=== PATIENT | female | born 1955 | race Caucasian/White ===

== ENCOUNTER 2016-12-02 08:49 | Outpatient (CLI) | payer MEDICARE, OTHER ==
[~2016-12-02] VITALS: Ht 152.4 cm; Wt 120.2 kg
[~2016-12-02 08:49] MED LIST: ALPR1T GT; AMIT25TA9 PO; AMLO10TA PO; ASP81TEC PO; BACL10TA PO; CEPH500C PO; CYAN10007 PO; DULO60CA6 PO; ERGO2000 PO; FOLI1TAB24 PO; GLIP10TA13 PO; LEVO75TA6 PO; METO100T5 PO; NYSTOP; PNT40TEC PO; TRAM50TA2 PO
--- OUTSIDE RECORDS SUMMARY | 2016-12-02 08:52 | XMS REPORT | Continuity of Care Document ---
Author Author [facility] Organization [facility] Address Unknown Phone Unavailable Care Team Providers Care Shell Shop Supervisor Name Role Phone Gala Bourgeois PCP [phone] Source Comments Some departments are not documenting in the electronic medical record. If you do not see the information that you expected, contact Release of Information in the Health Information Management department at [phone] for further assistance in locating additional records.[facility] Active Allergies and Adverse Reactions Allergen Noted Date Severity Reactions Comments Bactrim 07/03/2014 HIVES Morphine 07/03/2014 HIVES Percocet 07/03/2014 HIVES Sulfa (Sulfonamide 07/03/2014 HIVES Antibiotics) Current Medications Prescription Sig. Disp. Refills Start End Date Status Date pioglitazone (ACTOS) 15 Take 15 mg by mouth Active mg tablet daily. amLODIPine (NORVASC) 10 Take 10 mg by mouth Active mg tablet daily. levothyroxine (SYNTHROID) Take 75 mcg by mouth Active 75 mcg tablet daily. ALPRAZolam (XANAX) 1 mg Take 1 mg by mouth twice Active tablet daily. omeprazole DR(+) Take 20 mg by mouth Active (PRILOSEC) 20 mg capsule daily. amitriptyline (ELAVIL) 25 Take 25 mg by mouth at Active mg tablet bedtime daily. cephalexin (KEFLEX) 500 Take 500 mg by mouth Active mg capsule daily. traMADol (ULTRAM) 50 mg Take 100 mg by mouth Active tablet daily. baclofen (LIORESAL) 10 mg Take 10 mg by mouth three Active tablet times daily. metoprolol XL (TOPROL XL) Take 100 mg by mouth Active 100 mg tablet daily. Cholecalciferol (Vitamin Take 1 Cap by mouth twice Active D3) (VITAMIN D-3) 2,[address] cap D[address] (CYMBALTA) Take 60 mg by mouth Active 60 mg capsule daily. folic acid (FOLVITE) 1 mg Take 1 mg by mouth daily. Active tablet aspirin EC 81 mg tablet Take 81 mg by mouth Active daily. Cyanocobalamin (VITAMIN Take 1 Tab by mouth Active B-12) 1,000 mcg TbER daily. glipiZIDE (GLUCOTROL) 10 Take 10 mg by mouth twice Active mg tablet daily. nystatin (NYSTOP) 100,000 Apply to affected area Active unit/g topical powder four times daily. CALCITRIOL PO Take 0.25 mcg by mouth Active daily. Active Problems Problem Noted Date Morbid obesity (HCC) 07/15/2014 Social History Tobacco Use Types Packs/Day Years Used Date Never Smoker Last Filed Vital Signs Vital Sign Reading Time Taken Blood Pressure 145/62 07/03/2014 1:13 PM CDT Pulse 65 07/03/2014 1:13 PM CDT Temperature 36.2 C (97.2 F) 07/03/2014 1:13 PM CDT Respiratory Rate 14 07/03/2014 1:13 PM CDT Height 1.575 m (5' 2") 07/03/2014 1:13 PM CDT Weight 128.096 kg (282 lb 6.4 07/03/2014 1:13 PM CDT oz) Body Mass Index 51.64 07/03/2014 1:13 PM CDT Oxygen Saturation - - Plan of Care Health Maintenance Due Date Last Done Comments Physical (Comprehensive) 1960 Exam Pertussis Vaccine 1964 Tetanus Vaccine 1970 Cervical Cancer Screening 1974 Breast Cancer Screening 1993 Colorectal Cancer 2003 Screening Shingles Vaccine 2013 Influenza Vaccine 06/30/2016 Results from Last 3 Months Not on file
[2016-12-02] MEDS ORDERED: LIDOCAINE 1% INJ 20 ML (XYLOCAINE) VIAL ONE (09:05)
[2016-12-02] MEDS ORDERED: BUPIVACAINE 0.5% 30 ML (SENSORCAINE) VIAL ONE (09:05)
[2016-12-02] MEDS ORDERED: TRIAMCINOLONE ACET (KENALOG-40) 40 MG/ML 1 ML VIAL ONE (09:05)
[2016-12-02 09:17] VITALS: BP 150/76
[2016-12-02 10:00] VITALS: BP 165/71
--- NOTE | 2016-12-02 12:08 | Pain Medicine-Procedure ---
Procedure Pre-Op/Post-Op Diagnosis Diagnosis: spondylosis without myelopathy, lumbar Indications for Operation Low back pain Attending Surgeon Rich Procedure Date of Service: Dec 02, 2016 PROCEDURE: Bilateral lumbar medial branch block at L3,L4, L5 and sacral ala under fluoroscopic guidance. PROCEDURE DETAILS: After obtaining an informed consent from the patient, the patient's chart was reviewed. The patient was brought to the procedure room and placed in a prone position. The back was prepped with antiseptic solution, and under fluoroscopic guidance the sacral ala was identified bilaterally. 0.5 cc of 1% Lidocaine to anesthetize the skin. Two 22 gauge 3.5 inch spinal needles were inserted under fluoroscopic guidance until it got in touch with the bone at the sacral ala bilaterally. Then under right oblique fluoroscopy, the junction of the superior articular process and transverse process on the right at L3, L4, and L5 was identified. 0.5 cc of 1% Lidocaine was used to anesthetize the skin. A 22 gauge 3.5 inch spinal needle was inserted through the skin under fluoroscopic guidance until it came in touch with the bone at the junction between the superior articular process and transverse process at each level. The exact steps were repeated for the left side. After needle aspiration,80 mg of kenalog total was injected in equal alliquots followed by 0.5 cc of 0.5% bupivacaine at each. The patient tolerated the procedure well. The needles were flushed and removed, and a Band-Aide was applied. Complications None KEYANA MULLER MD Dec 02, 2016 12:08 pm
== END 2016-12-02 10:05 | disposition home or self-care (01) ==
LOC: CARD 08:49
PROVIDERS: ATTEND Pain Medicine Pain Medicine
DX: M47.816 Spondylosis without myelopathy or radiculopathy, lumbar region (principal); M53.3 Sacrococcygeal disorders, not elsewhere classified; Z79.899 Other long term (current) drug therapy
CPT/HCPCS: 64493; 64494; 64495; 82962

== ENCOUNTER 2016-12-30 12:56 | Outpatient (CLI) | payer MEDICARE, OTHER ==
[~2016-12-30] VITALS: Ht 157.5 cm; Wt 117.9 kg
--- OUTSIDE RECORDS SUMMARY | 2016-12-30 12:59 | XMS REPORT | Continuity of Care Document ---
Author Author [facility] Organization [facility] Address Unknown Phone Unavailable Care Team Providers Care Supervisory Training Specialist Name Role Phone Gala Bourgeois PCP [phone] Source Comments Some departments are not documenting in the electronic medical record. If you do not see the information that you expected, contact Release of Information in the Health Information Management department at [phone] for further assistance in locating additional records.[facility] Active Allergies and Adverse Reactions Allergen Noted [...]
[2016-12-30] MEDS ORDERED: LIDOCAINE 1% INJ 20 ML (XYLOCAINE) VIAL ONE (13:05)
[2016-12-30] MEDS ORDERED: BUPIVACAINE 0.25% 30 ML (SENSORCAINE) VIAL ONE (13:05)
[2016-12-30] MEDS ORDERED: TRIAMCINOLONE ACET (KENALOG-40) 40 MG/ML 1 ML VIAL ONE (13:05)
[2016-12-30 13:15] VITALS: BP 204/86
[2016-12-30 13:55] VITALS: BP 214/83
--- NOTE | 2016-12-30 15:00 | Pain Medicine-Procedure ---
Procedure Pre-Op/Post-Op Diagnosis Diagnosis: sacrococcygeal disorder Indications for Operation hip pain Attending Surgeon Rich Procedure Date of Service: Dec 30, 2016 Procedure: Flouroscopic guided left sacroiliac joint injection PROCEDURE IN DETAIL: After obtaining informed consent from the patient, the patient's chart was reviewed. The patient was then brought to the procedure room and placed in the prone position. A time out was performed. The back was prepped with antiseptic solution and under fluoroscopic guidance the patient's sacroiliac joint on the left side was identified. Left sacroiliac joint was identified with fluoroscopic guidance and 2 mL's of 1% lidocaine was used to anesthestize the skin and then one 22-gauge 3.5 inch spinal needle was inserted and advance under flouroscopic guidance until it was in the posterior inferior 1 /3 of the SI joint on the left side. After negative aspiration, needle was injected with 80 mg of Kenalog along with 2 mL's of 0.25% marcaine. Needle was then flushed with 1% lidocaine and then removed. Band-Aids were applied to all the sites and the patient tolerated the procedure well and was taken to the recovery area in stable condition. Complications none KEYANA MULLER MD Dec 30, 2016 3:00 pm
== END 2016-12-30 13:57 | disposition home or self-care (01) ==
LOC: CARD 12:56
PROVIDERS: ATTEND Pain Medicine Pain Medicine
DX: M53.3 Sacrococcygeal disorders, not elsewhere classified (principal); M47.816 Spondylosis without myelopathy or radiculopathy, lumbar region; Z79.899 Other long term (current) drug therapy
CPT/HCPCS: 27096; 82962

== ENCOUNTER 2017-01-13 08:11 | Outpatient (CLI) | payer MEDICARE, OTHER ==
[~2017-01-13] VITALS: Ht 157.5 cm; Wt 117.9 kg
--- OUTSIDE RECORDS SUMMARY | 2017-01-13 08:14 | XMS REPORT | Continuity of Care Document ---
Author Author [facility] Organization [facility] Address Unknown Phone Unavailable Care Team Providers Care Staff Midwife/Apprenticeship Director Name Role Phone Gala Bourgeois PCP [phone] Source Comments Some departments are not documenting in the electronic medical record. If you do not see the information that you expected, contact Release of Information in the Health Information Management department at [phone] for further assistance in locating additional records.[facility] Active Allergies and Adverse Reactions Allergen [...]
[2017-01-13] MEDS ORDERED: BUPIVACAINE 0.5% 30 ML (SENSORCAINE) VIAL ONE (08:15)
[2017-01-13] MEDS ORDERED: TRIAMCINOLONE ACET (KENALOG-40) 40 MG/ML 1 ML VIAL ONE (08:15)
[2017-01-13] MEDS ORDERED: LIDOCAINE 1% INJ 20 ML (XYLOCAINE) VIAL ONE (08:16)
[2017-01-13 08:28] VITALS: BP 120/57
[2017-01-13 09:13] VITALS: BP 135/63
--- NOTE | 2017-01-13 11:56 | Pain Medicine-Procedure ---
Procedure Pre-Op/Post-Op Diagnosis Diagnosis: spondylosis without myelopathy, lumbar Indications for Operation Low back pain Attending Surgeon Rich Procedure Date of Service: Jan 13, 2017 PROCEDURE: Bilateral lumbar medial branch block at L3,L4, L5 and sacral ala under fluoroscopic guidance. PROCEDURE DETAILS: After obtaining an informed consent from the patient, the patient's chart was reviewed. The patient was brought to the procedure room and placed in a prone position. The back was prepped with antiseptic solution, and under fluoroscopic guidance the sacral ala was identified bilaterally. 0.5 cc of 1% Lidocaine to anesthetize the skin. Two 22 gauge 3.5 inch spinal needles were inserted under fluoroscopic guidance until it got in touch with the bone at the sacral ala bilaterally. Then under right oblique fluoroscopy, the junction of the superior articular process and transverse process on the right at L3, L4, and L5 was identified. 0.5 cc of 1% Lidocaine was used to anesthetize the skin. A 22 gauge 3.5 inch spinal needle was inserted through the skin under fluoroscopic guidance until it came in touch with the bone at the junction between the superior articular process and transverse process at each level. The exact steps were repeated for the left side. After needle aspiration,80 mg of kenalog total was injected in equal alliquots followed by 0.5 cc of 0.5% bupivacaine at each. The patient tolerated the procedure well. The needles were flushed and removed, and a Band-Aide was applied. Complications None KEYANA MULLER MD Jan 13, 2017 11:56 am
== END 2017-01-13 09:14 | disposition home or self-care (01) ==
LOC: CARD 08:11
PROVIDERS: ATTEND Pain Medicine Pain Medicine
DX: M47.816 Spondylosis without myelopathy or radiculopathy, lumbar region (principal); M53.3 Sacrococcygeal disorders, not elsewhere classified; Z79.899 Other long term (current) drug therapy
CPT/HCPCS: 64493; 64494; 64495; 82962

== ENCOUNTER 2017-06-09 14:33 | Emergency (ER) | payer MEDICARE, OTHER ==
[~2017-06-09] VITALS: Ht 157.5 cm; Wt 104.3 kg
--- OUTSIDE RECORDS SUMMARY | 2017-06-09 14:41 | XMS REPORT | Clinical Summary ---
Author Author [facility] Organization [facility] Address Unknown Phone Unavailable Care Team Providers Care Gas Engine Repairer Name Role Phone PCP Unavailable Source Comments Some departments are not documenting in the electronic medical record. If you do not see the information that you expected, contact Release of Information in the Health Information Management department at [phone] for further assistance in locating additional records.[facility] Allergies Active Allergy Reactions Severity Noted Date Comments Sulfamethoxazole-Trimetho HIVES 07/03/2014 prim Morphine HIVES 07/03/2014 Oxycodone-Acetaminophen HIVES 07/03/2014 Sulfa (Sulfonamide HIVES 07/03/2014 Antibiotics) Current Medications Prescription Sig. Disp. Refills [...] Types Packs/Day Years Used Date Never Smoker Sex Assigned at Date Recorded Not on file Last Filed Vital Signs Vital Sign Reading Time Taken Blood Pressure 145/62 07/03/2014 1:13 PM CDT Pulse 65 07/03/2014 1:13 PM CDT Temperature 36.2 C (97.2 F) 07/03/2014 1:13 PM CDT Respiratory Rate 14 07/03/2014 1:13 PM CDT Oxygen Saturation - - Inhaled Oxygen - - Concentration Weight 128.1 kg (282 lb 6.4 oz) 07/03/2014 1:13 PM CDT Height 157.5 cm (5' 2") 07/03/2014 1:13 PM CDT Body Mass Index 51.65 07/03/2014 1:13 PM CDT Plan of Treatment Health Maintenance Due Date Last Done Comments HEPATITIS C SCREENING 1955 PHYSICAL (COMPREHENSIVE) 1960 EXAM PERTUSSIS VACCINE 1964 TETANUS VACCINE 1970 CERVICAL CANCER SCREENING 1983 BREAST CANCER SCREENING 1993 COLORECTAL CANCER 2003 SCREENING SHINGLES VACCINE 2013 INFLUENZA VACCINE 06/30/2017 Results Not on filefrom Last 3 Months
[2017-06-09] MEDS ORDERED: D5 NS 1000 ML IV SOLUTION 1,000 ML IV ONE (15:04)
[2017-06-09 15:12] LABS: BASOPHILS % (AUTO) 0 % (0-10); EOSINOPHILS # (AUTO) 0.2 10^3/uL (0.0-0.3); EOSINOPHILS % (AUTO) 2 % (0-10); LYMPHOCYTES # (AUTO) 1.4 X 10^3 (1.0-4.0); LYMPHOCYTES % (AUTO) 17 % (12-44); MEAN CORPUSCULAR HEMOGLOBIN 26 PG (25-34); MEAN CORPUSCULAR HGB CONC 30 G/DL (32-36); MEAN CORPUSCULAR VOLUME 86 FL (80-99); MEAN PLATELET VOLUME 11.6 FL (7.4-10.4); MONOCYTES # (AUTO) 0.4 X 10^3 (0.0-1.0); MONOCYTES % (AUTO) 6 % (0-12); NEUTROPHILS # (AUTO) 5.9 X 10^3 (1.8-7.8); NEUTROPHILS % (AUTO) 75 % (42-75); PLATELET COUNT 217 10^3/uL (130-400); RED BLOOD COUNT 4.08 10^6/uL (4.35-5.85); RED CELL DISTRIBUTION WIDTH 13.8 % (10.0-14.5); WHITE BLOOD COUNT 7.9 10^3/uL (4.3-11.0)
[2017-06-09 15:13] LABS: BILIRUBIN,URINE NEGATIVE (NEGATIVE); KETONES,URINE NEGATIVE (NEGATIVE); LEUKOCYTE ESTERASE ,URINE NEGATIVE (NEGATIVE); NITRITE,URINE NEGATIVE (NEGATIVE); PH,URINE 6 (5-9); PROTEIN,URINE NEGATIVE (NEGATIVE); UROBILINOGEN,URINE NORMAL (NORMAL)
[2017-06-09 15:25] LABS: ALBUMIN 2.2 GM/DL (3.2-4.5); BILIRUBIN,TOTAL 0.6 MG/DL (0.1-1.0); CALCIUM 8.2 MG/DL (8.5-10.1); CREATININE SERUM 1.38 MG/DL (0.60-1.30); MAGNESIUM 1.3 MG/DL (1.8-2.4); POTASSIUM 3.1 MMOL/L (3.6-5.0); TOTAL PROTEIN 5.4 GM/DL (6.4-8.2)
--- NOTE | 2017-06-09 15:35 | ED General ---
General Chief Complaint: Glucose Problems Stated Complaint: WEAKNESS/SHAKEY Nursing Triage Note: PT REPORTS SHE HAS BEEN HAVING "EPISODES" WHERE SHE FEELS WEAK AND SHAKY. TODAY SHE STATES SHE FELT THIS WAY, SO SHE DRANK A DR PEPPER AND THEN CHECKED HER BLOOD SUGAR, WHICH WAS 44. Nursing Sepsis Screen: No Definite Risk History of Present Illness Time Seen by Provider: 15:00 Initial Comments Patient presents for feeling weak and shaky, she states her Accu-Chek was 44 home. She reports since August 2016 she has lost 50 pounds, she has not doing anything to change her weight. She reports having these "spells" where she becomes dizzy and shaky, it is usually related to a low blood sugar. She has seen her geothermal plant manager and geographic analyst to have not changed her medications related to the weight loss based on her labs. She reports no appetite and night sweats. She does have previous history of open cholecystectomy and laparotomy with stapling of her stomach, and reversal the stapling. Timing/Duration: Intermittent Modifying Factors: improves with Rest, improves with Other (eating) Associated Systoms: No Chest Pain, No Cough, No Diaphoresis, No Fever/Chills, Loss of Appetite (reports food smells good that she has to make herself eat 2-3 by), Malaise, No Nausea/Vomiting, No Seizure, No Syncope, Weakness Allergies and Home Medications Allergies Coded Allergies: Oxycodone (Unverified Allergy, Unknown, 04/30/14) Sulfa (Sulfonamide Antibiotics) (Unverified Allergy, Unknown, 04/30/14) acetaminophen (Unverified Allergy, Unknown, 04/30/14) codeine (Unverified Allergy, Unknown, 04/30/14) sulfamethoxazole (Unverified Allergy, Unknown, 04/30/14) trimethoprim (Unverified Allergy, Unknown, 04/30/14) Home Medications Alprazolam 1 Mg Tab, 1 MG GT BID, (Reported) Amitriptyline Hcl 25 Mg Tab, 25 MG PO HS, (Reported) Amlodipine Besylate 10 Mg Tablet, 10 MG PO HS, (Reported) Aspirin 81 Mg Tabec, 81 MG PO DAILY, (Reported) Baclofen 10 Mg Tablet, 1 EACH PO TID, (Reported) Cephalexin Monohydrate 500 Mg Capsule, 1 EACH PO DAILY, (Reported) Cyanocobalamin 1,000 Mcg Tablet.sa, 1,000 MCG PO DAILY, (Reported) Duloxetine Hcl 60 Mg Capsule.dr, 1 CAP PO DAILY, (Reported) Ergocalciferol (Vitamin D2) 2,000 Unit Tablet, 2,000 UNIT PO BID, (Reported) Folic Acid 1 Mg Tablet, 1 MG PO DAILY, (Reported) Glipizide 10 Mg Tablet, 1 EACH PO BID, (Reported) Levothyroxine Sodium 75 Mcg Tablet, 75 MCG PO DAILY, (Reported) Metoprolol Succinate 100 Mg Tab.sr.24h, 1 EACH PO DAILY, (Reported) Pantoprazole Sodium 40 Mg Tablet.dr, 1 TAB PO DAILY for 90 Days Prescribed by: KIMBER FELIPE on 05/07/14 1011 Tramadol Hcl 50 Mg Tablet, 50 MG PO DAILY, (Reported) [Nystop Topical ] , 100 UNITS TID PRN for YEAST, (Reported) Constitutional: no symptoms reported, see HPI Gastrointestinal: see HPI, loss of appetite All Other Systems Reviewed Negative Unless Noted: Yes Past Wfzaezi-Joxezc-Bgtffi Hx Patient Social History Alcohol Use: Denies Use Recreational Drug Use: No Smoking Status: Never a Smoker 2nd Hand Smoke Exposure: No Recent Foreign Travel: No Contact w/Someone Who Travel: No Recent Infectious Disease Expo: No Immunizations Up To Date Date of Pneumonia Vaccine: Oct 12, 2010 Date of Influenza Vaccine: Aug 07, 2013 Surgeries HX Surgeries: Yes Surgeries: Abdominal, Appendectomy, Gallbladder Respiratory Hx Respiratory Disorders: No Cardiovascular Hx Cardiac Disorders: No Cardiac Disorders: Hypertension Neurological Hx Neurological Disorders: No Gastrointestinal Hx Gastrointestinal Disorders: No Musculoskeletal Hx Musculoskeletal Disorders: Yes (ARTHRITIS; IN BONES; KNEES; JOINTS) Endocrine Hx Endocrine Disorders: No Endocrine Disorders: Diabetes, Non-Insulin dep Reviewed Nursing Assessment Reviewed/Agree w Nursing PMH: Yes Physical Exam Vital Signs Vital Sign - Last 12Hours 06/09/17 15:08 Temp 98.1 Pulse 60 Resp 20 B/P (MAP) 185/79 Pulse Ox 97 O2 Delivery Room Air Capillary Refill : Less Than 3 Seconds General Appearance: No Apparent Distress, WD/WN HEENT: TMs Normal, Normal ENT Inspection, Pharynx Normal Neck: Full Range of Motion, Normal Inspection, Non Tender, Supple Respiratory: Chest Non Tender, Lungs Clear, Normal Breath Sounds Cardiovascular: Regular Rate, Rhythm, No Edema, No Murmur Gastrointestinal: Normal Bowel Sounds, Non Tender, Distended, Mass (epigastric) , Other (well-healed midline and upper right quadrant incisions, with chronic fibrosis and thickening of the skin) Neurologic/Psychiatric: Oriented x3, No Motor/Sensory Deficits, Normal Mood/ Affect Lymphatic: No Adenopathy Progress/Results/Core Measures Results/Orders Lab Results Laboratory Tests Test 06/09/17 14:54 06/09/17 15:00 06/09/17 15:54 Range/Units Glucometer 44 *L 82 70-110 MG/DL White Blood Count 7.9 4.3-11.0 10^3/uL Red Blood Count 4.08 L 4.35-5.85 10^6/uL Hemoglobin 10.6 L 11.5-16.0 G/DL Hematocrit 35 35-52 % Mean Corpuscular Volume 86 80-99 FL Mean Corpuscular Hemoglobin 26 25-34 PG Mean Corpuscular Hemoglobin Concent 30 L 32-36 G/DL Red Cell Distribution Width 13.8 10.0-14.5 % Platelet Count 217 130-400 10^3/uL Mean Platelet Volume 11.6 H 7.4-10.4 FL Neutrophils (%) (Auto) 75 42-75 % Lymphocytes (%) (Auto) 17 12-44 % Monocytes (%) (Auto) 6 0-12 % Eosinophils (%) (Auto) 2 0-10 % Basophils (%) (Auto) 0 0-10 % Neutrophils # (Auto) 5.9 1.8-7.8 X 10^3 Lymphocytes # (Auto) 1.4 1.0-4.0 X 10^3 Monocytes # (Auto) 0.4 0.0-1.0 X 10^3 Eosinophils # (Auto) 0.2 0.0-0.3 10^3/uL Basophils # (Auto) 0.0 0.0-0.1 10^3/uL Urine Color YELLOW Urine Clarity CLEAR Urine pH 6 5-9 Urine Specific [place] 1.010 L 1.016-1.022 Urine Protein NEGATIVE NEGATIVE Urine Glucose (UA) NEGATIVE NEGATIVE Urine Ketones NEGATIVE NEGATIVE Urine Nitrite NEGATIVE NEGATIVE Urine Bilirubin NEGATIVE NEGATIVE Urine Urobilinogen NORMAL NORMAL MG/DL Urine Leukocyte Esterase NEGATIVE NEGATIVE Urine RBC (Auto) NEGATIVE NEGATIVE Urine RBC NONE /HPF Urine WBC 0-2 /HPF Urine Squamous Epithelial Cells 0-2 /HPF Urine Crystals NONE /LPF Urine Bacteria TRACE /HPF Urine Casts NONE /LPF Urine Mucus NEGATIVE /LPF Urine Culture Indicated NO Sodium Level 142 135-145 MMOL/L Potassium Level 3.1 L 3.6-5.0 MMOL/L Chloride Level 105 98-107 MMOL/L Carbon Dioxide Level 28 21-32 MMOL/L Anion Gap 9 5-14 MMOL/L Blood Urea Nitrogen 23 H 7-18 MG/DL Creatinine 1.38 H 0.60-1.30 MG/DL Estimat Glomerular Filtration Rate 39 BUN/Creatinine Ratio 17 Glucose Level 37 *L 70-105 MG/DL Calcium Level 8.2 L 8.5-10.1 MG/DL Magnesium Level 1.3 L 1.8-2.4 MG/DL Total Bilirubin 0.6 0.1-1.0 MG/DL Aspartate Amino Transf (AST/SGOT) 178 H 5-34 U/L Alanine Aminotransferase (ALT/SGPT) 123 H 0-55 U/L Alkaline Phosphatase 1084 H 40-136 U/L Total Protein 5.4 L 6.4-8.2 GM/DL Albumin 2.2 L 3.2-4.5 GM/DL Amylase Level 19 L 25-125 U/L Lipase 23 8-78 U/L TSH [place] Testing 1.04 0.35-4.94 UIU/ML My Orders Orders - FAISAL GALLO General/Regular (06/09/17 Lunch) Saline Lock/Iv-Start (06/09/17 15:04) D5 Ns 1000 Ml Iv Solution (Dextrose 5%/0 (06/09/17 15:04) Amylase (06/09/17 15:04) Cbc With Automated Diff (06/09/17 15:04) Comprehensive Metabolic Panel (06/09/17 15:04) Lipase (06/09/17 15:04) Magnesium (06/09/17 15:04) Thyroid Analyzer (06/09/17 15:04) Ua Culture If Indicated (06/09/17 15:04) Accucheck Stat ONCE (06/09/17 15:06) Accucheck Stat ONCE (06/09/17 15:36) Ct Abdomen/Pelvis W (06/09/17 15:38) Iohexol Injection (Omnipaque 350 Mg/Ml 1 (06/09/17 15:45) Saline Lock/Iv-Start (06/09/17 16:13) Ns Iv 500 Ml (Sodium Chloride 0.9%) (06/09/17 16:13) Potassium Chloride (Tablet) (K Dur Table (06/09/17 18:00) Medications Given in ED Current Medications Medications Dose Ordered Sig/Salty Route Start Time Stop Time Status Last Admin Dose Admin Dextrose/Sodium Chloride 1,000 ml @ 0 mls/hr Q0M ONCE IV 06/09/17 15:04 06/09/17 15:06 DC 06/09/17 15:19 0 MLS/HR Iohexol 100 ml ONCE ONCE IV 06/09/17 15:45 06/09/17 15:46 DC 06/09/17 16:26 70 ML Potassium Chloride 40 meq ONCE ONCE PO 06/09/17 18:00 06/09/17 18:01 DC 06/09/17 18:12 40 MEQ Sodium Chloride 500 ml @ 0 mls/hr Q0M ONCE IV 06/09/17 16:13 06/09/17 16:17 DC 06/09/17 17:15 0 MLS/HR Vital Signs/I&O Vital Sign - Last 12Hours 06/09/17 06/09/17 15:08 18:15 Temp 98.1 98.1 Pulse 60 62 Resp 20 16 B/P (MAP) 185/79 Pulse Ox 97 97 O2 Delivery Room Air Room Air Blood Pressure Mean: 114 Point of Care Testing Finger Stick Blood Glucose: 44 Blood Glucose Action Taken: NOTIFIED Progress Note : Time: 14:50 Progress Note Initial evaluation completed, Accu-Chek 44, the patient given gregory crackers and peanut butter. IV established and D5 normal saline 1 L to infuse. Will obtain CBC, UA, CMP, amylase lipase and TSH. Initial assessment completed with Dr. Briceno, reviewed plan of care and he concurred. 1515 UA and CBC essentially normal, glucose 37, potassium 3.1, BUNs 23, creatinine 1.38, calcium 8.2, magnesium 1.3, AST 178, a LT 123, alkaline phosphatase 1084, total protein 5.4, albumin 2.2, amylase 19. Based on these labs will do a CT abdomen and pelvis with contrast. Potassium 40 mEq by mouth. [address] normal saline 500 ML's IV. 1630 IV fluids continuing to infuse, discussed results of CT and labs with patient. Patient education regarding proper foods to eat when having an hypoglycemic event. She will follow up with Dr. Bourgeois, Diagnostic Imaging Diagonstic Imaging: CT Plain Films/CT/US/NM/MRI: abdomen, pelvis Comments NAME: JOCELINE MCKEON [facility] REC#: [id number] PT STATUS: REG ER : 1955 PHYSICIAN: FAISAL GALLO FIELD PROFESSIONAL ADMIT DATE: 06/09/17/ER Draft Date of Exam:06/09/17 CT ABDOMEN/PELVIS W PROCEDURE: CT abdomen and pelvis with contrast. TECHNIQUE: Multiple contiguous axial images were obtained through the abdomen and pelvis after administration of intravenous contrast. INDICATION: Unexplained 50-pound weight loss with firm palpable fullness to the midline abdomen on physical exam. FINDINGS: There are apparent vertical postsurgical changes and incision to the anterior abdominal wall. At its superior margin periumbilical is thickening and hyperdensity of the superficial margin of the rectus sheath bilaterally and soft tissue nodularity and thickening along the umbilicus stalk. This is presumed to reflect the palpable abnormality. This could reflect a keloid and scar formation on a postoperative basis however this would be a chronic finding. If this reflects a change in physical exam or if its chronic stability cannot be confirmed, I would recommend tissue sampling. If image guidance is desired, this could be performed with CT. Process measures an AP thickness of maximal 2.7 cm with transverse dimension of about 6.6 cm. Remaining anterior abdominal wall is unremarkable aside from some chronic muscle atrophy and fatty replacement. The lung bases were clear. The liver suggests mild hepatic steatosis. The gallbladder is surgically absent. There is mild post cholecystectomy ectasia of the biliary ducts. No pathological ductal distention. Spleen is negative. There is no adrenal mass. Extensive postsurgical changes to the upper abdomen. Pancreas appeared unremarkable. There is ingested material within the residual gastric lumen. No findings of small or large bowel obstruction, however. The unprepped colon did not contain an abnormal fecal load and showed no acute or focal abnormality at this exam. There is no abdominopelvic mesenteric or retroperitoneal adenopathy. The uterus is absent. There is no adnexal lesion. The urinary bladder is unremarkable. Kidneys are unremarkable. There is no urinary tract obstruction. There is no adrenal mass. The osseous structures of the abdomen and pelvis are unremarkable with degenerative changes and postoperative spinal fusion and decompression noted. IMPRESSION: 1. Abdominal wall and cutaneous thickening, predominantly periumbilical, may reflect scarring and keloid formation. Neoplastic infiltration cannot be excluded. If this cannot be confirmed as a chronic finding, tissue sampling recommended and if image guidance is desired, this could be performed with CT localization. 2. No intraperitoneal or retroperitoneal mass. No bowel, biliary, or urinary tract obstruction. Extensive postoperative changes noted. No fluid collection, ascites, or inflammatory process. No adenopathy. Dictated on workstation # [id number] Dict: 06/09/17 1638 Trans: 06/09/17 1651 [id number] Interpreted by: NAHUN BRUNNER Electronically signed by Reviewed: Reviewed by Me Departure Impression Impression: Primary Impression: Hypoglycemia associated with diabetes Disposition: 01 HOME, SELF-CARE Condition: Improved Departure-Patient Inst. Decision time for Depature: 16:45 Referrals: SANTINO BOURGEOIS MD (PCP/Family) Primary Care Physician Patient Instructions: Low Blood Sugar, Adult (DC) Add. Discharge Instructions: Continue to increase daily water intake. Follow-up with Dr. Watson if continued below glucose levels. Return to emergency department for weakness, hypoglycemia, or new problems. Avoid using soda pop for low blood sugar, small glass of orange juice and peanut butter/crackers would be more appropriate. All discharge instructions reviewed with patient and/or family. Voiced understanding. Copy Copies To 1: SANTINO BOURGEOIS MD, AMY ARNP Jun 09, 2017 15:35
[2017-06-09 15:40] LABS: SQUAMOUS EPITHELIAL CELL,UR 0-2 /HPF; WBC,URINE 0-2 /HPF
[2017-06-09] MEDS ORDERED: IOHEXOL 350 MG/ML 100 ML (OMNIPAQUE 350) VIAL IV ONE (15:45)
[2017-06-09] MEDS ORDERED: NS IV 500 ML 500 ML IV ONE (16:13)
--- NOTE | 2017-06-09 16:52 | Diagnostic Imaging Report ---
PROCEDURE: CT abdomen and pelvis with contrast. TECHNIQUE: Multiple contiguous axial images were obtained through the abdomen and pelvis after administration of intravenous contrast. INDICATION: Unexplained 50-pound weight loss with firm palpable fullness to the midline abdomen on physical exam. FINDINGS: There are apparent vertical postsurgical changes and incision to the anterior abdominal wall. At its superior margin periumbilical is thickening and hyperdensity of the superficial margin of the rectus sheath bilaterally and soft tissue nodularity and thickening along the umbilicus stalk. This is presumed to reflect the palpable abnormality. This could reflect a keloid and scar formation on a postoperative basis however this would be a chronic finding. If this reflects a change in physical exam or if its chronic stability cannot be confirmed, I would recommend tissue sampling. If image guidance is desired, this could be performed with CT. Process measures an AP thickness of maximal 2.7 cm with transverse dimension of about 6.6 cm. Remaining anterior abdominal wall is unremarkable aside from some chronic muscle atrophy and fatty replacement. The lung bases were clear. The liver suggests mild hepatic steatosis. The gallbladder is surgically absent. There is mild post cholecystectomy ectasia of the biliary ducts. No pathological ductal distention. Spleen is negative. There is no adrenal mass. Extensive postsurgical changes to the upper abdomen. Pancreas appeared unremarkable. There is ingested material within the residual gastric lumen. No findings of small or large bowel obstruction, however. The unprepped colon did not contain an abnormal fecal load and showed no acute or focal abnormality at this exam. There is no abdominopelvic mesenteric or retroperitoneal adenopathy. The uterus is absent. There is no adnexal lesion. The urinary bladder is unremarkable. Kidneys are unremarkable. There is no urinary tract obstruction. There is no adrenal mass. The osseous structures of the abdomen and pelvis are unremarkable with degenerative changes and postoperative spinal fusion and decompression noted. IMPRESSION: 1. Abdominal wall and cutaneous thickening, predominantly periumbilical, may reflect scarring and keloid formation. Neoplastic infiltration cannot be excluded. If this cannot be confirmed as a chronic finding, tissue sampling recommended and if image guidance is desired, this could be performed with CT localization. 2. No intraperitoneal or retroperitoneal mass. No bowel, biliary, or urinary tract obstruction. Extensive postoperative changes noted. No fluid collection, ascites, or inflammatory process. No adenopathy. Dictated by: Dictated on workstation # [id number]
[2017-06-09] MEDS ORDERED: KCL 20 MEQ TAB (K-DUR) PO ONE (18:00)
[2017-06-09 18:15] VITALS: BP 168/74
== END 2017-06-09 18:15 | disposition home or self-care (01) ==
LOC: EDUNIT# 14:33 → ER 14:36
DX: E11.649 Type 2 diabetes mellitus with hypoglycemia without coma (principal); I10 Essential (primary) hypertension; M17.0 Bilateral primary osteoarthritis of knee; Z79.82 Long term (current) use of aspirin; Z79.84 Long term (current) use of oral hypoglycemic drugs; Z90.49 Acquired absence of other specified parts of digestive tract
CPT/HCPCS: 36415; 74177; 80053; 81000; 82150; 82962; 83690; 83735; 84443; 85025

== ENCOUNTER → 2017-06-12 | Outpatient (CLI) | payer MEDICARE, OTHER ==
[~2017-06-12] MED LIST changes: +ALPR1TAB7 PO; +CEPH500T PO; +CYAN100088 PO; +DOXY100T19 PO; +DULO60CA58 PO; +ERGO50006 PO; +LOVA10TA PO; +METO-395 PO; +PANT40TA2 PO; +TRAM300T17 PO; +TRAZ100T92 PO
== END ==
LOC: LABNPT 11:31
PROVIDERS: ATTEND Family Medicine
DX: R74.8 Abnormal levels of other serum enzymes (principal)
CPT/HCPCS: 82977

== ENCOUNTER → 2017-07-06 | Outpatient (CLI) | payer MEDICARE, OTHER ==
[~2017-07-06] MED LIST changes: -ALPR1TAB7 PO; -CEPH500T PO; -CYAN100088 PO; -DOXY100T19 PO; -DULO60CA58 PO; -ERGO50006 PO; -LOVA10TA PO; -METO-395 PO; -PANT40TA2 PO; -TRAM300T17 PO; -TRAZ100T92 PO
== END ==
LOC: CARD 11:50
PROVIDERS: ATTEND Internal Medicine Cardiovascular Disease
DX: J44.9 Chronic obstructive pulmonary disease, unspecified (principal); E13.9 Other specified diabetes mellitus without complications; I10 Essential (primary) hypertension; R06.02 Shortness of breath; R07.89 Other chest pain
CPT/HCPCS: 93306

== ENCOUNTER 2017-07-18 10:45 | Outpatient (CLI) | payer MEDICARE, OTHER ==
[~2017-07-18] VITALS: Ht 157.5 cm; Wt 104.3 kg
[2017-07-18] MEDS ORDERED: TRAZ100T92 PO (11:15)
[2017-07-18] MEDS ORDERED: ALPR1TAB7 PO (11:15)
[2017-07-18] MEDS ORDERED: LEVO75TA6 PO (11:15)
[2017-07-18] MEDS ORDERED: DULO60CA58 PO (11:15)
[2017-07-18] MEDS ORDERED: METO-274 PO (11:15)
[2017-07-18] MEDS ORDERED: CEPH500T PO (11:15)
[2017-07-18] MEDS ORDERED: LOVA10TA PO (11:15)
[2017-07-18] MEDS ORDERED: FOLI1TAB24 PO (11:15)
[2017-07-18] MEDS ORDERED: DOXY100T19 PO (11:15)
[2017-07-18] MEDS ORDERED: ERGO50006 PO (11:15)
[2017-07-18] MEDS ORDERED: CYAN100088 PO (11:15)
[2017-07-18] MEDS ORDERED: TRAM300T17 PO (11:15)
[2017-07-20] MEDS ORDERED: PANT40TA2 PO (10:17)
== END 2017-07-18 11:23 ==
LOC: PREOP 10:45
PROVIDERS: ATTEND Surgery
DX: Z01.818 Encounter for other preprocedural examination (principal); K21.9 Gastro-esophageal reflux disease without esophagitis; R10.84 Generalized abdominal pain; R63.4 Abnormal weight loss; Z86.010 Personal history of colon polyps

== ENCOUNTER 2017-07-20 06:47 | Day surgery (SDC) | payer MEDICARE, OTHER ==
[~2017-07-20] VITALS: Ht 157.5 cm; Wt 104.3 kg
[~2017-07-20 06:47] MED LIST changes: +ALPR1TAB7 PO; +CEPH500T PO; +CYAN100088 PO; +DOXY100T19 PO; +DULO60CA58 PO; +ERGO50006 PO; +LOVA10TA PO; +METO-395 PO; +TRAM300T17 PO; +TRAZ100T92 PO
--- OUTSIDE RECORDS SUMMARY | 2017-07-20 06:51 | XMS REPORT | Clinical Summary ---
Author Author [facility] Organization [facility] Address Unknown Phone Unavailable Care Team Providers Care Clinical Data Analyst Name Role Phone PCP Unavailable Source Comments Some departments are not documenting in the electronic medical record. If you do not see the information that you expected, contact Release of Information in the Health Information Management department at [phone] for further assistance in locating additional records.[facility] Allergies Active Allergy Reactions Severity Noted [...] 2003 SCREENING SHINGLES VACCINE 2013 INFLUENZA VACCINE 07/30/2017 Results Not on filefrom Last 3 Months
[2017-07-20] MEDS ORDERED: LACTATED RINGERS 1,000 ML IV PRN (07:13)
[2017-07-20] MEDS ORDERED: FAMOTIDINE 20MG/2ML IV (PEPCID) IV ONE (07:15)
[2017-07-20 07:30] VITALS: BP 191/61
[2017-07-20] MEDS ORDERED: ceFAZolin 1 GM/NS 50 ML IVPB IV ONE ×2 (07:45)
[2017-07-20] MEDS ORDERED: LIDOCAINE PF 2% 5 ML (XYLOCAINE) VIAL ONE (07:47)
[2017-07-20] MEDS ORDERED: SEVOFLURANE (ULTANE) 15 ML INHAL SOLN ONE ×6 (07:47→09:46)
[2017-07-20] MEDS ORDERED: ONDANSETRON 4 MG/2 ML (SDV) Z0FRAN ONE (07:47)
[2017-07-20] MEDS ORDERED: MIDAZOLAM 2 MG/2 ML (VERSED) VIAL ONE (07:47)
[2017-07-20] MEDS ORDERED: LACTATED RINGERS 1,000 ML IV ONE (07:47)
[2017-07-20] MEDS ORDERED: SUCCINYLCHOLINE INJ 100 MG/5 ML SYR ONE (07:47)
[2017-07-20] MEDS ORDERED: proPOfol 200 MG/20 ML (DIPRIVAN) VIAL IV ONE ×2 (07:47→09:46)
[2017-07-20] MEDS ORDERED: ROCURONIUM 50 MG/5 ML (ZEMURON) VIAL IV ONE (07:47)
[2017-07-20] MEDS ORDERED: fentaNYL INJECTION 100 MCG/2 ML AMP ONE ×2 (07:48→10:41)
--- NOTE | 2017-07-20 08:07 | Progress Note-Pre Operative ---
Pre-Operative Progress Note H&P Reviewed The H&P was reviewed, patient examined and no changes noted. Date Seen by Provider: Jul 20, 2017 Time Seen by Provider: 07:50 Date H&P Reviewed: Jul 20, 2017 Time H&P Reviewed: 07:55 Pre-Operative Diagnosis: Hx of polyps, reflux, wt. loss, abdominal wall mass WILLOW AMBRIZ APRN Jul 20, 2017 8:07 am
[2017-07-20] MEDS ORDERED: BUP/EPI 0.5% 1:200,000 (MARCAINE) 10ML VIAL IJ ONE (08:13)
--- NOTE | 2017-07-20 10:10 | Progress Note-Post Operative ---
Post-Operative Progess Note Surgeon (s)/Band Attacher (s) Surgeon KIMBER FELIPE MD Band Attacher: vernon toledo QUARTZ ORIENTATOR Pre-Operative Diagnosis Hx of polyps, reflux, wt. loss, abdominal wall mass Post-Operative Diagnosis abdominal wall mesh with hypertrophic scar. reflux esophagitis(class B-C), small HH(1cm), normal gastrojejunostomy. small HP polyp rectum, hepatic flexure, cecum x2, mild colitis cecum. Procedure & Operative Findings Date of Procedure 07/20/17 Procedure Performed/Findings biopsy abdominal wall mass and excision incisional scar with intermediate repair (6cm total). EGD with bx. Colonoscopy with bx/ Anesthesia Type GET Estimated Blood Loss Estimated blood loss (mL): minimal Specimens/Packing Specimens Removed abdominal fascia, abdominal skin, gastric pouch, GE jxn, colon polyp x4 KIMBER FELIPE MD Jul 20, 2017 10:09 am
[2017-07-20] MEDS ORDERED: MEPERIDINE (DEMEROL) INJ 50 MG/ML IVP PRN (10:15)
[2017-07-20] MEDS ORDERED: morphine INJ 10 MG/ML 1ML (SYR OR VIAL) IVP PRN (10:15)
[2017-07-20] MEDS ORDERED: fentaNYL INJECTION 100 MCG/2 ML AMP IVP PRN (10:15)
[2017-07-20] MEDS ORDERED: ONDANSETRON 4 MG/2 ML (SDV) Z0FRAN IVP PRN ×2 (10:15)
[2017-07-20] MEDS ORDERED: PANT40TA2 PO (10:17)
--- NOTE | 2017-07-20 10:18 | Discharge Inst-Surgical ---
D/C Lap Instructions-MATTEO New, Converted, or Re-Newed RX: RX on Chart Follow Up Appt in 2 weeks Activity as tolerated Regular Diet Symptoms to Report: Fever over 101 degree F, Nausea/Vomiting Infection Signs and Symptoms to report: Increased redness, Foul odor of wound, Increased drainage Bathing instructions: May shower Operative Area Clean/Dry; Keep incision clean/dry If any problems/questions: Contact your physician or go to Emergency Room KIMBER FELIPE MD Jul 20, 2017 10:18 am
[2017-07-20 11:20] VITALS: BP 151/77
[2017-07-20 11:50] VITALS: BP 158/79
[2017-07-20 12:20] VITALS: BP 147/69
--- NOTE | 2017-07-20 20:59 | OPERATIVE REPORT ---
DATE OF SERVICE: 07/20/2017 ATTENDING PRIMARY CARE PHYSICIAN: Dr. Gala Bourgeois. PREOPERATIVE DIAGNOSIS: Abdominal wall mass with overlying skin scar, weight loss, reflux, history of colon polyp. POSTOPERATIVE DIAGNOSIS: Abdominal wall mass appears to be a hypertrophic scar as well as an old previous hernia mesh. No neoplastic process was identified. The skin lesion with the overlying skin scar was benign hypertrophic scar, which was excised. A reflux esophagitis between class B and C, small hiatal hernia approximately 1 cm in size, mild gastritis of the gastric pouch, gastrojejunal anastomosis normal. The jejunostomy limb was patent. A small hyperplastic polyp of the rectum, hepatic flexure, and 2 of the cecum, mild cecal colitis. PROCEDURE: Incisional biopsy abdominal wall subfascial mass, excision of hypertrophic scar of the skin with intermediate repair with the total length approximating 6 cm. EGD with biopsy, colonoscopy with biopsy. SURGEON: Kimber Felipe M.D. [employer]OU[employer] CAMP ATTENDANT: Kwesi Dejesus APRN. ANESTHESIA: General endotracheal. ESTIMATED BLOOD LOSS: Minimal. FINDINGS: As above. DISPOSITION: The patient tolerated the procedure well. INDICATIONS: The patient is a 61-year-old female who we have seen before in the past. She has multiple medical comorbidities including a history of diabetes, hypertension as well as morbid obesity and severe degenerative joint disease. 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 She states that she has had decreased appetite as well as hypoglycemia and has lost approximately 30 pounds inadvertently in the past six [address] scan of the abdomen was performed, which did show a mass along the abdominal wall, a neoplastic process could not be ruled out. She also had a large hypertrophic scar of the skin of the abdominal wall from all of her previous surgeries. DESCRIPTION OF PROCEDURE: The patient was brought to the operating room, laid supine on the table. After adequate IV pain and sedative medications and general endotracheal intubation, the abdomen was prepped and draped in standard surgical fashion. 0.5% Marcaine with epinephrine was used to anesthetize the midline portion including the previous scar vertically just above the umbilicus. The hypertrophic scar right lateral to the umbilicus was also anesthetized. We first proceeded with vertical skin incision above the umbilicus using a 15 blade. The subcutaneous tissue was then dissected using electrocautery. The fascia was explored and the mass identified on CT scan was dissected using Metzenbaum scissors and appeared to be a hypertrophic scar tissue formation as well as incorporated mesh with no neoplastic process identified. This was sent to pathology. The hypertrophic skin scar was then excised right lateral to the umbilicus using a 15-blade. Both of these wounds were closed in an intermediate flap fashion encompassing a total of 6 cm using 3-0 Vicryl interrupted sutures followed by 4-0 Monocryl running subcuticular sutures. Wounds were then cleaned and covered with Dermabond. The patient tolerated this portion of the procedure well. We will await the biopsy results. We then proceeded with the EGD portion of the procedure. The endoscope was placed in the mouth, visualizing the pharynx and hypopharyngeal region. Vocal cords, epiglottis and vallecula identified and appeared to be normal. The endoscope was then intubated at the esophageal opening and esophagus insufflated. The endoscope was then advanced through the first, second and third portions of the esophagus at the level of the GE junction, a reflux esophagitis between class B and identified. There were no ulcers or strictures or any neoplasms identified. A biopsy was taken with forceps with visualization of good hemostasis. The endoscope was then easily advanced into the gastric pouch and then endoscope retroflexed, visualizing a small hiatal hernia approximately 1 to 2 cm in size. There was a mild gastritis of the gastric pouch. The gastrojejunal anastomosis was patent with no marginal ulcerations. The endoscope was placed into the jejunal limb with a patent jejunum and no ulcerations. A biopsy was taken of the gastric pouch using forceps with visualization of good hemostasis. The endoscope was then slowly withdrawn, taking a second look and suctioning of residual air with no additional findings. The patient tolerated this portion of the procedure well. We will start her on Protonix 40 mg daily as well as the necessary lifestyle and diet accommodation including small and more frequent meals as well as avoidance of eating at night and avoidance of caffeinated beverages, spicy, greasy and acidic foods. Under the same anesthesia, we then proceeded with the colonoscopy portion of the procedure. The legs were frog legged and a digital rectal examination was performed. Normal sphincter tone was felt and there were no palpable masses. The endoscope was then intubated into the anus and rectum gently insufflated. The endoscope was then advanced to the [facility] in the rectum where small hyperplastic polyp approximately 2 mm in size was identified. This was biopsied and destroyed using forceps and cautery with visualization of good hemostasis. We then proceeded through the sigmoid colon as well as the descending and transverse colon to the distal hepatic flexure where another small hyperplastic polyp approximately 2 mm in size was identified, biopsied and destroyed. The endoscope was then advanced into the cecum where mild inflammation was identified. A biopsy was taken in the cecum with forceps with visualization of good hemostasis. Two small hyperplastic polyp 1 proximal and 1 distal in the cecum were identified and biopsied and destroyed using forceps and electrocautery with visualization of good hemostasis. The endoscope was then slowly withdrawn taking a second look and suctioning residual air with no additional findings. The patient tolerated the procedure well. We will await the biopsy results; however, have her proceed with a high-fiber diet with at least 25 to 30 grams of fiber per day to promote soft stools on a daily basis. Job ID: [id number] DocumentID: [id number] Dictated Date: 07/20/2017 10:28:01 Personal Lines Account Manager Date: 07/20/2017 20:59:19 Dictated By: KIMBER FELIPE MD MTDD
== END 2017-07-20 13:30 | disposition home or self-care (01) ==
LOC: SDC 06:47 → EDSTATUS 08:00 → SDC 13:30
PROVIDERS: ATTEND Surgery
DX: L91.0 Hypertrophic scar (principal); D12.8 Benign neoplasm of rectum; D12.3 Benign neoplasm of transverse colon; D12.0 Benign neoplasm of cecum; K21.0 Gastro-esophageal reflux disease with esophagitis; K44.9 Diaphragmatic hernia without obstruction or gangrene; K29.70 Gastritis, unspecified, without bleeding; K52.9 Noninfective gastroenteritis and colitis, unspecified; Z98.0 Intestinal bypass and anastomosis status; E11.22 Type 2 diabetes mellitus with diabetic chronic kidney disease; I12.9 Hypertensive chronic kidney disease with stage 1 through stage 4 chronic kidney disease, or unspecified chronic kidney disease; N18.4 Chronic kidney disease, stage 4 (severe); E11.43 Type 2 diabetes mellitus with diabetic autonomic (poly)neuropathy; J44.9 Chronic obstructive pulmonary disease, unspecified; E66.01 Morbid (severe) obesity due to excess calories; Z68.41 Body mass index [BMI] 40.0-44.9, adult; F41.9 Anxiety disorder, unspecified; F32.9 Major depressive disorder, single episode, unspecified; M47.896 Other spondylosis, lumbar region; Z79.899 Other long term (current) drug therapy
CPT/HCPCS: 82962; 87081; 88305

== ENCOUNTER → 2017-07-26 | Outpatient (CLI) | payer MEDICARE, OTHER ==
[~2017-07-26] MED LIST changes: +CATHETER FLUSH 10 ML SYR IV PRN; +PANT40TA2 PO; +REGADENOSON 0.4 MG/5 ML SYR (LEXISCAN) IV ONE
[2017-07-26 13:17] VITALS: BP 118/65
--- NOTE | 2017-07-27 14:25 | STRESS TEST ---
DATE OF SERVICE: 07/26/2017 LEXISCAN MYOVIEW STRESS TEST REFERRING PHYSICIAN: Dr. Gala Bourgeois. Baseline heart rate is 58. Baseline blood pressure 152/74. Baseline EKG is sinus rhythm with no ischemic changes. In summary, the patient was injected with 10.22 mCi of technetium-99 Myoview and the resting images were obtained. Then, the patient received 0.4 mg of Lexiscan followed by 28 mCi of technetium-99 Myoview. Throughout the test, there were no EKG changes. The resting and stress images were reviewed and compared in the short axis, horizontal long axis, and vertical long axis views. Review of the images showed good radiotracer uptake with no significant ischemia or infarction, there is mild decreased uptake at the mid to apical inferior wall with subtle reversibility. SSS is 3, SDS 3, TID value 1.03. On the gated images, the left ventricle appeared to be normal size with normal contractility. Calculated ejection fraction 71%. CONCLUSION: 1. The patient tolerated Lexiscan well. 2. No significant ischemia or infarction on SPECT images. There is subtle abnormality at the mid to apical inferior wall with subtle reversibility. 3. Normal left ventricular size with normal contractility. Calculated ejection fraction 71%. Job ID: [id number] DocumentID: [id number] Dictated Date: 07/27/2017 08:06:35 Manager Document Date: 07/27/2017 10:44:06 Dictated By: ALAN ROMERO MD
== END ==
LOC: CARD 11:04
PROVIDERS: ATTEND Internal Medicine Cardiovascular Disease
DX: R07.89 Other chest pain (principal); I10 Essential (primary) hypertension; R06.02 Shortness of breath; E11.9 Type 2 diabetes mellitus without complications; J44.9 Chronic obstructive pulmonary disease, unspecified
CPT/HCPCS: 78452; 93017

== ENCOUNTER 2018-03-19 12:26 | Emergency (ER) | payer MEDICARE, OTHER ==
[~2018-03-19] VITALS: Ht 157.5 cm; Wt 99.8 kg
[~2018-03-19 12:26] MED LIST changes: -CATHETER FLUSH 10 ML SYR IV PRN; -REGADENOSON 0.4 MG/5 ML SYR (LEXISCAN) IV ONE; -TRAM300T17 PO; +[UNRECOGNIZED DRUG - CODE] PO
--- NOTE | 2018-03-19 14:03 | ED Cardiac General ---
History of Present Illness General Chief Complaint: Cardiac/General Problems Stated Complaint: HIGH BP Nursing Triage Note: c/o high blood pressure. [place] dizzy and soa. Anxiety reported. SA02 room air in ER. Source: patient Exam Limitations: no limitations History of Present Illness Date Seen by Provider: March 19, 2018 Time Seen by Provider: 13:59 Initial Comments Patient has not felt well for the past week but today has been the worst. She checked her blood pressure has been consistently 200-205 systolic over 80s. She' s not having any chest pain or pain anywhere other than her chronic back pain. Last week she did have a fall on her motorized wheelchair and it landed on top of her and she laid there for a while with on top of her for about 2 hours she says. She was seen and For observation overnight. She has a history of CK before for which she is followed by a shoe dyer at [place]. She was recently taken off a lot of her medicines because of elevated transaminases and her kidney failure. She does not have anything for pain. She does have a headache. She takes Maxalt sometimes for her headaches and they're migraine-like but she says that the Maxalt does not help and she has not had any today. Her presents and says that when she started feeling low this morning he checked her blood sugar after he did eventually find a battery for the glucometer was 54. He gave her an apple and then brought her into the ER because she was not feeling well still. Allergies and Home Medications Allergies Coded Allergies: Sulfa (Sulfonamide Antibiotics) (Unverified Allergy, Unknown, 04/30/14) acetaminophen (Unverified Allergy, Unknown, 04/30/14) codeine (Unverified Allergy, Unknown, 04/30/14) oxycodone (Unverified Allergy, Unknown, 04/30/14) pregabalin (Verified Allergy, Unknown, "made me crazy, disoriented", ) sulfamethoxazole (Unverified Allergy, Unknown, 04/30/14) trimethoprim (Unverified Allergy, Unknown, 04/30/14) Home Medications Alprazolam 1 Mg Tablet, 1 MG PO HS, (Reported) Cephalexin 500 Mg Tablet, 500 MG PO HS, (Reported) Cyanocobalamin (Vitamin B-12) 1,000 Mcg Tablet, 1,000 MCG PO HS, (Reported) Doxycycline Monohydrate 100 Mg Tablet, 100 MG PO DAILY, (Reported) Duloxetine HCl 60 Mg Capsule.dr, 60 MG PO DAILY, (Reported) Ergocalciferol (Vitamin D2) 50,000 Unit Capsule, 50,000 UNIT PO WEEK, (Reported) Folic Acid 1 Mg Tablet, 1 MG PO DAILY, (Reported) Levothyroxine Sodium 75 Mcg Tablet, 75 MCG PO DAILY, (Reported) Lovastatin 10 Mg Tablet, 10 MG PO HS, (Reported) Metoprolol Succinate 100 Mg Tab.er.24h, 100 MG PO DAILY, (Reported) Pantoprazole Sodium 40 Mg Tablet.dr, 40 MG PO DAILY Prescribed by: KIMBER FELIPE on 07/20/17 1017 Tramadol HCl 300 Mg Tab.er.24h, 300 MG PO DAILY, (Reported) Trazodone HCl 100 Mg Tablet, 100 MG PO HS, (Reported) Patient Home Medication List Home Medication List Reviewed: Yes Review of Systems Constitutional: No chills, No diaphoresis EENTM: No Blurred Vision, No Double Vision Respiratory: Denies Cough, Denies Shortness of Air Cardiovascular: Denies Chest Pain, Denies Irregular Heart Rate, Denies Palpitations, Denies Syncope Gastrointestinal: Denies Abdomen Distended, Denies Abdominal Pain, Denies Constipated, Denies Diarrhea, Denies Nausea Genitourinary: Denies Burning, Denies Discharge Musculoskeletal: No back pain, No joint pain Skin: No pruritus, No rash Psychiatric/Neurological: Headache; Denies Numbness, Denies Paresthesia Past Ephodif-Aqzfwr-Lcsakq Hx Patient Social History Alcohol Use: Denies Use Recreational Drug Use: No Smoking Status: Never a Smoker 2nd Hand Smoke Exposure: No Recent Foreign Travel: No Contact w/Someone Who Travel: No Recent Infectious Disease Expo: No Recent Hopitalizations: No Immunizations Up To Date Tetanus Booster (TDap): Unknown Date of Pneumonia Vaccine: Oct 12, 2010 Date of Influenza Vaccine: Aug 07, 2013 Seasonal Allergies Seasonal Allergies: Yes Past Medical History Surgeries: Yes ([place] Shunt with Revision x3 then Reversal, Lumbar ORIF x3 Sx' s ) Abdominal, Appendectomy, Section, Gallbladder, Hysterectomy Respiratory: Yes COPD Cardiac: Yes Hypertension Neurological: No 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 Renal Failure Gastrointestinal: Yes (ABDOMINAL WALL MASS) Gastroesophageal Reflux Musculoskeletal: Yes (ARTHRITIS IN BONES - KNEES, JOINTS) Degenerate Disk Disease, Arthritis Endocrine: Yes Diabetes, Non-Insulin dep Loss of Vision: Bilateral Hearing Impairment: Denies Cancer: No Psychosocial: Yes Anxiety, Depression Integumentary: No Blood Disorders: No Physical Exam Vital Signs Vital Signs - First Documented 03/19/18 13:10 Temp 98.1 Pulse 50 Resp 18 B/P (MAP) 209/84 (125) O2 Delivery Room Air Capillary Refill : Less Than 3 Seconds General Appearance: No Apparent Distress, Obese HEENT: PERRL/EOMI, TMs Normal, Normal ENT Inspection, Pharynx Normal Neck: Full Range of Motion, Normal Inspection, Non Tender, Supple Respiratory: Chest Non Tender, Lungs Clear, Normal Breath Sounds, No Accessory Muscle Use, No Respiratory Distress Cardiovascular: Regular Rate, Rhythm, No JVD, No Murmur, Normal Peripheral Pulses Gastrointestinal: Normal Bowel Sounds, Non Tender, Soft Extremity: Normal Capillary Refill, Non Tender, No Calf Tenderness Neurologic/Psychiatric: Alert, Oriented x3, No Motor/Sensory Deficits, Normal Mood/Affect, 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 Norm as Tested Skin: Normal Color, Warm/Dry Progress/Results/Core Measures Results/Orders Lab Results Laboratory Tests Test 03/19/18 14:45 03/19/18 16:00 Range/Units White Blood Count 5.8 4.3-11.0 10^3/uL Red Blood Count 4.30 L 4.35-5.85 10^6/uL Hemoglobin 11.8 11.5-16.0 G/DL Hematocrit 38 35-52 % Mean Corpuscular Volume 89 80-99 FL Mean Corpuscular Hemoglobin 27 25-34 PG Mean Corpuscular Hemoglobin Concent 31 L 32-36 G/DL Red Cell Distribution Width 13.9 10.0-14.5 % Platelet Count 214 130-400 10^3/uL Mean Platelet Volume 10.3 7.4-10.4 FL Neutrophils (%) (Auto) 65 42-75 % Lymphocytes (%) (Auto) 22 12-44 % Monocytes (%) (Auto) 8 0-12 % Eosinophils (%) (Auto) 5 0-10 % Basophils (%) (Auto) 1 0-10 % Neutrophils # (Auto) 3.7 1.8-7.8 X 10^3 Lymphocytes # (Auto) 1.2 1.0-4.0 X 10^3 Monocytes # (Auto) 0.5 0.0-1.0 X 10^3 Eosinophils # (Auto) 0.3 0.0-0.3 10^3/uL Basophils # (Auto) 0.0 0.0-0.1 10^3/uL Prothrombin Time 13.1 12.2-14.7 SEC INR Comment 1.0 0.8-1.4 Activated Partial Thromboplast Time 31 24-35 SEC Sodium Level 139 135-145 MMOL/L Potassium Level 5.3 H 3.6-5.0 MMOL/L Chloride Level 103 98-107 MMOL/L Carbon Dioxide Level 28 21-32 MMOL/L Anion Gap 8 5-14 MMOL/L Blood Urea Nitrogen 20 H 7-18 MG/DL Creatinine 1.54 H 0.60-1.30 MG/DL Estimat Glomerular Filtration Rate 34 BUN/Creatinine Ratio 13 Glucose Level 146 H 70-105 MG/DL Calcium Level 9.5 8.5-10.1 MG/DL Total Bilirubin 0.7 0.1-1.0 MG/DL Aspartate Amino Transf (AST/SGOT) 27 5-34 U/L Alanine Aminotransferase (ALT/SGPT) 78 H 0-55 U/L Alkaline Phosphatase 298 H 40-136 U/L Total Creatine Kinase 36 29-168 U/L Troponin I < 0.30 <0.30 NG/ML Total Protein 6.9 6.4-8.2 GM/DL Albumin 3.7 3.2-4.5 GM/DL Lipase 49 8-78 U/L Urine Color YELLOW Urine Clarity CLEAR Urine pH 8 5-9 Urine Specific Apex 1.010 L 1.016-1.022 Urine Protein 1+ H NEGATIVE Urine Glucose (UA) NEGATIVE NEGATIVE Urine Ketones NEGATIVE NEGATIVE Urine Nitrite NEGATIVE NEGATIVE Urine Bilirubin NEGATIVE NEGATIVE Urine Urobilinogen NORMAL NORMAL MG/DL Urine Leukocyte Esterase NEGATIVE NEGATIVE Urine RBC (Auto) NEGATIVE NEGATIVE Urine RBC NONE /HPF Urine WBC NONE /HPF Urine Squamous Epithelial Cells 5-10 /HPF Urine Crystals NONE /LPF Urine Bacteria NEGATIVE /HPF Urine Casts NONE /LPF Urine Mucus NEGATIVE /LPF Urine Culture Indicated NO My Orders Orders - JESSICA MANUEL Cbc With Automated Diff (03/19/18 13:55) Comprehensive Metabolic Panel (03/19/18 13:55) Troponin I (03/19/18 13:55) Ua Culture If Indicated (03/19/18 13:55) Chest Pa/Lat (2 View) (03/19/18 13:55) Saline Lock/Iv-Start (03/19/18 13:55) Ekg Tracing (03/19/18 13:55) Continuous Ekg Monitoring (03/19/18 13:55) Protime With Inr (03/19/18 13:55) Partial Thromboplastin Time (03/19/18 13:55) Labetalol Injection (Normodyne Injection (03/19/18 14:15) Creatine Kinase (03/19/18 14:03) Lipase (03/19/18 16:04) Medications Given in ED Current Medications Medications Dose Ordered Sig/Salty Route Start Time Stop Time Status Last Admin Dose Admin Labetalol HCl 20 mg ONCE ONCE IV 03/19/18 14:15 03/19/18 14:16 DC 03/19/18 14:35 20 MG Vital Signs/I&O 03/19/18 13:10 Temp 98.1 Pulse 50 Resp 18 B/P (MAP) 209/84 (125) O2 Delivery Room Air Blood Pressure Mean: 125 Progress Progress Note : Time: 14:02 Progress Note And no focal neuro deficits. She has hypertension that has on 2 occasions since she got here over 15 minutes been above 200 systolic. Her going to give her 20 mg IV labetalol. She takes metoprolol at home as well as Terazosin which she says she has not been missing any doses of lately. We'll also check a CPK given her history of having a fall being left down for up to 2 hours per history. We' ll check an EKG since she's got a relatively slow heart rate but she says this is a chronic issue for her usually runs around 40-45. She is known to Dr. Ibrahim , cardiology. Initial ECG Impression Date: March 19, 2018 Initial ECG Impression Time: 14:26 Initial ECG Rate: 46 Initial ECG Rhythm: S.Delgado Initial ECG Intervals: Normal Initial ECG Impression: Sinus Bradycardia Comment PACs. Sinus bradycardia. No ST wave elevation or depression. Diagnostic Imaging Diagonstic Imaging: Xray Plain Films/CT/US/NM/MRI: chest (2v) Comments VIA [facility], [facility]. [place], [place] NAME: JOCELINE MCKEON [facility] REC#: [id number] PT STATUS: REG ER : 1955 PHYSICIAN: JESSICA MANUEL MD ADMIT DATE: 03/19/18/ER Draft Date of Exam:03/19/18 CHEST PA/LAT (2 VIEW) INDICATION: Hypertension, dizziness and shortness of breath. PA and lateral chest obtained at 4:31 p.m. FINDINGS: Heart is borderline enlarged. The mediastinal silhouette is unremarkable. The lungs are clear. There is no pneumothorax or pleural fluid. IMPRESSION: Borderline heart size with no acute process in the chest. Dictated on workstation # [id number] Dict: 03/19/18 1648 Trans: 03/19/18 1651 MACIEJ [id number] Interpreted by: SARITHA MCCRACKEN MD Electronically signed by: Reviewed: Reviewed by Me Departure Impression Primary Impression: Hypoglycemia Disposition: 01 HOME, SELF-CARE Condition: Improved Departure-Patient Inst. Decision time for Depature: 17:15 Referrals: SANTINO CASTILLO MD (PCP/Family) Primary Care Physician Patient Instructions: Low Blood Sugar, Adult (DC) Add. Discharge Instructions: If this becomes a pattern please follow-up with your primary care doctor. All discharge instructions reviewed with patient and/or family. Voiced understanding. Copy Copies To 1: SANTINO CASTILLO MD, TITUS J March 19, 2018 14:03
[2018-03-19] MEDS ORDERED: LABETALOL HCL 20 MG/4 ML VIAL IV ONE (14:15)
[2018-03-19 14:53] LABS: BASOPHILS % (AUTO) 1 % (0-10); EOSINOPHILS # (AUTO) 0.3 10^3/uL (0.0-0.3); EOSINOPHILS % (AUTO) 5 % (0-10); HEMATOCRIT 38 % (35-52); HEMOGLOBIN 11.8 G/DL (11.5-16.0); LYMPHOCYTES # (AUTO) 1.2 X 10^3 (1.0-4.0); LYMPHOCYTES % (AUTO) 22 % (12-44); MEAN CORPUSCULAR HEMOGLOBIN 27 PG (25-34); MEAN CORPUSCULAR HGB CONC 31 G/DL (32-36); MEAN CORPUSCULAR VOLUME 89 FL (80-99); MEAN PLATELET VOLUME 10.3 FL (7.4-10.4); MONOCYTES # (AUTO) 0.5 X 10^3 (0.0-1.0); MONOCYTES % (AUTO) 8 % (0-12); NEUTROPHILS # (AUTO) 3.7 X 10^3 (1.8-7.8); NEUTROPHILS % (AUTO) 65 % (42-75); PLATELET COUNT 214 10^3/uL (130-400); RED CELL DISTRIBUTION WIDTH 13.9 % (10.0-14.5); WHITE BLOOD COUNT 5.8 10^3/uL (4.3-11.0)
[2018-03-19 15:10] LABS: PROTHROMBIN TIME PATIENT 13.1 SEC (12.2-14.7)
[2018-03-19 15:13] LABS: ALANINE AMINOTRANSFERASE 78 U/L (0-55); ALBUMIN 3.7 GM/DL (3.2-4.5); ALKALINE PHOSPHATASE 298 U/L (40-136); BILIRUBIN,TOTAL 0.7 MG/DL (0.1-1.0); BUN/CREATININE RATIO 13; CALCIUM 9.5 MG/DL (8.5-10.1); CARBON DIOXIDE 28 MMOL/L (21-32); CHLORIDE 103 MMOL/L (98-107); CREATINE KINASE 36 U/L (29-168); CREATININE SERUM 1.54 MG/DL (0.60-1.30); GFR ESTIMATED 34; GLUCOSE 146 MG/DL (70-105); POTASSIUM 5.3 MMOL/L (3.6-5.0); SODIUM 139 MMOL/L (135-145); TOTAL PROTEIN 6.9 GM/DL (6.4-8.2)
[2018-03-19 16:13] LABS: BILIRUBIN,URINE NEGATIVE (NEGATIVE); CLARITY,URINE CLEAR; COLOR,URINE YELLOW; GLUCOSE, URINE (UA) NEGATIVE (NEGATIVE); KETONES,URINE NEGATIVE (NEGATIVE); LEUKOCYTE ESTERASE ,URINE NEGATIVE (NEGATIVE); NITRITE,URINE NEGATIVE (NEGATIVE); PH,URINE 8 (5-9); PROTEIN,URINE 1+ (NEGATIVE); UROBILINOGEN,URINE NORMAL (NORMAL)
[2018-03-19 16:52] LABS: BACTERIA,URINE NEGATIVE /HPF
--- NOTE | 2018-03-19 16:52 | Diagnostic Imaging Report ---
INDICATION: Hypertension, dizziness and shortness of breath. PA and lateral chest obtained at 4:31 p.m. FINDINGS: Heart is borderline enlarged. The mediastinal silhouette is unremarkable. The lungs are clear. There is no pneumothorax or pleural fluid. IMPRESSION: Borderline heart size with no acute process in the chest. Dictated by: Dictated on workstation # [id number]
[2018-03-19 17:35] VITALS: BP 180/75
--- OUTSIDE RECORDS SUMMARY | 2018-03-19 18:59 | XMS REPORT | Clinical Summary ---
Author Author [facility] Organization [facility] Address Unknown Phone Unavailable Care Team Providers Care Police Superintendent Name Role Phone Shahid Porter MD Unavailable Unavailable Gala Bourgeois MD PCP Source Comments Some departments are not documenting in the electronic medical record. If you do not see the information that you expected, contact Release of Information in the Health Information Management department at [phone] for further assistance in locating additional records.[facility] Allergies Active Allergy Reactions Severity Noted Date [...] PHYSICAL (COMPREHENSIVE) 1960 EXAM PERTUSSIS VACCINE 1964 HIV SCREENING 1968 TETANUS VACCINE 1970 CERVICAL CANCER SCREENING 1983 BREAST CANCER SCREENING 1993 COLORECTAL CANCER 2003 SCREENING SHINGLES VACCINE 2013 INFLUENZA VACCINE 07/30/2018 Results Not on filefrom Last 3 Months
--- OUTSIDE RECORDS SUMMARY | 2018-03-19 19:01 | XMS REPORT | Continuity of Care Document ---
Author Author [facility] Organization [facility] Address Unknown Phone Unavailable Allergies Active Description Code Type Severity Reaction Onset Reported/Identified Relationship to Patient Clinical Status Yes LYRICA UNKNOWN UNKNOWN Yes MORPHINE UNKNOWN DERMATOLOGICAL - HIV Yes PERCOCET UNKNOWN DERMATOLOGICAL - HIV Yes SULFA (SULFONAMIDE ANTIBIOTICS) UNKNOWN UNKNOWN Yes acetaminophen [id number] Drug Allergy Unknown N/A 04/30/2014 Yes codeine [id number] Drug Allergy Unknown N/A 04/30/2014 Yes oxycodone [id number] Drug Allergy Unknown N/A 04/30/2014 Yes Sulfa (Sulfonamide Antibiotics) [id number] Drug Allergy Unknown N/A 2013 Yes sulfamethoxazole [id number] Drug Allergy Unknown N/A 04/30/2014 Yes trimethoprim [id number] Drug Allergy Unknown N/A 04/30/2014 Yes pregabalin [id number] Drug Allergy Unknown "susan ruiz, 07/18/2017 Medications Medication Packaging Start Date Stop Date Route Dosage Sig FERROUS SULFATE TAB 325 MG (FEOSOL) Dose(s) 03/14/2018 03/21/2018 TID&0800,1400,2000 ASPIRIN ENTERIC COATED TAB 81 MG (BABY ASPIRIN EC) Dose(s) 03/14/2018 03/20/2018 Daily&2100 TERAZOSIN CAP 1 MG (HYTRIN) Dose(s) 03/14/2018 03/20/2018 QHS&2100 CEPHALEXIN CAP 500 MG (KEFLEX) Dose(s) 03/14/2018 03/20/2018 Daily&2100 DIPHENHYDRAMINE CAP 25 MG (BENADRYL) MG 03/14/2018 03/21/2018 PRN Daily ASPIRIN ENTERIC COATED TAB 81 MG (BABY ASPIRIN EC) Dose(s) 03/15/2018 03/21/2018 Daily&0900 FOLIC ACID TAB 1 MG Dose(s) 201703/21/2018 Daily&0900 FLUTICASONE NASAL INHALER MDI 50 MCG (FLONASE NOSE SPRAY) Dose(s) 03/15/2018 03/21/2018 Daily&0900 METOPROLOL TAB 50 MG (LOPRESSOR) Dose(s) 03/15/2018 03/21/2018 Daily&0900 LEVOTHYROXINE TAB 75 MCG (SYNTHROID) Dose(s) 03/15/2018 03/21/2018 Daily&0900 CEPHALEXIN CAP 500 MG (KEFLEX) Dose(s) 03/15/2018 03/21/2018 Daily&0900 Problems Date Dx Coded Attending Type Code Diagnosis Diagnosed By 05/07/2014 KIMBER FELIPE MD Ot 250.00 DIAB RENATA WO COMPL, TYPE II OR UNSPEC TY 05/07/2014 KIMBER FELIPE MD Ot 401.9 HYPERTENSION NOS 05/07/2014 KIMBER FELIPE MD Ot 530.11 REFLUX ESOPHAGITIS 05/07/2014 KIMBER FELIPE MD Ot 530.81 ESOPHAGEAL REFLUX 05/07/2014 KIMBER FELIPE MD Ot 535.50 UNSP GASTRITIS GASTRODUODENITIS W/O ME 04/02/2015 KIMBER FELIPE MD Ot 530.81 04/02/2015 KIMBER FELIPE MD Ot V72.84 04/03/2015 KIMBER FELIPE MD Ot 530.81 04/03/2015 KIMBER FELIPE MD Ot V72.84 04/03/2015 KEYANA MULLER MD Ot 278.01 MORBID OBESITY 04/03/2015 KEYANA MULLER MD Ot 722.83 POSTLAMINECT SYND-LUMBAR 04/03/2015 KEYANA MULLER MD Ot 724.6 DISORDERS OF SACRUM 04/03/2015 KEYANA MULLER MD Ot V58.69 OTH MED,LT,CURRENT USE 04/03/2015 KEYANA MULLER MD Ot V85.43 BODY MASS INDEX 50.0-59.9, ADULT 05/11/2015 KEYANA MULLER MD Ot 278.01 MORBID OBESITY 05/11/2015 KEYANA MULLER MD Ot 722.52 LUMB/LUMBOSAC DISC DEGEN 05/11/2015 KEYANA MULLER MD, Ot 722.83 POSTLAMINECT SYND-LUMBAR 05/11/2015 KEYANA MULLER MD Ot V58.69 OTH MED,LT,CURRENT USE 05/11/2015 KEYANA MULLER MD Ot V85.43 BODY MASS INDEX 50.0-59.9, ADULT 06/01/2015 KIMBER FELIPE MD Ot 530.81 06/01/2015 KIMBER FELIPE MD Ot V72.84 06/01/2015 KEYANA MULLER MD Ot 278.01 MORBID OBESITY 06/01/2015 KEYANA MULLER MD Ot 721.3 LUMBOSACRAL SPONDYLOSIS 06/01/2015 KEYANA MULLER MD Ot 722.83 POSTLAMINECT SYND-LUMBAR 06/01/2015 KEYANA MULLER MD Ot 724.6 DISORDERS OF SACRUM 06/01/2015 KEYANA MULLER MD Ot V58.69 OTH MED,LT,CURRENT USE 06/01/2015 KEYANA MULLER MD Ot V85.43 BODY MASS INDEX 50.0-59.9, ADULT 10/28/2016 KIMBER FELIPE MD Ot 530.81 ESOPHAGEAL REFLUX 10/28/2016 KIMBER FELIPE MD Ot V72.84 EXAM PRE-OPERATIVE NOS 10/28/2016 KEYANA MULLER MD Ot E11.9 TYPE 2 DIABETES MELLITUS WITHOUT COMPLIC 10/28/2016 KEYANA MULLER MD, Ot M53.3 SACROCOCCYGEAL DISORDERS, NOT ELSEWHERE 10/28/2016 KEYANA MULLER MD Ot Z79.84 CUSTODIAL (CURRENT) USE OF ORAL HYPOGLYC 11/02/2016 KEYANA MULLER MD Ot E11.9 TYPE 2 DIABETES MELLITUS WITHOUT COMPLIC 11/02/2016 KEYANA MULLER MD, Ot M53.3 SACROCOCCYGEAL DISORDERS, NOT ELSEWHERE 11/02/2016 KEYANA MULLER MD Ot Z79.84 CUSTODIAL (CURRENT) USE OF ORAL HYPOGLYC 12/02/2016 KEYANA MULLER MD Ot M47.816 SPONDYLOSIS W/O MYELOPATHY OR RADICULOPA 12/02/2016 KEYANA MULLER MD Ot M53.3 SACROCOCCYGEAL DISORDERS, NOT ELSEWHERE 12/02/2016 KEYANA MULLER MD Ot Z79.899 OTHER CUSTODIAL (CURRENT) DRUG THERAPY 12/07/2016 KEYANA MULLER MD, Ot M47.816 SPONDYLOSIS W/O MYELOPATHY OR RADICULOPA 12/07/2016 KEYANA MULLER MD Ot M53.3 SACROCOCCYGEAL DISORDERS, NOT ELSEWHERE 12/07/2016 KEYANA MULLER MD Ot Z79.899 OTHER CUSTODIAL (CURRENT) DRUG THERAPY 12/30/2016 KEYANA MULLER MD Ot M47.816 SPONDYLOSIS W/O MYELOPATHY OR RADICULOPA 12/30/2016 KEYANA MULLER MD, Ot M53.3 SACROCOCCYGEAL DISORDERS, NOT ELSEWHERE 12/30/2016 KEYANA MULLER MD Ot Z79.899 OTHER BUSINESS ANALYTICS INTERN (CURRENT) DRUG THERAPY 01/13/2017 KEYANA MULLER MD Ot M47.816 SPONDYLOSIS W/O MYELOPATHY OR RADICULOPA 01/13/2017 KEYANA MULLER MD, Ot M53.3 SACROCOCCYGEAL DISORDERS, NOT ELSEWHERE 01/13/2017 KEYANA MULLER MD Ot Z79.899 OTHER BUSINESS ANALYTICS INTERN (CURRENT) DRUG THERAPY 01/18/2017 KEYANA MULLER MD Ot M47.816 SPONDYLOSIS W/O MYELOPATHY OR RADICULOPA 01/18/2017 KEYANA MULLER MD Ot M53.3 SACROCOCCYGEAL DISORDERS, NOT ELSEWHERE 01/18/2017 KEYANA MULLER MD Ot Z79.899 OTHER CUSTODIAL (CURRENT) DRUG THERAPY 01/19/2017 KEYANA MULLER MD Ot M47.816 SPONDYLOSIS W/O MYELOPATHY OR RADICULOPA 01/19/2017 KEYANA MULLER MD Ot M53.3 SACROCOCCYGEAL DISORDERS, NOT ELSEWHERE 01/19/2017 KEYANA MULLER MD Ot Z79.899 OTHER CUSTODIAL (CURRENT) DRUG THERAPY 06/09/2017 FAISAL GALLO Ot E11.649 TYPE 2 DIABETES MELLITUS WITH HYPOGLYCEM 06/09/2017 FAISAL GALLOP Ot I10 ESSENTIAL (PRIMARY) HYPERTENSION 06/09/2017 FAISAL GALLO Ot M17.0 BILATERAL PRIMARY OSTEOARTHRITIS OF KNEE 06/09/2017 FAISAL GALLO Ot R53.1 WEAKNESS 06/09/2017 FAISAL GALLO Ot Z79.82 BUSINESS ANALYTICS INTERN (CURRENT) USE OF ASPIRIN 06/09/2017 FAISAL GALLO Ot Z79.84 CUSTODIAL (CURRENT) USE OF ORAL HYPOGLYC 06/09/2017 FAISAL GALLOP Ot Z90.49 ACQUIRED ABSENCE OF OTHER SPECIFIED PART 06/12/2017 FAISAL GALLOP Ot E11.649 TYPE 2 DIABETES MELLITUS WITH HYPOGLYCEM 06/12/2017 FAISAL GALLOP Ot I10 ESSENTIAL (PRIMARY) HYPERTENSION 06/12/2017 FAISAL GALLOP Ot M17.0 BILATERAL PRIMARY OSTEOARTHRITIS OF KNEE 06/12/2017 FAISAL GALLOP Ot R53.1 WEAKNESS 06/12/2017 FAISAL GALLOP Ot Z79.82 CUSTODIAL (CURRENT) USE OF ASPIRIN 06/12/2017 FAISAL GALLOP Ot Z79.84 BUSINESS ANALYTICS INTERN (CURRENT) USE OF ORAL HYPOGLYC 06/12/2017 FAISAL GALLOP Ot Z90.49 ACQUIRED ABSENCE OF OTHER SPECIFIED PART 06/14/2017 JONATHAN DOOLEY, SANTINO L Ot R74.8 ABNORMAL LEVELS OF OTHER SERUM ENZYMES 06/22/2017 JONATHAN DOOLEY, SANTINO L Ot R74.8 ABNORMAL LEVELS OF OTHER SERUM ENZYMES 07/07/2017 ALAN ROMERO MD Ot E13.9 OTHER SPECIFIED DIABETES MELLITUS WITHOU 07/07/2017 ALAN ROMERO MD Ot I10 ESSENTIAL (PRIMARY) HYPERTENSION 07/07/2017 ALAN ROMERO MD Ot J44.9 CHRONIC OBSTRUCTIVE PULMONARY DISEASE, U 07/07/2017 ALAN ROMERO MD Ot R06.02 SHORTNESS OF BREATH 07/07/2017 ALAN ROMERO MD Ot R07.89 OTHER CHEST PAIN 07/11/2017 JONATHAN DOOLEY, SANTINO L Ot R74.8 ABNORMAL LEVELS OF OTHER SERUM ENZYMES 07/18/2017 KIMBER FELIPE MD Ot K21.9 GASTRO-ESOPHAGEAL REFLUX DISEASE WITHOUT 07/18/2017 KIMBER FELIPE MD Ot R10.84 GENERALIZED ABDOMINAL PAIN 07/18/2017 KIMBER FELIPE MD Ot R63.4 ABNORMAL WEIGHT LOSS 07/18/2017 KIMBER FELIPE MD Ot Z01.818 ENCOUNTER FOR OTHER PREPROCEDURAL EXAMIN 07/18/2017 KIMBER FELIPE MD, Ot Z86.010 PERSONAL HISTORY OF COLONIC POLYPS 07/19/2017 KIMBER FELIPE MD Ot K21.9 GASTRO-ESOPHAGEAL REFLUX DISEASE WITHOUT 07/19/2017 KIMBER FELIPE MD Ot R10.84 GENERALIZED ABDOMINAL PAIN 07/19/2017 KIMBER FEILPE MD, Ot R63.4 ABNORMAL WEIGHT LOSS 07/19/2017 KIMBER FELIPE MD, Ot Z01.818 ENCOUNTER FOR OTHER PREPROCEDURAL EXAMIN 07/19/2017 KIMBER FELIPE MD, Ot Z86.010 PERSONAL HISTORY OF COLONIC POLYPS 07/20/2017 KIMBER FELIPE MD, Ot D12.0 BENIGN NEOPLASM OF CECUM 07/20/2017 KIMBER FELIPE MD, Ot D12.3 BENIGN NEOPLASM OF TRANSVERSE COLON 07/20/2017 KIMBER FELIPE MD, Ot D12.8 BENIGN NEOPLASM OF RECTUM 07/20/2017 KIMBER FELIPE MD, Ot E11.22 TYPE 2 DIABETES MELLITUS W DIABETIC [employer] 07/20/2017 KIMBER FELIPE MD, Ot E11.43 TYPE 2 DIABETES W DIABETIC AUTONOMIC (PO 07/20/2017 KIMBER FELIPE MD, Ot E66.01 MORBID (SEVERE) OBESITY DUE TO EXCESS CA 07/20/2017 KIMBER FELIPE MD, Ot F32.9 MAJOR DEPRESSIVE DISORDER, SINGLE EPISOD 07/20/2017 KIMBER FELIPE MD, Ot F41.9 ANXIETY DISORDER, UNSPECIFIED 07/20/2017 KIMBER FELIPE MD, Ot I12.9 HYPERTENSIVE CHRONIC KIDNEY DISEASE W ST 07/20/2017 KIMBER FELIPE MD, Ot J44.9 CHRONIC OBSTRUCTIVE PULMONARY DISEASE, U 07/20/2017 KIMBER FELIPE MD, Ot K21.0 GASTRO-ESOPHAGEAL REFLUX DISEASE WITH ES 07/20/2017 KIMBER FELIPE MD, Ot K29.70 GASTRITIS, UNSPECIFIED, WITHOUT BLEEDING 07/20/2017 KIMBER FELIPE MD, Ot K44.9 DIAPHRAGMATIC HERNIA WITHOUT OBSTRUCTION 07/20/2017 KIMBER FELIPE MD, Ot K52.9 NONINFECTIVE GASTROENTERITIS AND COLITIS 07/20/2017 KIMBER FELIPE MD, Ot L91.0 HYPERTROPHIC SCAR 07/20/2017 KIMBER FELIPE MD, Ot M47.896 OTHER SPONDYLOSIS, LUMBAR REGION 07/20/2017 KIMBER FELIPE MD, Ot N18.4 CHRONIC KIDNEY DISEASE, STAGE 4 (SEVERE) 07/20/2017 KIMBER FELIPE MD, Ot Z68.41 BODY MASS INDEX (BMI) 40.0-44.9, ADULT 07/20/2017 KIMBER FELIPE MD, Ot Z79.899 OTHER CUSTODIAL (CURRENT) DRUG THERAPY 07/20/2017 KIMBER FELIPE MD, Ot Z98.0 INTESTINAL BYPASS AND ANASTOMOSIS STATUS 08/08/2017 ALAN ROMERO MD Ot E13.9 OTHER SPECIFIED DIABETES MELLITUS WITHOU 08/08/2017 ALAN ROMERO MD Ot I10 ESSENTIAL (PRIMARY) HYPERTENSION 08/08/2017 ALAN ROMERO MD Ot J44.9 CHRONIC OBSTRUCTIVE PULMONARY DISEASE, U 08/08/2017 ALAN ROMERO MD Ot R06.02 SHORTNESS OF BREATH 08/08/2017 ALAN ROMERO MD Ot R07.89 OTHER CHEST PAIN 08/15/2017 SANTINO CASTILLO 250.00 DIABETES MELLITUS WITHOUT MENTION OF COMPLICATION, TYPE II OR UNSPECIFIED TYPE , NOT STATED UNCONTROLLED 08/15/2017 SANTINO CASTILLO E11.9 TYPE 2 DIABETES MELLITUS WITHOUT COMPLICATIONS 08/16/2017 ALAN ROMERO MD Ot E11.9 TYPE 2 DIABETES MELLITUS WITHOUT COMPLIC 08/16/2017 ALAN ROMERO MD Ot I10 ESSENTIAL (PRIMARY) HYPERTENSION 08/16/2017 ALAN ROMERO MD Ot J44.9 CHRONIC OBSTRUCTIVE PULMONARY DISEASE, U 08/16/2017 ALAN ROMERO MD Ot R06.02 SHORTNESS OF BREATH 08/16/2017 ALAN ROMERO MD Ot R07.89 OTHER CHEST PAIN 08/16/2017 SANTINO CASTILLO 250.00 DIABETES MELLITUS WITHOUT MENTION OF COMPLICATION, TYPE II OR UNSPECIFIED TYPE , NOT STATED UNCONTROLLED 08/16/2017 SANTINO CASTILLO E11.9 TYPE 2 DIABETES MELLITUS WITHOUT COMPLICATIONS 08/16/2017 SANTINO CASTILLO 250.00 DIABETES MELLITUS WITHOUT MENTION OF COMPLICATION, TYPE II OR UNSPECIFIED TYPE , NOT STATED UNCONTROLLED 08/16/2017 SANTINO CASTILLO E11.9 TYPE 2 DIABETES MELLITUS WITHOUT COMPLICATIONS 09/19/2017 SANTINO CASTILLO 250.00 DIABETES MELLITUS WITHOUT MENTION OF COMPLICATION, TYPE II OR UNSPECIFIED TYPE , NOT STATED UNCONTROLLED 09/19/2017 SANTINO CASTILLO 272.4 OTHER AND UNSPECIFIED HYPERLIPIDEMIA 09/19/2017 SANTINO CASTILLO E11.9 TYPE 2 DIABETES MELLITUS WITHOUT COMPLICATIONS 09/19/2017 SANTINO CASTILLO E78.5 HYPERLIPIDEMIA, UNSPECIFIED 09/19/2017 SANTINO CASTILLO W 244.9 UNSPECIFIED HYPOTHYROIDISM 09/19/2017 TIFFANY CASTILLOHEL W 250.00 DIABETES MELLITUS WITHOUT MENTION OF COMPLICATION, TYPE II OR UNSPECIFIED TYPE , NOT STATED UNCONTROLLED 09/19/2017 SANTINO CASTILLO W 272.4 OTHER AND UNSPECIFIED HYPERLIPIDEMIA 09/19/2017 TIFFANY CASTILLOHEL W 401.0 MALIGNANT ESSENTIAL HYPERTENSION 09/19/2017 SANTINO CASTILLO W 788.1 09/19/2017 SANTINO CASTILLO W E03.9 HYPOTHYROIDISM, UNSPECIFIED 09/19/2017 CASTILLO, SANTINO W E11.9 TYPE 2 DIABETES MELLITUS WITHOUT COMPLICATIONS 09/19/2017 TIFFANY CASTILLOHEL W E78.5 HYPERLIPIDEMIA, UNSPECIFIED 09/19/2017 TIFFANY CASTILLOHEL W I10 ESSENTIAL (PRIMARY) HYPERTENSION 09/19/2017 SANTINO CASTILLO W R30.0 DYSURIA 09/19/2017 TIFFANY CASTILLOHEL W 244.9 UNSPECIFIED HYPOTHYROIDISM 09/19/2017 TIFFANY CASTILLOHEL W 250.00 DIABETES MELLITUS WITHOUT MENTION OF COMPLICATION, TYPE II OR UNSPECIFIED TYPE , NOT STATED UNCONTROLLED 09/19/2017 JONATHAN SANTINO W 272.4 OTHER AND UNSPECIFIED HYPERLIPIDEMIA 09/19/2017 SANTINO CASTILLO W 401.0 MALIGNANT ESSENTIAL HYPERTENSION 09/19/2017 SANTINO CASTILLO W 788.1 09/19/2017 SANTINO CASTILLO W E03.9 HYPOTHYROIDISM, UNSPECIFIED 09/19/2017 TIFFANY CASTILLOHEL W E11.9 TYPE 2 DIABETES MELLITUS WITHOUT COMPLICATIONS 09/19/2017 SANTINO CASTILLO W E78.5 HYPERLIPIDEMIA, UNSPECIFIED 09/19/2017 TIFFANY CASTILLOHEL W I10 ESSENTIAL (PRIMARY) HYPERTENSION 09/19/2017 SANTINO CASTILLO W R30.0 DYSURIA 09/19/2017 CASTILLOTIFFANY SPRINGHEL W 244.9 UNSPECIFIED HYPOTHYROIDISM 09/19/2017 TIFFANY CASTILLOHEL W 250.00 DIABETES MELLITUS WITHOUT MENTION OF COMPLICATION, TYPE II OR UNSPECIFIED TYPE , NOT STATED UNCONTROLLED 09/19/2017 JONATHAN SANTINO W 272.4 OTHER AND UNSPECIFIED HYPERLIPIDEMIA 09/19/2017 TIFFANY CASTILLOHEL W 401.0 MALIGNANT ESSENTIAL HYPERTENSION 09/19/2017 TIFFANY CASTILLOHEL W 788.1 09/19/2017 CASTILLO SANTINO W E03.9 HYPOTHYROIDISM, UNSPECIFIED 09/19/2017 SANTINO CASTILLO W E11.9 TYPE 2 DIABETES MELLITUS WITHOUT COMPLICATIONS 09/19/2017 SANTINO CASTILLO W E78.5 HYPERLIPIDEMIA, UNSPECIFIED 09/19/2017 SANTINO CASTILLO W I10 ESSENTIAL (PRIMARY) HYPERTENSION 09/19/2017 SANTINO CASTILLO W R30.0 DYSURIA 12/20/2017 SANTINO CASTILLO A 250.00 DIABETES MELLITUS WITHOUT MENTION OF COMPLICATION, TYPE II OR UNSPECIFIED TYPE , NOT STATED UNCONTROLLED 12/20/2017 SANTINO CASTILLO A E11.9 TYPE 2 DIABETES MELLITUS WITHOUT COMPLICATIONS 12/20/2017 SANTINO CASTILLO A 250.00 DIABETES MELLITUS WITHOUT MENTION OF COMPLICATION, TYPE II OR UNSPECIFIED TYPE , NOT STATED UNCONTROLLED 12/20/2017 SATNINO CASTILLO A E11.9 TYPE 2 DIABETES MELLITUS WITHOUT COMPLICATIONS 01/19/2018 SANTINO CASTILLO W 788.1 DYSURIA 01/19/2018 SANTINO CASTILLO W R30.0 DYSURIA 01/19/2018 SANTINO CASTILLO W 788.1 DYSURIA 01/19/2018 SANTINO CASTILLO W R30.0 DYSURIA 01/19/2018 SANTINO CASTILLO W 788.1 DYSURIA 01/19/2018 SANTINO CASTILLO W R30.0 DYSURIA 02/22/2018 SANTINO CASTILLO W 244.9 UNSPECIFIED HYPOTHYROIDISM 02/22/2018 SANTINO CASTILLO W E03.9 HYPOTHYROIDISM, UNSPECIFIED 02/22/2018 SANTINO CASTILLO W 244.9 UNSPECIFIED HYPOTHYROIDISM 02/22/2018 SANTINO CASTILLO W E03.9 HYPOTHYROIDISM, UNSPECIFIED 02/22/2018 SANTINO CASTILLO W 244.9 UNSPECIFIED HYPOTHYROIDISM 02/22/2018 SANTINO CASTILLO W E03.9 HYPOTHYROIDISM, UNSPECIFIED 03/14/2018 W 794.8 NONSPECIFIC ABNORMAL RESULTS OF FUNCTION STUDY OF LIVER 03/14/2018 W R94.5 ABNORMAL RESULTS OF LIVER FUNCTION STUDIES 03/14/2018 W E888.9 UNSPECIFIED FALL 03/14/2018 W W19 UNSPECIFIED FALL 03/14/2018 W E888.9 UNSPECIFIED FALL 03/14/2018 W W19 UNSPECIFIED FALL 03/15/2018 W E888.9 UNSPECIFIED FALL 03/15/2018 W W19 UNSPECIFIED FALL 03/15/2018 W E888.9 UNSPECIFIED FALL 03/15/2018 W W19 UNSPECIFIED FALL 03/15/2018 W E888.9 UNSPECIFIED FALL 03/15/2018 W W19 UNSPECIFIED FALL 03/15/2018 W 573.9 UNSPECIFIED DISORDER OF LIVER 03/15/2018 W E888.9 UNSPECIFIED FALL 03/15/2018 W W19 UNSPECIFIED FALL 03/15/2018 W 573.9 UNSPECIFIED DISORDER OF LIVER 03/15/2018 W 585.4 CHRONIC KIDNEY DISEASE, STAGE IV (SEVERE) 03/15/2018 W E888.9 UNSPECIFIED FALL 03/15/2018 W I12.9 HYPERTENSIVE CHRONIC KIDNEY DISEASE WITH STAGE 1 THROUGH STAGE 4 CHRONIC KIDNEY DISEASE, OR UNSPECIFIED CHRONIC KIDNEY DISEASE 03/15/2018 W W19 UNSPECIFIED FALL 03/15/2018 W 573.9 UNSPECIFIED DISORDER OF LIVER 03/15/2018 W 585.4 CHRONIC KIDNEY DISEASE, STAGE IV (SEVERE) 03/15/2018 W E888.9 UNSPECIFIED FALL 03/15/2018 W I12.9 HYPERTENSIVE CHRONIC KIDNEY DISEASE WITH STAGE 1 THROUGH STAGE 4 CHRONIC KIDNEY DISEASE, OR UNSPECIFIED CHRONIC KIDNEY DISEASE 03/15/2018 W W19 UNSPECIFIED FALL 03/15/2018 W 573.9 UNSPECIFIED DISORDER OF LIVER 03/15/2018 W 585.4 CHRONIC KIDNEY DISEASE, STAGE IV (SEVERE) 03/15/2018 W E888.9 UNSPECIFIED FALL 03/15/2018 W I12.9 HYPERTENSIVE CHRONIC KIDNEY DISEASE WITH STAGE 1 THROUGH STAGE 4 CHRONIC KIDNEY DISEASE, OR UNSPECIFIED CHRONIC KIDNEY DISEASE 03/15/2018 W W19 UNSPECIFIED FALL 03/15/2018 W 573.9 UNSPECIFIED DISORDER OF LIVER 03/15/2018 W 585.4 CHRONIC KIDNEY DISEASE, STAGE IV (SEVERE) 03/15/2018 W E888.9 UNSPECIFIED FALL 03/15/2018 W I12.9 HYPERTENSIVE CHRONIC KIDNEY DISEASE WITH STAGE 1 THROUGH STAGE 4 CHRONIC KIDNEY DISEASE, OR UNSPECIFIED CHRONIC KIDNEY DISEASE 03/15/2018 W W19 UNSPECIFIED FALL Procedures There is no data. Results Test Result Range Capillary blood glucose measurement by glucometer (mass/volume) - 10/28/16 11: 47 Capillary blood glucose measurement by glucometer (mass/volume) 147 mg/dL 70-110 Urine Protein/Creat - 11/03/16 15:16 MTP <7 mg/dL 0-20 Urine Creatinine 19.9 mg/dl 0.0-50.0 Urine Protein/Creat Ratio 0.34 mg/dL Urine Culture - 11/03/16 15:16 PRELIM CULTURE RESULTS No Growth 24 hours FINAL CULTURE RESULTS 20,000-50,000 Mixed Betsey. No Further Workup done. MEDIA PLATED Setup at 15:45 on 11/03/2016 CULTURE SOURCE Void Capillary blood glucose measurement by glucometer (mass/volume) - 12/02/16 09: 20 Capillary blood glucose measurement by glucometer (mass/volume) 181 mg/dL 70-110 Capillary blood glucose measurement by glucometer (mass/volume) - 12/30/16 13: 27 Capillary blood glucose measurement by glucometer (mass/volume) 180 mg/dL 70-110 Capillary blood glucose measurement by glucometer (mass/volume) - 01/13/17 08: 27 Capillary blood glucose measurement by glucometer (mass/volume) 144 mg/dL 70-110 Thyroid Stimulating Hormone - 03/01/17 15:15 TSH 0.26 mIU/mL 0.32-5.00 Renal Panel - 05/26/17 12:11 Albumin 2.1 g/dL 3.6-5.1 BUN 14 mg/dL 5-25 Calcium 7.9 mg/dL 8.3-10.4 Chloride 106 mmol/L 95-114 CO2 27 mEq/L 22-33 Creat 1.45 mg/dL 0.50-1.50 eGFR 36 mL/min/1.73m2 >59 Glucose 129 mg/dL 70-110 Phosphorus 3.8 mg/dL 2.5-4.8 Potassium 3.5 mmol/L 3.5-5.3 Sodium 142 mmol/L 134-148 Urine Protein/Creat - 05/26/17 12:11 MTP 20 mg/dL 0-20 Urine Creatinine 119.5 mg/dl 0.0-50.0 Urine Protein/Creat Ratio 0.17 mg/dL PTH, Intact - 05/26/17 12:11 PTH, INTACT 82 PG/ML 15-65 Capillary blood glucose measurement by glucometer (mass/volume) - 06/09/17 14: 54 Capillary blood glucose measurement by glucometer (mass/volume) 44 mg/dL 70-110 Complete blood count (CBC) with automated white blood cell (WBC) differential - 06/09/17 15:00 Blood leukocytes automated count (number/volume) 7.9 10*3/uL 4.3-11.0 Blood erythrocytes automated count (number/volume) 4.08 10*6/uL 4.35-5.85 Venous blood hemoglobin measurement (mass/volume) 10.6 g/dL 11.5-16.0 Blood hematocrit (volume fraction) 35 % 35-52 Automated erythrocyte mean corpuscular volume 86 [foz_us] 80-99 Automated erythrocyte mean corpuscular hemoglobin (mass per erythrocyte) 26 pg 25-34 Automated erythrocyte mean corpuscular hemoglobin concentration measurement ( mass/volume) 30 g/dL 32-36 Automated erythrocyte distribution width ratio 13.8 % 10.0-14.5 Automated blood platelet count (count/volume) 217 10*3/uL 130-400 Automated blood platelet mean volume measurement 11.6 [foz_us] 7.4-10.4 Automated blood neutrophils/100 leukocytes 75 % 42-75 Automated blood lymphocytes/100 leukocytes 17 % 12-44 Blood monocytes/100 leukocytes 6 % 0-12 Automated blood eosinophils/100 leukocytes 2 % 0-10 Automated blood basophils/100 leukocytes 0 % 0-10 Blood neutrophils automated count (number/volume) 5.9 10*3 1.8-7.8 Blood lymphocytes automated count (number/volume) 1.4 10*3 1.0-4.0 Blood monocytes automated count (number/volume) 0.4 10*3 0.0-1.0 Automated eosinophil count 0.2 10*3/uL 0.0-0.3 Automated blood basophil count (count/volume) 0.0 10*3/uL 0.0-0.1 Comprehensive metabolic panel - 06/09/17 15:00 Serum or plasma sodium measurement (moles/volume) 142 mmol/L 135-145 Serum or plasma potassium measurement (moles/volume) 3.1 mmol/L 3.6-5.0 Serum or plasma chloride measurement (moles/volume) 105 mmol/L 98-107 Carbon dioxide 28 mmol/L 21-32 Serum or plasma anion gap determination (moles/volume) 9 mmol/L 5-14 Serum or plasma urea nitrogen measurement (mass/volume) 23 mg/dL 7-18 Serum or plasma creatinine measurement (mass/volume) 1.38 mg/dL 0.60-1.30 Serum or plasma urea nitrogen/creatinine mass ratio 17 NRG Serum or plasma creatinine measurement with calculation of estimated glomerular filtration rate 39 NRG Serum or plasma glucose measurement (mass/volume) 37 mg/dL 70-105 Serum or plasma calcium measurement (mass/volume) 8.2 mg/dL 8.5-10.1 Serum or plasma total bilirubin measurement (mass/volume) 0.6 mg/dL 0.1-1.0 Serum or plasma alkaline phosphatase measurement (enzymatic activity/volume) 1084 U/L 40-136 Serum or plasma aspartate aminotransferase measurement (enzymatic activity/ volume) 178 U/L 5-34 Serum or plasma alanine aminotransferase measurement (enzymatic activity/volume ) 123 U/L 0-55 Serum or plasma protein measurement (mass/volume) 5.4 g/dL 6.4-8.2 Serum or plasma albumin measurement (mass/volume) 2.2 g/dL 3.2-4.5 Magnesium - 06/09/17 15:00 Magnesium 1.3 mg/dL 1.8-2.4 Serum or plasma amylase measurement (enzymatic activity/volume) - 06/09/17 15: 00 Serum or plasma amylase measurement (enzymatic activity/volume) 19 U /L 25-125 Lipase - 06/09/17 15:00 Lipase 23 U/L 8-78 Complete urinalysis with reflex to culture - 06/09/17 15:00 Urine color determination YELLOW NRG Urine clarity determination CLEAR NRG Urine pH measurement by test strip 6 5-9 Specific gravity of urine by test strip 1.010 1.016- 1.022 Urine protein assay by test strip, semi-quantitative NEGATIVE NEGATIVE Urine glucose detection by automated test strip NEGATIVE NEGATIVE Erythrocytes detection in urine sediment by light microscopy NEGATIVE NEGATIVE Urine ketones detection by automated test strip NEGATIVE NEGATIVE Urine nitrite detection by test strip NEGATIVE NEGATIVE Urine total bilirubin detection by test strip NEGATIVE NEGATIVE Urine urobilinogen measurement by automated test strip (mass/volume) NORMAL NORMAL Urine leukocyte esterase detection by dipstick NEGATIVE NEGATIVE Automated urine sediment erythrocyte count by microscopy (number/high power field) NONE NRG Automated urine sediment leukocyte count by microscopy (number/high power field ) [HPF] NRG Bacteria detection in urine sediment by light microscopy TRACE NRG Squamous epithelial cells detection in urine sediment by light microscopy 0-2 NRG Crystals detection in urine sediment by light microscopy NONE NRG Casts detection in urine sediment by light microscopy NONE NRG Mucus detection in urine sediment by light microscopy NEGATIVE NRG Complete urinalysis with reflex to culture NO NRG Serum or plasma thyrotropin measurement by detection limit <=0.05 miu/l (units/ volume) - 06/09/17 15:00 Serum or plasma thyrotropin measurement by detection limit <=0.05 miu/l (units/ volume) 1.04 u[iU]/mL 0.35-4.94 GGT (gamma glutamyl transferase) - 06/09/17 15:00 GGT (gamma glutamyl transferase) 87 U/L 0-45 Capillary blood glucose measurement by glucometer (mass/volume) - 06/09/17 15: 54 Capillary blood glucose measurement by glucometer (mass/volume) 82 mg/dL 70-110 Renal Panel - 06/27/17 15:15 Albumin 2.1 g/dL 3.6-5.1 BUN 16 mg/dL 5-25 Calcium 8.2 mg/dL 8.3-10.4 Chloride 101 mmol/L 95-114 CO2 32 mEq/L 22-33 Creat 1.63 mg/dL 0.50-1.50 eGFR 32 mL/min/1.73m2 >59 Glucose 146 mg/dL 70-110 Phosphorus 3.5 mg/dL 2.5-4.8 Potassium 4.0 mmol/L 3.5-5.3 Sodium 139 mmol/L 134-148 Capillary blood glucose measurement by glucometer (mass/volume) - 07/20/17 07: 05 Capillary blood glucose measurement by glucometer (mass/volume) 69 mg/dL 70-110 Methicillin resistant Staphylococcus aureus (MRSA) screening culture - 07:35 Methicillin resistant Staphylococcus aureus (MRSA) screening culture NEG NRG Capillary blood glucose measurement by glucometer (mass/volume) - 07/20/17 10: 41 Capillary blood glucose measurement by glucometer (mass/volume) 82 mg/dL 70-110 Hemoglobin A1C - 08/15/17 14:42 % A1C 4.30 % 5.40-6.60 AvGlu 76 mg/dL 70-110 Thyroid Stimulating Hormone - 09/19/17 13:45 TSH 1.20 mIU/mL 0.32-5.00 Hemoglobin A1C - 12/20/17 17:57 % A1C 5.00 % 5.40-6.60 AvGlu 100 mg/dL 70-110 Urinalysis - 01/19/18 15:28 Icotest N/A Negative Urine-Appearance Clear Clear Urine-Bacteria Trace Urine-Bilirubin Negative Negative Urine-Blood Negative Negative Urine-Color Yellow Colorless-Lt. Yellow Urine-Epithelial Cells 5-10/HPF Urine-Glucose Negative Negative Urine-Ketones Negative Negative Urine-Leukocytes Negative Negative Urine-Nitrite Positive Negative Urine-Other Culture to follow Urine-pH 5.0 5-8.5 Urine-Protein Negative Negative Urine-RBC Negative Urine-Specific Madelia 1.010 1.000-1.030 Urine-WBC Rare/HPF Urobilinogen 0.2 E.U./dL 0.2-1.0 Urine Culture - 01/19/18 15:28 PRELIM CULTURE RESULTS 10,000-20,000 Mixed Betsey Probable Skin Contaminant FINAL CULTURE RESULTS 10,000-20,000 Mixed Betsey [id number] Skin Contaminant [id number] Further Workup done MEDIA PLATED Setup at 15:50 on 01/19/2018 CULTURE SOURCE void Vitamin D, 25 OH - 02/07/18 12:29 Vitamin D, 25 OH 21.80 ng/mL 25.00-100.00 PTH, Intact - 02/07/18 12:29 PTH, INTACT 95 PG/ML 15-65 Urine Culture - 02/07/18 12:29 PRELIM CULTURE RESULTS 20,000-50,000 Gram Negative SIMRAN / ID to Follow [id number]<10,000 Gram Positive Mixed Betsey Probable Skin Contaminant MEDIA PLATED Setup at 12:50 on 02/07/2018 CULTURE SOURCE urine Sensi - 02/07/18 12:29 Ampicillin/Sulbactam <=8/4 Ampicillin <=8 Amoxicillin/K Clavulanate <=8/4 Ceftriaxone <=8 Ciprofloxacin <=1 Nitrofurantoin >64 Gentamicin <=4 Levofloxacin <=2 Trimethoprim/ Sulfamethoxazole <=2/38 Tetracycline >8 Amikacin <=16 Aztreonam <=8 Ceftazidime <=1 Ceftazidime/K Clavulanate <=0.25 Cephalothin <=8 Cefotaxime <=2 Cefotaxime/K Clavulanate <=0.5 Cefoxitin <=8 Cefazolin <=8 Cefepime <=8 Cefuroxime <=4 Ertapenem <=1 Imipenem <=4 Meropenem <=4 Piperacillin/Tazobactam <=16 Piperacillin <=16 Tigecycline N/R Tobramycin <=4 FINAL CULTURE RESULTS Proteus mirabilis (Isolate 2) Sensi - 02/07/18 12:29 FINAL CULTURE RESULTS Klebsiella pneumoniae (Isolate 1) Ampicillin/Sulbactam <=8/4 Ampicillin >16 Amoxicillin/K Clavulanate <=8/4 Ceftriaxone <=8 Ciprofloxacin <=1 Nitrofurantoin 64 Gentamicin <=4 Levofloxacin <=2 Trimethoprim/ Sulfamethoxazole >2/38 Tetracycline <=4 Amikacin <=16 Aztreonam <=8 Ceftazidime <=1 Ceftazidime/K Clavulanate <=0.25 Cephalothin <=8 Cefotaxime <=2 Cefotaxime/K Clavulanate <=0.5 Cefoxitin <=8 Cefazolin <=8 Cefepime <=8 Cefuroxime <=4 Ertapenem <=1 Imipenem <=4 Meropenem <=4 Piperacillin/Tazobactam <=16 Piperacillin <=16 Tigecycline <=2 Tobramycin <=4 Comprehensive Metabolic Panel - 03/14/18 08:09 Albumin 3.3 g/dL 3.6-5.1 ALP 450 U/L 35-130 ALT 574 U/L 6-45 Anion Gap 14 6-14 AST 968 U/L 2-40 BUN 48 mg/dL 5-25 Calcium 9.2 mg/dL 8.3-10.4 Chloride 95 mmol/L 95-114 CO2 34 mEq/L 22-33 Creat 2.30 mg/dL 0.50-1.50 eGFR 21 mL/min/1.73m2 >59 Globulin 2.9 g/dL 2.3-3.5 Glucose 112 mg/dL 70-110 Osmo 300 280-295 Potassium 4.3 mmol/L 3.5-5.3 Sodium 139 mmol/L 134-148 TBil 1.0 mg/dL 0.2-1.2 TP 6.2 g/dL 6.0-8.3 Hepatitis Panel, Acute - 03/14/18 08:09 Hep A Ab, IgM NEGATIVE NEGATIVE HBsAg Screen NEGATIVE NEGATIVE Hep B Core Ab, IgM NEGATIVE NEGATIVE Hep C Virus Ab 0.3 S/CO RATIO 0.0-0.9 Cardiac Panel - 03/14/18 18:40 CK 120 U/L 26-174 CK-MB 3.4 ng/ml 0.0-9.2 Myoglobin 696.1 ng/ml 1.6-106.0 Troponin <0.020 ng/mL 0.0-0.4 Hepatitis Panel, Acute - 03/14/18 18:40 Urinalysis - 03/14/18 20:06 Icotest N/A Negative Urine Crystals Amorphous material: few/HPF Urine Volume Urine Volume Sufficient (10mL) Urine-Appearance Slightly Cloudy Clear Urine-Bacteria Negative Urine-Bilirubin Negative Negative Urine-Blood Negative Negative Urine-Color Yellow Colorless-Lt. Yellow Urine-Epithelial Cells 5-10/HPF Urine-Glucose Negative Negative Urine-Ketones Negative Negative Urine-Leukocytes Negative Negative Urine-Nitrite Negative Negative Urine-Other Urine Saved if Culture Needed (48hrs from time of collection) Urine-pH 5.5 5-8.5 Urine-Protein Negative Negative Urine-RBC 0-2/HPF Urine-Specific Madelia 1.010 1.000-1.030 Urine-WBC 0-2/HPF Urobilinogen 0.2 0.2-1.0 Cardiac Panel - 03/14/18 23:00 CK 356 U/L 26-174 CK-MB 8.6 ng/ml 0.0-9.2 Myoglobin 769.3 ng/ml 1.6-106.0 Troponin <0.020 ng/mL 0.0-0.4 Cardiac Panel - 03/15/18 03:00 CK 368 U/L 26-174 CK-MB 7.3 ng/ml 0.0-9.2 Myoglobin 515.8 ng/ml 1.6-106.0 Troponin <0.020 ng/mL 0.0-0.4 Comprehensive Metabolic Panel - 03/15/18 07:15 Albumin 3.2 g/dL 3.6-5.1 ALP 436 U/L 35-130 ALT 339 U/L 6-45 Anion Gap 16 6-14 AST 274 U/L 2-40 BUN 46 mg/dL 5-25 Calcium 9.0 mg/dL 8.3-10.4 Chloride 94 mmol/L 95-114 CO2 32 mEq/L 22-33 Creat 2.38 mg/dL 0.50-1.50 eGFR 20 mL/min/1.73m2 >59 Globulin 2.8 g/dL 2.3-3.5 Glucose 87 mg/dL 70-110 Osmo 296 280-295 Potassium 4.1 mmol/L 3.5-5.3 Sodium 138 mmol/L 134-148 TBil 1.0 mg/dL 0.2-1.2 TP 6.0 g/dL 6.0-8.3 Encounters ACCT No. Visit Date/Time Discharge Status Pt. Type Provider Facility Loc./Unit Complaint [id number] 07/26/2017 11:04:00 07/26/2017 23:59:59 CLS Outpatient ALAN ROMERO MD [facility] CARD ANTERIOR CHEST WALL PAIN R07.89 [id number] 07/20/2017 06:47:00 07/20/2017 13:30:00 DIS Outpatient KIMBER FELIPE MD [facility] SDC HISTORY POLYPS, REFLUX, WT. LOSS, ABD. WALL MASS [id number] 07/18/2017 10:45:00 07/18/2017 11:23:00 DIS Outpatient KIMBER FLEIPE MD [facility] PREOP EXP. MINI LAP/ COLONOSCOPY/EGD [id number] 07/06/2017 11:50:00 07/06/2017 23:59:59 CLS Outpatient ALAN ROMERO MD [facility] CARD ANTERIOR CHEST WALL PAIN R07.89,SOB R06.02 [id number] 06/12/2017 11:31:00 06/12/2017 23:59:59 CLS Outpatient SANTINO CASTILLO MD [facility] LAB ELEVATED LFTs [id number] 06/09/2017 14:36:00 06/09/2017 18:15:00 DIS Emergency FAISAL GALLO [facility] ER WEAKNESS/SHAKEY [id number] 01/13/2017 08:11:00 01/13/2017 09:14:00 DIS Outpatient KEYANA MULLER MD [facility] CARD SPONDYLOSIS [id number] 12/30/2016 12:56:00 12/30/2016 13:57:00 DIS Outpatient KEYANA MULLER MD [facility] CARD M53.3 [id number] 12/02/2016 08:49:00 12/02/2016 10:05:00 DIS Outpatient KEYANA MULLER MD [facility] CARD SPONDYLOSIS [id number] 10/28/2016 11:21:00 10/28/2016 12:23:00 DIS Outpatient KEYANA MULLER MD [facility] CARD M53.3 [id number] 06/01/2015 15:14:00 06/01/2015 17:04:00 DIS Outpatient KEYANA MULLER MD [facility] CARD LUMBAR SPONDOLYOSIS SIJD [id number] 05/11/2015 14:48:00 05/11/2015 15:39:00 DIS Outpatient KEYANA MULLER MD [facility] CARD SIJD [id number] 04/03/2015 08:15:00 04/03/2015 09:30:00 DIS Outpatient KEYANA MULLER MD [facility] CARD SIJD [id number] 05/07/2014 07:18:00 05/07/2014 11:00:00 DIS Outpatient KIMBER FELIPE MD [facility] SDC GERD [id number] 04/30/2014 07:25:00 04/30/2014 23:59:59 CLS Outpatient KIMBER FELIPE MD [facility] PREOP GERD [id number] 04/22/2014 07:33:00 04/22/2014 23:59:59 CLS Outpatient KIMBER FELIPE MD [facility] RAD GERD [id number] 10/01/2013 19:46:00 10/02/2013 07:00:00 DIS Outpatient [id number] 02/22/2018 14:36:00 02/22/2018 23:59:00 DIS Outpatient SANTINO CASTILLO [id number] 02/22/2018 13:08:00 02/22/2018 23:59:00 DIS Outpatient SANTINO CASTILLO [id number] 02/16/2018 09:57:00 02/16/2018 23:59:00 DIS Outpatient ALAN ROMERO [id number] 02/15/2018 11:35:00 02/15/2018 23:59:00 DIS Outpatient NOY MONTGOMERY [id number] 02/07/2018 12:22:00 02/07/2018 23:59:00 DIS Outpatient NOY MONTGOMERY [id number] 01/19/2018 15:27:00 01/19/2018 23:59:00 DIS Outpatient SANTINO CASTILLO [id number] 01/19/2018 15:22:00 01/19/2018 23:59:00 DIS Outpatient NICK ALAN [id number] 12/20/2017 17:56:00 12/20/2017 23:59:00 DIS Outpatient SANTINO CASTILLO [id number] 09/19/2017 15:03:00 09/19/2017 23:59:00 DIS Outpatient SANTINO CASTILLO [id number] 08/15/2017 14:41:00 08/15/2017 23:59:00 DIS Outpatient SANTINO CASTILLO [id number] 06/27/2017 15:09:00 06/27/2017 23:59:00 DIS Outpatient SANTINO CASTILLO [id number] 05/26/2017 12:06:00 05/26/2017 23:59:00 DIS Outpatient NOY MONTGOMERY [id number] 03/01/2017 15:04:00 03/01/2017 23:59:00 DIS Outpatient SANTINO CASTILLO [id number] 11/03/2016 15:13:00 11/03/2016 23:59:00 DIS Outpatient SANTINO CASTILLO [id number] 09/20/2016 13:52:00 09/20/2016 23:59:00 DIS Outpatient SANTINO CASTILLO [id number] 03/14/2018 20:39:58 Document Registration [id number] 03/14/2018 17:33:00 Document Registration [id number] 03/14/2018 08:05:00 Document Registration [id number] 06/01/2015 15:14:33 ACT Document Registration
== END 2018-03-19 17:35 | disposition home or self-care (01) ==
LOC: EDUNIT# 12:26 → ER 12:27
DX: E11.649 Type 2 diabetes mellitus with hypoglycemia without coma (principal); I10 Essential (primary) hypertension; J44.9 Chronic obstructive pulmonary disease, unspecified; F41.9 Anxiety disorder, unspecified; F32.9 Major depressive disorder, single episode, unspecified; K21.9 Gastro-esophageal reflux disease without esophagitis; M17.0 Bilateral primary osteoarthritis of knee; Z90.710 Acquired absence of both cervix and uterus; Z90.49 Acquired absence of other specified parts of digestive tract; Z87.59 Personal history of other complications of pregnancy, childbirth and the puerperium; Z88.5 Allergy status to narcotic agent; Z88.2 Allergy status to sulfonamides; Z88.1 Allergy status to other antibiotic agents; Z88.6 Allergy status to analgesic agent
CPT/HCPCS: 36415; 71046; 80053; 81000; 82550; 83690; 84484; 85025; 85610; 85730; 93005; 96374

== ENCOUNTER 2019-05-27 14:15 | Outpatient (RCR) | payer MEDICARE, OTHER ==
[~2019-05-27 14:15] MED LIST changes: -DULO60CA58 PO; +DULO60CA59 PO; +TRAZ-190 PO; -TRAZ100T92 PO
[2019-05-28] MEDS ORDERED: PRD20T PO (16:44)
[2019-05-28] MEDS ORDERED: DOXY100T2 PO (16:45)
== END 2019-05-30 15:46 | disposition home or self-care (01) ==
PROVIDERS: ATTEND Nurse Practitioner Family
DX: M75.41 Impingement syndrome of right shoulder (principal)

== ENCOUNTER 2019-05-28 12:52 | Emergency (ER) | payer MEDICARE, OTHER ==
[~2019-05-28] VITALS: Ht 157.5 cm; Wt 105.2 kg
[~2019-05-28 12:52] MED LIST changes: +DULO60CA58 PO; -DULO60CA59 PO
--- OUTSIDE RECORDS SUMMARY | 2019-05-28 12:57 | XMS REPORT | Clinical Summary ---
Author Author [facility] Organization [facility] Address Unknown Phone Unavailable Care Team Providers Care Trade Facilitator Name Role Phone Shahid Porter MD Unavailable Unavailable Gala Bourgeois MD PCP Source Comments Some departments are not documenting in the electronic medical record. If you d o not see the information that you expected, contact Release of Information in [facility] [employer] Information Management department at [phone] for further assistan ce in locating additional records.[facility] Allergies Comments Active Allergy Reactions Severity Noted Date Sulfamethoxazole-Trimetho HIVES 07/03/2014 prim Morphine HIVES 07/03/2014 Oxycodone-Acetaminophen HIVES 07/03/2014 Sulfa (Sulfonamide HIVES 07/03/2014 Antibiotics) Medications End Date Status Medication Sig Dispensed Refills Start Date Active pioglitazone (ACTOS) 15 Take 15 mg by 0 mg tablet mouth daily. Active amLODIPine (NORVASC) 10 Take 10 mg by 0 mg tablet mouth daily. Active levothyroxine (SYNTHROID) Take 75 mcg 0 75 mcg tablet by mouth daily. Active ALPRAZolam (XANAX) 1 mg Take 1 mg by 0 tablet mouth twice daily. Active omeprazole DR(+) Take 20 mg by 0 (PRILOSEC) 20 mg capsule mouth daily. Active amitriptyline (ELAVIL) 25 Take 25 mg by 0 mg tablet mouth at bedtime daily. Active cephalexin (KEFLEX) 500 Take 500 mg 0 mg capsule by mouth daily. Active traMADol (ULTRAM) 50 mg Take 100 mg 0 tablet by mouth daily. Active baclofen (LIORESAL) 10 mg Take 10 mg by 0 tablet mouth three times daily. Active metoprolol XL (TOPROL XL) Take 100 mg 0 100 mg tablet by mouth daily. Active Cholecalciferol (Vitamin Take 1 Cap by 0 D3) (VITAMIN D-3) 2,000 mouth twice unit cap daily. Active DULoxetine DR (CYMBALTA) Take 60 mg by 0 60 mg capsule mouth daily. Active folic acid (FOLVITE) 1 mg Take 1 mg by 0 tablet mouth daily. Active aspirin EC 81 mg tablet Take 81 mg by 0 mouth daily. Active Cyanocobalamin (VITAMIN Take 1 Tab by 0 B-12) 1,000 mcg TbER mouth daily. Active glipiZIDE (GLUCOTROL) 10 Take 10 mg by 0 mg tablet mouth twice daily. Active nystatin (NYSTOP) 100,000 Apply to 0 unit/g topical powder affected area four times daily. Active CALCITRIOL PO Take 0.25 mcg 0 by mouth daily. Active Problems Problem Noted Date Morbid obesity 07/15/2014 Social History Date Tobacco Use Types Packs/Day Years Used Never Smoker Drinks/Week oz/Week Comments Alcohol Use Not Asked Sex Assigned at Date Recorded Not on file Industry Job Start Date Occupation Not on file Not on file Not on file Travel End Travel History Travel Start No recent travel history available. Last Filed Vital Signs Reading Time Taken Comments Vital Sign 145/62 07/03/2014 1:13 PM CDT Blood Pressure 65 07/03/2014 1:13 PM CDT Pulse 36.2 C (97.2 F) 07/03/2014 1:13 PM CDT Temperature 14 07/03/2014 1:13 PM CDT Respiratory Rate - - Oxygen Saturation - - Inhaled Oxygen Concentration 128.1 kg (282 lb 6.4 oz) 07/03/2014 1:13 PM CDT Weight 157.5 cm (5' 2") 07/03/2014 1:13 PM CDT Height 51.65 07/03/2014 1:13 PM CDT Body Mass Index Plan of Treatment Health Maintenance Due Date Last Done Comments HEPATITIS C SCREENING 1953 PHYSICAL (COMPREHENSIVE) 1960 EXAM HIV SCREENING 1968 DTAP/TDAP VACCINES (1 - 1971 Tdap) BREAST CANCER SCREENING 1993 COLORECTAL CANCER 2003 SCREENING SHINGLES RECOMBINANT 2003 VACCINE (1 of 2) OSTEOPOROSIS 2018 SCREENING/MONITORING PNEUMONIA (PCV13/PPSV23) 2018 VACCINES (1 of 2 - PCV13) INFLUENZA VACCINE 07/30/2019 Results Not on filefrom Last 3 Months
--- OUTSIDE RECORDS SUMMARY | 2019-05-28 12:59 | XMS REPORT | Continuity of Care Document ---
Author Organization Unknown Address Unknown Phone Unavailable Allergies Active Description Code Type Severity Reaction Onset Reported/Identified Relationship to Patient Clinical Status Yes BACTRIM SEVERE SEVERE Yes LYRICA UNKNOWN UNKNOWN Yes MORPHINE UNKNOWN DERMATOLOGICAL - HIV Yes MORPHINE UNKNOWN UNKNOWN Yes PERCOCET UNKNOWN DERMATOLOGICAL - HIV Yes PERCOCET UNKNOWN UNKNOWN Yes SULFA (SULFONAMIDE ANTIBIOTICS) UNKNOWN UNKNOWN Yes acetaminophen [id number] Drug Allergy Unknown N/A 04/30/2014 Yes codeine [id number] Drug Allergy Unknown N/A 04/30/2014 Yes oxycodone [id number] Drug Allergy Unknown N/A 04/30/2014 Yes Sulfa (Sulfonamide Antibiotics) [id number] Drug Allergy Unknown N/A 04/30/2014 Yes sulfamethoxazole [id number] Drug Allergy Unknown N/A 04/30/2014 Yes trimethoprim [id number] Drug Allergy Unknown N/A 04/30/2014 Yes pregabalin [id number] Drug Allergy Unknown "made me ruiz, 07/18/2017 Medications Medication Packaging Start Date [...] Daily&0900 FOLIC ACID TAB 1 MG Dose(s) 03/15/2018 03/21/2018 Daily&0900 FLUTICASONE NASAL INHALER MDI 50 MCG [...] 722.52 LUMB/LUMBOSAC DISC DEGEN 05/11/2015 KEYANA MULLER MD Ot 722.83 POSTLAMINECT SYND-LUMBAR 05/11/2015 KEYANA MULLER MD Ot V58.69 OTH MED,LT,CURRENT USE 05/11/2015 KEYANA MULLER MD Ot V85.43 BODY MASS INDEX 50.0-59.9, ADULT 06/01/2015 KIMBER FELIPE MD Ot 530.81 06/01/2015 KIMBER FELIPE MD Ot V72.84 06/01/2015 KEYANA MULLER MD Ot 278.01 MORBID OBESITY 06/01/2015 KEYANA MLULER MD Ot 721.3 LUMBOSACRAL SPONDYLOSIS 06/01/2015 KEYANA MULLER MD Ot 722.83 POSTLAMINECT SYND-LUMBAR 06/01/2015 KEYANA MULLER MD Ot 724.6 DISORDERS OF SACRUM 06/01/2015 KEYANA MULLER MD, Ot V58.69 OTH MED,LT,CURRENT USE 06/01/2015 KEYANA MULLER MD Ot V85.43 BODY MASS INDEX 50.0-59.9, ADULT 10/28/2016 KIMBER FELIPE MD Ot 530.81 ESOPHAGEAL REFLUX 10/28/2016 KIMBER FELIPE MD Ot V72.84 EXAM PRE-OPERATIVE NOS 10/28/2016 KEYANA MULLER MD Ot E11.9 TYPE 2 DIABETES MELLITUS WITHOUT COMPLIC 10/28/2016 KEYANA MULLER MD, Ot M53.3 SACROCOCCYGEAL DISORDERS, NOT ELSEWHERE 10/28/2016 KEYANA MULLER MD Ot Z79.84 ALF (CURRENT) USE OF ORAL HYPOGLYC 11/02/2016 KEYANA MULLER MD, Ot E11.9 TYPE 2 DIABETES MELLITUS WITHOUT COMPLIC 11/02/2016 KEYANA MULLER MD, Ot M53.3 SACROCOCCYGEAL DISORDERS, NOT ELSEWHERE 11/02/2016 KEYANA MULLER MD Ot Z79.84 LEARNING COORDINATOR (CURRENT) USE OF ORAL HYPOGLYC 12/02/2016 KEYANA MULLER MD Ot M47.816 SPONDYLOSIS W/O MYELOPATHY OR RADICULOPA 12/02/2016 KEYANA MULLER MD, Ot M53.3 SACROCOCCYGEAL DISORDERS, NOT ELSEWHERE 12/02/2016 KEYANA MULLER MD, Ot Z79.899 OTHER ALF (CURRENT) DRUG THERAPY 12/07/2016 WHITE MD, KEYANA J Ot M47.816 SPONDYLOSIS W/O MYELOPATHY OR RADICULOPA 12/07/2016 KEYANA MULLER MD, Ot M53.3 SACROCOCCYGEAL DISORDERS, NOT ELSEWHERE 12/07/2016 KEYANA MULLER MD, Ot Z79.899 OTHER LEARNING COORDINATOR (CURRENT) DRUG THERAPY 12/30/2016 KEYANA MULLER MD, Ot M47.816 SPONDYLOSIS W/O MYELOPATHY OR RADICULOPA 12/30/2016 KEYANA MULLER MD, Ot M53.3 SACROCOCCYGEAL DISORDERS, NOT ELSEWHERE 12/30/2016 KEYANA MULLER MD, Ot Z79.899 OTHER LEARNING COORDINATOR (CURRENT) DRUG THERAPY 01/13/2017 KEYANA MULLER MD, Ot M47.816 SPONDYLOSIS W/O MYELOPATHY OR RADICULOPA 01/13/2017 KEYANA MULLER MD, Ot M53.3 SACROCOCCYGEAL DISORDERS, NOT ELSEWHERE 01/13/2017 KEYANA MULLER MD, Ot Z79.899 OTHER ALF (CURRENT) DRUG THERAPY 01/18/2017 KEYANA MULLER MD Ot M47.816 SPONDYLOSIS W/O MYELOPATHY OR RADICULOPA 01/18/2017 KEYANA MULLER MD, Ot M53.3 SACROCOCCYGEAL DISORDERS, NOT ELSEWHERE 01/18/2017 KEYANA MULLER MD Ot Z79.899 OTHER LEARNING COORDINATOR (CURRENT) DRUG THERAPY 01/19/2017 KEYANA MULLER MD, Ot M47.816 SPONDYLOSIS W/O MYELOPATHY OR RADICULOPA 01/19/2017 KEYANA MULLER MD, Ot M53.3 SACROCOCCYGEAL DISORDERS, NOT ELSEWHERE 01/19/2017 KEYANA MULLER MD, Ot Z79.899 OTHER LEARNING COORDINATOR (CURRENT) DRUG THERAPY 06/09/2017 FAISAL GALLO Ot E11.649 TYPE 2 DIABETES MELLITUS WITH HYPOGLYCEM 06/09/2017 FAISAL GALLOP Ot I10 ESSENTIAL (PRIMARY) HYPERTENSION 06/09/2017 FAISAL GALLOP Ot M17.0 BILATERAL PRIMARY OSTEOARTHRITIS OF KNEE 06/09/2017 FAISAL GALLOP Ot R53.1 WEAKNESS 06/09/2017 FAISAL GALLOP Ot Z79.82 LEARNING COORDINATOR (CURRENT) USE OF ASPIRIN 06/09/2017 FAISAL GALLOP Ot Z79.84 ALF (CURRENT) USE OF ORAL HYPOGLYC 06/09/2017 FAISAL GALLOP Ot Z90.49 ACQUIRED ABSENCE OF OTHER SPECIFIED PART 06/12/2017 FAISAL GALLOP Ot E11.649 TYPE 2 DIABETES MELLITUS WITH HYPOGLYCEM 06/12/2017 FAISAL GALLO PERSONAL SECRETARY Ot I10 ESSENTIAL (PRIMARY) HYPERTENSION 06/12/2017 FAISAL GALLOP Ot M17.0 BILATERAL PRIMARY OSTEOARTHRITIS OF KNEE 06/12/2017 FAISAL GALLOP Ot R53.1 WEAKNESS 06/12/2017 FAISAL GALLOP Ot Z79.82 ALF (CURRENT) USE OF ASPIRIN 06/12/2017 FAISAL GALLOP Ot Z79.84 LEARNING COORDINATOR (CURRENT) USE OF ORAL HYPOGLYC 06/12/2017 FAISAL GALLOP Ot Z90.49 ACQUIRED ABSENCE OF OTHER SPECIFIED PART 06/14/2017 SANTINO CASTILLO MD Ot R74.8 ABNORMAL LEVELS OF OTHER SERUM ENZYMES 06/22/2017 SANTINO CASTILLO MD Ot R74.8 ABNORMAL LEVELS OF OTHER SERUM ENZYMES 07/07/2017 ALAN ROMERO MD Ot E13.9 OTHER SPECIFIED DIABETES MELLITUS WITHOU 07/07/2017 ALAN ROMERO MD Ot I10 ESSENTIAL (PRIMARY) HYPERTENSION 07/07/2017 ALAN ROMERO MD Ot J44.9 CHRONIC OBSTRUCTIVE PULMONARY DISEASE, U 07/07/2017 ALAN ROMERO MD Ot R06.02 SHORTNESS OF BREATH 07/07/2017 ALAN ROMERO MD Ot R07.89 OTHER CHEST PAIN 07/11/2017 SANTINO CASTILLO MD Ot R74.8 ABNORMAL LEVELS OF OTHER SERUM ENZYMES 07/18/2017 KIMBER FELIPE MD, Ot K21.9 GASTRO-ESOPHAGEAL REFLUX DISEASE WITHOUT 07/18/2017 KIMBER FELIPE MD Ot R10.84 GENERALIZED ABDOMINAL PAIN 07/18/2017 KIMBER FELIPE MD, Ot R63.4 ABNORMAL WEIGHT LOSS 07/18/2017 KIMBER FELIPE MD, Ot Z01.818 ENCOUNTER FOR OTHER PREPROCEDURAL EXAMIN 07/18/2017 KIMBER FELIPE MD, Ot Z86.010 PERSONAL HISTORY OF COLONIC POLYPS 07/19/2017 KIMBER FELIPE MD, Ot K21.9 GASTRO-ESOPHAGEAL REFLUX DISEASE WITHOUT 07/19/2017 KIMBER FELIPE MD, Ot R10.84 GENERALIZED ABDOMINAL PAIN 07/19/2017 KIMBER FELIPE MD, Ot R63.4 ABNORMAL WEIGHT LOSS 07/19/2017 [...] E11.22 TYPE 2 DIABETES MELLITUS W DIABETIC INFORMATION SERVICES TECH 07/20/2017 KIMBER FELIPE MD, Ot E11.43 TYPE [...] 07/20/2017 KIMBER FELIPE MD, Ot Z79.899 OTHER LEARNING COORDINATOR (CURRENT) DRUG THERAPY 07/20/2017 KIMBER FELIPE MD, [...] MENTION OF COMPLICATION, TYPE II OR UNSPECIFIED TYPE, NOT STATED UNCONTROLLED 08/15/2017 SANTINO CASTILLO E11.9 [...] MENTION OF COMPLICATION, TYPE II OR UNSPECIFIED TYPE, NOT STATED UNCONTROLLED 08/16/2017 SANTINO CASTILLO E11.9 TYPE 2 DIABETES MELLITUS WITHOUT COMPLICATIONS 08/16/2017 SANTINO CASTILLO 250.00 DIABETES MELLITUS WITHOUT MENTION OF COMPLICATION, TYPE II OR UNSPECIFIED TYPE, NOT STATED UNCONTROLLED 08/16/2017 SANTINO CASTILLO E11.9 TYPE 2 DIABETES MELLITUS WITHOUT COMPLICATIONS 09/19/2017 SANTINO CASTILLO 250.00 DIABETES MELLITUS WITHOUT MENTION OF COMPLICATION, TYPE II OR UNSPECIFIED TYPE, NOT STATED UNCONTROLLED 09/19/2017 SANTINO CASTILLO 272.4 OTHER AND UNSPECIFIED HYPERLIPIDEMIA 09/19/2017 SANTINO CASTILLO E11.9 TYPE 2 DIABETES MELLITUS WITHOUT COMPLICATIONS 09/19/2017 CASTILLO, SANTINO W E78.5 HYPERLIPIDEMIA, UNSPECIFIED 09/19/2017 TIFFANY CASTILLOHEL W 244.9 UNSPECIFIED HYPOTHYROIDISM 09/19/2017 TIFFANY CASTILLOHEL W 250.00 DIABETES MELLITUS WITHOUT MENTION OF COMPLICATION, TYPE II OR UNSPECIFIED TYPE, NOT STATED UNCONTROLLED 09/19/2017 SANTINO CASTILLO W 272.4 OTHER AND UNSPECIFIED HYPERLIPIDEMIA 09/19/2017 SANTINO CASTILLO W 401.0 MALIGNANT ESSENTIAL HYPERTENSION 09/19/2017 TIFFANY CASTILLOHEL W 788.1 09/19/2017 SANTINO CASTILLO W E03.9 HYPOTHYROIDISM, UNSPECIFIED 09/19/2017 TIFFANY CASTILLOHEL W E11.9 TYPE 2 DIABETES MELLITUS WITHOUT COMPLICATIONS 09/19/2017 SANTINO CATSILLO W E78.5 HYPERLIPIDEMIA, UNSPECIFIED 09/19/2017 TIFFANY CASTILLOHEL W I10 ESSENTIAL (PRIMARY) HYPERTENSION 09/19/2017 SANTINO CASTILLO W R30.0 DYSURIA 09/19/2017 TIFFANY CASTILLOHEL W 244.9 UNSPECIFIED HYPOTHYROIDISM 09/19/2017 TIFFANY CASTILLOHEL W 250.00 DIABETES MELLITUS WITHOUT MENTION OF COMPLICATION, TYPE II OR UNSPECIFIED TYPE, NOT STATED UNCONTROLLED 09/19/2017 JONATHAN SANTINO W 272.4 OTHER AND UNSPECIFIED HYPERLIPIDEMIA 09/19/2017 JONATHAN SANTINO W 401.0 MALIGNANT ESSENTIAL HYPERTENSION 09/19/2017 SANTINO CASTILLO W 788.1 09/19/2017 SANTINO CASTILLO W E03.9 HYPOTHYROIDISM, UNSPECIFIED 09/19/2017 TIFFANY CASTILLOHEL W E11.9 TYPE 2 DIABETES MELLITUS WITHOUT COMPLICATIONS 09/19/2017 SANTINO CASTILLO W E78.5 HYPERLIPIDEMIA, UNSPECIFIED 09/19/2017 TIFFANY CASTILLOHEL W I10 ESSENTIAL (PRIMARY) HYPERTENSION 09/19/2017 TIFFANY CASTILLOHEL W R30.0 DYSURIA 09/19/2017 CASTILLOTIFFANY SPRINGHEL W 244.9 UNSPECIFIED HYPOTHYROIDISM 09/19/2017 TIFFANY CASTILLOHEL W 250.00 DIABETES MELLITUS WITHOUT MENTION OF COMPLICATION, TYPE II OR UNSPECIFIED TYPE, NOT STATED UNCONTROLLED 09/19/2017 CASTILLO SANTINO W 272.4 OTHER AND UNSPECIFIED HYPERLIPIDEMIA 09/19/2017 CASTILLO SANTINO W 401.0 MALIGNANT ESSENTIAL HYPERTENSION 09/19/2017 CASTILLO SANTINO W 788.1 09/19/2017 SANTINO CASTILLO W E03.9 HYPOTHYROIDISM, UNSPECIFIED 09/19/2017 SANTINO CASTILLO W E11.9 TYPE 2 DIABETES MELLITUS WITHOUT COMPLICATIONS 09/19/2017 SANTINO CASTILLO W E78.5 HYPERLIPIDEMIA, UNSPECIFIED 09/19/2017 SANTINO CASTILLO W I10 ESSENTIAL (PRIMARY) HYPERTENSION 09/19/2017 SANTINO CASTILLO W R30.0 DYSURIA 12/20/2017 SANTINO CASTILLO A 250.00 DIABETES MELLITUS WITHOUT MENTION OF COMPLICATION, TYPE II OR UNSPECIFIED TYPE, NOT STATED UNCONTROLLED 12/20/2017 SANTINO CASTILLO A E11.9 TYPE 2 DIABETES MELLITUS WITHOUT COMPLICATIONS 12/20/2017 SANTINO CASTILLO A 250.00 DIABETES MELLITUS WITHOUT MENTION OF COMPLICATION, TYPE II OR UNSPECIFIED TYPE, NOT STATED UNCONTROLLED 12/20/2017 SANTINO CASTILLO A E11.9 TYPE 2 DIABETES MELLITUS WITHOUT COMPLICATIONS 01/19/2018 SANTINO CASTILLO W 788.1 DYSURIA 01/19/2018 SANTINO CASTILLO W R30.0 DYSURIA 01/19/2018 TIFFANY CASTILLOHEL W 788.1 DYSURIA 01/19/2018 SANTINO CASTILLO W R30.0 DYSURIA 01/19/2018 JONATHAN, SANTINO W 788.1 DYSURIA 01/19/2018 TIFFANY CASTILLOHEL W R30.0 DYSURIA 02/22/2018 SANTINO CASTILLO W 244.9 UNSPECIFIED HYPOTHYROIDISM 02/22/2018 SANTINO CASTILLO W E03.9 HYPOTHYROIDISM, UNSPECIFIED 02/22/2018 TIFFANY CASTILLOHEL W 244.9 UNSPECIFIED HYPOTHYROIDISM 02/22/2018 SANTINO CASTILLO W E03.9 HYPOTHYROIDISM, UNSPECIFIED 02/22/2018 CASTILLO, SANTINO W 244.9 UNSPECIFIED HYPOTHYROIDISM 02/22/2018 SANTINO CASTILLO W E03.9 HYPOTHYROIDISM, UNSPECIFIED 03/14/2018 ALAN ROMERO W 794.8 NONSPECIFIC ABNORMAL RESULTS OF FUNCTION STUDY OF LIVER 03/14/2018 ALAN ROMERO W R94.5 ABNORMAL RESULTS OF LIVER FUNCTION STUDIES 03/14/2018 SANTINO CASTILLO W E888.9 UNSPECIFIED FALL 03/14/2018 SANTINO CASTILLO W W19 UNSPECIFIED FALL 03/14/2018 SANTINO CASTILLO W E888.9 UNSPECIFIED FALL 03/14/2018 CASTILLO, SANTINO W W19 UNSPECIFIED FALL 03/15/2018 CASTILLO, SANTINO W E888.9 UNSPECIFIED FALL 03/15/2018 CASTILLO, SANTINO W W19 UNSPECIFIED FALL 03/15/2018 CASTILLO, SANTINO W E888.9 UNSPECIFIED FALL 03/15/2018 CASTILLO, SANTINO W W19 UNSPECIFIED FALL 03/15/2018 CASTILLO, SANTINO W E888.9 UNSPECIFIED FALL 03/15/2018 CASTILLO, SANTINO W W19 UNSPECIFIED FALL 03/15/2018 CASTILLO, SANTINO W 573.9 UNSPECIFIED DISORDER OF LIVER 03/15/2018 CASTILLO, SANTINO W E888.9 UNSPECIFIED FALL 03/15/2018 CASTILLO, SANTINO W W19 UNSPECIFIED FALL 03/15/2018 CASTILLO, SANTINO W 573.9 UNSPECIFIED DISORDER OF LIVER 03/15/2018 CASTILLO, SANTINO W 585.4 CHRONIC KIDNEY DISEASE, STAGE IV (SEVERE) 03/15/2018 CASTILLO, SANTINO W E888.9 UNSPECIFIED FALL 03/15/2018 CASTILLO, SANTINO W I12.9 HYPERTENSIVE CHRONIC KIDNEY DISEASE WITH STAGE 1 THROUGH STAGE 4 CHRONIC KIDNEY DISEASE, OR UNSPECIFIED CHRONIC KIDNEY DISEASE 03/15/2018 CASTILLO, SANTINO W W19 UNSPECIFIED FALL 03/15/2018 CASTILLO, SANTINO W 573.9 UNSPECIFIED DISORDER OF LIVER 03/15/2018 CASTILLO, SANTINO W 585.4 CHRONIC KIDNEY DISEASE, STAGE IV (SEVERE) 03/15/2018 CASTILLO, SANTINO W E888.9 UNSPECIFIED FALL 03/15/2018 CASTILLO, SANTINO W I12.9 HYPERTENSIVE CHRONIC KIDNEY DISEASE WITH STAGE 1 THROUGH STAGE 4 CHRONIC KIDNEY DISEASE, OR UNSPECIFIED CHRONIC KIDNEY DISEASE 03/15/2018 CASTILLO, SANTINO W W19 UNSPECIFIED FALL 03/15/2018 CASTILLO, SANTINO W 573.9 UNSPECIFIED DISORDER OF LIVER 03/15/2018 CASTILLO, SANTINO W 585.4 CHRONIC KIDNEY DISEASE, STAGE IV (SEVERE) 03/15/2018 CASTILLO, SANTINO W E888.9 UNSPECIFIED FALL 03/15/2018 CASTILLO, SANTINO W I12.9 HYPERTENSIVE CHRONIC KIDNEY DISEASE WITH STAGE 1 THROUGH STAGE 4 CHRONIC KIDNEY DISEASE, OR UNSPECIFIED CHRONIC KIDNEY DISEASE 03/15/2018 TIFFANY CASTILLOHEL W W19 UNSPECIFIED FALL 03/15/2018 TIFFANY CASTILLOHEL W 573.9 UNSPECIFIED DISORDER OF LIVER 03/15/2018 TIFFANY CASTILLOHEL W 585.4 CHRONIC KIDNEY DISEASE, STAGE IV (SEVERE) 03/15/2018 TIFFANY CASTILLOHEL W E888.9 UNSPECIFIED FALL 03/15/2018 SANTINO CASTILLO W I12.9 HYPERTENSIVE CHRONIC KIDNEY DISEASE WITH STAGE 1 THROUGH STAGE 4 CHRONIC KIDNEY DISEASE, OR UNSPECIFIED CHRONIC KIDNEY DISEASE 03/15/2018 CASTILLO, SANTINO W W19 UNSPECIFIED FALL 03/15/2018 CASTILLO, SANTINO W 244.9 UNSPECIFIED HYPOTHYROIDISM 03/15/2018 CASTILLO, SANTINO W 250.00 DIABETES MELLITUS WITHOUT MENTION OF COMPLICATION, TYPE II OR UNSPECIFIED TYPE, NOT STATED UNCONTROLLED 03/15/2018 CASTILLO, SANTINO W 573.9 UNSPECIFIED DISORDER OF LIVER 03/15/2018 JONATHAN SANTINO W 585.4 CHRONIC KIDNEY DISEASE, STAGE IV (SEVERE) 03/15/2018 SANTINO CASTILLO W 723.1 03/15/2018 SANTINO CASTILLO W 784.0 03/15/2018 SANTINO CASTILLO A 790.4 03/15/2018 CASTILLOSANTINO SPRING W 913.0 03/15/2018 CASTILLOSANTINO SPRING W 923.00 03/15/2018 CASTILLO, SANTINO W 924.01 03/15/2018 CASTILLO, SANTINO W E03.9 HYPOTHYROIDISM, UNSPECIFIED 03/15/2018 SANTINO CASTILLO E11.9 TYPE 2 DIABETES MELLITUS WITHOUT COMPLICATIONS 03/15/2018 SANTINO CASTILLO E888.9 UNSPECIFIED FALL 03/15/2018 CASTILLO, SANTINO W I12.9 HYPERTENSIVE CHRONIC KIDNEY DISEASE WITH STAGE 1 THROUGH STAGE 4 CHRONIC KIDNEY DISEASE, OR UNSPECIFIED CHRONIC KIDNEY DISEASE 03/15/2018 SANTINO CASTILLO M54.2 CERVICALGIA 03/15/2018 SANTINO CASTILLO W R51 HEADACHE 03/15/2018 SANTINO CASTILLO A R74.0 03/15/2018 SANTINO CASTILLO S40.011A CONTUSION OF RIGHT SHOULDER, INITIAL ENCOUNTER 03/15/2018 SANTINO CASTILLO S50.811A ABRASION OF RIGHT FOREARM, INITIAL ENCOUNTER 03/15/2018 SANTINO CASTILLO S50.812A ABRASION OF LEFT FOREARM, INITIAL ENCOUNTER 03/15/2018 SANTINO CASTILLO W S70.01XA CONTUSION OF RIGHT HIP, INITIAL ENCOUNTER 03/15/2018 SANTINO CASTILLO W W19 UNSPECIFIED FALL 03/19/2018 JESSICA MANUEL MD Ot E11.649 TYPE 2 DIABETES MELLITUS WITH HYPOGLYCEM 03/19/2018 JESSICA MANUEL MD Ot F32.9 MAJOR DEPRESSIVE DISORDER, SINGLE EPISOD 03/19/2018 JESSICA MANUEL MD Ot F41.9 ANXIETY DISORDER, UNSPECIFIED 03/19/2018 JESSICA MANUEL MD Ot I10 ESSENTIAL (PRIMARY) HYPERTENSION 03/19/2018 JESSICA MANUEL MD Ot J44.9 CHRONIC OBSTRUCTIVE PULMONARY DISEASE, U 03/19/2018 JESSICA MANUEL MD Ot K21.9 GASTRO-ESOPHAGEAL REFLUX DISEASE WITHOUT 03/19/2018 JESSICA MANUEL MD Ot M17.0 BILATERAL PRIMARY OSTEOARTHRITIS OF KNEE 03/19/2018 JESSICA MANUEL MD Ot R06.02 SHORTNESS OF BREATH 03/19/2018 JESSICA MANUEL MD Ot Z87.59 PERSONAL HISTORY OF COMP OF PREG, CHLDBR 03/19/2018 JESSICA MANUEL MD Ot Z88.1 ALLERGY STATUS TO OTHER ANTIBIOTIC AGENT 03/19/2018 JESSICA MANUEL MD Ot Z88.2 ALLERGY STATUS TO SULFONAMIDES STATUS 03/19/2018 JESSICA MANUEL MD Ot Z88.5 ALLERGY STATUS TO NARCOTIC AGENT STATUS 03/19/2018 JESSICA MANUEL MD Ot Z88.6 ALLERGY STATUS TO ANALGESIC AGENT STATUS 03/19/2018 JESSICA MANUEL MD Ot Z90.49 ACQUIRED ABSENCE OF OTHER SPECIFIED PART 03/19/2018 JESSICA MANUEL MD Ot Z90.710 ACQUIRED ABSENCE OF BOTH CERVIX AND UTER 03/20/2018 SANTINO CASTILLO 403.00 HYPERTENSIVE CHRONIC KIDNEY DISEASE, MALIGNANT, WITH CHRONIC KIDNEY DISEASE STAGE I THROUGH STAGE IV, OR UNSPECIFIED 03/20/2018 SANTINO CATSILLO 491.20 OBSTRUCTIVE CHRONIC BRONCHITIS, WITHOUT EXACERBATION 03/20/2018 SANTINO CASTILLO W 585.4 CHRONIC KIDNEY DISEASE, STAGE IV (SEVERE) 03/20/2018 SANTINO CASTILLO A 728.87 03/20/2018 SANTINO CASTILLO I12.9 HYPERTENSIVE CHRONIC KIDNEY DISEASE W STG 1-4/UNSP CHR KDNY 03/20/2018 SANTINO CASTILLO J44.9 CHRONIC OBSTRUCTIVE PULMONARY DISEASE, UNSPECIFIED 03/20/2018 SANTINO CASTILOL M19.90 UNSPECIFIED OSTEOARTHRITIS, UNSPECIFIED SITE 03/20/2018 JONATHAN SANTINO King M62.81 MUSCLE WEAKNESS (GENERALIZED) 03/20/2018 SANTINO CASTILLO N18.4 CHRONIC KIDNEY DISEASE, STAGE 4 (SEVERE) 03/20/2018 SANTINO CASTILLO S70.01XD CONTUSION OF RIGHT HIP, SUBSEQUENT ENCOUNTER 03/20/2018 SANTINO CASTILLO V58.89 ENCOUNTER FOR OTHER SPECIFIED AFTERCARE 08/28/2018 SANTINO CASTILLO 401.0 MALIGNANT ESSENTIAL HYPERTENSION 08/28/2018 SANTINO CASTILLO 585.4 CHRONIC KIDNEY DISEASE, STAGE IV (SEVERE) 08/28/2018 SANTINO CASTILLO I10 ESSENTIAL (PRIMARY) HYPERTENSION 08/28/2018 SANTINO CASTILLO I12.9 HYPERTENSIVE CHRONIC KIDNEY DISEASE WITH STAGE 1 THROUGH STAGE 4 CHRONIC KIDNEY DISEASE, OR UNSPECIFIED CHRONIC KIDNEY DISEASE 08/28/2018 SANTINO CASTILLO V70.0 ROUTINE GENERAL MEDICAL EXAMINATION AT A HEALTH CARE FACILITY 08/28/2018 SANTINO CASTILLO Z00.01 ENCOUNTER FOR GENERAL ADULT MEDICAL EXAMINATION WITH ABNORMAL FINDINGS 08/28/2018 SANTINO CASTILLO 250.00 DIABETES MELLITUS WITHOUT MENTION OF COMPLICATION, TYPE II OR UNSPECIFIED TYPE, NOT STATED UNCONTROLLED 08/28/2018 SANTINO CASTILLO 401.0 MALIGNANT ESSENTIAL HYPERTENSION 08/28/2018 SANTINO CASTILLO 585.4 CHRONIC KIDNEY DISEASE, STAGE IV (SEVERE) 08/28/2018 SANTINO CASTILLO E11.9 TYPE 2 DIABETES MELLITUS WITHOUT COMPLICATIONS 08/28/2018 SANTINO CASTILLO I10 ESSENTIAL (PRIMARY) HYPERTENSION 08/28/2018 SANTINO CASTILLO I12.9 HYPERTENSIVE CHRONIC KIDNEY DISEASE WITH STAGE 1 THROUGH STAGE 4 CHRONIC KIDNEY DISEASE, OR UNSPECIFIED CHRONIC KIDNEY DISEASE 08/28/2018 SANTINO CASTILLO V70.0 ROUTINE GENERAL MEDICAL EXAMINATION AT A HEALTH CARE FACILITY 08/28/2018 SANTINO CASTILLO Z00.01 ENCOUNTER FOR GENERAL ADULT MEDICAL EXAMINATION WITH ABNORMAL FINDINGS 08/28/2018 SANTINO CASTILLO 250.00 DIABETES MELLITUS WITHOUT MENTION OF COMPLICATION, TYPE II OR UNSPECIFIED TYPE, NOT STATED UNCONTROLLED 08/28/2018 SANTINO CASTILLO 401.0 MALIGNANT ESSENTIAL HYPERTENSION 08/28/2018 SANTINO CASTILLO 585.4 CHRONIC KIDNEY DISEASE, STAGE IV (SEVERE) 08/28/2018 SANTINO CASTILLO W E11.9 TYPE 2 DIABETES MELLITUS WITHOUT COMPLICATIONS 08/28/2018 SANTINO CASTILLO W I10 ESSENTIAL (PRIMARY) HYPERTENSION 08/28/2018 SANTINO CASTILLO W I12.9 HYPERTENSIVE CHRONIC KIDNEY DISEASE WITH STAGE 1 THROUGH STAGE 4 CHRONIC KIDNEY DISEASE, OR UNSPECIFIED CHRONIC KIDNEY DISEASE 08/28/2018 SANTINO CASTILLO V70.0 ROUTINE GENERAL MEDICAL EXAMINATION AT A HEALTH CARE FACILITY 08/28/2018 SANTINO CASTILLO Xuan Z00.01 ENCOUNTER FOR GENERAL ADULT MEDICAL EXAMINATION WITH ABNORMAL FINDINGS 08/30/2018 SANTINO CASTILLO Xuan V76.10 BREAST SCREENING, UNSPECIFIED 08/30/2018 SANTINO CASTILLO Z12.39 ENCOUNTER FOR OTHER SCREENING FOR MALIGNANT NEOPLASM OF BREAST 08/30/2018 SANTINO CASTILLO Xuan V76.10 BREAST SCREENING, UNSPECIFIED 08/30/2018 SANTINO CASTILLO Z12.39 ENCOUNTER FOR OTHER SCREENING FOR MALIGNANT NEOPLASM OF BREAST 04/24/2019 MATTEO DOOLEY, KIMBER Ot 530.81 ESOPHAGEAL REFLUX 04/24/2019 KIMBER FELIPE MD Ot V72.84 EXAM PRE-OPERATIVE NOS 04/24/2019 SANTINO CASTILLO MD Ot R74.8 ABNORMAL LEVELS OF OTHER SERUM ENZYMES 04/24/2019 ALAN ROMERO MD Ot E13.9 OTHER SPECIFIED DIABETES MELLITUS WITHOU 04/24/2019 ALAN ROMERO MD Ot I10 ESSENTIAL (PRIMARY) HYPERTENSION 04/24/2019 ALAN ROMERO MD Ot J44.9 CHRONIC OBSTRUCTIVE PULMONARY DISEASE, U 04/24/2019 ALAN ROMERO MD Ot R06.02 SHORTNESS OF BREATH 04/24/2019 ALAN ROMERO MD Ot R07.89 OTHER CHEST PAIN 04/24/2019 ALAN ROMERO MD Ot E11.9 TYPE 2 DIABETES MELLITUS WITHOUT COMPLIC 04/24/2019 ALAN ROMERO MD Ot I10 ESSENTIAL (PRIMARY) HYPERTENSION 04/24/2019 ALAN ROMERO MD, Ot J44.9 CHRONIC OBSTRUCTIVE PULMONARY DISEASE, U 04/24/2019 ALAN ROMERO MD Ot R06.02 SHORTNESS OF BREATH 04/24/2019 ALAN ROMERO MD Ot R07.89 OTHER CHEST PAIN Procedures There is no data. Results Test Result Range Capillary blood glucose measurement by glucometer (mass/volume) - 10/28/16 11:47 Capillary blood glucose measurement by glucometer (mass/volume) 147 mg/dL 70-110 Urine Protein/Creat - 11/03/16 15:16 MTP <7 mg/dL 0-20 Urine Creatinine 19.9 mg/dl 0.0-50.0 Urine Protein/Creat Ratio 0.34 mg/dL Urine Culture - 11/03/16 15:16 PRELIM CULTURE RESULTS No Growth 24 hours FINAL CULTURE RESULTS 20,000-50,000 Mixed Bets[place]. No Further Workup done. MEDIA PLATED Setup at 15:45 on 11/03/2016 CULTURE SOURCE Void Capillary blood glucose measurement by glucometer (mass/volume) - 12/02/16 09:20 Capillary blood glucose measurement by glucometer (mass/volume) 181 mg/dL 70-110 Capillary blood glucose measurement by glucometer (mass/volume) - 12/30/16 13:27 Capillary blood glucose measurement by glucometer (mass/volume) 180 mg/dL 70-110 Capillary blood glucose measurement by glucometer (mass/volume) - 01/13/17 08:27 Capillary blood glucose measurement by glucometer (mass/volume) [...] glucose measurement by glucometer (mass/volume) - 06/09/17 14:54 Capillary blood glucose measurement by glucometer (mass/volume) [...] Automated erythrocyte mean corpuscular hemoglobin concentration measurement (mass/volume) 30 g/dL 32-36 Automated erythrocyte distribution width ratio 13.8 % 10.0- 14.5 Automated blood platelet count (count/volume) 217 10*3/uL [...] Blood monocytes automated count (number/volume) 0.4 10*3 0.0- 1.0 Automated eosinophil count 0.2 10*3/uL 0.0-0.3 Automated [...] Serum or plasma aspartate aminotransferase measurement (enzymatic activity/volume) 178 U/L 5-34 Serum or plasma alanine aminotransferase measurement (enzymatic activity/volume) 123 U/L 0-55 Serum or plasma protein measurement (mass/volume) 5.4 g/dL 6.4-8.2 Serum or plasma albumin measurement (mass/volume) 2.2 g/dL 3.2-4.5 Magnesium - 06/09/17 15:00 Magnesium 1.3 mg/dL 1.8-2.4 Serum or plasma amylase measurement (enzymatic activity/volume) - 06/09/17 15:00 Serum or plasma amylase measurement (enzymatic activity/volume) 19 U/L 25-125 Lipase - 06/09/17 15:00 Lipase 23 U/L 8-78 Complete urinalysis with reflex to culture - 06/09/17 15:00 Urine color determination YELLOW NRG Urine clarity determination CLEAR NRG Urine pH measurement by test strip 6 5-9 Specific gravity of urine by test strip 1.010 1.016-1.022 Urine protein assay by test strip, semi-quantitative [...] sediment leukocyte count by microscopy (number/high power field) [HPF] NRG Bacteria detection in urine sediment [...] thyrotropin measurement by detection limit <=0.05 miu/l (units/volume) - 06/09/17 15:00 Serum or plasma thyrotropin measurement by detection limit <=0.05 miu/l (units/volume) 1.04 u[iU]/mL 0.35-4.94 GGT (gamma glutamyl transferase) - 06/09/17 15:00 GGT (gamma glutamyl transferase) 87 U/L 0-45 Capillary blood glucose measurement by glucometer (mass/volume) - 06/09/17 15:54 Capillary blood glucose measurement by glucometer (mass/volume) [...] glucose measurement by glucometer (mass/volume) - 07/20/17 07:05 Capillary blood glucose measurement by glucometer (mass/volume) 69 mg/dL 70-110 Methicillin resistant Staphylococcus aureus (MRSA) screening culture - 07/20/17 07:35 Methicillin resistant Staphylococcus aureus (MRSA) screening culture NEG NRG Capillary blood glucose measurement by glucometer (mass/volume) - 07/20/17 10:41 Capillary blood glucose measurement by glucometer (mass/volume) [...] 5-8.5 Urine-Protein Negative Negative Urine-RBC Negative Urine-Specific [place] 1.010 1.000-1.030 Urine-WBC Rare/HPF Urobilinogen 0.2 E.U./dL 0.2-1.0 Urine Culture - 01/19/18 15:28 PRELIM CULTURE RESULTS 10,000-20,000 Mixed Betsey Probable Skin Contaminant FINAL CULTURE RESULTS 10,000-20,000 Mixed Betsey [id number] Skin Contaminant [id number] Further Workup done MEDIA PLATED Setup at [...] 5-8.5 Urine-Protein Negative Negative Urine-RBC 0-2/HPF Urine-Specific [place] 1.010 1.000-1.030 Urine-WBC 0-2/HPF Urobilinogen 0.2 0.2-1.0 [...] 1.0 mg/dL 0.2-1.2 TP 6.0 g/dL 6.0-8.3 Complete blood count (CBC) with automated white blood cell (WBC) differential - 03/19/18 14:45 Blood leukocytes automated count (number/volume) 5.8 10*3/uL 4.3-11.0 Blood erythrocytes automated count (number/volume) 4.30 10*6/uL 4.35-5.85 Venous blood hemoglobin measurement (mass/volume) 11.8 g/dL 11.5-16.0 Blood hematocrit (volume fraction) 38 % 35-52 Automated erythrocyte mean corpuscular volume 89 [foz_us] 80-99 Automated erythrocyte mean corpuscular hemoglobin (mass per erythrocyte) 27 pg 25-34 Automated erythrocyte mean corpuscular hemoglobin concentration measurement (mass/volume) 31 g/dL 32-36 Automated erythrocyte distribution width ratio 13.9 % 10.0- 14.5 Automated blood platelet count (count/volume) 214 10*3/uL 130-400 Automated blood platelet mean volume measurement 10.3 [foz_us] 7.4-10.4 Automated blood neutrophils/100 leukocytes 65 % 42-75 Automated blood lymphocytes/100 leukocytes 22 % 12-44 Blood monocytes/100 leukocytes 8 % 0-12 Automated blood eosinophils/100 leukocytes 5 % 0-10 Automated blood basophils/100 leukocytes 1 % 0-10 Blood neutrophils automated count (number/volume) 3.7 10*3 1.8-7.8 Blood lymphocytes automated count (number/volume) 1.2 10*3 1.0-4.0 Blood monocytes automated count (number/volume) 0.5 10*3 0.0- 1.0 Automated eosinophil count 0.3 10*3/uL 0.0-0.3 Automated blood basophil count (count/volume) 0.0 10*3/uL 0.0-0.1 Comprehensive metabolic panel - 03/19/18 14:45 Serum or plasma sodium measurement (moles/volume) 139 mmol/L 135-145 Serum or plasma potassium measurement (moles/volume) 5.3 mmol/L 3.6-5.0 Serum or plasma chloride measurement (moles/volume) 103 mmol/L 98-107 Carbon dioxide 28 mmol/L 21-32 Serum or plasma anion gap determination (moles/volume) 8 mmol/L 5-14 Serum or plasma urea nitrogen measurement (mass/volume) 20 mg/dL 7-18 Serum or plasma creatinine measurement (mass/volume) 1.54 mg/dL 0.60-1.30 Serum or plasma urea nitrogen/creatinine mass ratio 13 NRG Serum or plasma creatinine measurement with calculation of estimated glomerular filtration rate 34 NRG Serum or plasma glucose measurement (mass/volume) 146 mg/dL 70-105 Serum or plasma calcium measurement (mass/volume) 9.5 mg/dL 8.5-10.1 Serum or plasma total bilirubin measurement (mass/volume) 0.7 mg/dL 0.1-1.0 Serum or plasma alkaline phosphatase measurement (enzymatic activity/volume) 298 U/L 40-136 Serum or plasma aspartate aminotransferase measurement (enzymatic activity/volume) 27 U/L 5-34 Serum or plasma alanine aminotransferase measurement (enzymatic activity/volume) 78 U/L 0-55 Serum or plasma protein measurement (mass/volume) 6.9 g/dL 6.4-8.2 Serum or plasma albumin measurement (mass/volume) 3.7 g/dL 3.2-4.5 Serum or plasma creatine kinase measurement (enzymatic activity/volume) - 03/19/18 14:45 Serum or plasma creatine kinase measurement (enzymatic activity/volume) 36 U/L 29-168 PT panel in platelet poor plasma by coagulation assay - 03/19/18 14:45 Prothrombin time (PT) in platelet poor plasma by coagulation assay 13.1 s 12.2-14.7 INR in platelet poor plasma or blood by coagulation assay 1.0 0.8-1.4 Activated partial thromboplastin time (aPTT) in platelet poor plasma bycoagulation assay - 03/19/18 14:45 Activated partial thromboplastin time (aPTT) in platelet poor plasma bycoagulation assay 31 s 24-35 Serum or plasma troponin i.cardiac measurement (mass/volume) - 03/19/18 14:45 Serum or plasma troponin i.cardiac measurement (mass/volume) < ng/mL <0.30 Lipase - 03/19/18 14:45 Lipase 49 U/L 8-78 Complete urinalysis with reflex to culture - 03/19/18 16:00 Urine color determination YELLOW NRG Urine clarity determination CLEAR NRG Urine pH measurement by test strip 8 5-9 Specific gravity of urine by test strip 1.010 1.016-1.022 Urine protein assay by test strip, semi-quantitative 1+ NEGATIVE Urine glucose detection by automated test [...] sediment leukocyte count by microscopy (number/high power field) NONE NRG Bacteria detection in urine sediment by light microscopy NEGATIVE NRG Squamous epithelial cells detection in urine sediment by light microscopy 5-10 NRG Crystals detection in urine sediment by light microscopy NONE NRG Casts detection in urine sediment by light microscopy NONE NRG Mucus detection in urine sediment by light microscopy NEGATIVE NRG Complete urinalysis with reflex to culture NO NRG Renal Panel - 05/04/18 13:47 Albumin 3.0 g/dL 3.6-5.1 BUN 26 mg/dL 5-25 Calcium 8.2 mg/dL 8.3-10.4 Chloride 106 mmol/L 95-114 CO2 24 mEq/L 22-33 Creat 1.93 mg/dL 0.50-1.50 eGFR 26 mL/min/1.73m2 >59 Glucose 139 mg/dL 70-110 Phosphorus 4.3 mg/dL 2.5-4.8 Potassium 5.2 mmol/L 3.5-5.3 Sodium 139 mmol/L 134-148 Urine Culture - 05/23/18 14:02 PRELIM CULTURE RESULTS No Growth 24 hours FINAL CULTURE RESULTS No Growth 48 hours MEDIA PLATED Setup at 14:11 on 05/24/2018 CULTURE SOURCE urine VIT B-12 - 07/27/18 13:32 Vitamin B12 >2000.00 pg/mL 213.00-816.00 Vitamin D, 25 OH - 07/27/18 13:32 Vitamin D, 25 OH 22.20 ng/mL 25.00-100.00 PTH, Intact - 07/27/18 13:32 PTH, INTACT 80 PG/ML 15-65 Urine Protein/Creat - 07/27/18 13:34 MTP 14 mg/dL 0-20 Urine Creatinine 121.3 mg/dl 0.0-50.0 Urine Protein/Creat Ratio 0.11 mg/dL Comprehensive Metabolic Panel - 08/28/18 14:50 Albumin 3.9 g/dL 3.6-5.1 ALP 514 U/L 35-130 ALT 71 U/L 6-45 Anion Gap 14 6-14 AST 48 U/L 2-40 BUN 21 mg/dL 5-25 Calcium 9.3 mg/dL 8.3-10.4 Chloride 106 mmol/L 95-114 CO2 24 mEq/L 22-33 Creat 1.68 mg/dL 0.50-1.50 eGFR 31 mL/min/1.73m2 >59 Globulin 3.5 g/dL 2.3-3.5 Glucose 148 mg/dL 70-110 Osmo 292 280-295 Potassium 5.0 mmol/L 3.5-5.3 Sodium 139 mmol/L 134-148 TBil 0.6 mg/dL 0.2-1.2 TP 7.4 g/dL 6.0-8.3 Urine Protein/Creat - 01/30/19 14:31 MTP <7 mg/dL 0-20 Urine Creatinine 50.5 mg/dl 0.0-50.0 Urine Protein/Creat Ratio 0.13 mg/dL Thyroid Stimulating Hormone - 03/19/19 14:42 TSH 1.43 mIU/mL 0.32-5.00 Encounters ACCT No. Visit Date/Time Discharge Status Pt. Type Provider Facility Loc./Unit Complaint [id number] 03/19/2019 19:55:00 03/19/2019 23:59:00 DIS Outpatient SANTINO CASTILLO [id number] 03/19/2019 15:36:00 03/19/2019 23:59:00 DIS Outpatient SANTNIO CASTILLO [id number] 02/11/2019 10:39:00 02/11/2019 23:59:00 DIS Outpatient ULISESNOY [id number] 01/30/2019 14:26:00 01/30/2019 23:59:00 DIS Outpatient ULISESNOY [id number] 08/30/2018 13:00:00 08/30/2018 23:59:00 DIS Outpatient SANTINO CASTILLO [id number] 08/28/2018 15:46:00 08/28/2018 23:59:00 DIS Outpatient SANTINO CASTILLO [id number] 07/27/2018 13:23:00 07/27/2018 23:59:00 DIS Outpatient NOY MONTGOMERY [id number] 05/23/2018 14:00:00 05/23/2018 23:59:00 DIS Outpatient TIFFANY CASTILLOHEL [id number] 05/04/2018 13:40:00 05/04/2018 23:59:00 DIS Outpatient ULISESNOY [id number] 03/16/2018 00:00:00 03/20/2018 09:16:00 DIS Outpatient TIFFANY CASTILLOHEL [id number] 03/14/2018 17:33:00 03/15/2018 11:08:00 DIS Outpatient JONATHAN [facility] [id number] 03/14/2018 08:05:00 03/14/2018 23:59:00 DIS Outpatient ALAN ROMERO [id number] 02/22/2018 14:36:00 02/22/2018 23:59:00 DIS Outpatient SANTINO CASTILLO [id number] 02/22/2018 13:08:00 02/22/2018 23:59:00 DIS Outpatient SANTINO CASTILLO [id number] 02/16/2018 09:57:00 02/16/2018 23:59:00 DIS Outpatient ALAN ROMERO [id number] 02/15/2018 11:35:00 02/15/2018 23:59:00 DIS Outpatient NOY MONTGOMERY [id number] 02/07/2018 12:22:00 02/07/2018 23:59:00 DIS Outpatient NOY MONTGOMERY [id number] 01/19/2018 15:27:00 01/19/2018 23:59:00 DIS Outpatient SANTINO CASTILLO [id number] 01/19/2018 15:22:00 01/19/2018 23:59:00 DIS Outpatient ALAN ROMERO [id number] 12/20/2017 17:56:00 12/20/2017 23:59:00 DIS Outpatient SANTINO CASTILLO [id number] 09/19/2017 15:03:00 09/19/2017 23:59:00 DIS Outpatient SANTINO CASTILLO [id number] 08/15/2017 14:41:00 08/15/2017 23:59:00 DIS Outpatient SANTINO CASTILLO [id number] 06/27/2017 15:09:00 06/27/2017 23:59:00 DIS Outpatient SANTINO CASTILLO [id number] 05/26/2017 12:06:00 05/26/2017 23:59:00 DIS Outpatient NOY MONTGOMERY [id number] 03/01/2017 15:04:00 03/01/2017 23:59:00 DIS Outpatient SANTINO CASTILLO [id number] 11/03/2016 15:13:00 11/03/2016 23:59:00 DIS Outpatient SANTINO CASTILLO [id number] 09/20/2016 13:52:00 09/20/2016 23:59:00 DIS Outpatient SANTINO CASTILLO [id number] 03/14/2018 20:39:58 Document Registration [id number] 03/19/2018 12:27:00 03/19/2018 17:35:00 DIS Emergency JESSICA MANUEL MD [facility] ER HIGH BP [id number] 07/26/2017 11:04:00 07/26/2017 23:59:59 CLS Outpatient ALAN ROMERO MD [facility] CARD ANTERIOR CHEST WALL PAIN R07.89 [id number] 07/20/2017 06:47:00 07/20/2017 13:30:00 DIS Outpatient KIMBER FELIPE MD [facility] SDC HISTORY POLYPS, REFLUX, WT. LOSS, ABD. WALL MASS [id number] 07/18/2017 10:45:00 07/18/2017 11:23:00 DIS Outpatient KIMBER FELIPE MD [facility] PREOP EXP. MINI LAP/COLONOSCOPY/EGD [id number] 07/06/2017 11:50:00 07/06/2017 23:59:59 CLS Outpatient ALAN ROMERO MD [facility] CARD ANTERIOR CHEST WALL PAIN R07.89,SOB R06.02 [id number] 06/12/2017 11:31:00 06/12/2017 23:59:59 CLS Outpatient SANTINO CASTILLO MD [facility] LAB ELEVATED LFTs [id number] 06/09/2017 14:36:00 06/09/2017 18:15:00 DIS Emergency FAISAL GALLO [facility] ER WEAKNESS/MARYAMKEY [id number] 01/13/2017 08:11:00 01/13/2017 09:14:00 DIS Outpatient KEYANA MULLER MD [facility] CARD SPONDYLOSIS [id number] 12/30/2016 12:56:00 12/30/2016 13:57:00 DIS Outpatient KEYANA MULLER MD [facility] CARD M53.3 [id number] 12/02/2016 08:49:00 12/02/2016 10:05:00 DIS Outpatient KEYANA MULLER MD [facility] CARD SPONDYLOSIS [id number] 10/28/2016 11:21:00 10/28/2016 12:23:00 DIS Outpatient KEYANA MULLER MD [facility] CARD M53.3 [id number] 06/01/2015 15:14:00 06/01/2015 17:04:00 DIS Outpatient KEYANA MULLER MD [facility] CARD LUMBAR SPONDOLYOSIS SIJD [id number] 05/11/2015 14:48:00 05/11/2015 15:39:00 DIS Outpatient KEYANA MULLER MD [facility] CARD SIJD [id number] 04/03/2015 08:15:00 04/03/2015 09:30:00 DIS Outpatient KEYANA MULLER MD [facility] CARD SIJD [id number] 05/07/2014 07:18:00 05/07/2014 11:00:00 DIS Outpatient KIMBER FELIPE MD [facility] SDC GERD [id number] 04/30/2014 07:25:00 04/30/2014 23:59:59 CLS Outpatient KIMBER FELIPE MD [facility] PREOP GERD [id number] 04/22/2014 07:33:00 04/22/2014 23:59:59 CLS Outpatient KIMBER FELIPE MD [facility] RAD GERD [id number] 10/01/2013 19:46:00 10/02/2013 07:00:00 DIS Outpatient [id number] 05/27/2019 14:15:00 ACT Outpatient ANA BOOGIE APRN [facility] REHAB IMPINGEMENT SYNDROME; RIGHT SHOULDER
--- NOTE | 2019-05-28 13:48 | ED General ---
General Chief Complaint: General Problems/Pain Stated Complaint: CATHETER ISSUES Nursing Triage Note: PATIENT SENT HERE BY DR BOURGEOIS FOR WEAKNESS. STATES THAT SHE HAS BEEN WEAK X2 WEEKS, CANT STAND UP ON HER LEGS. SHE STATES THAT SHE HAS NUMBNESS IN HER FEET FOR AT LEAST A YEAR. Nursing Sepsis Screen: No Definite Risk Source of Information: Patient Exam Limitations: No Limitations History of Present Illness Date Seen by Provider: May 28, 2019 Time Seen by Provider: 13:44 Initial Comments To ER with reports of bilateral leg numbness and weakness. She fell off of a horse many years ago, fractured the fourth lumbar vertebrae, had surgery for that in [facility] . Since then she's had some persistent leg numbness and low back pain but she's been able to perform activities of daily living fairly e asily. Starting around the of this month she went on a trip to [place]. They drove the whole trip in 1 stent, she felt fine getting into the car to go up there, had a bit of weakness in the legs when she went to get out of the car upon arriving in the next morning after they arrived awakened with an increase in her leg numbness to the point that she was unable to bear weight without the assistance of her . She was having such difficulty getting up and going to the bathroom transferring from her wheelchair that she went to an emergency room in [place] and had a catheter placed. She states the catheter placement was not because she was unable to urinate, it was because she had such difficulty physically getting to the bathroom. That was removed earlier this morning at her primary care provider's office, Dr. Bourgeois. She was then referred here for the increasing numbness. She has no loss of sensation of her genitals or of bowel or bladder control, she states that she had a urinary catheter placed while in [place] simply because she didn't want to urinate on herself because of her inability to get out of the chair. Timing/Duration: Other Severity: Moderate Associated Systoms: Weakness Allergies and Home Medications Allergies Coded Allergies: Sulfa (Sulfonamide Antibiotics) (Unverified Allergy, Unknown, 04/30/14) acetaminophen (Unverified Allergy, Unknown, 04/30/14) codeine (Unverified Allergy, Unknown, 04/30/14) oxycodone (Unverified Allergy, Unknown, 04/30/14) pregabalin (Verified Allergy, Unknown, "made me crazy, disoriented", 07/18/17) sulfamethoxazole (Unverified Allergy, Unknown, 04/30/14) trimethoprim (Unverified Allergy, Unknown, 04/30/14) Home Medications Alprazolam 1 Mg Tablet, 1 MG PO HS, (Reported) Cephalexin 500 Mg Tablet, 500 MG PO HS, (Reported) Cyanocobalamin (Vitamin B-12) 1,000 Mcg Tablet, 1,000 MCG PO HS, (Reported) Doxycycline Hyclate 100 Mg Tablet, 100 MG PO BID Prescribed by: ALBARO PORTILLO on 05/28/19 1645 Ergocalciferol (Vitamin D2) 50,000 Unit Capsule, 50,000 UNIT PO WEEK, (Reported) Folic Acid 1 Mg Tablet, 1 MG PO DAILY, (Reported) Levothyroxine Sodium 75 Mcg Tablet, 75 MCG PO DAILY, (Reported) Metoprolol Succinate 100 Mg Tab.er.24h, 100 MG PO DAILY, (Reported) Prednisone 20 Mg Tab, 40 MG PO DAILY Prescribed by: ALBARO PORTILLO on 05/28/19 1644 Tramadol HCl 300 Mg Tab.er.24h, 300 MG PO DAILY, (Reported) Trazodone HCl 100 Mg Tablet, 100 MG PO HS, (Reported) Patient Home Medication List Home Medication List Reviewed: Yes Review of Systems Review of Systems Constitutional: see HPI EENTM: see HPI Respiratory: no symptoms reported Cardiovascular: no symptoms reported Genitourinary: no symptoms reported Musculoskeletal: see HPI, back pain Skin: no symptoms reported Psychiatric/Neurological: No Symptoms Reported Hematologic/Lymphatic: No Symptoms Reported Immunological/Allergic: no symptoms reported Past Eerllzv-Saputc-Nmytxm Hx Patient Social History Alcohol Use: Denies Use Recreational Drug Use: No Smoking Status: Never a Smoker 2nd Hand Smoke Exposure: No Recent Foreign Travel: No Contact w/Someone Who Travel: No Recent Infectious Disease Expo: No Recent Hopitalizations: No Immunizations Up To Date Tetanus Booster (TDap): Unknown Date of Pneumonia Vaccine: Oct 12, 2010 Date of Influenza Vaccine: Aug 07, 2013 Seasonal Allergies Seasonal Allergies: Yes Past Medical History Surgeries: Yes (Ro[place] Shunt with Revision x3 then Reversal, Lumbar ORIF x3 Sx's ) Abdominal, Appendectomy, Section, Gallbladder, Hysterectomy Respiratory: Yes COPD Cardiac: Yes Hypertension Neurological: No 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 Renal Failure Gastrointestinal: Yes (ABDOMINAL WALL MASS) Gastroesophageal Reflux Musculoskeletal: Yes (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 0oz. 105.646982pr; 42.1 BMI Method:Stated General Appearance: No Apparent Distress, WD/WN Eyes: Bilateral Eye Normal Inspection, Bilateral Eye PERRL, Bilateral Eye EOMI HEENT: PERRL/EOMI, TMs Normal Neck: Full Range of Motion, Normal Inspection Respiratory: No Accessory Muscle Use, No Respiratory Distress Gastrointestinal: Non Tender, Soft Extremity: Normal Capillary Refill, Normal Inspection Neurologic/Psychiatric: Alert, Oriented x3 Skin: Normal Color, Warm/Dry Comments Out of wheelchair and into bed with the assistance of 3 people. Strong posterior tibial pulses bilaterally. Both lower kidneys are warm. There is a small [place]ch[place] proximal aspect second toenail on the right. Right leg strength when lifting foot off the bed is 3 out of 5, left leg is 4 out of 5. Progress/Results/Core Measures Suspected Sepsis Recent Fever Within 48 Hours: No Infection Criteria Present: None New/Unexplained Altered Menta: No Sepsis Screen: No Definite Risk SIRS Temperature:95.4 Pulse: 48 Respiratory Rate: 18 Laboratory Tests 05/28/19 13:40: White Blood Count 8.7 Blood Pressure 137 /53 Mean: 81 Laboratory Tests 05/28/19 13:40: Creatinine 2.47H, Platelet Count 282, Total Bilirubin 1.5H Results/Orders Lab Results Laboratory Tests Test 05/28/19 13:40 05/28/19 16:18 Range/Units White Blood Count 8.7 4.3-11.0 10^3/uL Red Blood Count 5.28 4.35-5.85 10^6/uL Hemoglobin 14.3 11.5-16.0 G/DL Hematocrit 46 35-52 % Mean Corpuscular Volume 87 80-99 FL Mean Corpuscular Hemoglobin 27 25-34 PG Mean Corpuscular Hemoglobin Concent 31 L 32-36 G/DL Red Cell Distribution Width 15.1 H 10.0-14.5 % Platelet Count 282 130-400 10^3/uL Mean Platelet Volume 10.4 7.4-10.4 FL Neutrophils (%) (Auto) 72 42-75 % Lymphocytes (%) (Auto) 18 12-44 % Monocytes (%) (Auto) 8 0-12 % Eosinophils (%) (Auto) 1 0-10 % Basophils (%) (Auto) 0 0-10 % Neutrophils # (Auto) 6.3 1.8-7.8 X 10^3 Lymphocytes # (Auto) 1.6 1.0-4.0 X 10^3 Monocytes # (Auto) 0.7 0.0-1.0 X 10^3 Eosinophils # (Auto) 0.1 0.0-0.3 10^3/uL Basophils # (Auto) 0.0 0.0-0.1 10^3/uL Sodium Level 136 135-145 MMOL/L Potassium Level 4.4 3.6-5.0 MMOL/L Chloride Level 92 L 98-107 MMOL/L Carbon Dioxide Level 30 21-32 MMOL/L Anion Gap 14 5-14 MMOL/L Blood Urea Nitrogen 26 H 7-18 MG/DL Creatinine 2.47 H 0.60-1.30 MG/DL Estimat Glomerular Filtration Rate 20 BUN/Creatinine Ratio 11 Glucose Level 154 H 70-105 MG/DL Calcium Level 10.1 8.5-10.1 MG/DL Corrected Calcium 10.3 H 8.5-10.1 MG/DL Magnesium Level 1.9 1.8-2.4 MG/DL Total Bilirubin 1.5 H 0.1-1.0 MG/DL Aspartate Amino Transf (AST/SGOT) 132 H 5-34 U/L Alanine Aminotransferase (ALT/SGPT) 122 H 0-55 U/L Alkaline Phosphatase 539 H 40-136 U/L Troponin I < 0.028 <0.028 NG/ML C-Reactive Protein High Sensitivity 1.98 H 0.00-0.50 MG/DL B-Type Natriuretic Peptide 109.0 H <100.0 PG/ML Total Protein 7.5 6.4-8.2 GM/DL Albumin 3.7 3.2-4.5 GM/DL Thyroid Stimulating Hormone (TSH) 0.79 0.35-4.94 UIU/ML Erythrocyte Sedimentation Rate 18 0-30 MM/HR My Orders Orders - ALBARO PORTILLO APRN Cbc With Automated Diff (05/28/19 13:11) Comprehensive Metabolic Panel (05/28/19 13:11) Ua Culture If Indicated (05/28/19 13:11) Ed Iv/Invasive Line Start (05/28/19 13:11) Ekg Tracing (05/28/19 13:11) Troponin I (05/28/19 13:11) BNP (05/28/19 13:11) Magnesium (05/28/19 13:11) Thyroid Stimulating Hormone (05/28/19 13:11) Mri Lumbar Spine W/O Contrast (05/28/19 13:43) Ns Iv 500 Ml (Sodium Chloride 0.9%) (05/28/19 14:30) Erythrocyte Sedimentation Rate (05/28/19 16:09) Hs C Reactive Protein (05/28/19 16:09) Ns Iv 500 Ml (Sodium Chloride 0.9%) (05/28/19 17:00) Vital Signs/I&O 05/28/19 13:03 Temp 95.4 Pulse 48 Resp 18 B/P (MAP) 137/53 (81) Pulse Ox 98 O2 Delivery Nasal Cannula O2 Flow Rate 2.00 Capillary Refill : Less Than 3 Seconds Blood Pressure Mean: 81 Diagnostic Imaging Diagonstic Imaging: MRI Comments NAME: JOCELINE MCKEON [facility] REC#: [id number] PT STATUS: REG ER : 1955 PHYSICIAN: ALBARO PORTILLO APRN ADMIT DATE: 05/28/19/ER Signed Date of Exam:05/28/19 MRI LUMBAR SPINE W/O CONTRAST PROCEDURE: MRI lumbar spine. TECHNIQUE: Multiplanar, multisequence MRI of the lumbar spine was performed without contrast. INDICATION: Numbness in the bilateral legs for a few weeks. Unable to walk. History of prior spine surgery. Comparison: None Findings: 5 lumbar type vertebral bodies are visualized with the last well-formed disc space designated L5-S1. Posterior fusion is visualized at L2-L3 and laminectomies visualized from L2-L3 and L5-S1. Interbody fusion is seen at L4-L5 and L5-S1. There is straightening of the lumbar spine. No focal osseous lesions are seen. No acute fracture or dislocation is seen in the lumbar spine. The conus terminates at the L1 level. No masses are seen associated with the conus or nerve roots of the cauda equina. No epidural collections are identified. Multilevel degenerative changes are seen in the lumbar spine with disc bulges, facet hypertrophy, and buckling of the ligamentum flavum. T11-T12: Buckling of the ligamentum flavum and facet hypertrophy results in moderate spinal canal stenosis and moderate bilateral foraminal stenosis. T12-L1: Facet hypertrophy and buckling of ligamentum flavum results in no significant spinal canal stenosis and mild to moderate bilateral foraminal narrowing. L1-L2: No significant spinal canal or foraminal stenosis. L2-L3: Broad-based disc bulge, facet hypertrophy, and buckling of ligamentum flavum results in moderate to severe spinal canal stenosis and mild to moderate left and mild right foraminal narrowing. L3-L4: Facet hypertrophy and buckling of ligamentum flavum results in no significant spinal canal or foraminal stenosis. L4-L5: Facet hypertrophy and buckling of the ligamentum flavum results in no significant spinal canal or foraminal stenosis. L5-S1: Facet hypertrophy and buckling of ligamentum flavum results in no significant spinal canal stenosis and moderate left and no right foraminal stenosis. There is marked atrophy of the paravertebral musculature. Impression: 1. No acute fracture or dislocation in the lumbar spine. 2. Multilevel degenerative changes in the lower thoracic and lumbar spine, greatest at T11-T12 and L2-L3. Dictated by: Dictated on workstation # [id number] Dict: 05/28/19 1449 Trans: 05/28/[address] [facility] [id number] Interpreted by: FALGUNI ZAMORA DO Electronically signed by: FALGUNI ZAMORA DO 05/28/19 1458 Departure Communication (Admissions) I spoke with the patient's primary care provider Dr. Bourgeois who agrees with the workup done, is concerned about an ascending paralysis however then spoke with Dr. Beavers from neurology at [place]. He states with the MRI findings this would likely explain her symptoms and she should be evaluated by spine surgery. The acute presentation of her illness going from normal to much worse than normal over about 24-36 hours would be atypical for an ascending paralysis-type illness. Additionally, she had no preceding viral symptoms such as nausea vomiting diarrhea cough runny nose or sore throat or fever. Her postvoid residual bladder scan here was 34 mL. 1640-spoke with Dr. Haddad from orthopedics. He states he does not need to consult on her if she is admitted to the hospital, there is nothing he would do in the acute setting surgically without cauda equina syndrome. He would be able to see her in the outpatient setting tomorrow or . Plus/minus steroids in the meantime, he'll likely refer her to physical therapy. Patient requests a Jj catheter to go home, this is reasonable given that she is having such difficulty getting up and about. Not that she has urinary retention or neurogenic bladder, but immobility that could cause her to sit in her own urine for quite some time if not placed. Impression Primary Impression: Lower extremity weakness Qualified Codes: R29.898 - Other symptoms and signs involving the musculoskeletal system Disposition: HOME, SELF-CARE Condition: Stable Departure-Patient Inst. Decision time for Depature: 16:42 Referrals: SARITHA POTTS DO (PCP) Primary Care Physician EARLINE HADDAD DO Patient Instructions: Generalized Weakness (DC), Spinal Stenosis, Spinal Stenosis Strengthening Exercises Add. Discharge Instructions: 1. You should see Dr. Haddad tomorrow morning at 9:45 AM. Arrive at 9:45 AM to fill out paperwork and your appointment will follow. Take the disc with images with you. Take the steroids as directed starting today. Take the antibiotics as directed for the second toe on the right foot starting today as well. Scripts Doxycycline Hyclate (Doxycycline Hyclate) 100 Mg Tablet 100 MG PO BID, #14 TAB 0 Refills Prov: ALBARO PORTILLO APRN 05/28/19 Prednisone (Prednisone) 20 Mg Tab 40 MG PO DAILY, #8 TAB 0 Refills Prov: ALBARO PORTILLO APRN 05/28/19 Copy Copies To 1: SANTINO BOURGEOIS MD, PETER J APRN May 28, 2019 13:48
[2019-05-28 13:59] LABS: BASOPHILS % (AUTO) 0 % (0-10); EOSINOPHILS # (AUTO) 0.1 10^3/uL (0.0-0.3); EOSINOPHILS % (AUTO) 1 % (0-10); HEMATOCRIT 46 % (35-52); HEMOGLOBIN 14.3 G/DL (11.5-16.0); LYMPHOCYTES # (AUTO) 1.6 X 10^3 (1.0-4.0); LYMPHOCYTES % (AUTO) 18 % (12-44); MEAN CORPUSCULAR HEMOGLOBIN 27 PG (25-34); MEAN CORPUSCULAR HGB CONC 31 G/DL (32-36); MEAN CORPUSCULAR VOLUME 87 FL (80-99); MEAN PLATELET VOLUME 10.4 FL (7.4-10.4); MONOCYTES # (AUTO) 0.7 X 10^3 (0.0-1.0); MONOCYTES % (AUTO) 8 % (0-12); NEUTROPHILS # (AUTO) 6.3 X 10^3 (1.8-7.8); NEUTROPHILS % (AUTO) 72 % (42-75); PLATELET COUNT 282 10^3/uL (130-400); RED CELL DISTRIBUTION WIDTH 15.1 % (10.0-14.5); WHITE BLOOD COUNT 8.7 10^3/uL (4.3-11.0)
[2019-05-28 14:16] LABS: ALANINE AMINOTRANSFERASE 122 U/L (0-55); ALBUMIN 3.7 GM/DL (3.2-4.5); ALKALINE PHOSPHATASE 539 U/L (40-136); BILIRUBIN,TOTAL 1.5 MG/DL (0.1-1.0); BUN/CREATININE RATIO 11; CALCIUM 10.1 MG/DL (8.5-10.1); CARBON DIOXIDE 30 MMOL/L (21-32); CHLORIDE 92 MMOL/L (98-107); CREATININE SERUM 2.47 MG/DL (0.60-1.30); GFR ESTIMATED 20; GLUCOSE 154 MG/DL (70-105); MAGNESIUM 1.9 MG/DL (1.8-2.4); POTASSIUM 4.4 MMOL/L (3.6-5.0); SODIUM 136 MMOL/L (135-145); TOTAL PROTEIN 7.5 GM/DL (6.4-8.2)
[2019-05-28] MEDS ORDERED: NS IV 500 ML 500 ML IV SCH ×2 (14:30→17:00)
--- NOTE | 2019-05-28 15:00 | Diagnostic Imaging Report ---
PROCEDURE: MRI lumbar spine. TECHNIQUE: Multiplanar, multisequence MRI of the lumbar spine was performed without contrast. INDICATION: Numbness in the bilateral legs for a few weeks. Unable to walk. History of prior spine surgery. Comparison: None Findings: 5 lumbar type vertebral bodies are visualized with the last well-formed disc space designated L5-S1. Posterior fusion is visualized at L2-L3 and laminectomies visualized from L2-L3 and L5-S1. Interbody fusion is seen at L4-L5 and L5-S1. There is straightening of the lumbar spine. No focal osseous lesions are seen. No acute fracture or dislocation is seen in the lumbar spine. The conus terminates at the L1 level. No masses are seen associated with the conus or nerve roots of the cauda equina. No epidural collections are identified. Multilevel degenerative changes are seen in the lumbar spine with disc bulges, facet hypertrophy, and buckling of the ligamentum flavum. T11-T12: Buckling of the ligamentum flavum and facet hypertrophy results in moderate spinal canal stenosis and moderate bilateral foraminal stenosis. T12-L1: Facet hypertrophy and buckling of ligamentum flavum results in no significant spinal canal stenosis and mild to moderate bilateral foraminal narrowing. L1-L2: No significant spinal canal or foraminal stenosis. L2-L3: Broad-based disc bulge, facet hypertrophy, and buckling of ligamentum flavum results in moderate to severe spinal canal stenosis and mild to moderate left and mild right foraminal narrowing. L3-L4: Facet hypertrophy and buckling of ligamentum flavum results in no significant spinal canal or foraminal stenosis. L4-L5: Facet hypertrophy and buckling of the ligamentum flavum results in no significant spinal canal or foraminal stenosis. L5-S1: Facet hypertrophy and buckling of ligamentum flavum results in no significant spinal canal stenosis and moderate left and no right foraminal stenosis. There is marked atrophy of the paravertebral musculature. Impression: 1. No acute fracture or dislocation in the lumbar spine. 2. Multilevel degenerative changes in the lower thoracic and lumbar spine, greatest at T11-T12 and L2-L3. Dictated by: Dictated on workstation # [id number]
[2019-05-28] MEDS ORDERED: PRD20T PO (16:44)
[2019-05-28] MEDS ORDERED: DOXY100T2 PO (16:45)
[2019-05-28 18:17] VITALS: BP 151/66
[2019-05-28 18:22] LABS: BILIRUBIN,URINE NEGATIVE (NEGATIVE); CLARITY,URINE CLEAR; COLOR,URINE YELLOW; GLUCOSE, URINE (UA) NEGATIVE (NEGATIVE); KETONES,URINE NEGATIVE (NEGATIVE); LEUKOCYTE ESTERASE ,URINE 2+ (NEGATIVE); NITRITE,URINE NEGATIVE (NEGATIVE); PH,URINE 5 (5-9); PROTEIN,URINE NEGATIVE (NEGATIVE); UROBILINOGEN,URINE NORMAL (NORMAL)
[2019-05-28 18:36] LABS: AMORPHOUS SEDIMENT,UR FEW AMOR URATES /LPF; BACTERIA,URINE FEW /HPF; RBC,URINE RARE /HPF
== END 2019-05-28 18:17 | disposition home or self-care (01) ==
LOC: EDUNIT# 12:52 → ER 12:53
DX: R29.898 Other symptoms and signs involving the musculoskeletal system (principal); I10 Essential (primary) hypertension; E11.9 Type 2 diabetes mellitus without complications; J44.9 Chronic obstructive pulmonary disease, unspecified; F32.9 Major depressive disorder, single episode, unspecified; F41.9 Anxiety disorder, unspecified; K21.9 Gastro-esophageal reflux disease without esophagitis; Z87.828 Personal history of other (healed) physical injury and trauma; Z87.81 Personal history of (healed) traumatic fracture; Z88.2 Allergy status to sulfonamides; Z88.5 Allergy status to narcotic agent; Z88.6 Allergy status to analgesic agent; Z88.1 Allergy status to other antibiotic agents; Z88.8 Allergy status to other drugs, medicaments and biological substances; Z90.49 Acquired absence of other specified parts of digestive tract; Z90.710 Acquired absence of both cervix and uterus; Z98.890 Other specified postprocedural states
CPT/HCPCS: 36415; 51702; 72148; 80053; 81000; 83735; 83880; 84443; 84484; 85025; 85652; 86141; 87088; 96360

== ENCOUNTER → 2019-06-18 | Outpatient (CLI) | payer MEDICARE, OTHER ==
[~2019-06-18] VITALS: Ht 157.5 cm; Wt 114.3 kg
[~2019-06-18] MED LIST changes: +CATHETER FLUSH 10 ML SYR IV PRN; +DOXY100T2 PO; -DULO60CA58 PO; +DULO60CA59 PO; +PRD20T PO; +REGADENOSON 0.4 MG/5 ML SYR (LEXISCAN) IV ONE
[2019-06-18 09:18] VITALS: BP 132/54
[2019-06-18 09:23] VITALS: BP 138/36
--- NOTE | 2019-06-18 14:53 | STRESS TEST ---
DATE OF SERVICE: 06/18/2019 RESTING AND POST REGADENOSON TECHNETIUM-99M TETROFOSMIN SPECT CT IMAGING ORDERING PHYSICIAN: Dr. Vargas. OTHER PHYSICIAN: Dr. Crowell. CLINICAL DIAGNOSES: Diabetes, shortness of breath, weakness, sinus bradycardia. Baseline images were carried out after injection of 10.12 mCi of technetium-99m Tetrofosmin. This was followed by 0.4 mg of regadenoson and 31.4 mCi of technetium-99m Tetrofosmin for stress imaging. The electrocardiogram showed sinus rhythm at baseline. It did not change significantly with regadenoson infusion. The patient tolerated the procedure well. Review of images at rest and following stress does not indicate any distinct perfusion defects consistent with significant myocardial ischemia. Some degree of attenuation of the anteroseptal wall (likely breast attenuation) is seen both at rest and following regadenoson infusion. Gated images showed normal global left ventricular systolic function with normal regional wall motion, including the anteroseptal wall. Left ventricular ejection fraction is calculated to be 73%. Left ventricular end diastolic volume is 55 mL. CONCLUSIONS: 1. No evidence of any significant myocardial ischemia or infarction on this study. 2. Normal regional wall motion. 3. Normal global left ventricular systolic function with a calculated ejection fraction of 73%. 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
== END ==
LOC: CARD 07:53
PROVIDERS: ATTEND Internal Medicine Cardiovascular Disease
DX: J44.9 Chronic obstructive pulmonary disease, unspecified (principal); E11.22 Type 2 diabetes mellitus with diabetic chronic kidney disease; N18.3 Chronic kidney disease, stage 3 (moderate)
CPT/HCPCS: 78452; 93017

== ENCOUNTER 2020-12-28 08:22 | Emergency (ER) | payer MEDICARE, OTHER ==
[~2020-12-28] VITALS: Ht 157.4 cm; Wt 116.5 kg
[~2020-12-28 08:22] MED LIST changes: -CATHETER FLUSH 10 ML SYR IV PRN; -DOXY100T19 PO; +DOXY100T31 PO; +FOLI1TAB33 PO; -METO-395 PO; +MTP100TCR PO; -REGADENOSON 0.4 MG/5 ML SYR (LEXISCAN) IV ONE; -TRAZ-190 PO; +TRAZ-227 PO
[2020-12-28 09:27] LABS: BASOPHILS # (AUTO) 0.1 10^3/uL (0.0-0.1); BASOPHILS % (AUTO) 1 % (0-10); EOSINOPHILS # (AUTO) 0.2 10^3/uL (0.0-0.3); EOSINOPHILS % (AUTO) 2 % (0-10); HEMATOCRIT 43 % (35-52); HEMOGLOBIN 13.6 g/dL (11.5-16.0); LYMPHOCYTES # (AUTO) 1.5 10^3/uL (1.0-4.0); LYMPHOCYTES % (AUTO) 17 % (12-44); MEAN CORPUSCULAR HEMOGLOBIN 29 pg (25-34); MEAN CORPUSCULAR HGB CONC 32 g/dL (32-36); MEAN CORPUSCULAR VOLUME 91 fL (80-99); MEAN PLATELET VOLUME 10.2 fL (9.0-12.2); MONOCYTES # (AUTO) 0.4 10^3/uL (0.0-1.0); MONOCYTES % (AUTO) 5 % (0-12); NEUTROPHILS # (AUTO) 6.8 10^3/uL (1.8-7.8); NEUTROPHILS % (AUTO) 75 % (42-75); PLATELET COUNT 206 10^3/uL (130-400)
[2020-12-28 09:29] LABS: BILIRUBIN,URINE NEGATIVE (NEGATIVE); CLARITY,URINE CLOUDY; COLOR,URINE YELLOW; GLUCOSE, URINE (UA) 1+ (NEGATIVE); KETONES,URINE NEGATIVE (NEGATIVE); LEUKOCYTE ESTERASE ,URINE 1+ (NEGATIVE); NITRITE,URINE NEGATIVE (NEGATIVE); PROTEIN,URINE 1+ (NEGATIVE)
[2020-12-28 09:35] LABS: BACTERIA,URINE MODERATE /HPF; WBC,URINE 25-50 /HPF
[2020-12-28 09:36] LABS: POTASSIUM 3.9 MMOL/L (3.6-5.0)
[2020-12-28 09:36] LABS: YEAST,URINE MODERATE /HPF
[2020-12-28 09:38] LABS: CALCIUM 8.9 MG/DL (8.5-10.1)
[2020-12-28 09:39] LABS: TOTAL PROTEIN 8.1 GM/DL (6.4-8.2)
[2020-12-28 09:41] LABS: BILIRUBIN,TOTAL 0.5 MG/DL (0.1-1.0)
[2020-12-28 09:42] LABS: CREATININE SERUM 2.23 MG/DL (0.60-1.30)
[2020-12-28 09:45] LABS: MAGNESIUM 1.8 MG/DL (1.6-2.4)
[2020-12-28 10:07] LABS: FREE T4 (FREE THYROXINE) 1.08 NG/DL (0.70-1.48)
[2020-12-28] MEDS ORDERED: NS IV 1000 ML 1,000 ML IV SCH (11:00)
[2020-12-28] MEDS ORDERED: cefTRIAXone FOR IV USE 1,000 MG in WATER (STERILE) FOR INJECTION 10 ML IV ONE (11:00)
[2020-12-28] MEDS ORDERED: KETOROLAC 30 MG/ML VIAL IVP ONE (11:45)
[2020-12-28] MEDS ORDERED: morphine INJ 10 MG/ML 1ML (SYR OR VIAL) IVP STA ×3 (14:10→19:28)
--- NOTE | 2020-12-28 14:10 | ED General ---
General Chief Complaint: General Problems/Pain Stated Complaint: BACK PAIN Nursing Triage Note: Pt to ED in personal wheelchair. Pt c/o bilat leg numbness and pain after a long trip to [place]. Pt also c/o bilat numbness in upper extremities. Pt reports same thing happened last year after trip to [place] causing pt to have back surgery. Pt tried to see Dr. Morejon today, the doctor who did the back surgery, and was told to come to ED. Pt has corado catheter in place and pt reports corado was ordered for trip. Pt began having symptoms Monday morning. Nursing Sepsis Screen: No Definite Risk Source of Information: Patient Exam Limitations: No Limitations History of Present Illness Date Seen by Provider: Dec 28, 2020 Time Seen by Provider: 08:27 Initial Comments This 65-year-old woman presents to the emergency room with somewhat vague complaints of upper and lower extremity weakness that has progressed over the last 48 hours. She traveled to [place] last week and returned last night. Starting on December 27, she began to have significant difficulty getting up out of her wheelchair and walking. She was unable to walk independently. She is normally able to walk independently with a walker. She also reports having multiple falls without injury. She presents by private vehicle today in her electric wheelchair. She requires 2 person assist to get from the wheelchair into the bed. She feels like her legs are "giving out" on her. She describes having cervical spine surgery in [address] Morejon in [place] for similar problems. She has also previously had lumbar spine surgery. She presents with an indwelling catheter which she uses when she travels. She complains of significant lumbar back pain which is exacerbated from her chronic state. Allergies and Home Medications Allergies Coded Allergies: Sulfa (Sulfonamide Antibiotics) (Unverified Allergy, Unknown, 04/30/14) acetaminophen (Unverified Allergy, Unknown, 04/30/14) codeine (Unverified Allergy, Unknown, 04/30/14) oxycodone (Unverified Allergy, Unknown, 04/30/14) pregabalin (Verified Allergy, Unknown, "made me crazy, disoriented", 07/18/17) sulfamethoxazole (Unverified Allergy, Unknown, 04/30/14) trimethoprim (Unverified Allergy, Unknown, 04/30/14) Home Medications Alprazolam 1 Mg Tablet, 1 MG PO HS, (Reported) Cephalexin 500 Mg Tablet, 500 MG PO HS, (Reported) Cyanocobalamin (Vitamin B-12) 1,000 Mcg Tablet, 1,000 MCG PO HS, (Reported) Doxycycline Hyclate 100 Mg Tablet, 100 MG PO BID Prescribed by: ALBARO PORTILLO on 05/28/19 1645 Ergocalciferol (Vitamin D2) 50,000 Unit Capsule, 50,000 UNIT PO WEEK, (Reported) Folic Acid 1 Mg Tablet, 1 MG PO DAILY, (Reported) Levothyroxine Sodium 75 Mcg Tablet, 75 MCG PO DAILY, (Reported) Metoprolol Succinate 100 Mg Tab.er.24h, 100 MG PO DAILY, (Reported) Prednisone 20 Mg Tab, 40 MG PO DAILY Prescribed by: ALBARO PORTILLO on 05/28/19 164 Tramadol HCl 300 Mg Tab.er.24h, 300 MG PO DAILY, (Reported) Trazodone HCl 100 Mg Tablet, 100 MG PO HS, (Reported) Patient Home Medication List Home Medication List Reviewed: Yes Review of Systems Review of Systems Constitutional: no symptoms reported EENTM: no symptoms reported Respiratory: no symptoms reported Cardiovascular: no symptoms reported Gastrointestinal: no symptoms reported Genitourinary: see HPI : No Musculoskeletal: see HPI Skin: no symptoms reported Psychiatric/Neurological: See HPI Hematologic/Lymphatic: No Symptoms Reported Immunological/Allergic: no symptoms reported Past Qahggoo-Mhttrb-Ltycsv Hx Past Med/Social Hx: Reviewed Nursing Past Med/Soc Hx Patient Social History Alcohol Use: Denies Use 2nd Hand Smoke Exposure: No Recent Infectious Disease Expo: No Recent Hopitalizations: No Immunizations Up To Date Tetanus Booster (TDap): Unknown Date of Pneumonia Vaccine: Oct 12, 2010 Date of Influenza Vaccine: Aug 07, 2013 Seasonal Allergies Seasonal Allergies: Yes Past Medical History Surgeries: Yes (Roosevelt Shunt with Revision x3 then Reversal, Lumbar ORIF x3 Sx's ) Abdominal, Appendectomy, Section, Gallbladder, Hysterectomy, Orthopedic Respiratory: Yes COPD Cardiac: Yes Hypertension Neurological: No 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 Genitourinary: Yes Renal Failure (Chronic kidney disease) Gastrointestinal: Yes (ABDOMINAL WALL MASS) Gastroesophageal Reflux Musculoskeletal: Yes (ARTHRITIS IN BONES - KNEES, JOINTS) Degenerate Disk Disease, Arthritis Endocrine: Yes Diabetes, Non-Insulin dep Loss of Vision: Bilateral Hearing Impairment: Denies Cancer: No Psychosocial: Yes Anxiety, Depression Integumentary: No Blood Disorders: No Physical Exam Vital Signs Vital Signs - First Documented 12/28/20 08:30 Temp 36.6 Pulse 113 Resp 12 B/P (MAP) 147/89 (108) Pulse Ox 95 O2 Delivery Room Air Capillary Refill : Less Than 3 Seconds Height, Weight, BMI Height: 5'2.00" Weight: 252lbs. 0.0oz. 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 Norm as Tested, Motor Weakness (Generalized with no focal deficit) Skin: Normal Color, Warm/Dry Progress/Results/Core Measures Suspected Sepsis Recent Fever Within 48 Hours: No Infection Criteria Present: None New/Unexplained Altered Menta: No Sepsis Screen: No Definite Risk SIRS Temperature: Pulse: 113 Respiratory Rate: 12 Laboratory Tests 12/28/20 09:15: White Blood Count 9.0 Blood Pressure 147 /89 Mean: 108 Laboratory Tests 12/28/20 09:15: Creatinine 2.23H, Platelet Count 206, Total Bilirubin 0.5 Results/Orders Lab Results Laboratory Tests Test 12/28/20 09:15 12/28/20 09:20 12/28/20 17:02 Range/Units White Blood Count 9.0 4.3-11.0 10^3/uL Red Blood Count 4.73 3.80-5.11 10^6/uL Hemoglobin 13.6 11.5-16.0 g/dL Hematocrit 43 35-52 % Mean Corpuscular Volume 91 80-99 fL Mean Corpuscular Hemoglobin 29 25-34 pg Mean Corpuscular Hemoglobin Concent 32 32-36 g/dL Red Cell Distribution Width 13.6 10.0-14.5 % Platelet Count 206 130-400 10^3/uL Mean Platelet Volume 10.2 9.0-12.2 fL Immature Granulocyte % (Auto) 1 % Neutrophils (%) (Auto) 75 42-75 % Lymphocytes (%) (Auto) 17 12-44 % Monocytes (%) (Auto) 5 0-12 % Eosinophils (%) (Auto) 2 0-10 % Basophils (%) (Auto) 1 0-10 % Neutrophils # (Auto) 6.8 1.8-7.8 10^3/uL Lymphocytes # (Auto) 1.5 1.0-4.0 10^3/uL Monocytes # (Auto) 0.4 0.0-1.0 10^3/uL Eosinophils # (Auto) 0.2 0.0-0.3 10^3/uL Basophils # (Auto) 0.1 0.0-0.1 10^3/uL Immature Granulocyte # (Auto) 0.1 0.0-0.1 10^3/uL Sodium Level 138 135-145 MMOL/L Potassium Level 3.9 3.6-5.0 MMOL/L Chloride Level 100 98-107 MMOL/L Carbon Dioxide Level 28 21-32 MMOL/L Anion Gap 10 5-14 MMOL/L Blood Urea Nitrogen 26 H 7-18 MG/DL Creatinine 2.23 H 0.60-1.30 MG/DL Estimat Glomerular Filtration Rate 22 BUN/Creatinine Ratio 12 Glucose Level 236 H 70-105 MG/DL Calcium Level 8.9 8.5-10.1 MG/DL Corrected Calcium 8.9 8.5-10.1 MG/DL Magnesium Level 1.8 1.6-2.4 MG/DL Total Bilirubin 0.5 0.1-1.0 MG/DL Aspartate Amino Transf (AST/SGOT) 15 5-34 U/L Alanine Aminotransferase (ALT/SGPT) 22 0-55 U/L Alkaline Phosphatase 117 40-136 U/L Total Protein 8.1 6.4-8.2 GM/DL Albumin 4.0 3.2-4.5 GM/DL Thyroid Stimulating Hormone (TSH) 0.63 0.35-4.94 UIU/ML Free Thyroxine 1.08 0.70-1.48 NG/DL Urine Color YELLOW Urine Clarity CLOUDY Urine pH 5.0 5-9 Urine Specific [place] 1.025 H 1.016-1.022 Urine Protein 1+ H NEGATIVE Urine Glucose (UA) 1+ H NEGATIVE Urine Ketones NEGATIVE NEGATIVE Urine Nitrite NEGATIVE NEGATIVE Urine Bilirubin NEGATIVE NEGATIVE Urine Urobilinogen 0.2 < = 1.0 MG/DL Urine Leukocyte Esterase 1+ H NEGATIVE Urine RBC (Auto) 2+ H NEGATIVE Urine RBC 2-5 H /HPF Urine WBC 25-50 H /HPF Urine Crystals PRESENT H /LPF Urine Bacteria MODERATE H /HPF Urine Casts NONE /LPF Urine Mucus NEGATIVE /LPF Urine Yeast MODERATE H /HPF Urine Culture Indicated YES Glucometer 157 H 70-110 MG/DL Micro Results Microbiology 12/28/20 Urine Culture - Final, Complete YEAST Lactobacillus gasseri ----- My Orders Orders - TRIPP BARRAGAN MD Ua Culture If Indicated (12/28/20 08:27) Cbc With Automated Diff (12/28/20 09:00) Comprehensive Metabolic Panel (12/28/20 09:00) Magnesium (12/28/20 09:00) Ed Iv/Invasive Line Start (12/28/20 09:00) Ekg Tracing (12/28/20 09:00) Monitor-Rhythm Ecg Trace Only (12/28/20 09:00) Thyroid Stimulating Hormone (12/28/20 09:02) Free T4 (Free Thyroxine) (12/28/20 09:02) Urine Culture (12/28/20 09:20) Ns Iv 1000 Ml (Sodium Chloride 0.9%) (12/28/20 11:00) Ceftriaxone For Iv Use (Rocephin For I (12/28/20 11:00) Ketorolac Injection (Toradol Injection) (12/28/20 11:45) Mri Lumbar Spine W/O Contrast (12/28/20 14:10) Morphine Injection (Morphine Injection (12/28/20 14:10) Mri Cervical Spine W/O Contras (12/28/20 14:19) Ondansetron Injection (Zofran Injectio (12/28/20 16:15) Morphine Injection (Morphine Injection (12/28/20 16:44) Morphine Injection (Morphine Injection (12/28/20 19:28) Morphine Injection (Morphine Injection (12/28/20 19:25) Medications Given in ED Vital Signs/I&O 12/28/20 12/28/20 12/28/20 08:30 17:10 23:13 Temp 36.6 36.6 36.4 Pulse 113 78 Resp 12 22 B/P (MAP) 147/89 (108) 137/57 Pulse Ox 95 97 O2 Delivery Room Air Room Air Capillary Refill : Less Than 3 Seconds Blood Pressure Mean: 108 Progress Note : Progress Note Complaints of weakness have been bilateral and seem to be waxing and waning. On exam she does not appear to have any focal deficit but she is having significant difficulty attempting to walk. Even with two-person assist she is only able to take a few steps. She reports this is a notable change from last week and is definitely not her baseline. She reports having episodes over the past couple of days in which she even had trouble gripping a cup. Patient has history of chronic kidney disease and creatinine is elevated today. I first attempted treating her with hydration and treating her urinary tract infection. She did not have significant improvement with hydration. She also did not have significant improvement after treating her pain. This prompted evaluation with MRI after discussing her history with Dr. Morejon's clinic nurse. MRI revealed multiple levels of spinal stenosis and neuroforaminal stenosis. I was not able to contact Dr. Morejon directly. I did end up discussing the case with Dr. España, neurosurgeon at [facility]. He deferred to the orthopedic team. I then discussed the case with Dr. Ocasio who consulted Dr. Cuello. Ultimately, [facility] accepted the transfer. Patient was periodically treated for pain with morphine. Zofran was given for nausea. Rocephin was given for the urinary tract infection. Patient will be transferred to [facility] via the emergency room. I spoke with Dr. Lawrence, ER physician, to give report. ECG Initial ECG Impression Date: Dec 28, 2020 Initial ECG Impression Time: 09:02 Initial ECG Rate: 110 Initial ECG Rhythm: S.Tach Initial ECG Intervals: QT (QTC 517) Initial ECG Intervals Mildly prolonged QT interval Comment Sinus tachycardia with no diagnostic ST elevation or depression. Tremor artifact. Mildly prolonged QT interval. Left axis deviation by automated read. Diagnostic Imaging Diagonstic Imaging: MRI Plain Films/CT/US/NM/MRI: other (Lumbar spine) Comments NAME: JOCELINE [facility] REC#: [id number] PT STATUS: REG ER : 1955 PHYSICIAN: TRIPP BARRAGAN MD ADMIT DATE: 12/28/20/ER Signed Date of Exam:12/28/20 MRI LUMBAR SPINE W/O CONTRAST PROCEDURE: MRI lumbar spine. TECHNIQUE: Multiplanar, multisequence MRI of the lumbar spine was performed without contrast. INDICATION: Chronic neck pain, extremity weakness. COMPARISON: 05/28/2019. FINDINGS: L2-L3 posterior and interbody fusion with bi-pedicular screws and spanning rods present. There are mcdonough lumbar laminectomies and incorporated posterolateral bone graft. There is solid incorporated interbody fusions at L4-L5 and L5-S1. The post surgical findings are unchanged from the prior exam. No paravertebral mass, hemorrhage, or fluid collection. At L1-L2, there is mild bi-foraminal stenosis, stable. At L2-L3, there is a moderate to severe canal stenosis with moderate severity of left foraminal narrowing. At L3-L4, there is mild to moderate canal and mild bi-foraminal stenosis. At L4-L5, the canal is decompressed with the neuroforamina showing no substantial stenosis. At the L5-S1 level, the canal is decompressed. No substantial recess stenosis; however, there is moderate right and moderate to severe left bony foraminal stenoses, similar to the prior exam. IMPRESSION: No significant change. Multilevel canal and foraminal stenoses as well as extensive post operative findings. No marrow edema, fluid collection, or acute appearing pathology. Dictated by: Dictated on workstation # [id number] Dict: 12/28/20 1520 Trans: 12/28/201657 [id number] Interpreted by: NAHUN BRUNNER Electronically signed by: NAHUN BRUNNER 12/28/20 1658 Reviewed: Other (Report reviewed) Diagonstic Imaging: MRI Plain Films/CT/US/NM/MRI: c-spine Comments NAME: JOCELINE [facility] REC#: [id number] PT STATUS: REG ER : 1955 PHYSICIAN: TRIPP BARRAGAN MD ADMIT DATE: 12/28/20/ER Signed Date of Exam:12/28/20 MRI CERVICAL SPINE W/O CONTRAS PROCEDURE: MR imaging cervical spine without contrast. TECHNIQUE: Multiplanar, multisequence MR imaging of the cervical spine was performed without contrast. INDICATION: Bilateral upper extremity weakness. COMPARISON: None. FINDINGS: Normal alignment. Vertebral body heights are preserved. Postoperative findings from an anterior fusion at C5-C6. Bone marrow signal is unremarkable. No abnormal signal in the cervical spinal cord. The visualized paravertebral soft tissues are unremarkable. C2-C3: Normal. C3-C4: Uncovertebral joint hypertrophy results in moderate to severe right neural foraminal narrowing. Small disc protrusion results in mild spinal canal narrowing. C4-C5: Disc osteophyte complex and ligamentous hypertrophy result in moderate spinal canal narrowing. Moderate right neural foraminal narrowing. C5-C6: Osteophytic ridging and ligamentous hypertrophy result in moderate to severe spinal canal stenosis despite the fusion at this level. Moderate to severe bilateral neural foraminal narrowing. C6-C7: No spinal canal or neural foraminal narrowing. C7-T1: No spinal canal or neural foraminal narrowing. IMPRESSION: 1. Postoperative findings of an anterior fusion at C5-C6. 2. Moderate to severe spinal canal stenosis at C5-C6, moderate at C4-C5. 3. Scattered high-grade neural foraminal narrowing detailed above. 4. No abnormal signal in the cervical spinal cord is identified. Dictated by: Dictated on workstation # [id number] Dict: 12/28/20 1513 Trans: 12/28/20 1701 [facility] [id number] Interpreted by: VAN WINN MD Electronically signed by: VAN WINN MD 12/28/201706 Reviewed: Other (Report reviewed) Departure Impression Primary Impression: Cervical spinal stenosis Additional Impressions: Lumbar spinal stenosis Qualified Codes: M48.062 - Spinal stenosis, lumbar region with neurogenic claudication Urinary tract infection Qualified Codes: N39.0 - Urinary tract infection, site not specified Weakness of extremity Disposition: XF SHT-TRM HOSP Condition: Stable Transfer Transfer Reason: Exceeds level of care Time Spoke to Accepting Phy: 18:29 Transfer Progress Notes Transfer accepted by Dr. Ocasio (orthopedics) and Dr. Lawrence (ER) at [facility]. Transfer Time: 23:12 Transfer Facility: [facility] Method of Transfer: EMS Departure-Patient Inst. Referrals: NO,LOCAL PHYSICIAN (PCP) Primary Care Physician FLAKITA YEPEZ APRN (Family) Primary Care Physician Copy Copies To 1: EARLINE MOREJON JOSHUA T MD Dec 28, 2020 14:09
--- NOTE | 2020-12-28 15:26 | Diagnostic Imaging Report ---
PROCEDURE: MRI lumbar spine. TECHNIQUE: Multiplanar, multisequence MRI of the lumbar spine was performed without contrast. INDICATION: Chronic neck pain, extremity weakness. COMPARISON: 05/28/2019. FINDINGS: L2-L3 posterior and interbody fusion with bi-pedicular screws and spanning rods present. There are mcdonough lumbar laminectomies and incorporated posterolateral bone graft. There is solid incorporated interbody fusions at L4-L5 and L5-S1. The post surgical findings are unchanged from the prior exam. No paravertebral mass, hemorrhage, or fluid collection. At L1-L2, there is mild bi-foraminal stenosis, stable. At L2-L3, there is a moderate to severe canal stenosis with moderate severity of left foraminal narrowing. At L3-L4, there is mild to moderate canal and mild bi-foraminal stenosis. At L4-L5, the canal is decompressed with the neuroforamina showing no substantial stenosis. At the L5-S1 level, the canal is decompressed. No substantial recess stenosis; however, there is moderate right and moderate to severe left bony foraminal stenoses, similar to the prior exam. IMPRESSION: No significant change. Multilevel canal and foraminal stenoses as well as extensive post operative findings. No marrow edema, fluid collection, or acute appearing pathology. Dictated by: Dictated on workstation # [id number]
--- NOTE | 2020-12-28 15:27 | Diagnostic Imaging Report ---
PROCEDURE: MR imaging cervical spine without contrast. TECHNIQUE: Multiplanar, multisequence MR imaging of the cervical spine was performed without contrast. INDICATION: Bilateral upper extremity weakness. COMPARISON: None. FINDINGS: Normal alignment. Vertebral body heights are preserved. Postoperative findings from an anterior fusion at C5-C6. Bone marrow signal is unremarkable. No abnormal signal in the cervical spinal cord. The visualized paravertebral soft tissues are unremarkable. C2-C3: Normal. C3-C4: Uncovertebral joint hypertrophy results in moderate to severe right neural foraminal narrowing. Small disc protrusion results in mild spinal canal narrowing. C4-C5: Disc osteophyte complex and ligamentous hypertrophy result in moderate spinal canal narrowing. Moderate right neural foraminal narrowing. C5-C6: Osteophytic ridging and ligamentous hypertrophy result in moderate to severe spinal canal stenosis despite the fusion at this level. Moderate to severe bilateral neural foraminal narrowing. C6-C7: No spinal canal or neural foraminal narrowing. C7-T1: No spinal canal or neural foraminal narrowing. IMPRESSION: 1. Postoperative findings of an anterior fusion at C5-C6. 2. Moderate to severe spinal canal stenosis at C5-C6, moderate at C4-C5. 3. Scattered high-grade neural foraminal narrowing detailed above. 4. No abnormal signal in the cervical spinal cord is identified. Dictated by: Dictated on workstation # [id number]
[2020-12-28] MEDS ORDERED: ONDANSETRON 4 MG/2 ML (SDV) Z0FRAN IVP ONE (16:15)
[2020-12-28] MEDS ORDERED: morphine INJ 10 MG/ML 1ML (SYR OR VIAL) ONE (19:25)
[2020-12-28] MEDS ORDERED: diphenhydrAMINE 50 MG/ML INJ (BENADRYL) IV STA (22:49)
[2020-12-28] MEDS ORDERED: morphine INJ 10 MG/ML 1ML (SYR OR VIAL) IVP ONE (23:00)
[2020-12-28 23:13] VITALS: BP 137/57
== END 2020-12-28 23:15 | disposition short-term general hospital (02) ==
LOC: EDUNIT# 08:22 → ER 08:24
DX: M48.02 Spinal stenosis, cervical region (principal); M48.061 Spinal stenosis, lumbar region without neurogenic claudication; N39.0 Urinary tract infection, site not specified; F32.9 Major depressive disorder, single episode, unspecified; I10 Essential (primary) hypertension; J44.9 Chronic obstructive pulmonary disease, unspecified; F41.9 Anxiety disorder, unspecified; Z88.5 Allergy status to narcotic agent; Z88.2 Allergy status to sulfonamides; Z88.1 Allergy status to other antibiotic agents; Z88.8 Allergy status to other drugs, medicaments and biological substances; Z79.52 Long term (current) use of systemic steroids
CPT/HCPCS: 36415; 72141; 72148; 80053; 81000; 82962; 83735; 84439; 84443; 85025; 87088; 93005; 93041

== ENCOUNTER → 2021-04-19 | Outpatient (CLI) | payer MEDICARE, OTHER ==
[2021-04-19 14:57] LABS: ALBUMIN 3.7 GM/DL (3.2-4.5)
[2021-04-19 15:00] LABS: TOTAL PROTEIN 6.9 GM/DL (6.4-8.2)
[2021-04-19 15:02] LABS: BILIRUBIN,TOTAL 0.6 MG/DL (0.1-1.0)
[2021-04-19 15:05] LABS: BILIRUBIN,DIRECT 0.3 MG/DL (0.0-0.3); BILIRUBIN,INDIRECT 0.3 MG/DL
== END ==
LOC: LAB 14:01
PROVIDERS: ATTEND Podiatrist Foot & Ankle Surgery
DX: B35.1 Tinea unguium (principal)
CPT/HCPCS: 36415; 80076

== ENCOUNTER 2021-09-01 05:29 | Outpatient (RCR) | payer MEDICARE, OTHER ==
[~2021-09-01] VITALS: Ht 154.9 cm; Wt 105.0 kg
[~2021-09-01 05:29] MED LIST changes: +AMLO-251 PO; +ASPI-999 PO; +CLON1PAT33 TD; +DAPA5TAB PO; +ERGO50CA PO; +FERR325T18 PO; +GABA300S2 PO; +LEVO75TA97 PO; +MONT10TA21 PO; +TERA5CAP10 PO; +TERB250T88 PO
[2021-09-03] MEDS ORDERED: PANT40TA2 PO (11:19)
[2021-09-03] MEDS ORDERED: MAG-37 PO (11:20)
== END 2021-09-01 13:27 | disposition home or self-care (01) ==
LOC: PREOP 05:29
PROVIDERS: ATTEND Surgery
DX: Z01.812 Encounter for preprocedural laboratory examination (principal); Z20.822 Contact with and (suspected) exposure to COVID-19
CPT/HCPCS: 87635

== ENCOUNTER 2021-09-03 10:54 | Day surgery (SDC) | payer MEDICARE, OTHER ==
[~2021-09-03] VITALS: Ht 154.9 cm; Wt 105.0 kg
[2021-09-03] MEDS ORDERED: LACTATED RINGERS 1,000 ML IV STA (11:04)
[2021-09-03] MEDS ORDERED: LACTATED RINGERS 1,000 ML IV ONE (11:11)
[2021-09-03] MEDS ORDERED: HURRICAINE EXT TUBE (BENZOCAINE) XX PRN (11:15)
[2021-09-03] MEDS ORDERED: LIDOCAINE JELLY 2% 6 ML SYRINGE MM PRN (11:15)
--- NOTE | 2021-09-03 11:17 | Progress Note-Pre Operative ---
Pre-Operative Progress Note H&P Reviewed The H&P was reviewed, patient examined and no changes noted. Date Seen by Provider: Sep 03, 2021 Time Seen by Provider: 11:15 Date H&P Reviewed: Sep 03, 2021 Time H&P Reviewed: 11:15 Pre-Operative Diagnosis: GERD, dysphagia KIMBER FELIPE MD Sep 03, 2021 11:17
[2021-09-03] MEDS ORDERED: PANT40TA2 PO (11:19)
[2021-09-03] MEDS ORDERED: MAG-37 PO (11:20)
--- NOTE | 2021-09-03 11:20 | Discharge Inst-Surgical ---
D/C Lap Instructions-KIDO New, Converted, or Re-Newed RX: RX on Chart Follow Up Activity as tolerated High Fiber Diet 25g or more per day Avoid Alcohol, Caffeine, Spicy [place] and Acid foods. Drink 64 fluid oz or more of fluids per day. Symptoms to Report: Fever over 101 degree F, Nausea/Vomiting If any problems/questions: Contact your physician or go to Emergency Room KIMBER FELIPE MD Sep 03, 2021 11:20
[2021-09-03] MEDS ORDERED: ONDANSETRON 4 MG (ZOFRAN) ORAL DISSOLVE TAB PO PRN (11:30)
[2021-09-03] MEDS ORDERED: ONDANSETRON 4 MG/2 ML (SDV) Z0FRAN IVP PRN (11:30)
[2021-09-03 11:39] VITALS: BP 184/69
[2021-09-03] MEDS ORDERED: MIDAZOLAM 2 MG/2 ML (VERSED) VIAL ONE ×2 (12:43→12:47)
[2021-09-03] MEDS ORDERED: proPOfol 200 MG/20 ML (DIPRIVAN) VIAL IV ONE ×2 (12:43→12:47)
[2021-09-03 13:15] VITALS: BP 171/74
[2021-09-03] MEDS ORDERED: RT-ALBUTEROL SULF 2.5 MG/3 ML PRE-MIX VIAL ONE (13:40)
[2021-09-03 13:45] VITALS: BP 151/63
--- NOTE | 2021-09-03 13:48 | Anesthesia-General Post-Op ---
MAC Patient Condition Mental Status/LOC: Same as Preop Cardiovascular: Satisfactory Nausea/Vomiting: Absent Respiratory: Satisfactory Pain: Controlled Complications: Absent Post Op Complications Complications None Follow Up Care/Instructions Patient Instructions None needed. Anesthesiology Discharge Order Discharge Order Patient is doing well, no complaints, stable vital signs, no apparent adverse anesthesia problems. No complications reported per nursing. LAVERNE HUTSON CRNA Sep 03, 2021 13:48
--- NOTE | 2021-09-03 14:16 | Progress Note-Post Operative ---
Post-Operative Progess Note Surgeon (s)/Burling And Joining Supervisor (s) Surgeon KIMBER FELIPE MD Burling And Joining Supervisor: none Pre-Operative Diagnosis GERD, dysphagia Post-Operative Diagnosis reflux esophagitis(stage 2), large gastric pouch, small HH(1.5cm), gastro-J stricture, no distal obstr Procedure & Operative Findings Date of Procedure 09/03/21 Procedure Performed/Findings EGD with bx and balloon dilatation. Anesthesia Type mac Estimated Blood Loss Estimated blood loss (mL): minimal Specimens/Packing Specimens Removed ge jxn, antrum KIMBER FELIPE MD Sep 03, 2021 14:16
--- NOTE | 2021-09-03 19:52 | OPERATIVE REPORT ---
DATE OF SERVICE: 09/03/2021 ATTENDING PRIMARY CARE PHYSICIAN: Dr. Camacho. PREOPERATIVE DIAGNOSES: Gastroesophageal reflux disease, dysphagia. 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 PROCEDURE: EGD with biopsy and balloon dilatation. SURGEON: Kimber Felipe MD. ANESTHESIA: Monitored anesthesia care. ESTIMATED BLOOD LOSS: Minimal. FINDINGS: Reflux esophagitis stage II, large appearing gastric pouch, stricture at the gastrojejunal anastomosis. DISPOSITION: The patient tolerated the procedure well. INDICATIONS: The patient is a 65-year-old female known to us. She has had issues with obesity and underwent surgery within the region called a Roosevelt shunt, which was some form of gastric resection as well as a jejunal bypass procedure for weight loss. She underwent an EGD 06/2017 and was found to have a reflux esophagitis between stage II and III as well as a small hiatal hernia, 1 cm in size as well as a mild gastritis. She reports in the past few months, she has had increased episodes of reflux as well as regurgitation. She does not report any hematemesis, no coffee-ground emesis. She is currently not on any acid reducers. DESCRIPTION OF PROCEDURE: The patient was brought to the endoscopy suite, laid in left lateral decubitus position. After adequate IV pain and sedative medications and monitored anesthesia care, the mouthpiece was applied. The endoscope was then placed in the mouth, visualizing the pharynx and hypopharyngeal region. Vocal cords, epiglottis and vallecula identified and appeared to be normal. Endoscope was gently abated esophageal opening and esophagus insufflated. The endoscope was then advanced through the first, second and third portion of esophagus at the level of GE junction, reflux esophagitis stage II identified. No ulcers or strictures identified in the region. A biopsy was taken with forceps with visualization of good hemostasis. The endoscope was then advanced in the stomach and endoscope retroflexed. A small hiatal hernia again 1 cm in size was identified. There was a large gastric pouch. No formal ulcerations, polyps, or any neoplasms. A biopsy was taken of the stomach with forceps with visualization of good hemostasis. At what appeared to be gastrojejunal anastomosis, there was a stricture identified. The endoscope was able to pass through this region and the jejunal limb appeared to be widely patent. We then proceeded with dilatation of the gastrojejunal stricture and the balloon was placed into the stomach and dilated in a stepwise fashion from 2, 4 and then eventually 6 atmospheres of pressure with moderate resistance or 20 mm in luminal diameter and left this in place for approximately 60 seconds. The balloon was then desufflated and removed with visualization of good hemostasis as well as no mucosal tears. The endoscope was then slowly withdrawn while taking a second look and suctioning of residual air with no additional findings. The patient tolerated the procedure well. We will recommend the necessary lifestyle and dietary accommodation including small and more frequent meals, avoidance of eating at night as well as head elevation while lying supine. She also needs to avoid caffeinated beverages, spicy, greasy and acidic foods. We will also start her on Protonix 40 mg daily. If she does have recurrent dysphagia, she may need a repeated dilatation of the gastrojejunal anastomosis. Job ID: [id number] DocumentID: [id number] Dictated Date: 09/03/2021 13:17:47 Route Vending Machine Servicer Date: 09/03/2021 19:50:53 Dictated By: KIMBER FELIPE MD MTDD
== END 2021-09-03 14:16 | disposition home or self-care (01) ==
LOC: ENDO 10:54
PROVIDERS: ATTEND Surgery
DX: K21.00 Gastro-esophageal reflux disease with esophagitis, without bleeding (principal); K31.89 Other diseases of stomach and duodenum; K44.9 Diaphragmatic hernia without obstruction or gangrene; K29.70 Gastritis, unspecified, without bleeding; Z90.3 Acquired absence of stomach [part of]; Z86.010 Personal history of colon polyps; Z79.899 Other long term (current) drug therapy; Z79.890 Hormone replacement therapy; Z79.82 Long term (current) use of aspirin; E11.9 Type 2 diabetes mellitus without complications; F41.9 Anxiety disorder, unspecified; F32.A Depression, unspecified; I12.9 Hypertensive chronic kidney disease with stage 1 through stage 4 chronic kidney disease, or unspecified chronic kidney disease; N18.4 Chronic kidney disease, stage 4 (severe); J44.9 Chronic obstructive pulmonary disease, unspecified; Z88.2 Allergy status to sulfonamides; Z88.5 Allergy status to narcotic agent; Z88.8 Allergy status to other drugs, medicaments and biological substances; Z68.41 Body mass index [BMI] 40.0-44.9, adult
CPT/HCPCS: 94640

== ENCOUNTER 2021-09-05 11:22 | Inpatient (IN) | payer MEDICARE, OTHER ==
[2021-09-05] VITALS (10 sets, daily range): BP systolic 125–153; BP diastolic 57–83
[~2021-09-05] VITALS: Ht 152.4 cm; Wt 116.9 kg
[~2021-09-05 11:22] MED LIST changes: +MAG-37 PO
--- NOTE | 2021-09-05 12:05 | ED Respiratory ---
General Chief Complaint: Respiratory Problems Stated Complaint: NEGATIVE COVID TEST/SOB/CHILLS/COUGH History of Present Illness Date Seen by Provider: Sep 05, 2021 Time Seen by Provider: 11:40 Initial Comments 65-year-old female presents for shortness of breath, chills and cough. She reports receiving both COVID vaccines in the spring 2020, she has received a flu vaccine this fall. She had an EGD done on 09/02/2021, she reports that the provider told her there was some emesis during the procedure and she required suctioning. She had a previous abdominal surgery for weight loss and chronic gastritis. She has no history of chronic pneumonia or asthma. She does wear oxygen at night at home. She states her SaO2's were 82 to 84% today at home, upon presenting to the emergency department she was in the 70s. It quickly returned to the 90s after applying oxygen by nasal cannula at 5 L. Patient reports history of kidney failure and diabetes. Timing/Duration: yesterday Severity: mild Prior Episodes/Possible Cause: occasional episodes Associated Symptoms: No chest pain/soreness; cough; No dizziness, No earache, No facial pain; fever/chills; No headache, No lightheadedness, No nasal congestion, No nasal drainage, No shortness of breath, No sinus infection, No sore throat, No wheezing (FAISAL GALLO) Allergies and Home Medications Allergies Coded Allergies: Sulfa (Sulfonamide Antibiotics) (Unverified Allergy, Unknown, 04/30/14) acetaminophen (Unverified Allergy, Unknown, 04/30/14) codeine (Unverified Allergy, Unknown, 04/30/14) oxycodone (Unverified Allergy, Unknown, 04/30/14) pregabalin (Verified Allergy, Unknown, "made me crazy, disoriented", 07/18/17) sulfamethoxazole (Unverified Allergy, Unknown, 04/30/14) trimethoprim (Unverified Allergy, Unknown, 04/30/14) Patient Home Medication List Home Medication List Reviewed: Yes (FAISAL GALLO) Alprazolam (Alprazolam) 1 Mg Tablet, 0.5 MG PO HS, (Reported) Entered as Reported by: GREGORY DOMINGUEZ on 07/18/17 8455 Amlodipine Besylate (Amlodipine Besylate) 10 Mg Tablet, 10 MG PO DAILY, (Reported) Entered as Reported by: KEILA HUGHES on 08/27/21 1635 Aspirin (Aspirin) 81 Mg Tab.chew, 81 MG PO DAILY, (Reported) Entered as Reported by: KEILA HUGHES on 08/27/21 1635 Cephalexin (Cephalexin) 500 Mg Tablet, 500 MG PO HS, (Reported) Entered as Reported by: GREGORY DOMINGUEZ on 07/18/17 1115 Clonidine (Clonidine TTS 1 Patch) 1 Each Patch.tdwk, 1 PATCH TD Q7D, (Reported) Entered as Reported by: KEILA HUGHES on 08/27/21 1635 Cyanocobalamin (Vitamin B-12) (B-12) 1,000 Mcg Tablet, 1,000 MCG PO HS, (Reported) Entered as Reported by: GREGORY DOMINGUEZ on 07/18/17 1115 Dapagliflozin Propanediol (Farxiga) 5 Mg Tablet, 5 MG PO DAILY, (Reported) Entered as Reported by: KEILA HUGHES on 08/27/21 1635 Ergocalciferol (Vitamin D2) (Vitamin D2) 50 Mcg Capsule, 50,000 UNITS PO WEEKLY, (Reported) Entered as Reported by: KEILA HUGHES on 08/27/21 163 Ferrous Sulfate (Ferrous Sulfate) 325 Mg Tablet, 325 MG PO DAILY, (Reported) Entered as Reported by: KEILA HUGHES on 08/27/21 1635 Folic Acid (Folic Acid) 1 Mg Tablet, 1 MG PO DAILY, (Reported) Entered as Reported by: KEILA HUGHES on 08/27/21 1635 Gabapentin (Gabapentin) 300 Mg/6 Ml Solution, 300 MG PO BID, (Reported) Entered as Reported by: KEILA HUGHES on 08/27/21 1654 Levothyroxine Sodium (Euthyrox) 75 Mcg Tablet, 75 MCG PO DAILY, (Reported) Entered as Reported by: KEILA HUGHES on 08/27/21 1635 Mag Hydrox/Al Hydrox/Simeth (Eq Liquid Antacid Susp) 355 Ml Oral.susp, 355 ML PO QID Prescribed by: KIMBER FELIPE on 09/03/21 1120 Montelukast Sodium (Singulair) 10 Mg Tablet, 10 MG PO DAILY, (Reported) Entered as Reported by: KEILA HUGHES on 08/27/21 1635 Pantoprazole Sodium (Protonix) 40 Mg Tablet.dr, 40 MG PO DAILY Prescribed by: KIMBER FELIPE on 09/03/21 1119 Terazosin HCl (Terazosin HCl) 5 Mg Capsule, 5 MG PO HS, (Reported) Entered as Reported by: KEILA HUGHES on 08/27/21 1635 Tramadol HCl (Tramadol HCl ER) 300 Mg Tab.er.24h, 300 MG PO DAILY, (Reported) Entered as Reported by: GREGORY DOMINGUEZ on 07/18/17 1115 Trazodone HCl (Trazodone HCl) 100 Mg Tablet, 300 MG PO HS, (Reported) Entered as Reported by: GREGORY DOMINGUEZ on 07/18/17 1115 Review of Systems Review of Systems Constitutional: see HPI, chills, fever, malaise, weakness EENTM: see HPI, no symptoms reported Respiratory: see HPI, cough, dyspnea on exertion, phlegm, short of breath Cardiovascular: no symptoms reported, see HPI; No chest pain Gastrointestinal: no symptoms reported, see HPI Genitourinary: no symptoms reported, see HPI (FAISAL GALLO) All Other Systems Reviewed Negative Unless Noted: Yes (FAISAL GALLO) Past Flvzcrs-Svpxku-Srlnvu Hx Immunizations Up To Date Tetanus Booster (TDap): Unknown First/Initial COVID19 Vaccinat: YES Second COVID19 Vaccination Bijan: YES (FAISAL GALLO) Seasonal Allergies Seasonal Allergies: Yes (FAISAL GALLO) Past Medical History Surgeries: Yes (Roosevelt Shunt with Revision x3 then Reversal, Lumbar ORIF x3 Sx's ) Abdominal, Appendectomy, Section, Gallbladder, Hysterectomy, Orthopedic, Tonsillectomy Respiratory: Yes COPD Cardiac: Yes Hypertension Neurological: No 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 Genitourinary: Yes Renal Failure Gastrointestinal: Yes (ABDOMINAL WALL MASS) Gastroesophageal Reflux Musculoskeletal: Yes (ARTHRITIS IN BONES - KNEES, JOINTS) Degenerate Disk Disease, Arthritis Endocrine: Yes Hypothyroidsim, Diabetes, Non-Insulin dep HEENT: Yes Cataract Loss of Vision: Bilateral Hearing Impairment: Denies Cancer: No Psychosocial: Yes Anxiety, Depression Integumentary: No (TEARS EASILY) Blood Disorders: No Adverse Reaction/Blood Tranf: No (TRANSFUSION IN EARLY 'S) (FAISAL GALLO) Family Medical History Reviewed and Corrections made (FAISAL GALLO) Physical Exam Vital Signs - First Documented 09/05/21 11:59 Temp 37.7 Pulse 70 Resp 18 B/P (MAP) 143/69 (93) Pulse Ox 95 O2 Delivery Nasal Cannula O2 Flow Rate 3.00 (TRIPP BARRAGAN MD) Capillary Refill : (FAISAL GALLO) Height: 5'2.00" Weight: 252lbs. 0.0oz. 114.213276id; 43.76 BMI Method:Stated General Appearance: WD/WN, mild distress (Secondary to shortness of air, SaO2 remained 95% or higher on 3 L per nasal cannula.) Eyes: Bilateral Eye Normal Inspection, Bilateral Eye PERRL, Bilateral Eye EOMI HEENT: PERRL/EOMI, normal ENT inspection, TMs normal, pharynx normal Neck: non-tender, full range of motion, supple, normal inspection Respiratory: chest non-tender, no respiratory distress, no accessory muscle use, decreased breath sounds, rhonchi (Left greater than right) Cardiovascular: normal peripheral pulses, regular rate, rhythm, no murmur Gastrointestinal: normal bowel sounds, non tender, soft Extremities: normal range of motion, non-tender, normal inspection, no pedal edema Neurologic/Psychiatric: no motor/sensory deficits, alert, normal mood/affect, oriented x 3 Skin: normal color, warm/dry (FAISAL GALLO) Focused Exam Lactate Level 09/05/21 11:50: Lactic Acid Level 0.99 (TRIPP BARRAGAN MD) Lactic Acid Level Laboratory Tests Test 09/05/21 11:50 Lactic Acid Level 0.99 MMOL/L (0.50-2.00) (TRIPP BARRAGAN MD) Progress/Results/Core Measures Suspected Sepsis SIRS Temperature: Pulse: Respiratory Rate: Laboratory Tests 09/05/21 11:50: White Blood Count 20.5H Blood Pressure / Mean: 09/05/21 11:50: Lactic Acid Level 0.99 Laboratory Tests 09/05/21 11:50: Creatinine 2.09H, INR Comment 1.2, Platelet Count 159, Total Bilirubin 1.0 (FAISAL GALLO) Results/Orders Lab Results Laboratory Tests Test 09/05/21 11:45 09/05/21 11:50 Range/Units Influenza Type A (RT-PCR) Not Detected Not Detecte Influenza Type B (RT-PCR) Not Detected Not Detecte SARS-CoV-2 RNA (RT-PCR) Not Detected Not Detecte White Blood Count 20.5 H 4.3-11.0 10^3/uL Red Blood Count 4.05 3.80-5.11 10^6/uL Hemoglobin 11.6 11.5-16.0 g/dL Hematocrit 37 35-52 % Mean Corpuscular Volume 92 80-99 fL Mean Corpuscular Hemoglobin 29 25-34 pg Mean Corpuscular Hemoglobin Concent 31 L 32-36 g/dL Red Cell Distribution Width 13.2 10.0-14.5 % Platelet Count 159 130-400 10^3/uL Mean Platelet Volume 10.7 9.0-12.2 fL Immature Granulocyte % (Auto) 1 % Neutrophils (%) (Auto) 89 H 42-75 % Lymphocytes (%) (Auto) 5 L 12-44 % Monocytes (%) (Auto) 5 0-12 % Eosinophils (%) (Auto) 1 0-10 % Basophils (%) (Auto) 0 0-10 % Neutrophils # (Auto) 18.2 H 1.8-7.8 10^3/uL Lymphocytes # (Auto) 1.0 1.0-4.0 10^3/uL Monocytes # (Auto) 1.0 0.0-1.0 10^3/uL Eosinophils # (Auto) 0.1 0.0-0.3 10^3/uL Basophils # (Auto) 0.1 0.0-0.1 10^3/uL Immature Granulocyte # (Auto) 0.1 0.0-0.1 10^3/uL Neutrophils % (Manual) 88 % Lymphocytes % (Manual) 6 % Monocytes % (Manual) 3 % Band Neutrophils 3 % Polychromasia SLIGHT Erythrocyte Sedimentation Rate 40 H 0-30 MM/HR Prothrombin Time 15.7 H 12.2-14.7 SEC INR Comment 1.2 0.8-1.4 Activated Partial Thromboplast Time 39 H 24-35 SEC Sodium Level 136 135-145 MMOL/L Potassium Level 4.6 3.6-5.0 MMOL/L Chloride Level 103 98-107 MMOL/L Carbon Dioxide Level 22 21-32 MMOL/L Anion Gap 11 5-14 MMOL/L Blood Urea Nitrogen 20 H 7-18 MG/DL Creatinine 2.09 H 0.60-1.30 MG/DL Estimat Glomerular Filtration Rate 24 BUN/Creatinine Ratio 10 Glucose Level 166 H 70-105 MG/DL Lactic Acid Level 0.99 0.50-2.00 MMOL/L Calcium Level 8.2 L 8.5-10.1 MG/DL Corrected Calcium 8.9 8.5-10.1 MG/DL Total Bilirubin 1.0 0.1-1.0 MG/DL Aspartate Amino Transf (AST/SGOT) 9 5-34 U/L Alanine Aminotransferase (ALT/SGPT) 10 0-55 U/L Alkaline Phosphatase 99 40-136 U/L Lactate Dehydrogenase 210 125-220 U/L C-Reactive Protein High Sensitivity 29.12 H 0.00-0.50 MG/DL Total Protein 6.3 L 6.4-8.2 GM/DL Albumin 3.1 L 3.2-4.5 GM/DL Procalcitonin 0.42 H <0.10 NG/ML (TRIPP BARRAGAN MD) Medications Given in ED Current Medications Medications Dose Ordered Sig/Salty Route Start Time Stop Time Status Last Admin Dose Admin Cefepime HCl 1000 mg/Sterile Water 10 ml @ 200 mls/hr ONCE ONCE IV 09/05/21 12:30 09/05/21 12:32 DC 09/05/21 13:21 200 MLS/HR (TRIPP BARRAGAN MD) Vital Signs/I&O 09/05/21 09/05/21 11:59 11:59 Temp 37.7 Pulse 70 Resp 18 B/P (MAP) 143/69 (93) Pulse Ox 95 O2 Delivery Nasal Cannula Nasal Cannula O2 Flow Rate 3.00 (TRIPP BARRAGAN MD) Vital Signs/I&O Capillary Refill : (FAISAL GALLO) Progress Note : Time: 11:40 Progress Note Patient seen and evaluated, will obtain labs, chest x-ray and IV fluids. 1230 chest x-ray demonstrates pneumonia compatible with aspiration. Patient has remained with stable vital signs, SaO2 97% or higher on 1-2 L. No complaints, offered DuoNeb and patient declined need at this time. Patient agreeable to admission. Will give Cefipime. [address] Juárez, agreeable to admit, she will place orders and would like her in ICU. 1315 Dr. Juárez in ED to see patient. (FAISAL GALLO) Diagnostic Imaging Diagonstic Imaging: Xray Plain Films/CT/US/NM/MRI: chest Comments NAME: JOCELINE MCKEON [facility] REC#: [id number] PT STATUS: REG ER : 1955 PHYSICIAN: FAISAL GALLO ADMIT DATE: 09/05/21/ER Draft Date of Exam:09/05/21 CHEST 1 VIEW, AP/PA ONLY Indication: Cough, shortness of breath COMPARISON: 03/19/2018 TECHNIQUE: 3 radiograph the chest dated 09/05/2021 FINDINGS: The cardiac silhouette is mildly enlarged. No significant pulmonary vascular congestion. Extensive left and minimal right bilateral pulmonary opacities are present. No large-volume pleural effusion. No pneumothorax. Postsurgical changes within the cervical spine. Cervical changes also noted within the lumbar spine with surgical clips overlying the upper abdomen, just the left of midline. No acute osseous abnormality. IMPRESSION: New left greater than right pulmonary infiltrates concerning for infection such as pneumonia. COVID 19 should be considered. Radiographic follow-up is recommended after appropriate therapy to ensure clearance. Report was faxed to [facility] by [place] at 12:06PM.01 Dictated on workstation # [id number] Dict: 09/05/21 1200 Trans: 09/05/21 1208 [place] [id number] Interpreted by: ANNAMARIA PIMENTEL MD Electronically signed by: Reviewed: Reviewed by Me (FAISAL GALLO) Departure Impression Primary Impression: Aspiration pneumonia Qualified Codes: J69.0 - Pneumonitis due to inhalation of food and vomit Additional Impressions: Obesities, morbid Slightly limited mobility Gastritis Qualified Codes: K29.50 - Unspecified chronic gastritis without bleeding Disposition: ADMITTED INPATIENT Condition: Stable Admissions Decision to Admit Reason: Admit from ER (General) Decision to Admit/Date: Sep 05, 2021 Time/Decision to Admit Time: 13:30 (SABINO,FAISAL SALES MARKET LEADER) Departure-Patient Inst. Referrals: HO JUÁREZ DO (PCP/Family) Primary Care Physician ATTENDING PHYSICIAN NOTE: I was physically present as attending physician in the emergency department during the care of this patient, but I was not directly involved in the decision making or delivery of care for this patient. (TRIPP BARRAGAN MD) FAISAL GALLO Sep 05, 2021 12:05 TRIPP BARRAGAN MD Sep 05, 2021 15:34
--- NOTE | 2021-09-05 12:09 | Diagnostic Imaging Report ---
Indication: Cough, shortness of breath COMPARISON: 03/19/2018 TECHNIQUE: 3 radiograph the chest dated 09/05/2021 FINDINGS: The cardiac silhouette is mildly enlarged. No significant pulmonary vascular congestion. Extensive left and minimal right bilateral pulmonary opacities are present. No large-volume pleural effusion. No pneumothorax. Postsurgical changes within the cervical spine. Cervical changes also noted within the lumbar spine with surgical clips overlying the upper abdomen, just the left of midline. No acute osseous abnormality. IMPRESSION: New left greater than right pulmonary infiltrates concerning for infection such as pneumonia. COVID 19 should be considered. Radiographic follow-up is recommended after appropriate therapy to ensure clearance. Report was faxed to [facility] by bobby at 12:06PM.01 Dictated by: Dictated on workstation # [id number]
[2021-09-05 12:12] LABS: BASOPHILS # (AUTO) 0.1 10^3/uL (0.0-0.1); BASOPHILS % (AUTO) 0 % (0-10); EOSINOPHILS # (AUTO) 0.1 10^3/uL (0.0-0.3); EOSINOPHILS % (AUTO) 1 % (0-10); HEMATOCRIT 37 % (35-52); HEMOGLOBIN 11.6 g/dL (11.5-16.0); LYMPHOCYTES % (AUTO) 5 % (12-44); MEAN CORPUSCULAR HEMOGLOBIN 29 pg (25-34); MEAN CORPUSCULAR HGB CONC 31 g/dL (32-36); MEAN CORPUSCULAR VOLUME 92 fL (80-99); MEAN PLATELET VOLUME 10.7 fL (9.0-12.2); MONOCYTES % (AUTO) 5 % (0-12); NEUTROPHILS # (AUTO) 18.2 10^3/uL (1.8-7.8); NEUTROPHILS % (AUTO) 89 % (42-75); PLATELET COUNT 159 10^3/uL (130-400); WHITE BLOOD COUNT 20.5 10^3/uL (4.3-11.0)
[2021-09-05 12:25] LABS: INR 1.2 (0.8-1.4); PROTHROMBIN TIME PATIENT 15.7 SEC (12.2-14.7)
[2021-09-05] MEDS ORDERED: NS IV 1000 ML 1,000 ML IV SCH (12:30)
[2021-09-05] MEDS ORDERED: CEFEPIME INJECTION 1,000 MG in WATER (STERILE) FOR INJECTION 10 ML IV ONE (12:30)
[2021-09-05 12:31] LABS: ERYTHROCYTE SEDIMENTATION RATE 40 MM/HR (0-30)
[2021-09-05 12:35] LABS: BAND NEUTROPHILS 3 %; LYMPHOCYTES % (MANUAL) 6 %; NEUTROPHILS % (MANUAL) 88 %
[2021-09-05 12:36] LABS: MONOCYTES % (MANUAL) 3 %; POLYCHROMASIA SLIGHT
[2021-09-05 12:41] LABS: ALBUMIN 3.1 GM/DL (3.2-4.5); CALCIUM 8.2 MG/DL (8.5-10.1); CREATININE SERUM 2.09 MG/DL (0.60-1.30); POTASSIUM 4.6 MMOL/L (3.6-5.0); TOTAL PROTEIN 6.3 GM/DL (6.4-8.2)
--- NOTE | 2021-09-05 12:48 | History & Physical ---
History of Present Illness HPI/Chief Complaint Chief complaint: Aspiration pneumonia with exacerbation of COPD high risk for intubation History present illness: This is a 65-year-old white female new clinic patient of mine who has a past medical history of chronic kidney disease from the use of Metformin in the past and sleep apnea with chronic supplemental oxygen required who presents to the ER with shortness of breath and cough. Apparently she had an EGD done on Monday and had to be suctioned due to small amount of aspiration. Chest x-ray showed extensive infiltrates. Patient appears to be very tight and wheezing and will be placed in the ICU due to high risk for intubation. Zosyn placed in treatment regimen due to aspiration components. IV steroids indicated also. Sliding scale insulin regimen also ordered. at the bedside. Patient uses 2 L of oxygen at home normally. Her creatinine is 2.0 which is her baseline. Home meds will be restarted. Source: patient, family, RN/MD, old records Exam Limitations: clinical condition (Shortness of breath and wheezing) Date Seen 09/05/21 Time Seen by a Provider: 13:00 Attending Physician PCP Becca Camacho DO Referring Physician Date of Admission Home Medications & Allergies Home Medications Reviewed patient Home Medication Reconciliation performed by pharmacy medication reconciliations criminal records technician and/or nursing. Patients Allergies have been reviewed. Allergies Allergies Coded Allergies Sulfa (Sulfonamide Antibiotics) (Unverified Allergy, Unknown, 04/30/14) codeine (Unverified Allergy, Unknown, 04/30/14) oxycodone (Unverified Allergy, Unknown, 04/30/14) pregabalin (Verified Allergy, Unknown, "made me crazy, disoriented", 07/18/17) sulfamethoxazole (Unverified Allergy, Unknown, 04/30/14) trimethoprim (Unverified Allergy, Unknown, 04/30/14) Past Tynhwgp-Vpbieq-Oifhuy Hx Past Med/Social Hx: Reviewed Nursing Past Med/Soc Hx, Reviewed and Corrections made Patient Social History Marrital Status: Employed/Student: unemployed Alcohol Use: Denies Use Smoking Status: Former Smoker 2nd Hand Smoke Exposure: No Recent Foreign Travel: No Contact w/other who traveled: No Recent Hopitalizations: No Immunizations Up To Date Tetanus Booster (TDap): Unknown Date of Pneumonia Vaccine: Oct 12, 2010 Date of Influenza Vaccine: Aug 12, 2021 Seasonal Allergies Seasonal Allergies: Yes Past Medical History Surgeries: Abdominal, Appendectomy, Section, Gallbladder, Hysterectomy, Orthopedic, Tonsillectomy Respiratory: COPD, Pneumonia, Sleep Apnea Cardiac: Chronic Edema/Swelling, High Cholesterol, Hypertension Neurological: Neuropathy 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: No Hysterectomy Genitourinary: Bladder Infection, Renal Failure, Neurogenic Bladder Gastrointestinal: Gastroesophageal Reflux Musculoskeletal: Degenerate Disk Disease, Arthritis Endocrine: Hypothyroidsim, Diabetes, Non-Insulin dep HEENT: Cataract Loss of Vision: Bilateral Hearing Impairment: Denies Psychosocial: Anxiety, Depression History of Blood Disorders: No Adverse Reaction to Blood Myrick: No (TRANSFUSION IN EARLY S) Family History Reviewed and Corrections made Review of Systems Constitutional: see HPI, malaise, weakness EENTM: no symptoms reported Respiratory: cough, dyspnea on exertion, short of breath Cardiovascular: no symptoms reported Gastrointestinal: no symptoms reported Genitourinary: no symptoms reported Musculoskeletal: no symptoms reported Skin: no symptoms reported Psychiatric/Neurological: No Symptoms Reported All Other Systems Reviewed Negative Unless Noted: Yes Physical Exam Physical Exam Vital Signs Vital Signs - First Documented 09/05/21 09/05/21 11:59 13:48 Temp 37.7 Pulse 70 Resp 18 B/P (MAP) 143/69 (93) Pulse Ox 95 O2 Delivery Nasal Cannula O2 Flow Rate 3.00 FiO2 32 Capillary Refill : Less Than 3 Seconds Height, Weight, BMI Height: 5'2.00" Weight: 252lbs. 0.0oz. 114.998860tx; 48.00 BMI Method:Stated General Appearance: WD/WN, Anxious, Chronically ill, Mild Distress, Obese Eyes: Bilateral Eye Normal Inspection, Bilateral Eye PERRL, Bilateral Eye EOMI HEENT: PERRL/EOMI, Normal ENT Inspection, Pharynx Normal Neck: Full Range of Motion, Normal Inspection, Non Tender, Supple, Carotid Bruit Respiratory: Chest Non Tender, Accessory Muscle Use, Decreased Breath Sounds, Respiratory Distress, Wheezing Cardiovascular: Regular Rate, Rhythm, No Edema, No Gallop, No JVD, No Murmur, Normal Peripheral Pulses Gastrointestinal: Normal Bowel Sounds, No Organomegaly, No Pulsatile Mass, Non Tender, Soft Back: Normal Inspection, No CVA Tenderness, No Vertebral Tenderness Extremity: Normal Capillary Refill, Normal Inspection, Normal Range of Motion, Non Tender, No Calf Tenderness, No Pedal Edema Neurologic/Psychiatric: Alert, Oriented x3, No Motor/Sensory Deficits, Normal Mood/Affect Skin: Normal Color, Warm/Dry Lymphatic: No Adenopathy Results Results/Procedures Labs Laboratory Tests 09/05/21 11:50 Patient resulted labs reviewed. 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
[2021-09-05 13:37] LABS: BILIRUBIN,URINE NEGATIVE (NEGATIVE); CLARITY,URINE SL CLOUDY; COLOR,URINE YELLOW; GLUCOSE, URINE (UA) 2+ (NEGATIVE); KETONES,URINE NEGATIVE (NEGATIVE); LEUKOCYTE ESTERASE ,URINE TRACE (NEGATIVE); NITRITE,URINE NEGATIVE (NEGATIVE); PH,URINE 5.5 (5-9); PROTEIN,URINE TRACE (NEGATIVE)
[2021-09-05] MEDS ORDERED: ENOXAPARIN 40 MG/0.4 ML (LOVENOX) SYR SC SCH (13:45)
[2021-09-05] MEDS ORDERED: PIPERACILLIN/TAZOBACTAM (BULK) 4.5 GM in NS (IVPB) 100 ML IV NR (13:45)
[2021-09-05] MEDS ORDERED: CATHETER FLUSH 10 ML SYR IV PRN (13:45)
--- NOTE | 2021-09-05 13:47 | Tele-ICU Consult ---
History of Present Illness History of Present Illness Date Seen by Provider: Sep 05, 2021 Time Seen by Provider: 13:00 Date of Admission This virtual visit was conducted using real time audio/video. Thank you for asking us to see this patient for respiratory insufficiency due to B asp pneumonia. Had EGD 09/02 with emesis requiring suctioning. PMH: COPD/Home )2 3LPM, HTN., CRI, DM2, OA, GERD, Hypothyroid, anxiety and depression. SH: smoking history Y FH: Non-contributory ROS: limited by patient's clinical condition, but as in HPI PE: Morbid obesity. VSS. O2 sat 95% on 3 LPM NC. HEENT: No obvious masses, adenopathy or JVD. Chest: Dimished w L >R rhonchi CV: RRR S1 S2 No murmur or added sounds. Abd: Non-tender. Bowel sounds Y. : Unremarkable. Jj N. SAMPLE FINISHER/psychiatric: Grossly intact. No obvious focal findings. Extremities: No edema. Capillary refill < 3 seconds. Skin: unremarkable. Results: Elevated BUN 20, Creat 2.09, WCC 20.5. ABG: not done yet. . CXR: Hyperinflated w B L>R infilts. Available chart/ vitals / labs / images reviewed. Video assessment done using teleICU camera, rest of exam as per RN. A/P: Respiratory insufficiency: Continue present management with O2, Duonebs, Prednisone and Zosyn. Add Lovenox for DVT proph. Monitor for increasing oxygenation needs and/or need for intubation. Discussed with RN Marissa/Stephanie. Asked RN to reach out to eICU if any questions or concerns later. Time spent with patient/coordination of care with other health professionals (mins): 35. Allergies and Home Medications Allergies Coded Allergies: Sulfa (Sulfonamide Antibiotics) (Unverified Allergy, Unknown, 04/30/14) acetaminophen (Unverified Allergy, Unknown, 04/30/14) codeine (Unverified Allergy, Unknown, 04/30/14) oxycodone (Unverified Allergy, Unknown, 04/30/14) pregabalin (Verified Allergy, Unknown, "made me crazy, disoriented", 07/18/17) sulfamethoxazole (Unverified Allergy, Unknown, 04/30/14) trimethoprim (Unverified Allergy, Unknown, 04/30/14) Home Medications Alprazolam 1 Mg Tablet, 0.5 MG PO HS, (Reported) Amlodipine Besylate 10 Mg Tablet, 10 MG PO DAILY, (Reported) Aspirin 81 Mg Tab.chew, 81 MG PO DAILY, (Reported) Cephalexin 500 Mg Tablet, 500 MG PO HS, (Reported) Clonidine 1 Each Patch.tdwk, 1 PATCH TD Q7D, (Reported) Cyanocobalamin (Vitamin B-12) 1,000 Mcg Tablet, 1,000 MCG PO HS, (Reported) Dapagliflozin Propanediol 5 Mg Tablet, 5 MG PO DAILY, (Reported) Ergocalciferol (Vitamin D2) 50 Mcg Capsule, 50,000 UNITS PO WEEKLY, (Reported) Ferrous Sulfate 325 Mg Tablet, 325 MG PO DAILY, (Reported) Folic Acid 1 Mg Tablet, 1 MG PO DAILY, (Reported) Gabapentin 300 Mg/6 Ml Solution, 300 MG PO BID, (Reported) Levothyroxine Sodium 75 Mcg Tablet, 75 MCG PO DAILY, (Reported) Mag Hydrox/Al Hydrox/Simeth 355 Ml Oral.susp, 355 ML PO QID Prescribed by: KIMBER FELIPE on 09/03/21 1120 Montelukast Sodium 10 Mg Tablet, 10 MG PO DAILY, (Reported) Pantoprazole Sodium 40 Mg Tablet.dr, 40 MG PO DAILY Prescribed by: KIMBER FELIPE on 09/03/21 1119 Terazosin HCl 5 Mg Capsule, 5 MG PO HS, (Reported) Tramadol HCl 300 Mg Tab.er.24h, 300 MG PO DAILY, (Reported) Trazodone HCl 100 Mg Tablet, 300 MG PO HS, (Reported) Past Medical/Social/Family Hx Patient Social History Tobacco Use?: No Substance use?: No Alcohol Use?: No Pt stated abuse/neglect: No Immunizations Up To Date First/Initial COVID19 Vaccinat: YES Second COVID19 Vaccination Bijan: JANUARY Tetanus Booster (TDap): Unknown Date of Pneumonia Vaccine: Oct 12, 2010 Current Status Advance Directives: No Primary Language: Fijian Preferred Spoken Language: Fijian Review of Systems Constitutional: see HPI EENTM: see HPI Respiratory: see HPI Gastrointestinal: see HPI Genitourinary: see HPI Musculoskeletal: see HPI Skin: see HPI Psychiatric/Neurological: See HPI All Other Systems Reviewed Negative Unless Noted: Yes Sepsis Event Evaluation Height, Weight, BMI Height: 5'2.00" Weight: 252lbs. 0.0oz. 114.175151dn; 48.00 BMI Method:Stated Exam Exam Patient acknowledged, consented, and participated in this virtual visit which was conducted using real time audio/video Vital Signs Date Time Temp Pulse Resp B/P (MAP) Pulse Ox O2 Delivery O2 Flow Rate FiO2 09/05/21 11:59 37.7 70 18 143/69 (93) 95 Nasal Cannula 3.00 09/05/21 11:59 Nasal Cannula Height & Weight Height: 5'2.00" Weight: 252lbs. 0.0oz. 114.918748en; 48.00 BMI Method:Stated General Appearance: Obese Capillary Refill: Less Than 3 Seconds Peripheral Pulses: 1+ Dorsalis Pedis (R), 1+ Left Dors-Pedis (L) Gastrointestinal: normal bowel sounds, non tender, soft Results Lab Laboratory Tests 09/05/21 11:50 Assessment/Plan Assessment/Plan See free text. Critical Care: Critically Ill Patient KAROLYN MARSH MD Sep 05, 2021 13:47
[2021-09-05 13:54] LABS: BACTERIA,URINE MODERATE /HPF
[2021-09-05] MEDS: NS IV 1000 ML 1,000 ML IV SCH (15:40)
[2021-09-05] MEDS ORDERED: GABA-486 PO (15:40)
[2021-09-05] MEDS ORDERED: RT-ALBUTEROL/IPRATROPIUM 3 ML (DUONEB) VIAL INH PRN (16:00)
[2021-09-05] MEDS: inSUlin ASPART (NovoLOG) 1 UNIT/0.01 ML (CHARGE PER UNIT) SC SCH ×2 (16:15→21:08)
--- NOTE | 2021-09-05 16:15 | Consultation-Cardiology ---
HPI-Cardiology Cardiology Consultation: Date of Consultation 09/05/21 Time Seen by a Provider: 15:45 Date of Admission Attending Physician Becca Juárez DO Admitting Physician Becca Juárez DO Consulting Physician BRIDGET GUILLEN MD, MA, FACP, FACC, [facility] [place] [facility] Physician requesting Cardiology consultation: Dr Juárez HPI: Chief Complaint: Shortness of breath 65 yo woman who underwent EGD on 09/02/21 that is reported to have been associated with some vomiting requiring suction, presents now with increasing shortness of breath, nonproductive cough, and chills. Denies cp or palp or syncope or swelling. Notes gen malaise and weakness Review of Systems-Cardiology Review of Systems Constitutional: As described under HPI Eyes: No vision change Ears/Nose/Throat: No ear discharge, No nasal drainage, No recent hearing loss Respiratory: As described under HPI Cardiovascular: As described under HPI Gastrointestinal: As described under HPI Genitourinary: No dysuria, No hematuria, No urine frequency changes Musculoskeletal: back pain (chronic) Skin: No rash Psychiatric/Neurological: No seizure, No focal weakness, No syncope Hematologic: No bleeding abnormalities All Other Systems Reviewed Negative Unless Noted: Yes GNO-Yafukm-Pvipeh Hx Patient Social History Smoking Status: Former Smoker 2nd Hand Smoke Exposure: No Alcohol Use?: No Pt feels they are or have been: No Immunizations Up To Date Tetanus Booster (TDap): Unknown Date of Pneumonia Vaccine: Oct 12, 2010 Date of Influenza Vaccine: Aug 23, 2021 Past Medical History PMH As described under Assessment. Family Medical History Family Medical History: She does not report fam h/o early CAD or SCD Allergies and Home Medications Allergies Coded Allergies: Sulfa (Sulfonamide Antibiotics) (Unverified Allergy, Unknown, 04/30/14) acetaminophen (Unverified Allergy, Unknown, 04/30/14) codeine (Unverified Allergy, Unknown, 04/30/14) oxycodone (Unverified Allergy, Unknown, 04/30/14) pregabalin (Verified Allergy, Unknown, "made me crazy, disoriented", 07/18/17) sulfamethoxazole (Unverified Allergy, Unknown, 04/30/14) trimethoprim (Unverified Allergy, Unknown, 04/30/14) Patient Home Medication List Home Medication List Reviewed: Yes Alprazolam (Alprazolam) 1 Mg Tablet, 0.5 MG PO HS, (Reported) Entered as Reported by: GREGORY DOMINGUEZ on 07/18/171114 Last Action: Continued Amlodipine Besylate (Amlodipine Besylate) 10 Mg Tablet, 10 MG PO DAILY, (Reported) Entered as Reported by: KEILA HUGHES on 08/27/211634 Last Action: Continued Aspirin (Aspirin) 81 Mg Tab.chew, 81 MG PO DAILY, (Reported) Entered as Reported by: KEILA HUGHES on 08/27/211634 Last Action: Continued Cephalexin (Cephalexin) 500 Mg Tablet, 500 MG PO HS, (Reported) Entered as Reported by: GREGORY DOMINGUEZ on 07/18/171114 Last Action: Held Clonidine (Clonidine TTS 1 Patch) 1 Each Patch.tdwk, 1 PATCH TD Q7D, (Reported) Entered as Reported by: KEILA HUGHES on 08/27/211634 Last Action: Continued Cyanocobalamin (Vitamin B-12) (B-12) 1,000 Mcg Tablet, 1,000 MCG PO HS, (Reported) Entered as Reported by: GREGORY DOMINGUEZ on 07/18/171114 Last Action: Continued Dapagliflozin Propanediol (Farxiga) 5 Mg Tablet, 5 MG PO DAILY, (Reported) Entered as Reported by: KEILA HUGHES on 08/27/211634 Last Action: Held Ergocalciferol (Vitamin D2) (Vitamin D2) 50 Mcg Capsule, 50,000 UNITS PO WEEKLY, (Reported) Entered as Reported by: KEILA HUGHES on 08/27/211634 Last Action: Held Ferrous Sulfate (Ferrous Sulfate) 325 Mg Tablet, 325 MG PO DAILY, (Reported) Entered as Reported by: KEILA HUGHES on 08/27/211634 Last Action: Continued Folic Acid (Folic Acid) 1 Mg Tablet, 1 MG PO DAILY, (Reported) Entered as Reported by: KEILA HUGHES on 08/27/211634 Last Action: Continued Gabapentin (Gabapentin) 100 Mg Capsule, 300 MG PO BID, (Reported) Entered as Reported by: BECCA JUÁREZ on 09/05/21 1540 Last Action: Continued Levothyroxine Sodium (Euthyrox) 75 Mcg Tablet, 75 MCG PO DAILY, (Reported) Entered as Reported by: KEILA HUGHES on 08/27/21 1635 Last Action: Continued Mag Hydrox/Al Hydrox/Simeth (Eq Liquid Antacid Susp) 355 Ml Oral.susp, 355 ML PO QID Prescribed by: KIMBER FELIPE on 09/03/21 1120 Last Action: Continued Montelukast Sodium (Singulair) 10 Mg Tablet, 10 MG PO DAILY, (Reported) Entered as Reported by: KEILA HUGHES on 08/27/21 163 Last Action: Continued Pantoprazole Sodium (Protonix) 40 Mg Tablet.dr, 40 MG PO DAILY Prescribed by: KIMBER FELIPE on 09/03/21 1119 Last Action: Continued Terazosin HCl (Terazosin HCl) 5 Mg Capsule, 5 MG PO HS, (Reported) Entered as Reported by: KEILA HUGHES on 08/27/21 163 Last Action: Continued Tramadol HCl (Tramadol HCl ER) 300 Mg Tab.er.24h, 300 MG PO DAILY, (Reported) Entered as Reported by: GREGORY DOMINGUEZ on 07/18/17 111 Last Action: Held Trazodone HCl (Trazodone HCl) 100 Mg Tablet, 300 MG PO HS, (Reported) Entered as Reported by: GREGORY DOMINGUEZ on 07/18/17 111 Last Action: Continued Discontinued Medications Gabapentin (Gabapentin) 300 Mg/6 Ml Solution, 300 MG PO BID, (Reported) Entered as Reported by: KEILA HUGHES on 08/27/21 1654 Last Action: Discontinued Physical Exam-Cardiology Physical Exam Vital Signs/I&O 09/05/21 09/05/21 09/05/21 09/05/21 11:59 11:59 13:48 15:08 Temp 37.7 37.7 Pulse 70 70 60 Resp 18 20 B/P (MAP) 143/69 (93) 173/52 Pulse Ox 95 95 95 O2 Delivery Nasal Cannula Nasal Cannula Nasal Cannula O2 Flow Rate 3.00 2.00 FiO2 32 09/05/21 09/05/21 09/05/21 15:32 15:47 16:00 Pulse 65 71 59 Resp 24 15 B/P (MAP) 125/57 (79) 145/72 (96) Pulse Ox 95 97 O2 Delivery Nasal Cannula Nasal Cannula O2 Flow Rate 3.00 3.00 Capillary Refill : Less Than 3 Seconds Constitutional: AAO x 3, well-developed, well-nourished HEENT: PERRL, EOMI, hearing is well preserved Neck: carotid pulses are 2 + bilaterally, with good upstrokes Respiratory: No accessory muscle use; other (scattered rhonchi, diminished air entry at the bases, coarse crackles over large air wasy) Cardiovascular: regular rate-rhythm, S1 and S2, systolic murmur (soft PRICILLA at card basee) Gastrointestinal: No tender; soft; No guarding, No rebound; audible bowel sounds Extremities: No clubbing, No cyanosis, No significant edema Neurologic/Psychiatric: oriented x 3, other (moves all limbs equally) Skin: warm/dry; No rash on exposed areas, No ulcerations on exposed areas Data Review Labs Laboratory Tests 09/05/21 11:45: Influenza Type A (RT-PCR) Not Detected, Influenza Type B (RT-PCR) Not Detected, SARS-CoV-2 RNA (RT-PCR) Not Detected 09/05/21 11:50: White Blood Count 20.5H, Red Blood Count 4.05, Hemoglobin 11.6, Hematocrit 37, M cristian Corpuscular Volume 92, Mean Corpuscular Hemoglobin 29, Mean Corpuscular Hemoglobin Concent 31L, Red Cell Distribution Width 13.2, Platelet Count 159, Mean Platelet Volume 10.7, Immature Granulocyte % (Auto) 1, Neutrophils (%) (Auto) 89H, Lymphocytes (%) (Auto) 5L, Monocytes (%) (Auto) 5, Eosinophils (%) (Auto) 1, Basophils (%) (Auto) 0, Neutrophils # (Auto) 18.2H, Lymphocytes # (Auto) 1.0, Monocytes # (Auto) 1.0, Eosinophils # (Auto) 0.1, Basophils # (Auto) 0.1, Immature Granulocyte # (Auto) 0.1, Neutrophils % (Manual) 88, Lymphocytes % (Manual) 6, Monocytes % (Manual) 3, Band Neutrophils 3, Polychromasia SLIGHT, Erythrocyte Sedimentation Rate 40H, Prothrombin Time 15.7H, INR Comment 1.2, Activated Partial Thromboplast Time 39H, Sodium Level 136, Potassium Level 4.6, Chloride Level 103, Carbon Dioxide Level 22, Anion Gap 11, Blood Urea Nitrogen 20H, Creatinine 2.09H, Estimat Glomerular Filtration Rate 24, BUN/Creatinine Ratio 10, Glucose Level 166H, Lactic Acid Level 0.99, Calcium Level 8.2L, Corrected Calcium 8.9, Total Bilirubin 1.0, Aspartate Amino Transf (AST/SGOT) 9, Alanine Aminotransferase (ALT/SGPT) 10, Alkaline Phosphatase 99, Lactate Deh ydrogenase 210, C-Reactive Protein High Sensitivity 29.12H, Total Protein 6.3L, Albumin 3.1L, Procalcitonin 0.42H 09/05/21 13:25: Urine Color YELLOW, Urine Clarity SL CLOUDY, Urine pH 5.5, Urine Specific G ravity 1.015L, Urine Protein TRACEH, Urine Glucose (UA) 2+H, Urine Ketones NEGATIVE, Urine Nitrite NEGATIVE, Urine Bilirubin NEGATIVE, Urine Urobilinogen 0.2, Urine Leukocyte Esterase TRACEH, Urine RBC (Auto) NEGATIVE, Urine RBC 2-5H, Urine WBC 5-10H, Urine Squamous Epithelial Cells 5-10, Urine Crystals NONE, Urine Bacteria MODERATEH, Urine Casts NONE, Urine Mucus NEGATIVE, Urine Culture Indicated YES Laboratory Tests 09/05/21 11:50 A/P-Cardiology Assessment/Admission Diagnosis Aspiration pneumonia GERD - EGD on 09/02/21: reflux esophagitis(stage 2), large gastric pouch, 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 COPD, quit smoking several years ago DM II Ch renal failure (CKD 4) H/o hypertension H/o hypothyroidism Discussion and Recomendations * Dr Juárez managing aspiration pneumonia and DM and CKD * Cardiac status currently appears stable * Monitor labs BRIDGET GUILLEN MD FACP [facility] Sep 05, 2021 16:15
[2021-09-05] MEDS ORDERED: ANTACID SUSP 30 ML UDC (MYLANTA) PO PRN (17:00)
[2021-09-05] MEDS: methylPREDNISolone 125 MG (Solu-MEDROL) VIAL IVP SCH ×2 (17:05→23:35)
[2021-09-05] MEDS: ACETAMINOPHEN 325 MG TABLET PO PRN (17:05)
[2021-09-05] MEDS: RT-ALBUTEROL/IPRATROPIUM 3 ML (DUONEB) VIAL INH SCH ×2 (18:39→22:07)
[2021-09-05] MEDS: PIPERACILLIN/TAZOBACTAM (BULK) 4.5 GM in NS (IVPB) 100 ML IV SCH (20:45)
[2021-09-05] MEDS ORDERED: TERAZOSIN 5 MG (HYTRIN) CAPSULE PO SCH (21:00)
[2021-09-05] MEDS: CYANOCOBALAMIN 1,000 MCG (VITAMIN B-12) TABLET PO SCH (21:08)
[2021-09-05] MEDS: traZODone 100 MG (DESYREL) TAB PO SCH (21:08)
[2021-09-05] MEDS: GABAPENTIN 100 MG (NEURONTIN) CAP PO SCH (21:08)
[2021-09-05] MEDS: ALPRAZolam 1 MG (XANAX) TAB PO SCH (21:09)
[2021-09-06] VITALS (16 sets, daily range): BP systolic 117–165; BP diastolic 57–83
[2021-09-06] MEDS: RT-ALBUTEROL/IPRATROPIUM 3 ML (DUONEB) VIAL INH SCH ×6 (02:59→22:13)
[2021-09-06] MEDS: PIPERACILLIN/TAZOBACTAM (BULK) 4.5 GM in NS (IVPB) 100 ML IV SCH ×3 (04:01→20:17)
[2021-09-06] MEDS: ACETAMINOPHEN 325 MG TABLET PO PRN ×2 (04:01→08:28)
[2021-09-06] MEDS: NS IV 1000 ML 1,000 ML IV SCH (05:10)
[2021-09-06] MEDS: LEVOTHYROXINE 75 MCG (LEVOTHROID) TABLET PO SCH (05:13)
[2021-09-06] MEDS: methylPREDNISolone 125 MG (Solu-MEDROL) VIAL IVP SCH ×4 (05:13→23:43)
[2021-09-06 05:18] LABS: BASOPHILS % (AUTO) 0 % (0-10); EOSINOPHILS % (AUTO) 0 % (0-10); HEMATOCRIT 39 % (35-52); HEMOGLOBIN 12.3 g/dL (11.5-16.0); LYMPHOCYTES # (AUTO) 0.6 10^3/uL (1.0-4.0); LYMPHOCYTES % (AUTO) 5 % (12-44); MEAN CORPUSCULAR HEMOGLOBIN 29 pg (25-34); MEAN CORPUSCULAR HGB CONC 31 g/dL (32-36); MEAN CORPUSCULAR VOLUME 91 fL (80-99); MEAN PLATELET VOLUME 10.9 fL (9.0-12.2); MONOCYTES # (AUTO) 0.1 10^3/uL (0.0-1.0); MONOCYTES % (AUTO) 1 % (0-12); NEUTROPHILS # (AUTO) 13.2 10^3/uL (1.8-7.8); NEUTROPHILS % (AUTO) 94 % (42-75); PLATELET COUNT 150 10^3/uL (130-400); WHITE BLOOD COUNT 14.1 10^3/uL (4.3-11.0)
[2021-09-06 05:31] LABS: ALBUMIN 3.3 GM/DL (3.2-4.5); POTASSIUM 4.7 MMOL/L (3.6-5.0)
[2021-09-06 05:32] LABS: CALCIUM 8.4 MG/DL (8.5-10.1)
[2021-09-06 05:33] LABS: TOTAL PROTEIN 6.9 GM/DL (6.4-8.2)
[2021-09-06 05:35] LABS: BILIRUBIN,TOTAL 0.8 MG/DL (0.1-1.0)
[2021-09-06 05:37] LABS: CREATININE SERUM 2.21 MG/DL (0.60-1.30)
[2021-09-06] MEDS: inSUlin ASPART (NovoLOG) 1 UNIT/0.01 ML (CHARGE PER UNIT) SC SCH ×4 (05:46→21:44)
--- NOTE | 2021-09-06 07:14 | Diagnostic Imaging Report ---
INDICATION: Pneumonia COMPARISON: 09/05/2021 FINDINGS: Single view of the chest demonstrates persistent but slightly decreased infiltrate in the left hemithorax. Right lung is clear. The heart is prominent but stable. There is no pneumothorax or large effusion. IMPRESSION: Slightly improved aeration of the left hemithorax. Dictated by: Dictated on workstation # [id number]
[2021-09-06] MEDS: ASPIRIN 81 MG CHEW (CHILDREN'S ASA) PO SCH (08:20)
[2021-09-06] MEDS: PANTOPRAZOLE 40 MG (PROTONIX) TAB PO SCH (08:20)
[2021-09-06] MEDS: amLODIPine 10 MG (NORVASC) TAB PO SCH (08:20)
[2021-09-06] MEDS: MONTELUKAST 10 MG (SINGULAIR) TAB PO SCH (08:20)
[2021-09-06] MEDS: FOLIC ACID 1 MG TAB PO SCH (08:21)
[2021-09-06] MEDS: GABAPENTIN 100 MG (NEURONTIN) CAP PO SCH ×2 (08:21→21:42)
[2021-09-06] MEDS: FERROUS SULF 325 MG (IRON) TAB PO SCH (08:21)
--- NOTE | 2021-09-06 08:34 | Progress Note - Cardiology ---
Cardiology SOAP Progress Note Subjective: Sitting up in bed Feels SOB is improving C/O dry cough No c/o CP or palpitations Objective: I&O/Vital Signs 09/08/21 09/08/21 09/08/21 00:40 07:38 08:00 Temp 36.8 36.0 Pulse 68 74 Resp 20 20 B/P (MAP) 125/70 (88) 135/63 (87) Pulse Ox 97 96 95 O2 Delivery Nasal Cannula Nasal Cannula Nasal Cannula O2 Flow Rate 2.00 2.00 2.00 09/08/21 00:00 Intake Total 1365 ml Output Total 875 ml Balance 490 ml Weight (Pounds): 252 Weight (Ounces): 0.0 Weight (Calculated Kilograms): 114.616123 Constitutional: AAO x 3, well-developed, well-nourished Respiratory: No accessory muscle use; other (scattered rhonchi, diminished air entry at the bases, coarse crackles over large air wasy) Cardiovascular: regular rate-rhythm, S1 and S2, systolic murmur (soft PRICILLA at card basee) Gastrointestional: No tender; soft; No guarding, No rebound; audible bowel sounds Extremities: No clubbing, No cyanosis, No significant edema Neurologic/Psychiatric: oriented x 3, other (moves all limbs equally) Skin: warm/dry; No rash on exposed areas, No ulcerations on exposed areas Results/Procedures: Labs Laboratory Tests 09/07/21 15:46: Glucometer 286H 09/07/21 20:10: Glucometer 264H 09/08/21 05:34: Glucometer 177H 09/08/21 05:45: White Blood Count 10.8, Red Blood Count 3.95, Hemoglobin 11.4L, Hematocrit 36, Mean Corpuscular Volume 90, Mean Corpuscular Hemoglobin 29, Mean Corpuscular Hemoglobin Concent 32, Red Cell Distribution Width 13.2, Platelet Count 201, Mean Platelet Volume 10.9, Immature Granulocyte % (Auto) 2, Neutrophils (%) (Auto) 90H, Lymphocytes (%) (Auto) 6L, Monocytes (%) (Auto) 3, Eosinophils (%) (Auto) 0, Basophils (%) (Auto) 0, Neutrophils # (Auto) 9.7H, Lymphocytes # (Auto) 0.7L, Monocytes # (Auto) 0.3, Eosinophils # (Auto) 0.0, Basophils # (Auto) 0.0, Immature Granulocyte # (Auto) 0.2H, Sodium Level 138, Potassium Level 4.2, Chloride Level 106, Carbon Dioxide Level 19L, Anion Gap 13, Blood Urea Nitrogen 33H, Creatinine 1.93H, Estimat Glomerular Filtration Rate 26, BUN/ Creatinine Ratio 17, Glucose Level 179H, Calcium Level 7.6L, Corrected Calcium 8.2L, Total Bilirubin 0.4, Aspartate Amino Transf (AST/SGOT) 7, Alanine Aminotransferase (ALT/SGPT) 6, Alkaline Phosphatase 87, Total Protein 6.5, Albumin 3.2 Microbiology 09/05/21 MRSA Screen - Final, Complete MRSA not isolated 09/05/21 Urine Culture - Final, Complete Escherichia coli 09/05/21 Blood Culture - Preliminary, Resulted No growth A/P: Assessment: Aspiration pneumonia GERD - EGD on 09/02/21: reflux esophagitis(stage 2), large gastric pouch, 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 COPD, quit smoking several years ago DM II Ch renal failure (CKD 4) H/o hypertension H/o hypothyroidism Plan: * Dr Camacho managing aspiration pneumonia and DM and CKD * Cardiac status currently appears stable * Monitor labs PATRICE ANDRE Sep 06, 2021 08:34
[2021-09-06] MEDS ORDERED: CLONIDINE PATCH REMOVAL TP SCH (08:59)
[2021-09-06] MEDS ORDERED: cloNIDine 0.1 MG PATCH (CATAPRES TTS) TDSY TD SCH (09:00)
--- NOTE | 2021-09-06 11:14 | Progress Note ---
LYNDA SANCHEZ MED STUDENT 09/06/21 1114: Subjective Date Seen by a Provider: Sep 06, 2021 Time Seen by a Provider: 08:30 Subjective/Events-last exam Pt awake, alert, sitting up in bed, NAD. No overnight events. States that her SOB has improved significantly since admission. Denies chest pain/discomfort, N/V, abd pain, fevers/chills. Nonproductive cough. States she had a bm yesterday that was dark but not tarry. Corado in place draining clear yellow. No questions or concerns this morning. Review of Systems General: No Chills, No Fatigue HEENT: No Head Aches, No Visual Changes, No Eye Pain Pulmonary: Dyspnea (improved significantly), Cough (dry nonproductive cough) Cardiovascular: No: Chest Pain, Palpitations, Edema, Lt Headedness Gastrointestinal: No: Nausea, Vomiting, Abdominal Pain, Diarrhea, Constipation Genitourinary: No Dysuria, No Incontinence, No Hematuria; Other (corado in place draining clear yellow) Musculoskeletal: No: neck pain, back pain Neurological: No: Weakness, Numbness, Confusion Focused Exam Sepsis Stage: Ruled Out (suspected sepsis) Reason for ruling out sepsis: 1 SIRS criteria; suspected sepsis Possible Source: Pulmonary Lactate Level 09/05/21 11:50: Lactic Acid Level 0.99 Objective Exam Last Set of Vital Signs Vital Signs Date Time Temp Pulse Resp B/P (MAP) Pulse Ox O2 Delivery O2 Flow Rate FiO2 09/06/21 10:28 95 Nasal Cannula 2.00 09/06/21 08:25 36.6 09/06/21 08:00 74 14 138/61 (86) 09/05/21 13:48 32 Capillary Refill : Less Than 3 Seconds I&O Intake and Output 09/06/21 00:00 Intake Total 730 ml Output Total 350 ml Balance 380 ml Intake Oral 600 ml IV Total 130 ml Output Urine Total 350 ml # Voids 3 # Bowel Movements 1 General: Alert, Oriented X3, Cooperative, No Acute Distress HEENT: Atraumatic, PERRLA, EOMI, Mucous Memb Moist/[place] Neck: Supple, No JVD Lungs: Other (diminished bilaterally, expiratory rhonchi L lung lackey) Heart: Regular Rate, Normal S1, Normal S2, No Murmurs Abdomen: Normal Bowel Sounds, Soft, No Tenderness Extremities: No Clubbing, No Cyanosis, No Edema, Normal Pulses, No Tenderness/Swelling Skin: No Rashes, No Breakdown, No Significant Lesion Neuro: Normal Speech, Strength at 5/5 X4 Ext, Normal Tone, Sensation Intact Psych/Mental Status: Mental Status NL, Mood NL Results Lab Laboratory Tests 09/05/21 11:45: Influenza Type A (RT-PCR) Not Detected, Influenza Type B (RT-PCR) Not Detected, SARS-CoV-2 RNA (RT-PCR) Not Detected 09/05/21 11:50: White Blood Count 20.5H, Red Blood Count 4.05, Hemoglobin 11.6, Hematocrit 37, Mean Corpuscular Volume 92, Mean Corpuscular Hemoglobin 29, Mean Corpuscular Hemoglobin Concent 31L, Red Cell Distribution Width 13.2, Platelet Count 159, Mean Platelet Volume 10.7, Immature Granulocyte % (Auto) 1, Neutrophils (%) (Auto) 89H, Lymphocytes (%) (Auto) 5L, Monocytes (%) (Auto) 5, Eosinophils (%) (Auto) 1, Basophils (%) (Auto) 0, Neutrophils # (Auto) 18.2H, Lymphocytes # (Auto) 1.0, Monocytes # (Auto) 1.0, Eosinophils # (Auto) 0.1, Basophils # (Auto) 0.1, Immature Granulocyte # (Auto) 0.1, Neutrophils % (Manual) 88, Lymphocytes % (Manual) 6, Monocytes % (Manual) 3, Band Neutrophils 3, Polychromasia SLIGHT, Erythrocyte Sedimentation Rate 40H, Prothrombin Time 15.7H, INR Comment 1.2, Activated Partial Thromboplast Time 39H, Sodium Level 136, Potassium Level 4.6, Chloride Level 103, Carbon Dioxide Level 22, Anion Gap 11, Blood Urea Nitrogen 20H, Creatinine 2.09H, Estimat Glomerular Filtration Rate 24, BUN/Creatinine Ratio 10, Glucose Level 166H, Lactic Acid Level 0.99, Calcium Level 8.2L, Corrected Calcium 8.9, Total Bilirubin 1.0, Aspartate Amino Transf (AST/SGOT) 9, Alanine Aminotransferase (ALT/SGPT) 10, Alkaline Phosphatase 99, Lactate Dehydrogenase 210, C-Reactive Protein High Sensitivity 29.12H, Total Protein 6.3L, Albumin 3.1L, Procalcitonin 0.42H 09/05/21 13:25: Urine Color YELLOW, Urine Clarity SL CLOUDY, Urine pH 5.5, Urine Specific [place] 1.015L, Urine Protein TRACEH, Urine Glucose (UA) 2+H, Urine Ketones NEGATIVE, Urine Nitrite NEGATIVE, Urine Bilirubin NEGATIVE, Urine Urobilinogen 0.2, Urine Leukocyte Esterase TRACEH, Urine RBC (Auto) NEGATIVE, Urine RBC 2-5H, Urine WBC 5-10H, Urine Squamous Epithelial Cells 5-10, Urine Crystals NONE, Urine Bacteria MODERATEH, Urine Casts NONE, Urine Mucus NEGATIVE, Urine Culture Indicated YES 09/05/21 16:14: Glucometer 155H 09/05/21 20:48: Glucometer 230H 09/06/21 04:45: White Blood Count 14.1H, Red Blood Count 4.31, Hemoglobin 12.3, Hematocrit 39, Mean Corpuscular Volume 91, Mean Corpuscular Hemoglobin 29, Mean Corpuscular Hemoglobin Concent 31L, Red Cell Distribution Width 13.2, Platelet Count 150, Mean Platelet Volume 10.9, Immature Granulocyte % (Auto) 1, Neutrophils (%) (Auto) 94H, Lymphocytes (%) (Auto) 5L, Monocytes (%) (Auto) 1, Eosinophils (%) (Auto) 0, Basophils (%) (Auto) 0, Neutrophils # (Auto) 13.2H, Lymphocytes # (Auto) 0.6L, Monocytes # (Auto) 0.1, Eosinophils # (Auto) 0.0, Basophils # (Auto) 0.0, Immature Granulocyte # (Auto) 0.1, Sodium Level 137, Potassium Level 4.7, Chloride Level 104, Carbon Dioxide Level 18L, Anion Gap 15H, Blood Urea Nitrogen 25H, Creatinine 2.21H, Estimat Glomerular Filtration Rate 22, BUN/Creatinine Ratio 11, Glucose Level 224H, Calcium Level 8.4L, Corrected Calcium 9.0, Total Bilirubin 0.8, Aspartate Amino Transf (AST/SGOT) 11, Alanine Aminotransferase (ALT/SGPT) 10, Alkaline Phosphatase 117, Total Protein 6.9, Albumin 3.3 Microbiology 09/05/21 Urine Culture - Preliminary, Resulted Escherichia coli Assessment/Plan Assessment/Plan Assess & Plan/Chief Complaint Aspiration Pneumonia, suspected sepsis Leukocytosis Acute respiratory failure Significantly improved SOB, O2Sat CXR: L>R diffuse infiltrates, slight improvement from yesterday WBC improving; 14.1 from 20.5 Continue nebulizer tx, Zosyn, Solumedrol Cardiology consulted; cardiac status stable DVT prophylaxis Heparin d/t poor renal function CKD Cr 2.21 Baseline around 2, continue to monitor T2DM Insulin aspart w/ sliding scale HTN GERD Hypothyroidism Resume home regimen JIMI Obesity Respiratory status, labs, VS improving; transfer to [facility]. BECCA JUÁREZ DO 09/07/21 0520: Subjective Subjective/Events-last exam Patient much improved Blood sugars elevated from Solu-Medrol Corado still in place Heparin for DVT prophylaxis Antibiotics maintained Nebulizer treatments ordered PT and OT will evaluate Review of Systems General: Fatigue Pulmonary: Dyspnea (improved significantly), Cough (dry nonproductive cough) Objective Exam General: Alert, Oriented X3, Cooperative, No Acute Distress Lungs: Other (diminished bilaterally, expiratory rhonchi L lung lackey) Abdomen: Normal Bowel Sounds Neuro: Normal Speech, Strength at 5/5 X4 Ext Psych/Mental Status: Mental Status NL Assessment/Plan Assessment/Plan Assess & Plan/Chief Complaint IV antibiotics Nebulizers Oxygen Heparin for DVT prophylaxis Supervisory-Addendum Brief Verification & Attestation Participated in pt care: history, MDM, physical Personally performed: exam, history, MDM, supervision of care Care discussed with: Medical Student Procedures: n/a Results interpretation: Verified all documentation Verification and Attestation of Medical Student E/M Service A medical student performed and documented this service in my presence. I reviewed and verified all information documented by the medical student and made modifications to such information, when appropriate. I personally performed the physical exam and medical decision making. Becca Juárez, Sep 07, 2021,05:18 LYDNA SANCHEZ MED STUDENT Sep 06, 2021 11:14 BECCA JUÁREZ DO Sep 07, 2021 05:20
--- NOTE | 2021-09-06 11:58 | Tele-ICU Progress Note ---
Subjective Date Seen by a Provider: Sep 06, 2021 Time Seen by a Provider: 11:58 Sepsis Event Evaluation Height, Weight, BMI Height: 5'2.00" Weight: 252lbs. 0.0oz. [id number]; 49.38 BMI Method:Stated Focused Exam Lactate Level 09/05/21 11:50: Lactic Acid Level 0.99 Exam Exam Patient acknowledged, consented, and participated in this virtual visit which was conducted using real time audio/video Vital Signs Date Time Temp Pulse Resp B/P (MAP) Pulse Ox O2 Delivery O2 Flow Rate FiO2 09/06/21 10:28 95 Nasal Cannula 2.00 09/06/21 10:00 68 18 156/72 (100) 94 Nasal Cannula 2.00 09/06/21 09:00 75 19 117/62 (80) 92 Nasal Cannula 2.00 09/06/21 08:25 36.6 09/06/21 08:00 Nasal Cannula 2.00 09/06/21 08:00 74 14 138/61 (86) 94 Nasal Cannula 2.00 09/06/21 07:00 80 09/06/21 07:00 73 21 136/65 (88) 94 Nasal Cannula 2.00 09/06/21 06:46 95 Nasal Cannula 2.00 09/06/21 06:00 60 10 140/64 (94) 94 Nasal Cannula 2.00 09/06/21 05:00 65 15 134/57 (76) 95 Nasal Cannula 2.00 09/06/21 04:11 96 Nasal Cannula 2.00 09/06/21 04:01 36.0 09/06/21 04:00 63 17 153/79 (104) 95 Nasal Cannula 2.00 09/06/21 03:00 71 20 157/73 (105) 92 Nasal Cannula 2.00 09/06/21 02:00 63 11 160/70 (100) 95 Nasal Cannula 2.00 09/06/21 01:00 64 24 153/67 (95) 95 Nasal Cannula 2.00 09/06/21 01:00 64 09/06/21 00:00 65 21 144/66 (92) 93 Nasal Cannula 2.00 09/05/21 23:36 36.3 09/05/21 23:00 61 20 144/62 (84) 94 Nasal Cannula 2.00 09/05/21 22:08 95 Nasal Cannula 2.00 09/05/21 22:00 61 16 153/69 (97) 94 Nasal Cannula 2.00 09/05/21 21:00 67 29 141/83 (91) 94 Nasal Cannula 2.00 09/05/21 20:00 75 17 145/66 (92) 94 Nasal Cannula 2.00 09/05/21 19:53 37.5 Nasal Cannula 2.00 09/05/21 19:00 71 09/05/21 19:00 71 21 131/59 (83) 91 Nasal Cannula 3.00 09/05/21 18:39 93 Nasal Cannula 2.00 09/05/21 18:00 75 27 134/79 (97) 94 Nasal Cannula 3.00 09/05/21 17:06 37.2 09/05/21 17:00 60 19 153/70 (97) 97 Nasal Cannula 3.00 09/05/21 16:00 59 15 145/72 (96) 97 Nasal Cannula 3.00 09/05/21 15:47 71 09/05/21 15:45 Nasal Cannula 3.00 09/05/21 15:32 65 24 125/57 (79) 95 Nasal Cannula 3.00 09/05/21 15:08 60 20 173/52 95 Nasal Cannula 2.00 09/05/21 13:48 37.7 70 95 32 09/05/21 11:59 37.7 70 18 143/69 (93) 95 Nasal Cannula 3.00 09/05/21 11:59 Nasal Cannula I & O 09/06/21 07:00 Intake Total 1300 ml Output Total 1850 ml Balance -550 ml Height & Weight Height: 5'2.00" Weight: 252lbs. 0.0oz. 114.679556li; 49.38 BMI Method:Stated General Appearance: WD/WN, Anxious, Chronically ill, Mild Distress, Obese HEENT: PERRL/EOMI, Normal ENT Inspection, Pharynx Normal Neck: Full Range of Motion, Normal Inspection, Non Tender, Supple, Carotid Br uit Respiratory: Chest Non Tender, Accessory Muscle Use, Decreased Breath Sounds, Respiratory Distress, Wheezing Cardiovascular: Regular Rate, Rhythm, No Edema, No Gallop, No JVD, No Murmur, Normal Peripheral Pulses Capillary Refill: Less Than 3 Seconds Peripheral Pulses: 1+ Dorsalis Pedis (R), 1+ Left Dors-Pedis (L) Gastrointestinal: normal bowel sounds, non tender, soft Extremity: Normal Capillary Refill, Normal Inspection, Normal Range of Motion, Non Tender, No Calf Tenderness, No Pedal Edema Neurologic/Psychiatric: Alert, Oriented x3, No Motor/Sensory Deficits, Normal Mood/Affect Skin: Normal Color, Warm/Dry Lymphatic: No Adenopathy Results Lab Laboratory Tests 09/05/21 11:50 09/06/21 04:45 Assessment/Plan Assessment/Plan (Tele-ICU Physician , Progress Note ) Available chart/ vitals / labs / Images reviewed Video assessment done using teleICU camera, rest of exam as per RN Discussed with RN , EXAM PER RN Events overnight : Afebrile I/O = Drips: Pressors: , hemodynamically stable Consultants: cards A/P Aspiration pneumonia, suspected - cxr with B L>R infilts. - Zosyn 09/05 GERD - EGD on 09/02/21: reflux esophagitis(stage 2), large gastric pouch, 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 AECOPD, chronic hypoxic res failure - Home O2 3LPM - SM 60 q 6 h - to taper DM II - ISS Ch renal failure (CKD 4) - slight increase Cr - follow UTI - E coli - on zosyn H/o hypothyroidism STEP -DOWN STATUS : CONTINUE TO MONITOR PER USUAL TELE-ICU PROTOCOL Plans in collaboration with bedside consultants and IM MDs. Discussed with RN to reach out if any questions or concerns A total of 20 minutes of critical care time was devoted to this patient today, required to treat and/or prevent further deterioration of critical care condition ( as above) . SCOOTER PEACOCK MD Sep 06, 2021 11:58
[2021-09-06] MEDS ORDERED: GABA300C PO (17:01)
[2021-09-06] MEDS ORDERED: TERB250T88 PO (17:01)
[2021-09-06] MEDS ORDERED: CYAN-41 PO (17:01)
[2021-09-06] MEDS ORDERED: TRM50T PO (17:01)
[2021-09-06] MEDS ORDERED: MAGN500C15 PO (17:01)
[2021-09-06] MEDS ORDERED: TERA10CA3 PO (17:01)
[2021-09-06] MEDS ORDERED: INSU100I29 SC (17:01)
[2021-09-06] MEDS ORDERED: PANT40TA52 PO (17:01)
[2021-09-06] MEDS ORDERED: TRAZ150T72 PO (17:01)
[2021-09-06] MEDS ORDERED: DAPA10TA PO (17:01)
[2021-09-06] MEDS ORDERED: FERR-84 PO (17:01)
[2021-09-06] MEDS ORDERED: ALPR0.5T7 PO (17:11)
--- NOTE | 2021-09-06 17:14 | Progress Note - Cardiology ---
Cardiology SOAP Progress Note Subjective: No cp or palp or syncope Improved shortness of breath No n/v/d Gen malaise and weakness Objective: I&O/Vital Signs 09/06/21 09/06/21 09/06/21 09/06/21 06:00 06:46 07:00 07:00 Pulse 60 73 80 Resp 10 21 B/P (MAP) 140/64 (94) 136/65 (88) Pulse Ox 94 95 94 O2 Delivery Nasal Cannula Nasal Cannula Nasal Cannula O2 Flow Rate 2.00 2.00 2.00 09/06/21 09/06/21 09/06/21 09/06/21 08:00 08:00 08:25 09:00 Temp 36.6 Pulse 74 75 Resp 14 19 B/P (MAP) 138/61 (86) 117/62 (80) Pulse Ox 94 92 O2 Delivery Nasal Cannula Nasal Cannula Nasal Cannula O2 Flow Rate 2.00 2.00 2.00 09/06/21 09/06/21 09/06/21 09/06/21 10:00 10:28 12:00 13:00 Pulse 68 64 75 Resp 18 18 B/P (MAP) 156/72 (100) 162/74 (103) Pulse Ox 94 95 96 O2 Delivery Nasal Cannula Nasal Cannula Nasal Cannula O2 Flow Rate 2.00 2.00 2.00 09/06/21 09/06/21 14:29 15:13 Temp 36.4 Pulse 70 Resp 18 B/P (MAP) 152/69 (96) Pulse Ox 96 94 O2 Delivery Nasal Cannula Nasal Cannula O2 Flow Rate 2.00 2.00 09/06/21 00:00 Intake Total 730 ml Output Total 350 ml Balance 380 ml Weight (Pounds): 252 Weight (Ounces): 0.0 Weight (Calculated Kilograms): 114.464094 Constitutional: AAO x 3, well-developed, well-nourished Respiratory: No accessory muscle use; other (scattered rhonchi, diminished air entry at the bases, coarse crackles over large air wasy) Cardiovascular: regular rate-rhythm, S1 and S2, systolic murmur (soft PRICILLA at card basee) Gastrointestional: No tender; soft; No guarding, No rebound; audible bowel sounds Extremities: No clubbing, No cyanosis, No significant edema Neurologic/Psychiatric: oriented x 3, other (moves all limbs equally) Skin: warm/dry; No rash on exposed areas, No ulcerations on exposed areas Results/Procedures: Labs Laboratory Tests 09/05/21 20:48: Glucometer 230H 09/06/21 04:45: White Blood Count 14.1H, Red Blood Count 4.31, Hemoglobin 12.3, Hematocrit 39, Mean Corpuscular Volume 91, Mean Corpuscular Hemoglobin 29, Mean Corpuscular Hemoglobin Concent 31L, Red Cell Distribution Width 13.2, Platelet Count 150, Mean Platelet Volume 10.9, Immature Granulocyte % (Auto) 1, Neutrophils (%) (Auto) 94H, Lymphocytes (%) (Auto) 5L, Monocytes (%) (Auto) 1, Eosinophils (%) (Auto) 0, Basophils (%) (Auto) 0, Neutrophils # (Auto) 13.2H, Lymphocytes # (A uto) 0.6L, Monocytes # (Auto) 0.1, Eosinophils # (Auto) 0.0, Basophils # (Auto) 0.0, Immature Granulocyte # (Auto) 0.1, Sodium Level 137, Potassium Level 4.7, Chloride Level 104, Carbon Dioxide Level 18L, Anion Gap 15H, Blood Urea Nitrogen 25H, Creatinine 2.21H, Estimat Glomerular Filtration Rate 22, BUN/Creatinine Ratio 11, Glucose Level 224H, Calcium Level 8.4L, Corrected Calcium 9.0, Total Bilirubin 0.8, Aspartate Amino Transf (AST/SGOT) 11, Alanine Aminotransferase (ALT/SGPT) 10, Alkaline Phosphatase 117, Total Protein 6.9, Albumin 3.3 09/06/21 11:15: Glucometer 289H 09/06/21 16:40: Glucometer 452*H Microbiology 09/05/21 Urine Culture - Preliminary, Resulted Escherichia coli 09/05/21 Gram Stain - Final, Resulted 09/05/21 Sputum Culture - Preliminary, Resulted Usual upper respiratory kendra 09/05/21 Blood Culture - Preliminary, Resulted No growth Laboratory Tests 09/05/21 11:50 09/06/21 04:45 A/P: Assessment: Aspiration pneumonia GERD - EGD on 09/02/21: reflux esophagitis(stage 2), large gastric pouch, 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 COPD, quit smoking several years ago DM II Ch renal failure (CKD 4) H/o hypertension H/o hypothyroidism Plan: * Dr Camacho managing aspiration pneumonia and DM and CKD * Cardiac status currently appears stable * Monitor labs BRIDGET GUILLEN MD FACP FAC CCDS Sep 06, 2021 17:14
[2021-09-06] MEDS: inSUlin (REGULAR) HUMAN 1 UNIT/0.01 ML (CHARGE PER UNIT) SC SCH ×2 (17:19→21:44)
[2021-09-06] MEDS ORDERED: inSUlin (REGULAR) HUMAN 1 UNIT/0.01 ML (CHARGE PER UNIT) SC SCH (21:00)
[2021-09-06] MEDS: traZODone 100 MG (DESYREL) TAB PO SCH (21:42)
[2021-09-06] MEDS: ALPRAZolam 1 MG (XANAX) TAB PO SCH (21:42)
[2021-09-06] MEDS: CYANOCOBALAMIN 1,000 MCG (VITAMIN B-12) TABLET PO SCH (21:42)
[2021-09-06] MEDS: inSUlin (REGULAR) HUMAN 1 UNIT/0.01 ML (CHARGE PER UNIT) SC PRN (21:43)
[2021-09-06] MEDS: TERAZOSIN 5 MG (HYTRIN) CAPSULE PO SCH (21:43)
[2021-09-07] MEDS: RT-ALBUTEROL/IPRATROPIUM 3 ML (DUONEB) VIAL INH SCH ×6 (02:41→22:01)
[2021-09-07] MEDS: PIPERACILLIN/TAZOBACTAM (BULK) 4.5 GM in NS (IVPB) 100 ML IV SCH ×3 (03:57→20:57)
[2021-09-07 04:00] VITALS: BP 169/73
[2021-09-07] MEDS: methylPREDNISolone 125 MG (Solu-MEDROL) VIAL IVP SCH ×2 (05:58→22:10)
[2021-09-07] MEDS: LEVOTHYROXINE 75 MCG (LEVOTHROID) TABLET PO SCH (05:58)
[2021-09-07] MEDS: inSUlin ASPART (NovoLOG) 1 UNIT/0.01 ML (CHARGE PER UNIT) SC SCH ×4 (05:59→22:12)
[2021-09-07] MEDS: inSUlin (REGULAR) HUMAN 1 UNIT/0.01 ML (CHARGE PER UNIT) SC SCH ×4 (05:59→22:12)
[2021-09-07 06:32] LABS: BASOPHILS % (AUTO) 0 % (0-10); EOSINOPHILS % (AUTO) 0 % (0-10); HEMATOCRIT 36 % (35-52); HEMOGLOBIN 11.4 g/dL (11.5-16.0); LYMPHOCYTES # (AUTO) 0.6 10^3/uL (1.0-4.0); LYMPHOCYTES % (AUTO) 5 % (12-44); MEAN CORPUSCULAR HEMOGLOBIN 28 pg (25-34); MEAN CORPUSCULAR HGB CONC 32 g/dL (32-36); MEAN CORPUSCULAR VOLUME 90 fL (80-99); MEAN PLATELET VOLUME 11.2 fL (9.0-12.2); MONOCYTES # (AUTO) 0.3 10^3/uL (0.0-1.0); MONOCYTES % (AUTO) 2 % (0-12); NEUTROPHILS # (AUTO) 11.3 10^3/uL (1.8-7.8); NEUTROPHILS % (AUTO) 92 % (42-75); PLATELET COUNT 187 10^3/uL (130-400); WHITE BLOOD COUNT 12.3 10^3/uL (4.3-11.0)
[2021-09-07 06:42] LABS: ALBUMIN 3.1 GM/DL (3.2-4.5)
[2021-09-07 06:43] LABS: POTASSIUM 3.9 MMOL/L (3.6-5.0)
[2021-09-07 06:44] LABS: CALCIUM 7.9 MG/DL (8.5-10.1)
[2021-09-07 06:45] LABS: TOTAL PROTEIN 6.4 GM/DL (6.4-8.2)
[2021-09-07 06:47] LABS: BILIRUBIN,TOTAL 0.4 MG/DL (0.1-1.0)
[2021-09-07 06:48] LABS: CREATININE SERUM 1.96 MG/DL (0.60-1.30)
[2021-09-07 08:15] VITALS: BP 164/68
--- NOTE | 2021-09-07 09:57 | Progress Note - Cardiology ---
Cardiology SOAP Progress Note Subjective: Sitting up in bed eating morning meal Feels her SOB is somewhat worse since her oxygen was decreased to 1.5L this morning No c/o CP or palpitations Objective: I&O/Vital Signs 09/08/21 09/08/21 09/08/21 00:40 07:38 08:00 Temp 36.8 36.0 Pulse 68 74 Resp 20 20 B/P (MAP) 125/70 (88) 135/63 (87) Pulse Ox 97 96 95 O2 Delivery Nasal Cannula Nasal Cannula Nasal Cannula O2 Flow Rate 2.00 2.00 2.00 09/08/21 00:00 Intake Total 1365 ml Output Total 875 ml Balance 490 ml Weight (Pounds): 252 Weight (Ounces): 0.0 Weight (Calculated Kilograms): 114.583268 Constitutional: AAO x 3, well-developed, well-nourished Respiratory: No accessory muscle use; other (scattered rhonchi, diminished air entry at the bases, coarse crackles over large air wasy) Cardiovascular: regular rate-rhythm, S1 and S2, systolic murmur (soft PRICILLA at card basee) Gastrointestional: No tender; soft; No guarding, No rebound; audible bowel sounds Extremities: No clubbing, No cyanosis, No significant edema Neurologic/Psychiatric: oriented x 3, other (moves all limbs equally) Skin: warm/dry; No rash on exposed areas, No ulcerations on exposed areas Results/Procedures: Labs Laboratory Tests 09/07/21 15:46: Glucometer 286H 09/07/21 20:10: Glucometer 264H 09/08/21 05:34: Glucometer 177H 09/08/21 05:45: White Blood Count 10.8, Red Blood Count 3.95, Hemoglobin 11.4L, Hematocrit 36, Mean Corpuscular Volume 90, Mean Corpuscular Hemoglobin 29, Mean Corpuscular Hemoglobin Concent 32, Red Cell Distribution Width 13.2, Platelet Count 201, Mean Platelet Volume 10.9, Immature Granulocyte % (Auto) 2, Neutrophils (%) (Auto) 90H, Lymphocytes (%) (Auto) 6L, Monocytes (%) (Auto) 3, Eosinophils (%) (Auto) 0, Basophils (%) (Auto) 0, Neutrophils # (Auto) 9.7H, Lymphocytes # (Auto) 0.7L, Monocytes # (Auto) 0.3, Eosinophils # (Auto) 0.0, Basophils # (Auto) 0.0, Immature Granulocyte # (Auto) 0.2H, Sodium Level 138, Potassium Level 4.2, Chloride Level 106, Carbon Dioxide Level 19L, Anion Gap 13, Blood Urea Nitrogen 33H, Creatinine 1.93H, Estimat Glomerular Filtration Rate 26, BUN/Creatinine Ratio 17, Glucose Level 179H, Calcium Level 7.6L, Corrected Calcium 8.2L, Total Bilirubin 0.4, Aspartate Amino Transf (AST/SGOT) 7, Alanine Aminotransferase (ALT/SGPT) 6, Alkaline Phosphatase 87, Total Protein 6.5, Albumin 3.2 Microbiology 09/05/21 MRSA Screen - Final, Complete MRSA not isolated 09/05/21 Urine Culture - Final, Complete Escherichia coli 09/05/21 Blood Culture - Preliminary, Resulted No growth A/P: Assessment: Aspiration pneumonia GERD - EGD on 09/02/21: reflux esophagitis(stage 2), large gastric pouch, 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 COPD, quit smoking several years ago DM II Ch renal failure (CKD 4) H/o hypertension H/o hypothyroidism Plan: * Dr Camacho managing aspiration pneumonia and DM and CKD * Cardiac status currently appears stable * Monitor labs PATRICE ANDRE Sep 07, 2021 09:56
[2021-09-07] MEDS: ASPIRIN 81 MG CHEW (CHILDREN'S ASA) PO SCH (10:09)
[2021-09-07] MEDS: PANTOPRAZOLE 40 MG (PROTONIX) TAB PO SCH (10:09)
[2021-09-07] MEDS: amLODIPine 10 MG (NORVASC) TAB PO SCH (10:09)
[2021-09-07] MEDS: FOLIC ACID 1 MG TAB PO SCH (10:09)
[2021-09-07] MEDS: FERROUS SULF 325 MG (IRON) TAB PO SCH (10:09)
[2021-09-07] MEDS: MONTELUKAST 10 MG (SINGULAIR) TAB PO SCH (10:09)
--- NOTE | 2021-09-07 11:13 | Progress Note ---
LYNDA SANCHEZ MED STUDENT 09/07/21 1113: Subjective Date Seen by a Provider: Sep 07, 2021 Time Seen by a Provider: 07:30 Subjective/Events-last exam Pt awake, alert, NAD. No complaints of pain. SOB improved slightly from yesterday but still present. ORONA w/ ambulation. Reports a couple of loose black- colored nontarry stools overnight; requests something for loose bm's. Has headache that she says shes been having for 2yrs. Denies N/V, abd pain. No other questions/concerns. Review of Systems General: No Chills, No Fatigue HEENT: No Head Aches, No Eye Pain, No Ear Pain Pulmonary: Dyspnea, Cough (nonproductive) Cardiovascular: No: Chest Pain, Palpitations, Edema Gastrointestinal: Other (loose black colored bm's); No: Nausea, Vomiting, Abdominal Pain Genitourinary: No Dysuria, No Incontinence, No Hematuria; Other Musculoskeletal: No: neck pain, arm pain, back pain Neurological: Weakness; No: Numbness, Confusion Focused Exam Possible Source: Pulmonary Lactate Level 09/05/21 11:50: Lactic Acid Level 0.99 Objective Exam Last Set of Vital Signs Vital Signs Date Time Temp Pulse Resp B/P (MAP) Pulse Ox O2 Delivery O2 Flow Rate FiO2 09/07/21 10:05 94 Nasal Cannula 1.50 09/07/21 08:15 36.7 67 22 164/68 (100) 09/05/21 13:48 32 Capillary Refill : Less Than 3 Seconds I&O Intake and Output 09/07/21 00:00 Intake Total 1740 ml Output Total 3800 ml Balance -2060 ml Intake Oral 1620 ml IV Total 120 ml Output Urine Total 3800 ml General: Alert, Oriented X3, Cooperative, No Acute Distress HEENT: Atraumatic, PERRLA, EOMI, Mucous Memb Moist/Cl[place]ck: Supple, No JVD, No Thyromegaly Lungs: Normal Air Movement, Other (diminished bilaterally L>R, expiratory rhonchi, nonproductive cough) Heart: Regular Rate, Normal S1, Normal S2 Abdomen: Normal Bowel Sounds, Soft, No Tenderness Extremities: No Clubbing, No Cyanosis, No Edema, Normal Pulses, No Tenderness/Swelling Skin: No Rashes, No Breakdown, No Significant Lesion Neuro: Normal Speech, Strength at 5/5 X4 Ext, Normal Tone, Sensation Intact Psych/Mental Status: Mental Status NL, Mood NL Results Lab Laboratory Tests 09/06/21 11:15: Glucometer 289H 09/06/21 16:40: Glucometer 452*H 09/06/21 20:24: Glucometer 346H 09/07/21 05:27: White Blood Count 12.3H, Red Blood Count 4.01, Hemoglobin 11.4L, Hematocrit 36, Mean Corpuscular Volume 90, Mean Corpuscular Hemoglobin 28, Mean Corpuscular Hemoglobin Concent 32, Red Cell Distribution Width 13.1, Platelet Count 187, Mean Platelet Volume 11.2, Immature Granulocyte % (Auto) 1, Neutrophils (%) (Auto) 92H, Lymphocytes (%) (Auto) 5L, Monocytes (%) (Auto) 2, Eosinophils (%) (Auto) 0, Basophils (%) (Auto) 0, Neutrophils # (Auto) 11.3H, Lymphocytes # (Auto) 0.6L, Monocytes # (Auto) 0.3, Eosinophils # (Auto) 0.0, Basophils # (Auto) 0.0, Immature Granulocyte # (Auto) 0.1, Sodium Level 139, Potassium Level 3.9, Chloride Level 105, Carbon Dioxide Level 21, Anion Gap 13, Blood Urea Nitrogen 29H, Creatinine 1.96H, Estimat Glomerular Filtration Rate 25, BUN/Creat inine Ratio 15, Glucose Level 217H, Calcium Level 7.9L, Corrected Calcium 8.6, Total Bilirubin 0.4, Aspartate Amino Transf (AST/SGOT) 9, Alanine Aminotransferase (ALT/SGPT) 9, Alkaline Phosphatase 94, Total Protein 6.4, Albumin 3.1L 09/07/21 05:29: Glucometer 191H 09/07/21 10:26: Glucometer 313H Microbiology 09/05/21 MRSA Screen - Final, Complete MRSA not isolated 09/05/21 Urine Culture - Final, Complete Escherichia coli 09/05/21 Blood Culture - Preliminary, Resulted No growth Assessment/Plan Assessment/Plan Assess & Plan/Chief Complaint Aspiration Pneumonia, suspected sepsis Leukocytosis Acute respiratory failure Slightly improved SOB, O2Sat. NC down to 1.5L CXR 09/06: L>R diffuse infiltrates WBC improving; 12.3 from 14.1 Continue nebulizer tx, Zosyn, Solumedrol(dose decreased) Cardiology consulted; cardiac status stable DVT prophylaxis Heparin d/t poor renal function CKD Cr 1.96 Baseline around 2, continue to monitor T2DM Insulin aspart w/ sliding scale HTN GERD Hypothyroidism Resume home regimen JIMI Obesity Start Questran and Lactinex prn for loose bm's. BECCA JUÁREZ DO 09/08/21 0607: Subjective Subjective/Events-last exam Pt doing very well Cough is improved Having some diarrhea from the Zosyn Probiotic and Questran ordered Bowels are a little bit black but she takes iron Hgb 11.4 WBC much improved PT and OT Likely will DC tomorrow Review of Systems Pulmonary: Dyspnea, Cough (nonproductive) Objective Exam General: Alert, Oriented X3, Cooperative, No Acute Distress Lungs: Normal Air Movement, Other (diminished bilaterally L>R, expiratory rhonchi, nonproductive cough) Neuro: Normal Speech, Strength at 5/5 X4 Ext Psych/Mental Status: Mental Status NL Assessment/Plan Assessment/Plan Assess & Plan/Chief Complaint Continue antibiotics Likely discharge tomorrow Supervisory-Addendum Brief Verification & Attestation Participated in pt care: history, MDM, physical Personally performed: exam, history, MDM, supervision of care Care discussed with: Medical Student Procedures: n/a Results interpretation: Verified all documentation Verification and Attestation of Medical Student E/M Service A medical student performed and documented this service in my presence. I reviewed and verified all information documented by the medical student and made modifications to such information, when appropriate. I personally performed the physical exam and medical decision making. Becca Juárez, Sep 08, 2021,06:04 LYNDA SANCHEZ MED STUDENT Sep 07, 2021 11:13 BECCA JUÁREZ DO Sep 08, 2021 06:07
[2021-09-07] MEDS: LACTOBACILLUS Acidoph/Bulgar 1 GM (LACTINEX) PACKET PO SCH ×4 (11:17→22:13)
[2021-09-07] MEDS: inSUlin (REGULAR) HUMAN 1 UNIT/0.01 ML (CHARGE PER UNIT) SC PRN (11:17)
[2021-09-07] MEDS: CHOLESTYRAMINE 4 GM (QUESTRAN LITE, PREVALITE) PKT PO PRN (11:24)
[2021-09-07 11:28] VITALS: BP 152/67
[2021-09-07 15:44] VITALS: BP 148/67
--- NOTE | 2021-09-07 16:40 | Progress Note - Cardiology ---
Cardiology SOAP Progress Note Subjective: No cp or palp or syncope Shortness of breath is improving No n/v/d Objective: I&O/Vital Signs 09/07/21 09/07/21 09/07/21 09/07/21 07:15 08:15 09:00 10:05 Temp 36.7 Pulse 67 Resp 22 B/P (MAP) 164/68 (100) Pulse Ox 94 94 94 O2 Delivery Nasal Cannula Nasal Cannula Nasal Cannula Nasal Cannula O2 Flow Rate 1.50 2.00 2.00 1.50 09/07/21 09/07/21 09/07/21 11:28 14:45 15:44 Temp 36.8 36.4 Pulse 62 68 Resp 20 22 B/P (MAP) 152/67 (95) 148/67 (94) Pulse Ox 95 94 93 O2 Delivery Nasal Cannula Nasal Cannula Nasal Cannula O2 Flow Rate 2.00 1.50 2.00 09/07/21 00:00 Intake Total 1170 ml Output Total 2300 ml Balance -1130 ml Weight (Pounds): 252 Weight (Ounces): 0.0 Weight (Calculated Kilograms): 114.150019 Constitutional: AAO x 3, well-developed, well-nourished Respiratory: No accessory muscle use; other (scattered rhonchi, diminished air entry at the bases, coarse crackles over large air wasy) Cardiovascular: regular rate-rhythm, S1 and S2, systolic murmur (soft PRICILLA at card basee) Gastrointestional: No tender; soft; No guarding, No rebound; audible bowel sounds Extremities: No clubbing, No cyanosis, No significant edema Neurologic/Psychiatric: oriented x 3, other (moves all limbs equally) Skin: warm/dry; No rash on exposed areas, No ulcerations on exposed areas Results/Procedures: Labs Laboratory Tests 09/06/21 16:40: Glucometer 452*H 09/06/21 20:24: Glucometer 346H 09/07/21 05:27: White Blood Count 12.3H, Red Blood Count 4.01, Hemoglobin 11.4L, Hematocrit 36, Mean Corpuscular Volume 90, Mean Corpuscular Hemoglobin 28, Mean Corpuscular Hemoglobin Concent 32, Red Cell Distribution Width 13.1, Platelet Count 187, Mean Platelet Volume 11.2, Immature Granulocyte % (Auto) 1, Neutrophils (%) (Auto) 92H, Lymphocytes (%) (Auto) 5L, Monocytes (%) (Auto) 2, Eosinophils (%) (Auto) 0, Basophils (%) (Auto) 0, Neutrophils # (Auto) 11.3H, Lymphocytes # (Auto) 0.6L, Monocytes # (Auto) 0.3, Eosinophils # (Auto) 0.0, Basophils # (Auto) 0.0, Immature Granulocyte # (Auto) 0.1, Sodium Level 139, Potassium Level 3.9, Chloride Level 105, Carbon Dioxide Level 21, Anion Gap 13, Blood Urea Nitrogen 29H, Creatinine 1.96H, Estimat Glomerular Filtration Rate 25, BUN/Creatinine Ratio 15, Glucose Level 217H, Calcium Level 7.9L, Corrected Calcium 8.6, Total Bilirubin 0.4, Aspartate Amino Transf (AST/SGOT) 9, Alanine Aminotransferase (ALT/SGPT) 9, Alkaline Phosphatase 94, Total Protein 6.4, Albumin 3.1L 09/07/21 05:29: Glucometer 191H 09/07/21 10:26: Glucometer 313H 09/07/21 15:46: Glucometer 286H Microbiology 09/05/21 MRSA Screen - Final, Complete MRSA not isolated 09/05/21 Urine Culture - Final, Complete Escherichia coli 09/05/21 Blood Culture - Preliminary, Resulted No growth Laboratory Tests 09/06/21 04:45 09/07/21 05:27 A/P: Assessment: Aspiration pneumonia GERD - EGD on 09/02/21: reflux esophagitis(stage 2), large gastric pouch, 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 COPD, quit smoking several years ago DM II Ch renal failure (CKD 4) H/o hypertension H/o hypothyroidism Plan: * Dr Camacho managing aspiration pneumonia and DM and CKD * Cardiac status currently appears stable * Monitor labs BRIDGET GUILLEN MD [facility] Sep 07, 2021 16:40
[2021-09-07 20:00] VITALS: BP 144/65
[2021-09-07] MEDS: traZODone 100 MG (DESYREL) TAB PO SCH (22:11)
[2021-09-07] MEDS: ALPRAZolam 1 MG (XANAX) TAB PO SCH (22:11)
[2021-09-07] MEDS: CYANOCOBALAMIN 1,000 MCG (VITAMIN B-12) TABLET PO SCH (22:11)
[2021-09-07] MEDS: GABAPENTIN 100 MG (NEURONTIN) CAP PO SCH (22:11)
[2021-09-07] MEDS: TERAZOSIN 5 MG (HYTRIN) CAPSULE PO SCH (22:11)
[2021-09-08 00:40] VITALS: BP 125/70
[2021-09-08] MEDS: RT-ALBUTEROL/IPRATROPIUM 3 ML (DUONEB) VIAL INH SCH ×3 (02:35→11:31)
[2021-09-08] MEDS: PIPERACILLIN/TAZOBACTAM (BULK) 4.5 GM in NS (IVPB) 100 ML IV SCH (04:53)
[2021-09-08] MEDS: inSUlin ASPART (NovoLOG) 1 UNIT/0.01 ML (CHARGE PER UNIT) SC SCH ×2 (05:36→11:24)
[2021-09-08] MEDS: LACTOBACILLUS Acidoph/Bulgar 1 GM (LACTINEX) PACKET PO SCH ×2 (05:43→11:24)
[2021-09-08] MEDS: inSUlin (REGULAR) HUMAN 1 UNIT/0.01 ML (CHARGE PER UNIT) SC SCH ×2 (05:43→11:24)
[2021-09-08] MEDS: LEVOTHYROXINE 75 MCG (LEVOTHROID) TABLET PO SCH (05:43)
[2021-09-08 06:18] LABS: BASOPHILS % (AUTO) 0 % (0-10); EOSINOPHILS % (AUTO) 0 % (0-10); HEMATOCRIT 36 % (35-52); HEMOGLOBIN 11.4 g/dL (11.5-16.0); LYMPHOCYTES # (AUTO) 0.7 10^3/uL (1.0-4.0); LYMPHOCYTES % (AUTO) 6 % (12-44); MEAN CORPUSCULAR HEMOGLOBIN 29 pg (25-34); MEAN CORPUSCULAR HGB CONC 32 g/dL (32-36); MEAN CORPUSCULAR VOLUME 90 fL (80-99); MEAN PLATELET VOLUME 10.9 fL (9.0-12.2); MONOCYTES # (AUTO) 0.3 10^3/uL (0.0-1.0); MONOCYTES % (AUTO) 3 % (0-12); NEUTROPHILS # (AUTO) 9.7 10^3/uL (1.8-7.8); NEUTROPHILS % (AUTO) 90 % (42-75); PLATELET COUNT 201 10^3/uL (130-400); WHITE BLOOD COUNT 10.8 10^3/uL (4.3-11.0)
[2021-09-08 06:42] LABS: ALBUMIN 3.2 GM/DL (3.2-4.5); BILIRUBIN,TOTAL 0.4 MG/DL (0.1-1.0); CALCIUM 7.6 MG/DL (8.5-10.1); CREATININE SERUM 1.93 MG/DL (0.60-1.30); POTASSIUM 4.2 MMOL/L (3.6-5.0); TOTAL PROTEIN 6.5 GM/DL (6.4-8.2)
[2021-09-08 08:00] VITALS: BP 135/63
[2021-09-08] MEDS ORDERED: AUGMENTIN 875 MG TAB (AMOXICILLIN/CLAVULANATE) PO SCH (08:00)
[2021-09-08] MEDS: methylPREDNISolone 125 MG (Solu-MEDROL) VIAL IVP SCH (09:00)
[2021-09-08] MEDS: FERROUS SULF 325 MG (IRON) TAB PO SCH (10:00)
[2021-09-08] MEDS: MONTELUKAST 10 MG (SINGULAIR) TAB PO SCH (10:00)
[2021-09-08] MEDS: FOLIC ACID 1 MG TAB PO SCH (10:00)
[2021-09-08] MEDS: ASPIRIN 81 MG CHEW (CHILDREN'S ASA) PO SCH (10:00)
[2021-09-08] MEDS: PANTOPRAZOLE 40 MG (PROTONIX) TAB PO SCH (10:00)
[2021-09-08] MEDS: amLODIPine 10 MG (NORVASC) TAB PO SCH (10:01)
[2021-09-08] MEDS ORDERED: ACID1GRA2 PO (10:43)
[2021-09-08] MEDS ORDERED: AMOX1TAB12 PO (10:43)
[2021-09-08] MEDS ORDERED: CHOL4PAC3 PO (10:43)
[2021-09-08] MEDS ORDERED: PRED10TA22 PO (10:43)
--- NOTE | 2021-09-08 10:43 | Discharge Summary ---
Diagnosis/Chief Complaint Date of Admission Sep 05, 2021 at 12:59 Date of Discharge Discharge Date: Sep 08, 2021 Discharge Diagnosis Aspiration Pneumonia, suspected sepsis Leukocytosis Acute respiratory failure Slightly improved SOB, O2Sat. NC down to 1.5L CXR 09/06: L>R diffuse infiltrates WBC improving; 12.3 from 14.1 Continue nebulizer tx, Zosyn, Solumedrol(dose decreased) Cardiology consulted; cardiac status stable DVT prophylaxis Heparin d/t poor renal function CKD Cr 1.96 Baseline around 2, continue to monitor T2DM Insulin aspart w/ sliding scale HTN GERD Hypothyroidism Resume home regimen JIMI Obesity Discharge Summary Discharge Physical Examination Allergies: Coded Allergies: Sulfa (Sulfonamide Antibiotics) (Unverified Allergy, Unknown, 04/30/14) codeine (Unverified Allergy, Unknown, 04/30/14) oxycodone (Unverified Allergy, Unknown, 04/30/14) pregabalin (Verified Allergy, Unknown, "made me crazy, disoriented", 07/18/17) sulfamethoxazole (Unverified Allergy, Unknown, 04/30/14) trimethoprim (Unverified Allergy, Unknown, 04/30/14) Vitals & I&Os Vital Signs Date Time Temp Pulse Resp B/P (MAP) Pulse Ox O2 Delivery O2 Flow Rate FiO2 09/08/21 15:08 Nasal Cannula 2.00 09/08/21 08:00 36.0 74 20 95 09/05/21 13:48 32 General Appearance: Alert, Oriented X3, Cooperative Respiratory: Clear to Auscultation, Normal Air Movement Cardiovascular: Regular Rate Neuro: Normal Gait, Normal Speech, Strength at 5/5 X4 Ext Hospital Course Was the Problem List Reviewed?: Yes Hospital course: 09/05/21: Pt presented to the ED and was admitted to the ICU due to aspiration pneumonia. Started on empiric Abx and steroids, heparin for DVT prophylaxis d/t CKD. CXR's revealed bilateral infiltrates L>R that progressively improved. Urine culture was positive for E Coli, covered by Zosyn. EICU and Cardiology were consulted. She experienced multiple loose, black, nontarry bowel movements; Hgb remained stable throughout, takes an iron supplement. Started on Questran and Lactinex. Blood sugars ranged up to 400's, likely r/t steroid therapy, improved as she was tapered down. Jj in place throughout her stay and maintained on discharge due to hx of urine retention, pt normally straight caths herself and is able to manage it at home. She was maintained on 2LNC due to desaturation at rest and with exertion; she was trialed for home O2 and qualified. Her WBC, SOB, and ORONA all progressively improved through her stay. She was discharged with rx for tapered dose of prednisone, Augmentin, Questran, and Lactinex. LYNDA SANCHEZ [facility] Course: Pt had an uneventful hospital course for 4 days. She was admitted for aspiration pneumonia following an EGD with hypoxia, acute on chronic respiratory failure. She does use oxygen at night at home. She was placed on IV antibiotics of Zosyn, gentle IV fluids for elevated creatinine with chronic kidney disease. She responded well. Oxygen of 2 liters continuous was required at [place]. Lungs were clear, Prednisone taper dose ordered along with Augmentin. Questran ordered and probiotic for loose stools associated with antibiotics. She was discharged in improved condition. Labs (last 24 hrs) Laboratory Tests 09/05/21 11:45: Influenza Type A (RT-PCR) Not Detected, Influenza Type B (RT-PCR) Not Detected, SARS-CoV-2 RNA (RT-PCR) Not Detected 09/05/21 11:50: White Blood Count 20.5H, Red Blood Count 4.05, Hemoglobin 11.6, Hematocrit 37, Mean Corpuscular Volume 92, Mean Corpuscular Hemoglobin 29, Mean Corpuscular Hemoglobin Concent 31L, Red Cell Distribution Width 13.2, Platelet Count 159, Mean Platelet Volume 10.7, Immature Granulocyte % (Auto) 1, Neutrophils (%) (Auto) 89H, Lymphocytes (%) (Auto) 5L, Monocytes (%) (Auto) 5, Eosinophils (%) (Auto) 1, Basophils (%) (Auto) 0, Neutrophils # (Auto) 18.2H, Lymphocytes # (Auto) 1.0, Monocytes # (Auto) 1.0, Eosinophils # (Auto) 0.1, Basophils # (Auto) 0.1, Immature Granulocyte # (Auto) 0.1, Neutrophils % (Manual) 88, Lymphocytes % (Manual) 6, Monocytes % (Manual) 3, Band Neutrophils 3, Polychromasia SLIGHT, Erythrocyte Sedimentation Rate 40H, Prothrombin Time 15.7H, INR Comment 1.2, Activated Partial Thromboplast Time 39H, Sodium Level 136, Potassium Level 4.6, Chloride Level 103, Carbon Dioxide Level 22, Anion Gap 11, Blood Urea Nitrogen 20H, Creatinine 2.09H, Estimat Glomerular Filtration Rate 24, BUN/Creatinine Ratio 10, Glucose Level 166H, Lactic Acid Level 0.99, Calcium Level 8.2L, Corrected Calcium 8.9, Total Bilirubin 1.0, Aspartate Amino Transf (AST/SGOT) 9, Alanine Aminotransferase (ALT/SGPT) 10, Alkaline Phosphatase 99, Lactate Dehydrogenase 210, C-Reactive Protein High Sensitivity 29.12H, Total Protein 6.3L, Albumin 3.1L, Procalcitonin 0.42H 09/05/21 13:25: Urine Color YELLOW, Urine Clarity SL CLOUDY, Urine pH 5.5, Urine Specific [place] 1.015L, Urine Protein TRACEH, Urine Glucose (UA) 2+H, Urine Ketones NEG ATIVE, Urine Nitrite NEGATIVE, Urine Bilirubin NEGATIVE, Urine Urobilinogen 0.2, Urine Leukocyte Esterase TRACEH, Urine RBC (Auto) NEGATIVE, Urine RBC 2-5H, Urine WBC 5-10H, Urine Squamous Epithelial Cells 5-10, Urine Crystals NONE, Urine Bacteria MODERATEH, Urine Casts NONE, Urine Mucus NEGATIVE, Urine Culture Indicated YES 09/05/21 16:14: Glucometer 155H 09/05/21 20:48: Glucometer 230H 09/06/21 04:45: White Blood Count 14.1H, Red Blood Count 4.31, Hemoglobin 12.3, Hematocrit 39, Mean Corpuscular Volume 91, Mean Corpuscular Hemoglobin 29, Mean Corpuscular Hemoglobin Concent 31L, Red Cell Distribution Width 13.2, Platelet Count 150, Mean Platelet Volume 10.9, Immature Granulocyte % (Auto) 1, Neutrophils (%) (Auto) 94H, Lymphocytes (%) (Auto) 5L, Monocytes (%) (Auto) 1, Eosinophils (%) (Auto) 0, Basophils (%) (Auto) 0, Neutrophils # (Auto) 13.2H, Lymphocytes # (Auto) 0.6L, Monocytes # (Auto) 0.1, Eosinophils # (Auto) 0.0, Basophils # (Auto) 0.0, Immature Granulocyte # (Auto) 0.1, Sodium Level 137, Potassium Level 4.7, Chloride Level 104, Carbon Dioxide Level 18L, Anion Gap 15H, Blood Urea Nitrogen 25H, Creatinine 2.21H, Estimat Glomerular Filtration Rate 22, BUN/Creatinine Ratio 11, Glucose Level 224H, Calcium Level 8.4L, Corrected Calcium 9.0, Total Bilirubin 0.8, Aspartate Amino Transf (AST/SGOT) 11, Alanine Aminotransferase (ALT/SGPT) 10, Alkaline Phosphatase 117, Total Protein 6.9, Albumin 3.3 09/06/21 11:15: Glucometer 289H 09/06/21 16:40: Glucometer 452*H 09/06/21 20:24: Glucometer 346H 09/07/21 05:27: White Blood Count 12.3H, Red Blood Count 4.01, Hemoglobin 11.4L, Hematocrit 36, Mean Corpuscular Volume 90, Mean Corpuscular Hemoglobin 28, Mean Corpuscular Hemoglobin Concent 32, Red Cell Distribution Width 13.1, Platelet Count 187, Mean Platelet Volume 11.2, Immature Granulocyte % (Auto) 1, Neutrophils (%) (Auto) 92H, Lymphocytes (%) (Auto) 5L, Monocytes (%) (Auto) 2, Eosinophils (%) (Auto) 0, Basophils (%) (Auto) 0, Neutrophils # (Auto) 11.3H, Lymphocytes # (Auto) 0.6L, Monocytes # (Auto) 0.3, Eosinophils # (Auto) 0.0, Basophils # (Auto) 0.0, Immature Granulocyte # (Auto) 0.1, Sodium Level 139, Potassium Level 3.9, Chloride Level 105, Carbon Dioxide Level 21, Anion Gap 13, Blood Urea Nitrogen 29H, Creatinine 1.96H, Estimat Glomerular Filtration Rate 25, BUN/Creatinine Ratio 15, Glucose Level 217H, Calcium Level 7.9L, Corrected Calcium 8.6, Total Bilirubin 0.4, Aspartate Amino Transf (AST/SGOT) 9, Alanine Aminotransferase (ALT/SGPT) 9, Alkaline Phosphatase 94, Total Protein 6.4, Albumin 3.1L 09/07/21 05:29: Glucometer 191H 09/07/21 10:26: Glucometer 313H 09/07/21 15:46: Glucometer 286H 09/07/21 20:10: Glucometer 264H 09/08/21 05:34: Glucometer 177H 09/08/21 05:45: White Blood Count 10.8, Red Blood Count 3.95, Hemoglobin 11.4L, Hematocrit 36, Mean Corpuscular Volume 90, Mean Corpuscular Hemoglobin 29, Mean Corpuscular He moglobin Concent 32, Red Cell Distribution Width 13.2, Platelet Count 201, Mean Platelet Volume 10.9, Immature Granulocyte % (Auto) 2, Neutrophils (%) (Auto) 90H, Lymphocytes (%) (Auto) 6L, Monocytes (%) (Auto) 3, Eosinophils (%) (Auto) 0, Basophils (%) (Auto) 0, Neutrophils # (Auto) 9.7H, Lymphocytes # (Auto) 0.7L, Monocytes # (Auto) 0.3, Eosinophils # (Auto) 0.0, Basophils # (Auto) 0.0, Immature Granulocyte # (Auto) 0.2H, Sodium Level 138, Potassium Level 4.2, Chloride Level 106, Carbon Dioxide Level 19L, Anion Gap 13, Blood Urea Nitrogen 33H, Creatinine 1.93H, Estimat Glomerular Filtration Rate 26, BUN/Creatinine Ratio 17, Glucose Level 179H, Calcium Level 7.6L, Corrected Calcium 8.2L, Total Bilirubin 0.4, Aspartate Amino Transf (AST/SGOT) 7, Alanine Aminotransferase (ALT/SGPT) 6, Alkaline Phosphatase 87, Total Protein 6.5, Albumin 3.2 09/08/21 11:04: Glucometer 211H Microbiology 09/05/21 MRSA Screen - Final, Complete MRSA not isolated 09/05/21 Urine Culture - Final, Complete Escherichia coli 09/05/21 Blood Culture - Preliminary, Resulted No growth Pending Labs Microbiology Date/Time Source Procedure Growth Status 09/05/21 15:28 Nasal MRSA Screen - Final MRSA not isolated Complete 09/05/21 13:25 Urine Clean Catch Urine Culture - Final Escherichia coli Complete 09/05/21 13:25 Sputum Expectorated Gram Stain - Final Complete 09/05/21 13:25 Sputum Culture - Final Usual upper respiratory kendra Complete 09/05/21 13:14 Peripheral Rt Ac Blood Culture - Preliminary No growth Resulted 09/05/21 11:50 Peripheral Right Wrist Blood Culture - Preliminary No growth Resulted Laboratory Tests 09/05/21 11:45: Influenza Type A (RT-PCR) Not Detected, Influenza Type B (RT-PCR) Not Detected, SARS-CoV-2 RNA (RT-PCR) Not Detected 09/05/21 11:50: White Blood Count 20.5, Red Blood Count 4.05, Hemoglobin 11.6, Hematocrit 37, Mean Corpuscular Volume 92, Mean Corpuscular Hemoglobin 29, Mean Corpuscular Hemoglobin Concent 31, Red Cell Distribution Width 13.2, Platelet Count 159, Mean Platelet Volume 10.7, Immature Granulocyte % (Auto) 1, Neutrophils (%) (Auto) 89, Lymphocytes (%) (Auto) 5, Monocytes (%) (Auto) 5, Eosinophils (%) (Auto) 1, Basophils (%) (Auto) 0, Neutrophils # (Auto) 18.2, Lymphocytes # (Auto) 1.0, Monocytes # (Auto) 1.0, Eosinophils # (Auto) 0.1, Basophils # (Auto) 0.1, Immature Granulocyte # (Auto) 0.1, Neutrophils % (Manual) 88, Lymphocytes % (Manual) 6, Monocytes % (Manual) 3, Band Neutrophils 3, Polychromasia SLIGHT, Erythrocyte Sedimentation Rate 40, Prothrombin Time 15.7, INR Comment 1.2, Activated Partial Thromboplast Time 39, Sodium Level 136, Potassium Level 4.6, Chloride Level 103, Carbon Dioxide Level 22, Anion Gap 11, Blood Urea Nitrogen 20, Creatinine 2.09, Estimat Glomerular Filtration Rate 24, BUN/Creatinine Ratio 10, Glucose Level 166, Lactic Acid Level 0.99, Calcium Level 8.2, Corrected Calcium 8.9, Total Bilirubin 1.0, Aspartate Amino Transf (AST/SGOT) 9, Alanine Aminotransferase (ALT/SGPT) 10, Alkaline Phosphatase 99, Lactate Dehydrogenase 210, C-Reactive Protein High Sensitivity 29.12, Total Protein 6.3, Albumin 3.1, Procalcitonin 0.42 09/05/21 13:25: Urine Color YELLOW, Urine Clarity SL CLOUDY, Urine pH 5.5, Urine Specific [place] 1.015, Urine Protein TRACE, Urine Glucose (UA) 2+, Urine Ketones NEGATIVE, Urine Nitrite NEGATIVE, Urine Bilirubin NEGATIVE, Urine Urobilinogen 0.2, Urine Leukocyte Esterase TRACE, Urine RBC (Auto) NEGATIVE, Urine RBC 2-5, Urine WBC 5-10, Urine Squamous Epithelial Cells 5-10, Urine Crystals NONE, Urine Bacteria MODERATE, Urine Casts NONE, Urine Mucus NEGATIVE, Urine Culture Indicated YES 09/05/21 16:14: Glucometer 155 09/05/21 20:48: Glucometer 230 09/06/21 04:45: White Blood Count 14.1, Red Blood Count 4.31, Hemoglobin 12.3, Hematocrit 39, Mean Corpuscular Volume 91, Mean Corpuscular Hemoglobin 29, Mean Corpuscular Hemoglobin Concent 31, Red Cell Distribution Width 13.2, Platelet Count 150, Mean Platelet Volume 10.9, Immature Granulocyte % (Auto) 1, Neutrophils (%) (Auto) 94, Lymphocytes (%) (Auto) 5, Monocytes (%) (Auto) 1, Eosinophils (%) (Auto) 0, Basophils (%) (Auto) 0, Neutrophils # (Auto) 13.2, Lymphocytes # (Auto) 0.6, Monocytes # (Auto) 0.1, Eosinophils # (Auto) 0.0, Basophils # (Auto) 0.0, Immature Granulocyte # (Auto) 0.1, Sodium Level 137, Potassium Level 4.7, Chloride Level 104, Carbon Dioxide Level 18, Anion Gap 15, Blood Urea Nitrogen 25, Creatinine 2.21, Estimat Glomerular Filtration Rate 22, BUN/Creatinine Ratio 11, Glucose Level 224, Calcium Level 8.4, Corrected Calcium 9.0, Total Bilirubin 0.8, Aspartate Amino Transf (AST/SGOT) 11, Alanine Aminotransferase (ALT/SGPT) 10, Alkaline Phosphatase 117, Total Protein 6.9, Albumin 3.3 09/06/21 11:15: Glucometer 289 09/06/21 16:40: Glucometer 452 09/06/21 20:24: Glucometer 346 09/07/21 05:27: White Blood Count 12.3, Red Blood Count 4.01, Hemoglobin 11.4, Hematocrit 36, Mean Corpuscular Volume 90, Mean Corpuscular Hemoglobin 28, Mean Corpuscular Hemoglobin Concent 32, Red Cell Distribution Width 13.1, Platelet Count 187, Mean Platelet Volume 11.2, Immature Granulocyte % (Auto) 1, Neutrophils (%) (Auto) 92, Lymphocytes (%) (Auto) 5, Monocytes (%) (Auto) 2, Eosinophils (%) (Auto) 0, Basophils (%) (Auto) 0, Neutrophils # (Auto) 11.3, Lymphocytes # (Auto) 0.6, Monocytes # (Auto) 0.3, Eosinophils # (Auto) 0.0, Basophils # (Auto) 0.0, Immature Granulocyte # (Auto) 0.1, Sodium Level 139, Potassium Level 3.9, Chloride Level 105, Carbon Dioxide Level 21, Anion Gap 13, Blood Urea Nitrogen 29, Creatinine 1.96, Estimat Glomerular Filtration Rate 25, BUN/Creatinine Ratio 15, Glucose Level 217, Calcium Level 7.9, Corrected Calcium 8.6, Total Bilirubin 0.4, Aspartate Amino Transf (AST/SGOT) 9, Alanine Aminotransferase (ALT/SGPT) 9, Alkaline Phosphatase 94, Total Protein 6.4, Albumin 3.1 09/07/21 05:29: Glucometer 191 09/07/21 10:26: Glucometer 313 09/07/21 15:46: Glucometer 286 09/07/21 20:10: Glucometer 264 09/08/21 05:34: Glucometer 177 09/08/21 05:45: White Blood Count 10.8, Red Blood Count 3.95, Hemoglobin 11.4, Hematocrit 36, Mean Corpuscular Volume 90, Mean Corpuscular Hemoglobin 29, Mean Corpuscular Hemoglobin Concent 32, Red Cell Distribution Width 13.2, Platelet Count 201, Mean Platelet Volume 10.9, Immature Granulocyte % (Auto) 2, Neutrophils (%) (Auto) 90, Lymphocytes (%) (Auto) 6, Monocytes (%) (Auto) 3, Eosinophils (%) (Auto) 0, Basophils (%) (Auto) 0, Neutrophils # (Auto) 9.7, Lymphocytes # (Auto) 0.7, Monocytes # (Auto) 0.3, Eosinophils # (Auto) 0.0, Basophils # (Auto) 0.0, Immature Granulocyte # (Auto) 0.2, Sodium Level 138, Potassium Level 4.2, Chloride Level 106, Carbon Dioxide Level 19, Anion Gap 13, Blood Urea Nitrogen 33, Creatinine 1.93, Estimat Glomerular Filtration Rate 26, BUN/Creatinine Ratio 17, Glucose Level 179, Calcium Level 7.6, Corrected Calcium 8.2, Total Bilirubin 0.4, Aspartate Amino Transf (AST/SGOT) 7, Alanine Aminotransferase (ALT/SGPT) 6, Alkaline Phosphatase 87, Total Protein 6.5, Albumin 3.2 11/10/21 11:04: Glucometer 211 Discharge Home Medications: Active Scripts Active Prednisone 10 Mg Tab.ds.pk 10 Mg PO DAILY Take 4 tabs(40mg) once daily,decrease by 1 tab(10MG)daily. Floranex Granules Packet (L. Acidophilus/Bulgaricus) 1 Each Gran.pack 1 Gm PO ACHS Prevalite Packet (Cholestyramine/Aspartame) 4 Gm Powd.pack 4 Gm PO QID PRN Amox Tr-K Clv 875-125 mg Tab (Amoxicillin/Potassium Clav) 1 Each Tablet 875 Mg PO BID WITH MEALS Eq Liquid Antacid Susp (Mag Hydrox/Al Hydrox/Simeth) 355 Ml Oral.susp 355 Ml PO QID Reported Alprazolam 0.5 Mg Tablet 0.5 Mg PO HS Terbinafine HCl 250 Mg Tablet 250 Mg PO DAILY Neurontin (Gabapentin) 300 Mg Capsule 300 Mg PO HS Iron (Ferrous Sulfate) 325 Mg Tablet 325 Mg PO DAILY Magnesium (Magnesium Oxide) 500 Mg Capsule 500 Mg PO DAILY Levemir Flextouch (Insulin Detemir) 100 Unit/1 Ml Insuln.pen 10 Units SC HS Pantoprazole Sodium 40 Mg Tablet.dr 40 Mg PO DAILY Farxiga (Dapagliflozin Propanediol) 10 Mg Tablet 10 Mg PO DAILY Terazosin HCl 10 Mg Capsule 10 Mg PO HS Trazodone HCl 150 Mg Tablet 300 Mg PO HS TAKES 2 (150NG) TABS Tramadol HCl 50 Mg Tablet 50-100 Mg PO Q8H PRN Aspirin 81 Mg Tab.chew 81 Mg PO DAILY Clonidine TTS 1 Patch (Clonidine) 1 Each Patch.tdwk 1 Patch TD MON Folic Acid 1 Mg Tablet 1 Mg PO DAILY Singulair (Montelukast Sodium) 10 Mg Tablet 10 Mg PO DAILY Euthyrox (Levothyroxine Sodium) 75 Mcg Tablet 75 Mcg PO DAILY Amlodipine Besylate 10 Mg Tablet 10 Mg PO DAILY B-12 (Cyanocobalamin (Vitamin B-12)) 1,000 Mcg Tablet 1,000 Mcg PO HS Cephalexin 500 Mg Tablet 500 Mg PO HS Instructions to patient/family Please see electronic discharge instructions given to patient. Diagnosis/Problems Diagnosis/Problems (1) Aspiration pneumonia Status: Acute Qualifiers: Qualified Codes: J69.0 - Pneumonitis due to inhalation of food and vomit HO JUÁREZ DO Sep 08, 2021 10:43
--- NOTE | 2021-09-08 10:44 | Progress Note - Cardiology ---
Cardiology SOAP Progress Note Subjective: Sitting up in bed No c/o CP or SOB Objective: I&O/Vital Signs Weight (Pounds): 252 Weight (Ounces): 0.0 Weight (Calculated Kilograms): 114.961524 Constitutional: AAO x 3, well-developed, well-nourished Respiratory: No accessory muscle use; other (scattered rhonchi, diminished air entry at the bases, coarse crackles over large air wasy) Cardiovascular: regular rate-rhythm, S1 and S2, systolic murmur (soft PRICILLA at card basee) Gastrointestional: No tender; soft; No guarding, No rebound; audible bowel mily nds Extremities: No clubbing, No cyanosis, No significant edema Neurologic/Psychiatric: oriented x 3, other (moves all limbs equally) Skin: warm/dry; No rash on exposed areas, No ulcerations on exposed areas Results/Procedures: Labs Microbiology 09/05/21 MRSA Screen - Final, Complete MRSA not isolated 09/05/21 Urine Culture - Final, Complete Escherichia coli 09/05/21 Blood Culture - Final, Complete No growth A/P: Assessment: Aspiration pneumonia GERD - EGD on 09/02/21: reflux esophagitis(stage 2), large gastric pouch, 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 COPD, quit smoking several years ago DM II Ch renal failure (CKD 4) H/o hypertension H/o hypothyroidism Plan: * Dr Camacho managing aspiration pneumonia and DM and CKD * Cardiac status currently appears stable * Monitor labs * HTN controlled - continue current regimen PATRICE ANDRE Sep 08, 2021 10:44
[2021-09-08] MEDS ORDERED: predniSONE 20 MG TAB PO ONE (11:15)
[2021-09-08] MEDS: CHOLESTYRAMINE 4 GM (QUESTRAN LITE, PREVALITE) PKT PO PRN (11:25)
--- NOTE | 2021-09-08 11:49 | Progress Note ---
LYNDA SANCHEZ STUDENT 09/08/21 1149: Progress Note Hospital course: 09/05/21: Pt presented to the ED and was admitted to the ICU due to aspiration pneumonia. Started on empiric Abx and steroids, heparin for DVT prophylaxis d/t CKD. CXR's revealed bilateral infiltrates L>R that progressively improved. Urine culture was positive for E Coli, covered by Zosyn. EICU and Cardiology were consulted. She experienced multiple loose, black, nontarry bowel movements; Hgb remained stable throughout, takes an iron supplement. Started on Questran and Lactinex. Blood sugars ranged up to 400's, likely r/t steroid therapy, improved as she was tapered down. Jj in place throughout her stay and maintained on discharge due to hx of urine retention, pt normally straight caths herself and is able to manage it at home. She was maintained on 2LNC due to desaturation at rest and with exertion; she was trialed for home O2 and qualified. Her WBC, SOB, and ORONA all progressively improved through her stay. She was discharged with rx for tapered dose of prednisone, Augmentin, Questran, and Lactinex. BECCA JUÁREZ DO 09/09/21 0553: Supervisory-Addendum Brief Verification & Attestation Participated in pt care: history, MDM, physical Personally performed: exam, history, MDM, supervision of care Care discussed with: Medical Student Procedures: n/a Results interpretation: Verified all documentation Verification and Attestation of Medical Student E/M Service A medical student performed and documented this service in my presence. I reviewed and verified all information documented by the medical student and made modifications to such information, when appropriate. I personally performed the physical exam and medical decision making. Becca Juárez, Sep 09, 2021,05:53 LYNDA SANCHEZ MED STUDENT Sep 08, 2021 11:49 BECCA JUÁREZ DO Sep 09, 2021 05:53
--- NOTE | 2021-09-08 14:46 | Progress Note - Cardiology ---
Cardiology SOAP Progress Note Subjective: No cp or palp or syncope Shortness of breath with mild exertion No n/v/d Objective: I&O/Vital Signs 09/08/21 09/08/21 07:38 08:00 Temp 36.0 Pulse 74 Resp 20 B/P (MAP) 135/63 (87) Pulse Ox 96 95 O2 Delivery Nasal Cannula Nasal Cannula O2 Flow Rate 2.00 2.00 09/08/21 00:00 Intake Total 1365 ml Output Total 875 ml Balance 490 ml Weight (Pounds): 252 Weight (Ounces): 0.0 Weight (Calculated Kilograms): 114.692752 Constitutional: AAO x 3, well-developed, well-nourished Respiratory: No accessory muscle use; other (scattered rhonchi, diminished air entry at the bases, coarse crackles over large air wasy) Cardiovascular: regular rate-rhythm, S1 and S2, systolic murmur (soft PRICILLA at card basee) Gastrointestional: No tender; soft; No guarding, No rebound; audible bowel sounds Extremities: No clubbing, No cyanosis, No significant edema Neurologic/Psychiatric: oriented x 3, other (moves all limbs equally) Skin: warm/dry; No rash on exposed areas, No ulcerations on exposed areas Results/Procedures: Labs Laboratory Tests 09/07/21 15:46: Glucometer 286H 09/07/21 20:10: Glucometer 264H 09/08/21 05:34: Glucometer 177H 09/08/21 05:45: White Blood Count 10.8, Red Blood Count 3.95, Hemoglobin 11.4L, Hematocrit 36, Mean Corpuscular Volume 90, Mean Corpuscular Hemoglobin 29, Mean Corpuscular Hemoglobin Concent 32, Red Cell Distribution Width 13.2, Platelet Count 201, Mean Platelet Volume 10.9, Immature Granulocyte % (Auto) 2, Neutrophils (%) (Auto) 90H, Lymphocytes (%) (Auto) 6L, Monocytes (%) (Auto) 3, Eosinophils (%) (Auto) 0, Basophils (%) (Auto) 0, Neutrophils # (Auto) 9.7H, Lymphocytes # (Auto) 0.7L, Monocytes # (Auto) 0.3, Eosinophils # (Auto) 0.0, Basophils # (Auto) 0.0, Immature Granulocyte # (Auto) 0.2H, Sodium Level 138, Potassium Level 4.2, Chloride Level 106, Carbon Dioxide Level 19L, Anion Gap 13, Blood Urea Nitrogen 33H, Creatinine 1.93H, Estimat Glomerular Filtration Rate 26, BUN/Creatinine Ratio 17, Glucose Level 179H, Calcium Level 7.6L, Corrected Calcium 8.2L, Total Bilirubin 0.4, Aspartate Amino Transf (AST/SGOT) 7, Alanine Aminotransferase (ALT/SGPT) 6, Alkaline Phosphatase 87, Total Protein 6.5, Albumin 3.2 09/08/21 11:04: Glucometer 211H Microbiology 09/05/21 MRSA Screen - Final, Complete MRSA not isolated 09/05/21 Urine Culture - Final, Complete Escherichia coli 09/05/21 Blood Culture - Preliminary, Resulted No growth Laboratory Tests 09/07/21 05:27 09/08/21 05:45 A/P: Assessment: Aspiration pneumonia GERD - EGD on 09/02/21: reflux esophagitis(stage 2), large gastric pouch, small HH(1.5 cm), 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 COPD, quit smoking several years ago DM II Ch renal failure (CKD 4) H/o hypertension H/o hypothyroidism Plan: * Dr Camacho managing aspiration pneumonia and DM and CKD * Cardiac status appears stable * Monitor labs [facility] Sep 08, 2021 14:46
[2021-09-08] MEDS ORDERED: ALPRAZolam 0.5 MG (XANAX) TAB PO SCH (21:00)
--- NOTE | 2021-09-09 23:01 | Physician Query Clarification ---
PQ-Link Manifestation-Etiology Admission/Discharge Admission Date: Sep 05, 2021 at 12:59 Discharge Date: Sep 08, 2021 at 15:08 HO Moore DO The medical record reflects the following clinical scenario: History/Risk Factors: 65 y/o female patient admitted with aspiration pneumonia, sepsis was documented in medical record. Hand P, 09/05: Acute hypoxic respiratory failure, acute leukocytosis, aspiration pneumonia. Progress notes, 09/06: Aspiration pneumonia, suspected sepsis, acute respiratory failure. Discharge summary, 09/08: Aspiration pneumonia, suspected sepsis, acute respiratory failure. Clinical Findings: WBC-20.5 H, temp-37.7, CXR-infiltrates. Treatment: IV antibiotics, nebulizers. Question: Can you specify if the Sepsis is due to/associated with aspiration pneumonia? Please document a response in the Progress Note or Discharge Summary. 1. Yes -Sepsis is due to/associated with aspiration pneumonia. 2. No -Sepsis is not due to/associated with aspiration pneumonia. 3. Other, with explanation of the clinical findings. 4. Clinically undetermined, no explanation for the clinical findings. PHYSICIAN RESPONSE Manifestation due to/assoic: Yes Please remember a lack of response to the above will prompt a phone page by CDI/Coding staff. In responding to this query, please exercise your independent professional judgment. The purpose of this communication is to more accurately reflect the complexity of your patients condition. The fact that a question is asked does not imply that any particular answer is desired or expected. Thank you for your timely response to this clarification. Requestors name: [ ] Phone # [ ] THIS PHYSICIAN QUERY FORM IS A PERMANENT PART OF THE MEDICAL RECORD KIAN EAGLE Sep 09, 2021 23:01 HO JUÁREZ DO Sep 10, 2021 05:05
== END 2021-09-08 15:08 | disposition home or self-care (01) | DRG 871 ==
LOC: EDUNIT# 11:22 → ER 11:23 → ICU 12:59 → 4TH 09-06 18:12
PROVIDERS: ADMIT Internal Medicine; ATTEND Internal Medicine
DX: A41.9 Sepsis, unspecified organism (principal); J18.9 Pneumonia, unspecified organism; J69.0 Pneumonitis due to inhalation of food and vomit; J96.21 Acute and chronic respiratory failure with hypoxia; N18.4 Chronic kidney disease, stage 4 (severe); J44.1 Chronic obstructive pulmonary disease with (acute) exacerbation; N39.0 Urinary tract infection, site not specified; Z68.43 Body mass index [BMI] 50.0-59.9, adult; Z20.822 Contact with and (suspected) exposure to COVID-19; K21.9 Gastro-esophageal reflux disease without esophagitis; M19.90 Unspecified osteoarthritis, unspecified site; E03.9 Hypothyroidism, unspecified; F41.9 Anxiety disorder, unspecified; F32.A Depression, unspecified; K29.50 Unspecified chronic gastritis without bleeding; E66.01 Morbid (severe) obesity due to excess calories; Z79.82 Long term (current) use of aspirin; I12.9 Hypertensive chronic kidney disease with stage 1 through stage 4 chronic kidney disease, or unspecified chronic kidney disease; E78.00 Pure hypercholesterolemia, unspecified; G62.9 Polyneuropathy, unspecified; N31.9 Neuromuscular dysfunction of bladder, unspecified; E11.22 Type 2 diabetes mellitus with diabetic chronic kidney disease; D72.829 Elevated white blood cell count, unspecified; E11.65 Type 2 diabetes mellitus with hyperglycemia; E11.40 Type 2 diabetes mellitus with diabetic neuropathy, unspecified; G47.33 Obstructive sleep apnea (adult) (pediatric); R53.81 Other malaise; H54.3 Unqualified visual loss, both eyes; M47.9 Spondylosis, unspecified; B96.20 Unspecified Escherichia coli [E. coli] as the cause of diseases classified elsewhere; Z87.891 Personal history of nicotine dependence; Z88.6 Allergy status to analgesic agent; Z88.2 Allergy status to sulfonamides; Z88.8 Allergy status to other drugs, medicaments and biological substances; Z79.890 Hormone replacement therapy; Z88.5 Allergy status to narcotic agent; T38.0X5A Adverse effect of glucocorticoids and synthetic analogues, initial encounter; T38.3X5A Adverse effect of insulin and oral hypoglycemic [antidiabetic] drugs, initial encounter
CPT/HCPCS: 36415; 71045; 80053; 81000; 82947; 83605; 83615; 84145; 85007; 85025; 85027; 85610; 85652; 85730; 86141; 87040; 87070; 87077; 87081; 87088; 87186; 87205; 87636; 93005; 94640; 94760; 94761; 96361; 96374

== ENCOUNTER 2021-09-16 14:20 | Observation (INO) | payer MEDICARE, OTHER ==
[~2021-09-16] VITALS: Ht 155 cm; Wt 116.9 kg
[~2021-09-16 14:20] MED LIST changes: +ACID1GRA2 PO; +ALPR0.5T7 PO; +AMOX1TAB12 PO; +CHOL4PAC3 PO; +CYAN-41 PO; +DAPA10TA PO; +FERR-84 PO; +GABA-486 PO; +GABA300C PO; +INSU100I29 SC; +MAGN500C15 PO; +PANT40TA52 PO; +PRED10TA22 PO; +TERA10CA3 PO; +TRAZ150T72 PO; +TRM50T PO
--- NOTE | 2021-09-16 15:11 | Diagnostic Imaging Report ---
INDICATION: Pleural effusion. TECHNIQUE: Single view chest 2:56 PM. CORRELATION STUDY: 09/06/2021 FINDINGS: There is opacification of the lower left hemithorax likely combination of effusion with consolidation, adversely changed from prior. Right lung demonstrates perhaps trace pleural effusion but otherwise clear. Heart size enlarged, vasculature overall within normal limits. Multiple surgical clips in the epigastric region of the upper abdomen. IMPRESSION: 1. Increasing combination of effusion along with the consolidation left lung base. Now occupying approximately half the left lower hemithorax. Dictated by: Dictated on workstation # [id number]
[2021-09-16 15:26] LABS: ALBUMIN 3.1 GM/DL (3.2-4.5); POTASSIUM 4.4 MMOL/L (3.6-5.0)
[2021-09-16 15:27] LABS: CALCIUM 8.2 MG/DL (8.5-10.1)
[2021-09-16 15:28] LABS: BASOPHILS % (AUTO) 0 % (0-10); EOSINOPHILS # (AUTO) 0.2 10^3/uL (0.0-0.3); EOSINOPHILS % (AUTO) 3 % (0-10); HEMATOCRIT 36 % (35-52); HEMOGLOBIN 11.1 g/dL (11.5-16.0); LYMPHOCYTES # (AUTO) 1.4 10^3/uL (1.0-4.0); LYMPHOCYTES % (AUTO) 19 % (12-44); MEAN CORPUSCULAR HEMOGLOBIN 29 pg (25-34); MEAN CORPUSCULAR HGB CONC 31 g/dL (32-36); MEAN CORPUSCULAR VOLUME 93 fL (80-99); MEAN PLATELET VOLUME 10.4 fL (9.0-12.2); MONOCYTES # (AUTO) 0.5 10^3/uL (0.0-1.0); MONOCYTES % (AUTO) 7 % (0-12); NEUTROPHILS # (AUTO) 5.3 10^3/uL (1.8-7.8); NEUTROPHILS % (AUTO) 70 % (42-75); PLATELET COUNT 210 10^3/uL (130-400); WHITE BLOOD COUNT 7.6 10^3/uL (4.3-11.0)
[2021-09-16 15:29] LABS: TOTAL PROTEIN 6.3 GM/DL (6.4-8.2)
[2021-09-16 15:31] LABS: BILIRUBIN,TOTAL 0.3 MG/DL (0.1-1.0)
[2021-09-16 15:32] LABS: CREATININE SERUM 1.89 MG/DL (0.60-1.30)
[2021-09-16 15:51] LABS: ABG BASE EXCESS 0.6 MMOL/L (-2.5-2.5); ABG OXYGEN SATURATION 95 % (94-100); ABG PCO2 48 MMHG (35-45); ABG PO2 90 MMHG (79-93); ABG TCO2 27.4 MMOL/L (21.0-31.0)
[2021-09-16 15:53] LABS: ABG PH 7.34 (7.37-7.43)
[2021-09-16 15:54] LABS: ALLENS TEST POSITIVE; INSPIRED O2 2 L; PATIENT TEMP 36; VENTILATOR NO
--- NOTE | 2021-09-16 15:59 | History & Physical-Hospitalist ---
AMBERNITHINLARY YAN 09/16/21 1559: History of Present Illness HPI/Chief Complaint Mrs. Salazar is a 65yoCF who is known to this hospital and was directed to a dmission by her PCP due to SOA and CXR indicating left sided effusion. She complains of SOA and pain in her left posterior middle back associated with left lobar PNA as indicated by CXR. She describes the pain as a stabbing pain which is made worse when taking a deep breath and nothing seems to make it better. She is currently breathing without distress, and becomes short on air when talking, she has saturations currently in the mid 90s on 3L O2. She was recently discharged from the hospital for respiratory failure complicated by aspiration PNA 09/08/2021. Source: patient, old records Date Seen 09/16/21 Time Seen by a Provider: 16:29 Attending Physician Becca Juárez DO PCP Becca Juárez DO Referring Physician Date of Admission Sep 16, 2021 at 14:24 Home Medications & Allergies Home Medications Reviewed patient Home Medication Reconciliation performed by pharmacy medication reconciliations planning technician and/or nursing. Patients Allergies have been reviewed. Allergies Allergies Coded Allergies Sulfa (Sulfonamide Antibiotics) (Unverified Allergy, Unknown, 04/30/14) codeine (Unverified Allergy, Unknown, 04/30/14) oxycodone (Unverified Allergy, Unknown, 04/30/14) pregabalin (Verified Allergy, Unknown, "made me crazy, disoriented", 07/18/17) sulfamethoxazole (Unverified Allergy, Unknown, 04/30/14) trimethoprim (Unverified Allergy, Unknown, 04/30/14) Past Aartbsu-Xrtswg-Ilnbei Hx Patient Social History Marrital Status: Tobacco Use?: No Use of E-Cig and/or Vaping dev: No Substance use?: No Pt feels they are or have been: No Immunizations Up To Date Date of Influenza Vaccine: Sep 06, 2021 First/Initial COVID19 Vaccinat: YES Second COVID19 Vaccination Bijan: JANUARY Tetanus Booster (TDap): Unknown Date of Pneumonia Vaccine: Oct 12, 2010 Seasonal Allergies Seasonal Allergies: Yes Current Status Advance Directives: No Communicates: Verbally Primary Language: German Preferred Spoken Language: German Is interpretation needed?: No Sensory deficits: Vision impairment Implanted or Applied Medical D: Orthopedic hardware Past Medical History Surgeries: Abdominal, Appendectomy, Section, Gallbladder, Hysterectomy, Orthopedic, Tonsillectomy COPD Chronic Edema/Swelling, High Cholesterol, Hypertension Neuropathy 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 History: Hysterectomy Bladder Infection, Renal Failure, Neurogenic Bladder Gastroesophageal Reflux Degenerate Disk Disease, Arthritis Hypothyroidsim, Diabetes, Non-Insulin dep Cataract Loss of Vision: Bilateral Hearing Impairment: Denies Anxiety, Depression Blood Disorders: No Adverse Reaction/Blood Tranf: No (TRANSFUSION IN EARLY 'S) Family Medical History Cancer (- Sister had breast cancer - Brother had skin cancer), Diabetes (Both mom and dad), Hypertension (Both mom and dad) Review of Systems Constitutional: No chills, No diaphoresis; dizziness; No fever, No malaise, No weight gain, No weight loss EENTM: No hearing loss, No ear pain, No blurred vision, No hoarseness, No mouth pain, No mouth swelling, No throat pain, No throat swelling Respiratory: No cough; dyspnea on exertion; No hemoptysis, No orthopnea; short of breath Cardiovascular: No chest pain, No edema, No vascular heart diseas Gastrointestinal: No RUQ, No LUQ, No RLQ, No LLQ, No abdominal pain, No diarrhea, No nausea, No vomiting Genitourinary: No decreased output, No frequency; hesitancy, incontinence (stress) Musculoskeletal: back pain; No joint pain, No muscle pain, No muscle stiffness, No muscle cramps, No muscle weakness Skin: No change in color, No change in hair/nails, No hx of skin cancer, No lesions Psychiatric/Neurological: Denies Anxiety, Denies Depressed; Headache; Denies Numbness, Denies Paresthesia, Denies Tingling, Denies Tremors Physical Exam Physical Exam Vital Signs Vital Signs - First Documented 09/16/21 09/16/21 09/16/21 14:52 15:37 16:00 Temp 36.0 Pulse 66 Resp 20 B/P (MAP) 182/74 (110) Pulse Ox 97 O2 Delivery Nasal Cannula O2 Flow Rate 2.00 Capillary Refill : Height, Weight, BMI Height: 5'2.00" Weight: 252lbs. 0.0oz. 114.199939mg; 48.65 BMI Method:Stated General Appearance: No Apparent Distress, WD/WN Eyes: Bilateral Eye PERRL, Bilateral Eye EOMI HEENT: PERRL/EOMI, Pharynx Normal Neck: Full Range of Motion, Non Tender, Supple Respiratory: Chest Non Tender, No Accessory Muscle Use, No Respiratory Distress, Crackles (B/L lower lobes), Decreased Breath Sounds ( - left lower lobe), Expiration, Inspiration Cardiovascular: No Edema, No Gallop, No Murmur, Normal Peripheral Pulses, Irregularly Irregular ( - confirmed A-Fib on telle) Gastrointestinal: Normal Bowel Sounds, No Organomegaly, No Pulsatile Mass, Non Tender, Soft Rectal: Deferred Extremity: Normal Capillary Refill, Normal Range of Motion, Non Tender, No Calf Tenderness Neurologic/Psychiatric: Alert, Oriented x3, No Motor/Sensory Deficits, Normal Mood/Affect, 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 Assessment/Plan Assessment and Plan Left lobar effusion vs PNA A-fib COPD - on 2 L O2 at home HTN HLD T2DM CKD stage III Severe debility - 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 Neurogenic bladder Plan: IV abx and supportive care ICS use Serial CXR to follow plural changes Cardiac consult for A-Fib - anti-coagulation Jj catheter Monitor creatinine Review and continue appropriate home meds BECCA JUÁREZ DO 09/17/21 0540: LARY WARNER Sep 16, 2021 15:59 BECCA JUÁREZ DO Sep 17, 2021 05:40
[2021-09-16 16:00] VITALS: BP 182/74
[2021-09-16] MEDS ORDERED: L.AC1CAP6 PO (16:58)
[2021-09-16] MEDS: RT-ALBUTEROL/IPRATROPIUM 3 ML (DUONEB) VIAL INH SCH (19:05)
[2021-09-16 20:00] VITALS: BP 161/65
[2021-09-16] MEDS: GABAPENTIN 300 MG (NEURONTIN) CAP PO SCH (20:52)
[2021-09-16] MEDS: traZODone 150 MG (DESYREL) TABLET PO SCH (20:53)
[2021-09-16] MEDS: CYANOCOBALAMIN 1,000 MCG (VITAMIN B-12) TABLET PO SCH (20:53)
[2021-09-16] MEDS: LACTOBACILLUS ACIDOPHILUS (PROBIOTIC) CAPSULE PO SCH (20:53)
[2021-09-16] MEDS: ALPRAZolam 0.5 MG (XANAX) TAB PO SCH (20:53)
[2021-09-16] MEDS: TERAZOSIN 5 MG (HYTRIN) CAPSULE PO SCH (20:53)
[2021-09-16] MEDS: CEPHALEXIN 250 MG (KEFLEX) CAP PO SCH (20:53)
[2021-09-16] MEDS ORDERED: NON-FORMULARY MEDICATION 1 EA EA (Terazosin HCl 10 MG) PO SCH (21:00)
[2021-09-16] MEDS ORDERED: NON-FORMULARY MEDICATION 1 EA EA (Insulin Detemir (Levemir Flextouch) 10 UNITS) SC SCH (21:00)
[2021-09-16] MEDS ORDERED: NON-FORMULARY MEDICATION 1 EA EA (L.acidoph & Paracasei,B.lactis (Probiotic) 1 EACH) PO SCH (21:00)
[2021-09-16] MEDS ORDERED: NON-FORMULARY MEDICATION 1 EA EA (Cephalexin 500 MG) PO SCH (21:00)
--- NOTE | 2021-09-16 21:11 | HISTORY AND PHYSICAL ---
DATE OF SERVICE: ATTENDING PRIMARY CARE PHYSICIAN: Becca Camacho DO. HISTORY OF PRESENT ILLNESS: The patient is a 65-year-old female, who is known to us. She does have multiple medical comorbidities including diabetes, hypertension, chronic kidney disease, morbid obesity, and severe degenerative joint disease. She did recently undergo an EGD with biopsy and balloon dilatation by us on 09/03/2021. At that time, she was found to have a reflux esophagitis stage II, large appearing gastric pouch and stricture at the gastrojejunal anastomosis. During the procedure, it sounds like she did have an episode of aspiration and did develop pneumonia and was admitted a couple of days later for bilateral pneumonia. She did improve and was eventually discharged home. She reports today that since she was discharged, she has had some coughing as well as continued shortness of breath as well as chest discomfort. She reports that she has been struggling to keep her O2 sats above 80% to 85%. She reports that she then presented back to her primary care physician with complaints of shortness of breath as well as a pain on the left side. She did have a repeat x-ray and was found to have left lung pleural effusions that occupied approximately half the left lower hemithorax. Since being admitted, she denies any fever or chills, but does report that she does have some accessory muscle breathing as well as continued chest discomfort of the left side. She also reports continued shortness of air. PAST MEDICAL HISTORY: Hypertension, morbid obesity, non-insulin dependent diabetes, gastroesophageal reflux disease, anxiety, depression, degenerative joint disease of the lumbar vertebrae, and chronic kidney disease stage IV. PAST SURGICAL HISTORY: Roosevelt shunt in 1981 with revision x3 and reversal of the surgery in 1984 ____, section in 1977, open complete hysterectomy in 1989, open cholecystectomy and appendectomy in 1988; lumbar vertebrae ORIF in 2003, 2004, and 2010; incisional hernia repair with mesh x3 with the last one in 2000; stomach stapling procedure in the and then reversal in the ; cervical vertebrae ORIF 2018; incisional biopsy of abdominal wall mass in 2016; EGD 2016 and 2020, and colonoscopy 2016. ALLERGIES: BACTRIM, LYRICA, MORPHINE, and OXYCODONE. MEDICATIONS: Xanax 0.5 mg at bedtime, amlodipine 10 mg daily, aspirin 81 mg daily, Keflex 500 mg at bedtime, clonidine patch on Monday, vitamin B12 1000 mcg at bedtime, Farxiga 10 mg daily, ferrous sulfate 325 mg daily, folic acid 1 mg daily, gabapentin 300 mg at bedtime, Levemir 10 units subcu at bedtime, probiotic b.i.d., levothyroxine 75 mcg daily, magnesium oxide 500 mg daily, Singulair 10 mg daily, Protonix 40 mg daily, terazosin 10 mg at bedtime, Terbinafine 250 mg daily, tramadol 50 to 100 mg q.8 hours p.r.n., trazodone 150 mg two tablets at bedtime. SOCIAL HISTORY: Negative for tobacco smoke. Negative for alcohol. FAMILY HISTORY: Noncontributory. REVIEW OF SYSTEMS: This is a well-nourished, obese female, in no acute distress. She does report episodes of shortness of breath, but no difficulty breathing. She does report a cough that is nonproductive. She does report left chest discomfort, but no diaphoresis. No nausea or vomiting. No abdominal pain. No red blood per rectum. No dark tarry stools. No fever or chills. No recent inadvertent weight loss. All other review of systems negative. PHYSICAL EXAMINATION: VITAL SIGNS: Pulse 71, respirations 20, blood pressure 182/74, pulse ox 95% on 2 liters nasal cannula, and temperature 36.3 degrees Celsius. CHEST: Bilateral lower lobe crackles with diminished left lower breath sounds. She does appear to have mild accessory muscle use. HEART: Regular, no murmurs. EXTREMITIES: No lower extremity edema. Negative Homans sign. HEENT: No scleral icterus. NECK: No cervical lymphadenopathy. ABDOMEN: Soft, nontender, and nondistended. SKIN: Warm, dry, and pink. NEUROLOGIC: Awake, alert, and oriented x3. ASSESSMENT AND PLAN: A 65-year-old female with a left pleural effusion, which does encompass approximately half of the left lower hemithorax. At this time, we will proceed with ordering ultrasound to harvey the location to proceed with a left thoracentesis. We will also have her continue with breathing treatments as well as MAT protocol. Job ID: [id number] DocumentID: [id number] Dictated Date: 09/16/2021 17:28:27 Electro Mechanic Date: 09/16/2021 19:27:03 Dictated By: WILLOW AMBRIZ APRN
[2021-09-16 23:51] VITALS: BP 147/64
[2021-09-17] MEDS ORDERED: ACETAMINOPHEN 325 MG TABLET PO ONE (02:15)
[2021-09-17] MEDS ORDERED: ACETAMINOPHEN 325 MG TABLET ONE (02:41)
[2021-09-17] MEDS: RT-ALBUTEROL/IPRATROPIUM 3 ML (DUONEB) VIAL INH SCH ×6 (02:56→21:06)
[2021-09-17 05:00] VITALS: BP 146/74
[2021-09-17] MEDS: LEVOTHYROXINE 75 MCG (LEVOTHROID) TABLET PO SCH (05:45)
[2021-09-17 06:12] LABS: BASOPHILS % (AUTO) 0 % (0-10); EOSINOPHILS # (AUTO) 0.2 10^3/uL (0.0-0.3); EOSINOPHILS % (AUTO) 3 % (0-10); HEMATOCRIT 33 % (35-52); HEMOGLOBIN 10.2 g/dL (11.5-16.0); LYMPHOCYTES # (AUTO) 1.7 10^3/uL (1.0-4.0); LYMPHOCYTES % (AUTO) 28 % (12-44); MEAN CORPUSCULAR HEMOGLOBIN 29 pg (25-34); MEAN CORPUSCULAR HGB CONC 31 g/dL (32-36); MEAN CORPUSCULAR VOLUME 92 fL (80-99); MEAN PLATELET VOLUME 10.4 fL (9.0-12.2); MONOCYTES # (AUTO) 0.6 10^3/uL (0.0-1.0); MONOCYTES % (AUTO) 10 % (0-12); NEUTROPHILS # (AUTO) 3.6 10^3/uL (1.8-7.8); NEUTROPHILS % (AUTO) 58 % (42-75); PLATELET COUNT 206 10^3/uL (130-400); WHITE BLOOD COUNT 6.2 10^3/uL (4.3-11.0)
[2021-09-17 06:37] LABS: ALBUMIN 2.7 GM/DL (3.2-4.5); BILIRUBIN,TOTAL 0.3 MG/DL (0.1-1.0); CALCIUM 8.2 MG/DL (8.5-10.1); CREATININE SERUM 1.67 MG/DL (0.60-1.30); POTASSIUM 4.1 MMOL/L (3.6-5.0)
[2021-09-17 07:20] VITALS: BP 144/54
[2021-09-17] MEDS ORDERED: NON-FORMULARY MEDICATION 1 EA EA (Dapagliflozin Propanediol (Farxiga) 10 MG) PO SCH (09:00)
[2021-09-17] MEDS ORDERED: NON-FORMULARY MEDICATION 1 EA EA (Magnesium Oxide (Magnesium) 500 MG) PO SCH (09:00)
[2021-09-17] MEDS: LACTOBACILLUS ACIDOPHILUS (PROBIOTIC) CAPSULE PO SCH ×2 (09:57→20:53)
[2021-09-17] MEDS: MONTELUKAST 10 MG (SINGULAIR) TAB PO SCH (09:57)
[2021-09-17] MEDS: PANTOPRAZOLE 40 MG (PROTONIX) TAB PO SCH (09:57)
[2021-09-17] MEDS: amLODIPine 10 MG (NORVASC) TAB PO SCH (09:57)
[2021-09-17] MEDS: FERROUS SULF 325 MG (IRON) TAB PO SCH (09:57)
[2021-09-17] MEDS: FOLIC ACID 1 MG TAB PO SCH (09:57)
[2021-09-17] MEDS: MAGNESIUM OXIDE (MAG-OX)400 MG TAB PO SCH (10:02)
[2021-09-17 11:36] VITALS: BP 142/60
--- NOTE | 2021-09-17 13:47 | Progress Note ---
Subjective Date Seen by a Provider: Sep 17, 2021 Time Seen by a Provider: 13:00 Subjective/Events-last exam doing ok. feels better and less SOB. no fever/chills. u/s no fluid. CT mostly lung consolidation. Focused Exam Lactate Level 09/16/21 15:14: Lactic Acid Level 1.28 Objective Exam Vital Signs Date Time Temp Pulse Resp B/P (MAP) Pulse Ox O2 Delivery O2 Flow Rate FiO2 09/17/21 11:36 36.7 74 20 142/60 (87) 95 Nasal Cannula 2.00 09/17/21 10:27 98 Nasal Cannula 3.00 09/17/21 08:00 98 Nasal Cannula 3.00 09/17/21 07:20 36.0 64 18 144/54 (84) 94 Nasal Cannula 2.00 09/17/21 07:04 96 Nasal Cannula 2.00 09/17/21 07:00 54 09/17/21 05:00 36.2 64 20 146/74 (98) 96 Nasal Cannula 2.00 09/17/21 02:56 96 Nasal Cannula 2.00 09/17/21 01:00 54 09/16/21 23:51 36.4 78 16 147/64 (91) 93 Nasal Cannula 2.00 09/16/21 20:00 35.7 65 20 161/65 (97) 95 Nasal Cannula 2.00 09/16/21 20:00 Nasal Cannula 2.00 09/16/21 19:05 96 Nasal Cannula 2.00 09/16/21 19:00 78 09/16/21 16:49 71 09/16/21 16:00 36.3 71 20 182/74 (110) 95 Nasal Cannula 2.00 09/16/21 15:37 36.0 66 97 09/16/21 14:52 Nasal Cannula 2.00 I & O 09/17/21 07:00 Intake Total 870 ml Output Total 950 ml Balance -80 ml Capillary Refill : General Appearance: No Apparent Distress Neck: Full Range of Motion Respiratory: Chest Non Tender, Decreased Breath Sounds Cardiovascular: Regular Rate, Rhythm Gastrointestinal: normal bowel sounds, non tender, soft Extremity: Normal Capillary Refill Neurologic/Psychiatric: Alert, Oriented x3 Skin: Normal Color Lymphatic: No Adenopathy Results Lab Laboratory Tests 09/16/21 15:12: White Blood Count 7.6, Red Blood Count 3.90, Hemoglobin 11.1L, Hematocrit 36, Mean Corpuscular Volume 93, Mean Corpuscular Hemoglobin 29, Mean Corpuscular Hemoglobin Concent 31L, Red Cell Distribution Width 13.2, Platelet Count 210, Mean Platelet Volume 10.4, Immature Granulocyte % (Auto) 2, Neutrophils (%) (Auto) 70, Lymphocytes (%) (Auto) 19, Monocytes (%) (Auto) 7, Eosinophils (%) (Auto) 3, Basophils (%) (Auto) 0, Neutrophils # (Auto) 5.3, Lymphocytes # (Auto) 1.4, Monocytes # (Auto) 0.5, Eosinophils # (Auto) 0.2, Basophils # (Auto) 0.0, Immature Granulocyte # (Auto) 0.1, Sodium Level 137, Potassium Level 4.4, Chloride Level 104, Carbon Dioxide Level 23, Anion Gap 10, Blood Urea Nitrogen 14, Creatinine 1.89H, Estimat Glomerular Filtration Rate 27, BUN/Creatinine Ratio 7, Glucose Level 235H, Calcium Level 8.2L, Corrected Calcium 8.9, Total Bilirubin 0.3, Aspartate Amino Transf (AST/SGOT) 14, Alanine Aminotransferase (ALT/SGPT) 11, Alkaline Phosphatase 69, Total Protein 6.3L, Albumin 3.1L, Procalcitonin 0.08 09/16/21 15:14: Lactic Acid Level 1.28 09/16/21 15:20: Blood Gas Puncture Site R RADIAL, Blood Gas Patient Temperature 36, Arterial Blood pH 7.34*L, Arterial Blood Partial Pressure CO2 48H, Arterial Blood Partial Pressure O2 90, Arterial Blood HCO3 26, Arterial Blood Total CO2 27.4, Arterial Blood Oxygen Saturation 95, Arterial Blood Base Excess 0.6, Tanner Test POSITIVE, Blood Gas Ventilator Setting NO, Blood Gas Inspired Oxygen 2 L 09/16/21 16:55: Glucometer 257H 09/16/21 20:26: Glucometer 199H 09/16/21 22:47: SARS-CoV-2 RNA (RT-PCR) Not Detected 09/17/21 04:59: Glucometer 136H 09/17/21 05:25: White Blood Count 6.2, Red Blood Count 3.57L, Hemoglobin 10.2L, Hematocrit 33L, Mean Corpuscular Volume 92, Mean Corpuscular Hemoglobin 29, Mean Corpuscular Hemoglobin Concent 31L, Red Cell Distribution Width 13.2, Platelet Count 206, Mean Platelet Volume 10.4, Immature Granulocyte % (Auto) 1, Neutrophils (%) (Auto) 58, Lymphocytes (%) (Auto) 28, Monocytes (%) (Auto) 10, Eosinophils (%) (Auto) 3, Basophils (%) (Auto) 0, Neutrophils # (Auto) 3.6, Lymphocytes # (Auto) 1.7, Monocytes # (Auto) 0.6, Eosinophils # (Auto) 0.2, Basophils # (Auto) 0.0, Immature Granulocyte # (Auto) 0.1, Sodium Level 140, Potassium Level 4.1, Chloride Level 107, Carbon Dioxide Level 21, Anion Gap 12, Blood Urea Nitrogen 14, Creatinine 1.67H, Estimat Glomerular Filtration Rate 31, BUN/Creatinine Ratio 8, Glucose Level 141H, Calcium Level 8.2L, Corrected Calcium 9.2, Total Bilirubin 0.3, Aspartate Amino Transf (AST/SGOT) 8, Alanine Aminotransferase (AL T/SGPT) 8, Alkaline Phosphatase 62, Total Protein 6.0L, Albumin 2.7L 09/17/21 11:37: Glucometer 284H Assessment/Plan Assessment/Plan Assess & Plan/Chief Complaint left lower lobe aspiration pneumonia. no significant identifiable effusion on u/s or CT. will recommen continued med management with abx and MAT protocol. KIMBER FELIPE MD Sep 17, 2021 13:47
--- NOTE | 2021-09-17 15:00 | Diagnostic Imaging Report ---
CT CHEST WO TECHNIQUE: Multiple contiguous axial images were obtained through the chest without the use of intravenous contrast. All CT scans use one or more of the following dose optimizing techniques: automated exposure control, MA and/or KvP adjustment based on a patient size and exam type, or iterative reconstruction. INDICATION: Pleural effusion COMPARISON: CT abdomen and pelvis from 09/18/2017 FINDINGS: Lungs and airway: There are total consolidations in the left lower lobe with air bronchograms. The lingula also has consolidations with air bronchograms present. No consolidation within the right lung. There are patchy areas of groundglass and centrilobular nodules in the bilateral upper lobes and superior segment right lower lobe. Pleura: Small left pleural effusion appears simple and nonloculated. Trace right pleural fluid. Heart and mediastinum: No supraclavicular or axillary lymphadenopathy. No mediastinal or juxtaphrenic lymphadenopathy. Assessment for hilar lymphadenopathy is limited without IV contrast. Upper abdomen: Extensive surgical changes are present in the epigastric region. Musculoskeletal: No concerning focal osseous lesions. IMPRESSION: 1. Small left pleural effusion is nonloculated. There is adjacent consolidations the left lung base that are most likely due to atelectasis. However, underlying pneumonia could be present. 2. Multifocal groundglass and centrilobular micronodules in the upper lobes favor an infectious process. 3. Trace right pleural effusion. Dictated by: Dictated on workstation # [id number]
--- NOTE | 2021-09-17 15:07 | History & Physical ---
LARY WARNER 09/17/21 1507: History of Present Illness History of Present Illness Reason for visit/HPI Mrs. Salazar is a 65yoCF who is known to this hospital and was directed to admission by her PCP due to SOA and CXR indicating left sided effusion. She complains of SOA and pain in her left posterior middle back associated with left lobar PNA as indicated by CXR. She describes the pain as a stabbing pain which is made worse when taking a deep breath and nothing seems to make it better. She is currently breathing without distress, and becomes short on air when talking, she has saturations currently in the mid 90s on 3L O2. She was recently discharged from the hospital for respiratory failure complica trinh by aspiration PNA 09/08/2021. Today when I visited the pt she was sleeping in bed and roused easily. 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 An U/S earlier today showed minimal fluid in the left base, discouraging a thorocentisis intervention which was originally planed. A follow up CT will be ordered to further evaluate this her plural status. Pt is eating and drinking without issue and has no urinary or GI complaints at this time. Date of Admission Sep 16, 2021 at 14:24 Date Seen by a Provider: Sep 17, 2021 Time Seen by a Provider: 08:41 I consulted on this patient on 09/17/21 15:01 Attending Physician Becca Juárez DO Admitting Physician Becca Juárez DO Consult Allergies and Home Medications Allergies Coded Allergies: Sulfa (Sulfonamide Antibiotics) (Unverified Allergy, Unknown, 04/30/14) codeine (Unverified Allergy, Unknown, 04/30/14) oxycodone (Unverified Allergy, Unknown, 04/30/14) pregabalin (Verified Allergy, Unknown, "made me crazy, disoriented", 07/18/17) sulfamethoxazole (Unverified Allergy, Unknown, 04/30/14) trimethoprim (Unverified Allergy, Unknown, 04/30/14) Patient Home Medication List Alprazolam (Alprazolam) 0.5 Mg Tablet, 0.5 MG PO HS, (Reported) Entered as Reported by: ANISHA ENRIQUEZ on 11/8/21 1711 Last Action: Continued Amlodipine Besylate (Amlodipine Besylate) 10 Mg Tablet, 10 MG PO DAILY, (Reported) Entered as Reported by: KEILA HUGHES on 08/27/211634 Last Action: Continued Aspirin (Aspirin) 81 Mg Tab.chew, 81 MG PO DAILY, (Reported) Entered as Reported by: KEILA HUGHES on 08/27/211634 Last Action: Held Cephalexin (Cephalexin) 500 Mg Tablet, 500 MG PO HS, (Reported) Entered as Reported by: GREGORY DOMINGUEZ on 07/18/171114 Last Action: Converted Clonidine (Clonidine TTS 1 Patch) 1 Each Patch.tdwk, 1 PATCH TD MON, (Reported) Entered as Reported by: KEILA HUGHES on 08/27/211634 Last Action: Continued Cyanocobalamin (Vitamin B-12) (B-12) 1,000 Mcg Tablet, 1,000 MCG PO HS, (Reported) Entered as Reported by: GREGORY DOMINGUEZ on 07/18/171114 Last Action: Continued Dapagliflozin Propanediol (Farxiga) 10 Mg Tablet, 10 MG PO DAILY, (Reported) Entered as Reported by: ANISHA ENRIQUEZ on 09/06/211700 Last Action: Converted Ferrous Sulfate (Iron) 325 Mg Tablet, 325 MG PO DAILY, (Reported) Entered as Reported by: ANISHA ENRIQUEZ on 09/06/211700 Last Action: Continued Folic Acid (Folic Acid) 1 Mg Tablet, 1 MG PO DAILY, (Reported) Entered as Reported by: KEILA HUGHES on 08/27/211634 Last Action: Continued Gabapentin (Neurontin) 300 Mg Capsule, 300 MG PO HS, (Reported) Entered as Reported by: ANISHA ENRIQUEZ on 09/06/211700 Last Action: Continued Insulin Detemir (Levemir Flextouch) 100 Unit/1 Ml Insuln.pen, 10 UNITS SC HS, (Reported) Entered as Reported by: ANISHA ENRIQUEZ on 09/06/211700 Last Action: Converted L.acidoph & Paracasei,B.lactis (Probiotic) 1 Each Capsule, 1 EACH PO BID, (Reported) Entered as Reported by: ANISHA ENRIQUEZ on 09/16/211657 Last Action: Converted Levothyroxine Sodium (Euthyrox) 75 Mcg Tablet, 75 MCG PO DAILY, (Reported) Entered as Reported by: KEILA HUGHES on 08/27/211634 Last Action: Continued Magnesium Oxide (Magnesium) 500 Mg Capsule, 500 MG PO DAILY, (Reported) Entered as Reported by: ANISHA ENRIQUEZ on 09/06/211700 Last Action: Converted Montelukast Sodium (Singulair) 10 Mg Tablet, 10 MG PO DAILY, (Reported) Entered as Reported by: KEILA HUGHES on 08/27/211634 Last Action: Continued Pantoprazole Sodium (Pantoprazole Sodium) 40 Mg Tablet.dr, 40 MG PO DAILY, (Reported) Entered as Reported by: ANISHA ENRIQUEZ on 09/06/211700 Last Action: Continued Terazosin HCl (Terazosin HCl) 10 Mg Capsule, 10 MG PO HS, (Reported) Entered as Reported by: ANISHA ENRIQUEZ on 09/06/211700 Last Action: Converted Terbinafine HCl (Terbinafine HCl) 250 Mg Tablet, 250 MG PO DAILY, (Reported) Entered as Reported by: ANISHA ENRIQUEZ on 09/06/211700 Last Action: Held Tramadol HCl (Tramadol HCl) 50 Mg Tablet, 50-100 MG PO Q8H PRN for PAIN-MODERATE (5-7), (Reported) Entered as Reported by: ANISHA ENRIQUEZ on 09/06/211700 Last Action: Continued Trazodone HCl (Trazodone HCl) 150 Mg Tablet, 300 MG PO HS, (Reported) Entered as Reported by: ANISHA ENRIQUEZ on 09/06/211700 Last Action: Continued Discontinued Medications Amoxicillin/Potassium Clav (Amox Tr-K Clv 875-125 mg Tab) 1 Each Tablet, 875 MG PO BID WITH MEALS Discontinued Reason: No Longer Taking Prescribed by: BECCA JUÁREZ on 09/08/211042 Last Action: Discontinued Cholestyramine/Aspartame (Prevalite Packet) 4 Gm Powd.pack, 4 GM PO QID PRN for DIARRHEA Discontinued Reason: No Longer Taking Prescribed by: BECCA JUÁREZ on 09/08/211042 Last Action: Discontinued L. Acidophilus/Bulgaricus (Floranex Granules Packet) 1 Each Gran.pack, 1 GM PO ACHS Discontinued Reason: No Longer Taking Prescribed by: BECCA JUÁREZ on 09/08/21 1043 Last Action: Discontinued Mag Hydrox/Al Hydrox/Simeth (Eq Liquid Antacid Susp) 355 Ml Oral.susp, 355 ML PO QID Discontinued Reason: No Longer Taking Prescribed by: KIMBER CURRAN on 09/03/21 1120 Last Action: Discontinued Prednisone (Prednisone) 10 Mg Tab.ds.pk, 10 MG PO DAILY Discontinued Reason: Duplicate Order Prescribed by: BECCA JUÁREZ on 09/08/21 1043 Last Action: Discontinued Past Dijiraz-Ztjnrm-Hlnjqh Hx Patient Social History Marrital Status: Tobacco Use?: No Use of E-Cig and/or Vaping dev: No Substance use?: No Pt feels they are or have been: No Immunizations Up To Date Date of Influenza Vaccine: Sep 06, 2021 First/Initial COVID19 Vaccinat: YES Second COVID19 Vaccination Bijan: JANUARY Tetanus Booster (TDap): Unknown Date of Pneumonia Vaccine: Oct 12, 2010 Seasonal Allergies Seasonal Allergies: Yes Current Status Advance Directives: No Communicates: Verbally Primary Language: Algerian Preferred Spoken Language: Algerian Is interpretation needed?: No Sensory deficits: Vision impairment Implanted or Applied Medical D: Orthopedic hardware Past Medical History Surgeries: Abdominal, Appendectomy, Section, Gallbladder, Hysterectomy, Orthopedic, Tonsillectomy COPD Chronic Edema/Swelling, High Cholesterol, Hypertension Neuropathy 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 Bladder Infection, Renal Failure, Neurogenic Bladder Gastroesophageal Reflux Degenerate Disk Disease, Arthritis Hypothyroidsim, Diabetes, Non-Insulin dep Cataract Loss of Vision: Bilateral Hearing Impairment: Denies Anxiety, Depression Blood Disorders: No Adverse Reaction/Blood Tranf: No (TRANSFUSION IN EARLY S) Family Medical History Cancer (- Sister had breast cancer - Brother had skin cancer), Diabetes (Both mom and dad), Hypertension (Both mom and dad) Review of Systems Constitutional: No chills, No diaphoresis, No dizziness, No fever, No weakness EENTM: No hearing loss, No blurred vision, No vision loss, No mouth pain, No throat pain, No throat swelling Respiratory: cough, dyspnea on exertion; No hemoptysis; phlegm, short of breath Cardiovascular: No chest pain, No Hx of Intervention, No palpitations, No vascular heart diseas Gastrointestinal: No RUQ, No LUQ, No RLQ, No LLQ, No diarrhea, No dysphagia, No hematemesis, No nausea, No vomiting Genitourinary: No decreased output, No discharge, No dysuria; hesitancy Musculoskeletal: back pain, joint pain; No muscle pain, No muscle stiffness, No muscle cramps Skin: No change in color, No change in hair/nails, No hx of skin cancer, No lesions, No pruritus Psychiatric/Neurological: Denies Headache, Denies Numbness, Denies Paresthesia, Denies Tremors, Denies Weakness Physical Exam Vital Signs Vital Signs - First Documented 09/16/21 09/16/21 09/16/21 14:52 15:37 16:00 Temp 36.0 Pulse 66 Resp 20 B/P (MAP) 182/74 (110) Pulse Ox 97 O2 Delivery Nasal Cannula O2 Flow Rate 2.00 Capillary Refill : Height, Weight, BMI Height: 5'2.00" Weight: 252lbs. 0.0oz. 114.001203bf; 48.65 BMI Method:Stated General Appearance: No Apparent Distress, WD/WN, Obese Eyes: Bilateral Eye PERRL, Bilateral Eye EOMI HEENT: PERRL/EOMI, Pharynx Normal Neck: Full Range of Motion, Non Tender, Supple Respiratory: No Accessory Muscle Use, No Respiratory Distress, Crackles, Decreased Breath Sounds (inspiritory crackles heard B/L in lower lobes, slightly deminished breath sounds on left.), Inspiration, Rales Cardiovascular: Regular Rate, Rhythm, No Gallop, Normal Peripheral Pulses Gastrointestinal: Normal Bowel Sounds, No Organomegaly, No Pulsatile Mass, Non Tender, Soft Rectal: Deferred Back: No CVA Tenderness, No Vertebral Tenderness Extremity: Normal Capillary Refill, Normal Range of Motion, Non Tender, No Calf Tenderness, Pedal Edema Neurologic/Psychiatric: Alert, Oriented x3, No Motor/Sensory Deficits, Normal Mood/Affect, radiology specialist II-XII Norm as Tested Reflexes: 2+ Bicep (R), 2+ Bicep (L) Skin: Normal Color, Warm/Dry Lymphatic: No Adenopathy (cervical and axillary) Assessment/Plan Assessment and Plan Left lobar effusion vs PNA A-fib COPD - on 2 L O2 at home HTN HLD T2DM CKD stage III Severe debility - 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 Neurogenic bladder Plan: IV abx and supportive care Serial CXR to follow PNA/effusion resolution Cardiac consult for A-Fib - anti-coagulation Jj catheter Monitor creatinine Review and continue appropriate home meds 09/17/2021 F/U CT Cardiac consult for A-Fib - anti-coagulation Monitor creatinine Supportive care BECCA JUÁREZ DO 09/18/21 0639: History of Present Illness History of Present Illness Reason for visit/HPI CC: Pleurisy with suspicion for left sided effusion HPI: This is a 65yoWF clinic patient of mine who I directly admitted from my clinic due to left sided pleurisy and difficulty breathing. Left sided breath sounds were significantly diminished so suspicion for left sided pleural effusion so admitted to [facility] [address] Curran. Allergies and Home Medications Allergies Coded Allergies: Sulfa (Sulfonamide Antibiotics) (Unverified Allergy, Unknown, 04/30/14) codeine (Unverified Allergy, Unknown, 04/30/14) oxycodone (Unverified Allergy, Unknown, 04/30/14) pregabalin (Verified Allergy, Unknown, "made me crazy, disoriented", 07/18/17) sulfamethoxazole (Unverified Allergy, Unknown, 04/30/14) trimethoprim (Unverified Allergy, Unknown, 04/30/14) Patient Home Medication List Home Medication List Reviewed: Yes Alprazolam (Alprazolam) 0.5 Mg Tablet, 0.5 MG PO HS, (Reported) Entered as Reported by: ANISHA ENRIQUEZ on 09/06/21 1711 Last Action: Continued Amlodipine Besylate (Amlodipine Besylate) 10 Mg Tablet, 10 MG PO DAILY, (Reported) Entered as Reported by: KEILA HUGHES on 08/27/21 163 Last Action: Continued Aspirin (Aspirin) 81 Mg Tab.chew, 81 MG PO DAILY, (Reported) Entered as Reported by: KEILA HUGHES on 08/27/21 163 Last Action: Held Cephalexin (Cephalexin) 500 Mg Tablet, 500 MG PO HS, (Reported) Entered as Reported by: GREGORY DOMINGUEZ on 07/18/17 1115 Last Action: Converted Clonidine (Clonidine TTS 1 Patch) 1 Each Patch.tdwk, 1 PATCH TD MON, (Reported) Entered as Reported by: KEILA HUGHES on 08/27/21 1635 Last Action: Continued Cyanocobalamin (Vitamin B-12) (B-12) 1,000 Mcg Tablet, 1,000 MCG PO HS, (Reported) Entered as Reported by: GREGROY DOMINGUEZ on 07/18/171114 Last Action: Continued Dapagliflozin Propanediol (Farxiga) 10 Mg Tablet, 10 MG PO DAILY, (Reported) Entered as Reported by: ANISHA ENRIQUEZ on 09/06/211700 Last Action: Converted Ferrous Sulfate (Iron) 325 Mg Tablet, 325 MG PO DAILY, (Reported) Entered as Reported by: ANISHA ENRIQUEZ on 09/06/211700 Last Action: Continued Folic Acid (Folic Acid) 1 Mg Tablet, 1 MG PO DAILY, (Reported) Entered as Reported by: KEILA HUGHES on 08/27/211634 Last Action: Continued Gabapentin (Neurontin) 300 Mg Capsule, 300 MG PO HS, (Reported) Entered as Reported by: ANISHA ENRIQUEZ on 09/06/211700 Last Action: Continued Insulin Detemir (Levemir Flextouch) 100 Unit/1 Ml Insuln.pen, 10 UNITS SC HS, (Reported) Entered as Reported by: ANISHA ENRIQUEZ on 09/06/211700 Last Action: Converted L.acidoph & Paracasei,B.lactis (Probiotic) 1 Each Capsule, 1 EACH PO BID, (Reported) Entered as Reported by: ANISHA ENRIQUEZ on 09/16/211657 Last Action: Converted Levothyroxine Sodium (Euthyrox) 75 Mcg Tablet, 75 MCG PO DAILY, (Reported) Entered as Reported by: KEILA HUGHES on 08/27/211634 Last Action: Continued Magnesium Oxide (Magnesium) 500 Mg Capsule, 500 MG PO DAILY, (Reported) Entered as Reported by: ANISHA ENRIQUEZ on 09/06/211700 Last Action: Converted Montelukast Sodium (Singulair) 10 Mg Tablet, 10 MG PO DAILY, (Reported) Entered as Reported by: KEILA HUGHES on 08/27/211634 Last Action: Continued Pantoprazole Sodium (Pantoprazole Sodium) 40 Mg Tablet.dr, 40 MG PO DAILY, (Reported) Entered as Reported by: ANISHA ENRIQUEZ on 09/06/211700 Last Action: Continued Terazosin HCl (Terazosin HCl) 10 Mg Capsule, 10 MG PO HS, (Reported) Entered as Reported by: ANISHA ENRIQUEZ on 09/06/211700 Last Action: Converted Terbinafine HCl (Terbinafine HCl) 250 Mg Tablet, 250 MG PO DAILY, (Reported) Entered as Reported by: ANISHA ENRIQUEZ on 09/06/211700 Last Action: Held Tramadol HCl (Tramadol HCl) 50 Mg Tablet, 50-100 MG PO Q8H PRN for PAIN-MODERATE (5-7), (Reported) Entered as Reported by: ANISHA ENRIQUEZ on 09/06/211700 Last Action: Continued Trazodone HCl (Trazodone HCl) 150 Mg Tablet, 300 MG PO HS, (Reported) Entered as Reported by: ANISHA ENRIQUEZ on 09/06/211700 Last Action: Continued Discontinued Medications Amoxicillin/Potassium Clav (Amox Tr-K Clv 875-125 mg Tab) 1 Each Tablet, 875 MG PO BID WITH MEALS Discontinued Reason: No Longer Taking Prescribed by: BECCA JUÁREZ on 09/08/211042 Last Action: Discontinued Cholestyramine/Aspartame (Prevalite Packet) 4 Gm Powd.pack, 4 GM PO QID PRN for DIARRHEA Discontinued Reason: No Longer Taking Prescribed by: BECCA JUÁREZ on 09/08/211042 Last Action: Discontinued L. Acidophilus/Bulgaricus (Floranex Granules Packet) 1 Each Gran.pack, 1 GM PO ACHS Discontinued Reason: No Longer Taking Prescribed by: BECCA JUÁREZ on 09/08/211042 Last Action: Discontinued Mag Hydrox/Al Hydrox/Simeth (Eq Liquid Antacid Susp) 355 Ml Oral.susp, 355 ML PO QID Discontinued Reason: No Longer Taking Prescribed by: KIMBER CURRAN on 09/03/21 1120 Last Action: Discontinued Prednisone (Prednisone) 10 Mg Tab.ds.pk, 10 MG PO DAILY Discontinued Reason: Duplicate Order Prescribed by: BECCA JUÁREZ on 09/08/211042 Last Action: Discontinued Past Bbrteqw-Tvsjgb-Suohju Hx Patient Social History Marrital Status: 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) Smoking Status: Former Smoker Past Medical History High Cholesterol, Hypertension Renal Failure Diabetes, Non-Insulin dep Review of Systems Constitutional: see HPI, malaise, weakness EENTM: no symptoms reported Respiratory: cough, dyspnea on exertion, phlegm, short of breath Physical Exam General Appearance: No Apparent Distress, WD/WN, Chronically ill, Obese Eyes: Bilateral Eye Normal Inspection, Bilateral Eye PERRL, Bilateral Eye EOMI HEENT: PERRL/EOMI, Normal ENT Inspection, Pharynx Normal Neck: Full Range of Motion, Normal Inspection, Non Tender, Supple, Carotid Bruit Respiratory: Chest Non Tender, No Accessory Muscle Use, No Respiratory Distress, Crackles, Decreased Breath Sounds (inspiritory crackles heard B/L in lower lobes, slightly deminished breath sounds on left.), Inspiration, Rales Cardiovascular: Regular Rate, Rhythm, No Edema, No Gallop, No JVD, No Murmur, Normal Peripheral Pulses Gastrointestinal: Normal Bowel Sounds, No Organomegaly, No Pulsatile Mass, Non Tender, Soft Back: Normal Inspection, No CVA Tenderness, No Vertebral Tenderness Extremity: Normal Capillary Refill, Normal Inspection, Normal Range of Motion, Non Tender, No Calf Tenderness, No Pedal Edema Neurologic/Psychiatric: Alert, Oriented x3, No Motor/Sensory Deficits, Normal Mood/Affect Skin: Normal Color, Warm/Dry Lymphatic: No Adenopathy Assessment/Plan Assessment and Plan Assessment: Left sided ATX post aspiration PNA JIMI COPD Debility acute on chronic DM CKD HTN HLP Plan: CT chest Dr Curran consult Problems: (1) Pleural effusion Admission Diagnosis Admission Status: Observation Supervisory-Addendum Brief Verification & Attestation Participated in pt care: history, MDM, physical Personally performed: exam, history, MDM, supervision of care Care discussed with: Medical Student Procedures: n/a Results interpretation: Verified all documentation Verification and Attestation of Medical Student E/M Service A medical student performed and documented this service in my presence. I reviewed and verified all information documented by the medical student and made modifications to such information, when appropriate. I personally performed the physical exam and medical decision making. Becca Juárez Sep 18, 2021,06:39 LARY WARNER Sep 17, 2021 15:07 BECCA JUÁREZ DO Sep 18, 2021 06:39
[2021-09-17] MEDS ORDERED: KETOROLAC 30 MG/ML VIAL ONE (15:25)
[2021-09-17] MEDS ORDERED: KETOROLAC 15 MG/ML VIAL IV PRN (15:30)
[2021-09-17 16:00] VITALS: BP 144/62
--- NOTE | 2021-09-17 16:32 | Consultation-Cardiology ---
HPI-Cardiology Cardiology Consultation: Date of Consultation 09/17/2021 Date of Admission 09/16/2021 Attending Physician Becca Juárez DO Admitting Physician Becca Juárez DO Consulting Physician LARY DAVIS JR, MD HPI: Time Seen by a Provider: 17:07 Chief Complaint: Reason for consultation: Shortness of breath and chest pain. I had the pleasure of seeing Chiquita on the medical/surgical unit at [facility] in [place], [place] this afternoon. She has no known history of coronary artery disease but does have cardiac risk factors of hypertension and type 2 diabetes mellitus. She was recently admitted to the hospital due to aspiration pneumonia that occurred following an upper endoscopy. She was just discharged home earlier in the week. However, since being home she has had ongoing dyspnea on exertion and also developed pleuritic, left-sided chest pain. Yesterday she saw her primary provider for a follow-up visit and because of the ongoing chest pain and dyspnea, she was admitted to the hospital for further evaluation. She still has some slight left-sided chest discomfort if she takes a deep breath. She denies shortness of breath at rest but does have shortness of breath with minimal activity. She denies paroxysmal nocturnal dyspnea or orthopnea. She does get occasional palpitations with the sensation of skipped heartbeats. This is a chronic symptom and unchanged. Sometimes this will make her feel lightheaded but she denies any syncope. She has chronic, mild bilateral lower extremity edema. She will keep her feet up during the day when she is sitting and this will help. She states that she had rheumatic fever around the age of 11. She does have a history of a heart murmur. The edema usually resolves after an night of sleeping. Because of the chest pain and dyspnea, a cardiology consultation was requested. Certain portions of this document may have been dictated utilizing voice recognition technology. Inherent to this technology, typographical and gramma tical errors may exist. As much as I am diligent to identify and correct these mistakes, some errors may remain in the document. Review of Systems-Cardiology Review of Systems Other comments Review of 10 organ systems is as per the history of present illness, otherwise negative. WFR-Nwmiop-Dsoguy Hx Patient Social History Marrital Status: 2nd Hand Smoke Exposure: No Have you traveled recently?: No Pt feels they are or have been: No Immunizations Up To Date Tetanus Booster (TDap): Unknown Date of Pneumonia Vaccine: Oct 12, 2010 Date of Influenza Vaccine: Sep 06, 2021 Past Medical History PMH As described under Assessment. Family Medical History Family Medical History: She does not report fam h/o early CAD or SCD Allergies and Home Medications Allergies Coded Allergies: Sulfa (Sulfonamide Antibiotics) (Unverified Allergy, Unknown, 04/30/14) codeine (Unverified Allergy, Unknown, 04/30/14) oxycodone (Unverified Allergy, Unknown, 04/30/14) pregabalin (Verified Allergy, Unknown, "made me crazy, disoriented", 07/18/17) sulfamethoxazole (Unverified Allergy, Unknown, 04/30/14) trimethoprim (Unverified Allergy, Unknown, 04/30/14) Patient Home Medication List Home Medication List Reviewed: Yes Alprazolam (Alprazolam) 0.5 Mg Tablet, 0.5 MG PO HS, (Reported) Entered as Reported by: ANISHA ENRIQUEZ on 09/06/211710 Last Action: Continued Amlodipine Besylate (Amlodipine Besylate) 10 Mg Tablet, 10 MG PO DAILY, (Reported) Entered as Reported by: KEILA HUGHES on 08/27/211634 Last Action: Continued Aspirin (Aspirin) 81 Mg Tab.chew, 81 MG PO DAILY, (Reported) Entered as Reported by: KEILA HUGHES on 08/27/211634 Last Action: Held Cephalexin (Cephalexin) 500 Mg Tablet, 500 MG PO HS, (Reported) Entered as Reported by: GREGORY DOMINGUEZ on 07/18/171114 Last Action: Converted Clonidine (Clonidine TTS 1 Patch) 1 Each Patch.tdwk, 1 PATCH TD MON, (Reported) Entered as Reported by: KEILA HUGHES on 08/27/211634 Last Action: Continued Cyanocobalamin (Vitamin B-12) (B-12) 1,000 Mcg Tablet, 1,000 MCG PO HS, (Reported) Entered as Reported by: GREGORY DOMINGUEZ on 07/18/171114 Last Action: Continued Dapagliflozin Propanediol (Farxiga) 10 Mg Tablet, 10 MG PO DAILY, (Reported) Entered as Reported by: ANISHA ENRIQUEZ on 09/06/211700 Last Action: Converted Ferrous Sulfate (Iron) 325 Mg Tablet, 325 MG PO DAILY, (Reported) Entered as Reported by: ANISHA ENRIQUEZ on 09/06/211700 Last Action: Continued Folic Acid (Folic Acid) 1 Mg Tablet, 1 MG PO DAILY, (Reported) Entered as Reported by: KEILA HUGHES on 08/27/211634 Last Action: Continued Gabapentin (Neurontin) 300 Mg Capsule, 300 MG PO HS, (Reported) Entered as Reported by: ANISHA ENRIQUEZ on 09/06/211700 Last Action: Continued Insulin Detemir (Levemir Flextouch) 100 Unit/1 Ml Insuln.pen, 10 UNITS SC HS, (Reported) Entered as Reported by: ANISHA ENRIQUEZ on 09/06/211700 Last Action: Converted L.acidoph & Paracasei,B.lactis (Probiotic) 1 Each Capsule, 1 EACH PO BID, (Reported) Entered as Reported by: ANISHA ENRIQUEZ on 09/16/211657 Last Action: Converted Levothyroxine Sodium (Euthyrox) 75 Mcg Tablet, 75 MCG PO DAILY, (Reported) Entered as Reported by: KEILA HUGHES on 08/27/211634 Last Action: Continued Magnesium Oxide (Magnesium) 500 Mg Capsule, 500 MG PO DAILY, (Reported) Entered as Reported by: ANISHA ENRIQUEZ on 09/06/211700 Last Action: Converted Montelukast Sodium (Singulair) 10 Mg Tablet, 10 MG PO DAILY, (Reported) Entered as Reported by: KEILA HUGHES on 08/27/211634 Last Action: Continued Pantoprazole Sodium (Pantoprazole Sodium) 40 Mg Tablet.dr, 40 MG PO DAILY, (Reported) Entered as Reported by: ANISHA ENRIQUEZ on 09/06/211700 Last Action: Continued Terazosin HCl (Terazosin HCl) 10 Mg Capsule, 10 MG PO HS, (Reported) Entered as Reported by: ANISHA ENRIQUEZ on 09/06/211700 Last Action: Converted Terbinafine HCl (Terbinafine HCl) 250 Mg Tablet, 250 MG PO DAILY, (Reported) Entered as Reported by: ANISHA ENRIQUEZ on 09/06/211700 Last Action: Held Tramadol HCl (Tramadol HCl) 50 Mg Tablet, 50-100 MG PO Q8H PRN for PAIN-MODERATE (5-7), (Reported) Entered as Reported by: ANISHA ENRIQUEZ on 09/06/211700 Last Action: Continued Trazodone HCl (Trazodone HCl) 150 Mg Tablet, 300 MG PO HS, (Reported) Entered as Reported by: ANISHA ENRIQUEZ on 09/06/211700 Last Action: Continued Discontinued Medications Amoxicillin/Potassium Clav (Amox Tr-K Clv 875-125 mg Tab) 1 Each Tablet, 875 MG PO BID WITH MEALS Discontinued Reason: No Longer Taking Prescribed by: BECCA JUÁREZ on 09/08/21 104 Last Action: Discontinued Cholestyramine/Aspartame (Prevalite Packet) 4 Gm Powd.pack, 4 GM PO QID PRN for DIARRHEA Discontinued Reason: No Longer Taking Prescribed by: BECCA JUÁREZ on 09/08/211042 Last Action: Discontinued L. Acidophilus/Bulgaricus (Floranex Granules Packet) 1 Each Gran.pack, 1 GM PO ACHS Discontinued Reason: No Longer Taking Prescribed by: BECCA JUÁREZ on 09/08/211042 Last Action: Discontinued Mag Hydrox/Al Hydrox/Simeth (Eq Liquid Antacid Susp) 355 Ml Oral.susp, 355 ML PO QID Discontinued Reason: No Longer Taking Prescribed by: KIMBER FELIPE on 09/03/21 1120 Last Action: Discontinued Prednisone (Prednisone) 10 Mg Tab.ds.pk, 10 MG PO DAILY Discontinued Reason: Duplicate Order Prescribed by: BECCA JUÁREZ on 09/08/211042 Last Action: Discontinued Exam Vital Signs Vital Signs Date Time Temp Pulse Resp B/P (MAP) Pulse Ox O2 Delivery O2 Flow Rate FiO2 09/17/21 16:00 36.4 79 20 144/62 (89) 96 Nasal Cannula 2.00 Physical Exam General: Alert. No acute distress. Well nourished and appears stated age. She is morbidly obese. Eye: Extraocular movements are intact. Conjunctivae are clear. There are no xanthelasma. HENT: Normocephalic. Atraumatic. Carotid pulsations 2/2 without bruits. Neck: Jugular venous pressure does not appear elevated. No thyromegaly appreciated. Respiratory: Lungs are clear to auscultation. Respirations are non-labored. Br eath sounds are equal. Symmetrical chest wall expansion. Cardiovascular: Normal rate. Regular rhythm. 2/6 systolic ejection murmur. No gallop. Point of maximal impulse is not appear displaced. Good pulses equal in all extremities. Trace bilateral pretibial edema. Gastrointestinal: Soft. Normal bowel sounds. Skin: Skin turgor is normal. There is no pallor. Musculoskeletal: No kyphosis or scoliosis appreciated. Neurologic: Alert and oriented to person, place, time. Cranial nerves 3-12 appear grossly intact. The patient has good motor tone strength in the upper and lower extremities bilaterally. Psychiatric: Cooperative. Appropriate mood & affect. Labs Laboratory Tests Test 09/16/21 20:26 09/16/21 22:47 09/17/21 04:59 09/17/21 05:25 Range/Units Glucometer 199 H 136 H 70-110 MG/DL SARS-CoV-2 RNA (RT-PCR) Not Detected Not Detecte White Blood Count 6.2 4.3-11.0 10^3/uL Red Blood Count 3.57 L 3.80-5.11 10^6/uL Hemoglobin 10.2 L 11.5-16.0 g/dL Hematocrit 33 L 35-52 % Mean Corpuscular Volume 92 80-99 fL Mean Corpuscular Hemoglobin 29 25-34 pg Mean Corpuscular Hemoglobin Concent 31 L 32-36 g/dL Red Cell Distribution Width 13.2 10.0-14.5 % Platelet Count 206 130-400 10^3/uL Mean Platelet Volume 10.4 9.0-12.2 fL Immature Granulocyte % (Auto) 1 % Neutrophils (%) (Auto) 58 42-75 % Lymphocytes (%) (Auto) 28 12-44 % Monocytes (%) (Auto) 10 0-12 % Eosinophils (%) (Auto) 3 0-10 % Basophils (%) (Auto) 0 0-10 % Neutrophils # (Auto) 3.6 1.8-7.8 10^3/uL Lymphocytes # (Auto) 1.7 1.0-4.0 10^3/uL Monocytes # (Auto) 0.6 0.0-1.0 10^3/uL Eosinophils # (Auto) 0.2 0.0-0.3 10^3/uL Basophils # (Auto) 0.0 0.0-0.1 10^3/uL Immature Granulocyte # (Auto) 0.1 0.0-0.1 10^3/uL Sodium Level 140 135-145 MMOL/L Potassium Level 4.1 3.6-5.0 MMOL/L Chloride Level 107 98-107 MMOL/L Carbon Dioxide Level 21 21-32 MMOL/L Anion Gap 12 5-14 MMOL/L Blood Urea Nitrogen 14 7-18 MG/DL Creatinine 1.67 H 0.60-1.30 MG/DL Estimat Glomerular Filtration Rate 31 BUN/Creatinine Ratio 8 Glucose Level 141 H 70-105 MG/DL Calcium Level 8.2 L 8.5-10.1 MG/DL Corrected Calcium 9.2 8.5-10.1 MG/DL Total Bilirubin 0.3 0.1-1.0 MG/DL Aspartate Amino Transf (AST/SGOT) 8 5-34 U/L Alanine Aminotransferase (ALT/SGPT) 8 0-55 U/L Alkaline Phosphatase 62 40-136 U/L Total Protein 6.0 L 6.4-8.2 GM/DL Albumin 2.7 L 3.2-4.5 GM/DL Test 09/17/21 11:37 09/17/21 16:07 Range/Units Glucometer 284 H 307 H 70-110 MG/DL Radiology ECHOCARDIOGRAM (09/17/2021): 1. Left ventricle: The cavity size is normal. There is mild concentric hypertrophy. Systolic function is normal. The estimated ejection fraction is 65- 70%. There were no regional wall motion abnormalities identified. Left ventri cular diastolic function parameters are normal. 2. Aortic valve: There is mild aortic regurgitation with a pressure half-time of 413 ms. 3. Aortic root: The aortic root is dilated at 3.9 cm. 4. Pulmonary arteries: The pulmonary artery pressure cannot be estimated on this study due to inadequate tricuspid regurgitant envelope. ECG Impression ECG Comment Sinus rhythm with nonspecific T wave changes. Diagnosis/Problems Diagnosis/Problems (1) Chest pain Assessment & Plan: She has pleuritic sounding chest pain. She has no ischemic changes on her electrocardiogram. Troponin levels were not drawn but in light of her recent pneumonia associated with coughing, I suspect this is musculoskeletal chest pain and not due to coronary ischemia. Once she recovers from this acute illness, we may want to consider an ischemic evaluation but that could certainly be done after discharge. (2) Dyspnea on exertion Assessment & Plan: This is most likely related to the recent pneumonia as well as her obesity. Her echocardiogram shows a normal ejection fraction and her chest CT shows findings more consistent with an infectious process as opposed to pulmonary edema. As such, I do not believe her dyspnea is related to a cardiac condition. (3) Primary hypertension Assessment & Plan: Blood pressures have been intermittently but mildly elevated here in the hospital. If this persists as an outpatient, she may need some adjustment to her antihypertensive medication. (4) Thoracic aortic aneurysm without rupture Assessment & Plan: This was an incidental finding on her echocardiogram. This is in a mild range. This will need to be followed longitudinally. (5) Aortic regurgitation Assessment & Plan: This was also an incidental finding on her echocardiogram. This is also mild. This should not be causing symptoms but will need to be followed longitudinally. I suspect the aortic regurgitation may be caused by the dilatation of the aortic root. (6) Type 2 diabetes mellitus with complication Assessment & Plan: This is being managed by the patient's primary care provider. (7) Stage 3 chronic kidney disease Assessment & Plan: Her creatinine appears to be about her baseline during this admission. We need to avoid any nephrotoxic medications and intravenous contrast if possible. In light of her diabetes, she may benefit from therapy with an KATHE or ARB to help reduce the risk of worsening renal dysfunction related to the diabetes. (8) Morbid obesity Assessment & Plan: She needs to work on weight loss. LARY DAVIS JR, MD Sep 17, 2021 16:31
[2021-09-17 19:42] VITALS: BP 151/65
[2021-09-17] MEDS: CEPHALEXIN 250 MG (KEFLEX) CAP PO SCH (20:53)
[2021-09-17] MEDS: TERAZOSIN 5 MG (HYTRIN) CAPSULE PO SCH (20:53)
[2021-09-17] MEDS: ALPRAZolam 0.5 MG (XANAX) TAB PO SCH (20:53)
[2021-09-17] MEDS: GABAPENTIN 300 MG (NEURONTIN) CAP PO SCH (20:53)
[2021-09-17] MEDS: CYANOCOBALAMIN 1,000 MCG (VITAMIN B-12) TABLET PO SCH (20:54)
[2021-09-17] MEDS: inSUlin ASPART (NovoLOG) 1 UNIT/0.01 ML (CHARGE PER UNIT) SC SCH (20:54)
[2021-09-17] MEDS: traZODone 150 MG (DESYREL) TABLET PO SCH (20:54)
[2021-09-17] MEDS: KETOROLAC 30 MG/ML VIAL IVP PRN (21:31)
[2021-09-18 00:23] VITALS: BP 148/67
[2021-09-18] MEDS: RT-ALBUTEROL/IPRATROPIUM 3 ML (DUONEB) VIAL INH SCH ×6 (02:40→23:50)
[2021-09-18 04:18] VITALS: BP 150/64
[2021-09-18 06:28] LABS: BASOPHILS % (AUTO) 1 % (0-10); EOSINOPHILS # (AUTO) 0.2 10^3/uL (0.0-0.3); EOSINOPHILS % (AUTO) 3 % (0-10); HEMATOCRIT 32 % (35-52); HEMOGLOBIN 9.6 g/dL (11.5-16.0); LYMPHOCYTES # (AUTO) 1.4 10^3/uL (1.0-4.0); LYMPHOCYTES % (AUTO) 22 % (12-44); MEAN CORPUSCULAR HEMOGLOBIN 28 pg (25-34); MEAN CORPUSCULAR HGB CONC 31 g/dL (32-36); MEAN CORPUSCULAR VOLUME 93 fL (80-99); MEAN PLATELET VOLUME 10.4 fL (9.0-12.2); MONOCYTES # (AUTO) 0.6 10^3/uL (0.0-1.0); MONOCYTES % (AUTO) 10 % (0-12); NEUTROPHILS # (AUTO) 4.2 10^3/uL (1.8-7.8); NEUTROPHILS % (AUTO) 64 % (42-75); PLATELET COUNT 216 10^3/uL (130-400); WHITE BLOOD COUNT 6.5 10^3/uL (4.3-11.0)
[2021-09-18 06:39] LABS: ALBUMIN 2.7 GM/DL (3.2-4.5); POTASSIUM 3.8 MMOL/L (3.6-5.0)
[2021-09-18 06:42] LABS: TOTAL PROTEIN 5.9 GM/DL (6.4-8.2)
[2021-09-18 06:43] LABS: BILIRUBIN,TOTAL 0.3 MG/DL (0.1-1.0)
[2021-09-18 06:45] LABS: CREATININE SERUM 1.61 MG/DL (0.60-1.30)
[2021-09-18] MEDS: inSUlin ASPART (NovoLOG) 1 UNIT/0.01 ML (CHARGE PER UNIT) SC SCH ×4 (06:49→21:11)
[2021-09-18] MEDS: LEVOTHYROXINE 75 MCG (LEVOTHROID) TABLET PO SCH (06:54)
[2021-09-18 07:55] VITALS: BP 148/77
[2021-09-18] MEDS: amLODIPine 10 MG (NORVASC) TAB PO SCH (09:13)
[2021-09-18] MEDS: MAGNESIUM OXIDE (MAG-OX)400 MG TAB PO SCH (09:13)
[2021-09-18] MEDS: FERROUS SULF 325 MG (IRON) TAB PO SCH (09:13)
[2021-09-18] MEDS: FOLIC ACID 1 MG TAB PO SCH (09:13)
[2021-09-18] MEDS: LACTOBACILLUS ACIDOPHILUS (PROBIOTIC) CAPSULE PO SCH ×2 (09:13→21:10)
[2021-09-18] MEDS: MONTELUKAST 10 MG (SINGULAIR) TAB PO SCH (09:14)
[2021-09-18] MEDS: PANTOPRAZOLE 40 MG (PROTONIX) TAB PO SCH (09:14)
--- NOTE | 2021-09-18 10:07 | Diagnostic Imaging Report ---
EXAM: CHEST PA/LAT (2 VIEW) INDICATION: Pleural effusion. Pneumonia. COMPARISON: CT chest without contrast 09/17/2021. FINDINGS: Persistent moderate left pleural effusion and dense airspace opacification in the left lung base. No pneumothorax. Normal heart size and central pulmonary vascularity. Small right pleural effusion. Postoperative changes in the upper abdomen. IMPRESSION: Persistent moderate left pleural effusion and dense airspace consolidation in the left lung base. Small right pleural effusion. Dictated by: Dictated on workstation # [id number]
--- NOTE | 2021-09-18 10:33 | Physical Therapy Evaluation ---
PT Evaluation-General Medical Diagnosis Admission Date Sep 16, 2021 at 14:24 Medical Diagnosis: pleural effusion Onset Date: Sep 16, 2021 Therapy Diagnosis Therapy Diagnosis: none Height/Weight Height (Feet): 5 Height (Inches): 2.00 Weight (Pounds): 252 Weight (Ounces): 0.0 Precautions Precautions/Isolations: Fall Prevention, Standard Precautions Weight Bear Status Right Lower Extremity: Right Full Weight Bearing Left Lower Extremity: Left Full Weight Bearing Referral Physician: Janice Reason for Referral: Evaluation/Treatment Medical History Pertinent Medical History: Arthritis, COPD, DM, GERD, HTN, Hypothroidism Additional Medical History chronic edema/swelling, high cholesterol, neuropathy, renal failure, neurogenic bladder, DDD, cataracts, anxiety/depression, a-fib Current History Pt with recent discharge from hospital, returned as direct admit from physician follow-up due to SOB and pain with deep breathing. Reviewed History: Yes Social History Home: Single Level Current Living Status: Spouse Entry Into Home: Ramp Prior Prior Level of Function SCALE: Activities may be completed with or without assistive devices. 6-Jkeokhvxqa-hxshixq completes the activity by him/herself with no assistance from a helper. 5-Set-up or Clean-up Assistance-helper sets up or cleans up; patient completes activity. [place] assists only prior to or following the activity. 4-Supervision or Touching Assistance-helper provides verbal cues and/or touchin g/steadying and/or contact guard assistance as patient completes activity. Assistance may be provided throughout the activity or intermittently. 3-Partial/Moderate Assistance-helper does LESS THAN HALF the effort. [place] lifts, holds or supports trunk or limbs, but provides less than half the effort. 2-Substantial/Maximal Assistance-helper does MORE THAN HALF the effort. [place] lifts or holds trunk or limbs and provides more than half the effort. 6-Xoyouwfpg-dlkfru does ALL the effort. Patient does none of the effort to complete the activity. Or, the assistance of 2 or more helpers is required for the patient to complete the activity. If activity was not attempted, code reason: 7-Patient Refused. 9-Not Applicable-not attempted and the patient did not perform the activity before the current illness, exacerbation or injury. 10-Not Attempted due to Environmental Limitations-(lack of equipment, weather restraints, etc.). 88-Not Attempted due to Medical Conditions or Safety Concerns. Bed Mobility: 6 Transfers (B,C,W/C): 6 Gait: 6 Stairs: 9 Wheelchair Mobility: 6 Indoor Mobility (Ambulation): Independent Prior Devices Use: Manual wheelchair, Walker Prior Device Use: FWW in home, power WCH in community 2L on concentrator PT Evaluation-Current Subjective Pt in bed, agreeable. Reports she is at PLOF for mobility. Denies pain. Pain Numeric Pain Scale: 0-No Pain Pt/Family Goals Home Objective Patient Orientation: Person, Place, Time, Situation Attachments: Oxygen ROM/Strength ROM Upper Extremities Grossly WFL ROM Lower Extremities Grossly WFL Strength Upper Extremities Grossly WFL Strength Lower Extremities Grossly WFL Integumentary/Posture Integumentary See nurses' notes Bowel Incontinence: No Bladder Incontinence: No Sensory Vision: Wears Glasses Hearing: Functional Transfers Roll Left to Right (QC): 6 Lying to Sitting/Side of Bed(Q: 6 Sit to Stand (QC): 6 Toilet Transfer (QC): 6 Gait Does the Patient Walk?: Yes Mode of Locomotion: Walk Anticipated Mode of Locomotion: Both Walk 10 feet (QC): 6 Walk 50 ft with 2 Turns(QC): 6 Walk 150 ft (QC): 9 Distance: 50 Gait Assistive Device: FWW Comments/Gait Description Pt ambulated mod (I) within room with FWW. Mod (I) in BR. Demonstrates safe functional gait with FWW Wheelchair Training Does the Pt Use a Wheelchair?: Yes Type of Wheelchair: Motorized Balance Sitting Static: Normal Sitting Dynamic: Normal Standing Static: Normal Standing Dynamic: Normal Assessment/Needs Pt is at PLOF with functional mobility and demonstrates safe household distance ambulation with FWW, (I) with TFR. No skilled PT indicated. Rehab Potential: Good PT Longterm Goals Longterm Goals No goals established as skilled PT is not currently indicated. PT Plan Treatment/Plan Treatment Plan: Discontinue PT Treatment Duration: Sep 18, 2021 Frequency: Estimated Hrs Per Day: Other Patient and/or Family Agrees t: Yes Pt seen this date for evaluation, no skilled PT indicated. Discharge Recommendations Therapy Discharge Recommendati: Home & Family Time/GCodes Time In: 0833 Time Out: 0849 Total Billed Treatment Time: 16 Total Billed Treatment 1, BING BENITEZ DPPardeep Sep 18, 2021 10:32
--- NOTE | 2021-09-18 11:11 | Progress Note ---
Subjective Date Seen by a Provider: Sep 18, 2021 Time Seen by a Provider: 11:00 Subjective/Events-last exam Patient much better Using Acapella and incentive spirometer chest x-ray appears improved Labs stable Weaning oxygen Review of Systems General: Fatigue Pulmonary: Dyspnea Focused Exam Lactate Level 09/16/21 15:14: Lactic Acid Level 1.28 Objective Exam Last Set of Vital Signs Vital Signs Date Time Temp Pulse Resp B/P (MAP) Pulse Ox O2 Delivery O2 Flow Rate FiO2 09/18/21 10:48 94 Room Air 09/18/21 08:00 1.50 09/18/21 07:55 36.2 53 16 148/77 (100) Capillary Refill : I&O Intake and Output 09/18/21 00:00 Intake Total 1915 ml Output Total 1950 ml Balance -35 ml Intake Oral 1915 ml Output Urine Total 1950 ml # Bowel Movements 2 General: Alert, Oriented X3, Cooperative, No Acute Distress Lungs: Clear to Auscultation, Normal Air Movement, Other (Diminished breath sounds left side) Heart: Regular Rate Psych/Mental Status: Mental Status NL, Mood NL Results Lab Laboratory Tests 09/17/21 11:37: Glucometer 284H 09/17/21 16:07: Glucometer 307H 09/17/21 20:16: Glucometer 341H 09/18/21 05:30: White Blood Count 6.5, Red Blood Count 3.40L, Hemoglobin 9.6L, Hematocrit 32L, Mean Corpuscular Volume 93, Mean Corpuscular Hemoglobin 28, Mean Corpuscular Hemoglobin Concent 31L, Red Cell Distribution Width 13.2, Platelet Count 216, Mean Platelet Volume 10.4, Immature Granulocyte % (Auto) 1, Neutrophils (%) (Auto) 64, Lymphocytes (%) (Auto) 22, Monocytes (%) (Auto) 10, Eosinophils (%) (Auto) 3, Basophils (%) (Auto) 1, Neutrophils # (Auto) 4.2, Lymphocytes # (Auto) 1.4, Monocytes # (Auto) 0.6, Eosinophils # (Auto) 0.2, Basophils # (Auto) 0.0, Immature Granulocyte # (Auto) 0.0, Sodium Level 140, Potassium Level 3.8, Chloride Level 106, Carbon Dioxide Level 23, Anion Gap 11, Blood Urea Nitrogen 14, Creatinine 1.61H, Estimat Glomerular Filtration Rate 32, BUN/Creatinine Rat io 9, Glucose Level 121H, Calcium Level 8.0L, Corrected Calcium 9.0, Total Bilirubin 0.3, Aspartate Amino Transf (AST/SGOT) 11, Alanine Aminotransferase (ALT/SGPT) 7, Alkaline Phosphatase 57, Total Protein 5.9L, Albumin 2.7L Microbiology 09/16/21 MRSA Screen - Final, Complete MRSA not isolated Assessment/Plan Assessment/Plan Assess & Plan/Chief Complaint Assessment: Left sided ATX post aspiration PNA JIMI COPD Debility acute on chronic DM CKD HTN HLP Plan: I-S Acapella Diagnosis/Problems Diagnosis/Problems (1) Pleural effusion Clinical Quality Measures Admission Status Admission Dx Assessment: Left sided ATX post aspiration PNA JIMI COPD Debility acute on chronic DM CKD HTN HLP Plan: CT chest Dr Curran consult HO JUÁREZ DO Sep 18, 2021 11:11
[2021-09-18 11:48] VITALS: BP 112/70
--- NOTE | 2021-09-18 12:53 | Progress Note - Surgery ---
Subjective Time Seen by a Provider: 10:35 Subjective/Events-last exam I was asked to see pt by Dr. Camacho regarding pleural effusion and CT findings. Pt seen and examined, complains of some left lower flank (basically base of lung) sharp shooting pains; especially with deep breath. No other complaints, tolerating diet. Review of Systems General: No Fatigue, No Malaise Pulmonary: Dyspnea; No Cough; Pleuritic Chest Pain Cardiovascular: No: Chest Pain, Palpitations Gastrointestinal: No: Nausea, Vomiting, Abdominal Pain Focused Exam Lactate Level 09/16/21 15:14: Lactic Acid Level 1.28 Objective Exam Vital Signs Date Time Temp Pulse Resp B/P (MAP) Pulse Ox O2 Delivery O2 Flow Rate FiO2 09/18/21 11:48 37.0 66 20 112/70 (84) 93 Room Air 09/18/21 10:48 94 Room Air 09/18/21 08:00 98 Nasal Cannula 1.50 09/18/21 07:55 36.2 53 16 148/77 (100) 98 Nasal Cannula 2.00 09/18/21 07:00 56 09/18/21 04:18 36.0 63 20 150/64 (92) 96 Nasal Cannula 1.50 09/18/21 01:00 61 09/18/21 00:23 36.5 74 18 148/67 (94) 92 Nasal Cannula 2.00 09/17/21 21:07 97 Nasal Cannula 2.00 09/17/21 20:00 Nasal Cannula 2.00 09/17/21 19:42 37.1 95 20 151/65 (93) 96 Nasal Cannula 2.00 09/17/21 19:00 80 09/17/21 18:11 95 Nasal Cannula 2.00 09/17/21 16:00 36.4 79 20 144/62 (89) 96 Nasal Cannula 2.00 09/17/21 15:05 96 3.00 09/17/21 13:00 81 I & O 09/18/21 06:59 Intake Total 1915 ml Output Total 1400 ml Balance 515 ml Capillary Refill : General Appearance: No Apparent Distress, Obese HEENT: PERRL/EOMI Respiratory: No Accessory Muscle Use, No Respiratory Distress, Crackles, Decreased Breath Sounds (inspiritory crackles heard B/L in lower lobes, diminished to no breath sounds at left base.), Rales Cardiovascular: Regular Rate, Rhythm, No Murmur Gastrointestinal: normal bowel sounds, non tender, soft, no organomegaly Neurologic/Psychiatric: Alert, Oriented x3 Results Lab Laboratory Tests 09/17/21 16:07: Glucometer 307H 09/17/21 20:16: Glucometer 341H 09/18/21 05:30: White Blood Count 6.5, Red Blood Count 3.40L, Hemoglobin 9.6L, Hematocrit 32L, Mean Corpuscular Volume 93, Mean Corpuscular Hemoglobin 28, Mean Corpuscular Hemoglobin Concent 31L, Red Cell Distribution Width 13.2, Platelet Count 216, Mean Platelet Volume 10.4, Immature Granulocyte % (Auto) 1, Neutrophils (%) (Auto) 64, Lymphocytes (%) (Auto) 22, Monocytes (%) (Auto) 10, Eosinophils (%) (Auto) 3, Basophils (%) (Auto) 1, Neutrophils # (Auto) 4.2, Lymphocytes # (Auto) 1.4, Monocytes # (Auto) 0.6, Eosinophils # (Auto) 0.2, Basophils # (Auto) 0.0, Immature Granulocyte # (Auto) 0.0, Sodium Level 140, Potassium Level 3.8, Chloride Level 106, Carbon Dioxide Level 23, Anion Gap 11, Blood Urea Nitrogen 14, Creatinine 1.61H, Estimat Glomerular Filtration Rate 32, BUN/Creatinine Ratio 9, Glucose Level 121H, Calcium Level 8.0L, Corrected Calcium 9.0, Total Bilirubin 0.3, Aspartate Amino Transf (AST/SGOT) 11, Alanine Aminotransferase (ALT/SGPT) 7, Alkaline Phosphatase 57, Total Protein 5.9L, Albumin 2.7L 09/18/21 11:30: Glucometer 165H Microbiology 09/16/21 MRSA Screen - Final, Complete MRSA not isolated Assessment/Plan Assessment/Plan Assessment/Plan Left lung Pleural effusion and Atelectasis Hx of aspiration with probable pneumonia. I reviewed the CT myself and discussed the case with Dr. Camacho. She does have pleural effusion, but I don't think enough to warrant a thoracentesis and on top of that it doesn't look loculated. Would recommend continued med management with abx, IS use and MAT protocol. JUDITH FERNÁNDEZ DO Sep 18, 2021 12:53
[2021-09-18] MEDS: KETOROLAC 30 MG/ML VIAL IVP PRN (13:54)
--- NOTE | 2021-09-18 15:04 | Cardiology Progress Note ---
Progress Note-Cardiology Events since last exam Date Seen by Provider: Sep 18, 2021 Time Seen by Provider: 14:59 Events since last exam I am following her for chest pain and dyspnea. Both of these symptoms are much improved today. She denies palpitations, syncope, or change in her chronic, intermittent mild ankle edema. She hopes to go home tomorrow. Certain portions of this document may have been dictated utilizing voice recognition technology. Inherent to this technology, typographical and grammatical errors may exist. As much as I am diligent to identify and correct these mistakes, some errors may remain in the document. Vitals Last set of Vitals Signs Vital Signs 09/18/21 09/18/21 09/18/21 09/18/21 08:00 11:48 13:00 14:45 Temp 37.0 Pulse 78 Resp 20 B/P (MAP) 112/70 (84) Pulse Ox 95 O2 Delivery Room Air O2 Flow Rate 1.50 Labs Labs Laboratory Tests 09/18/21 05:30 Exam Vital Signs Vital Signs Date Time Temp Pulse Resp B/P (MAP) Pulse Ox O2 Delivery O2 Flow Rate FiO2 09/18/21 14:45 95 Room Air 09/18/21 13:00 78 09/18/21 11:48 37.0 20 112/70 (84) 09/18/21 08:00 1.50 Physical Exam General: Alert. No acute distress. She is morbidly obese. Eye: No xanthelasma. HENT: Normocephalic. Neck: Jugular venous pressure does not appear elevated. Respiratory: Lungs are clear to auscultation. Respirations are non-labored. Breath sounds are equal. Symmetrical chest wall expansion. Cardiovascular: Normal rate. Regular rhythm. No murmur. No gallop. No edema. Gastrointestinal: Soft. Normal bowel sounds. Skin: Warm. Dry. Neurologic: Alert and oriented to person, place, time. Cranial nerves 3-11 grossly intact. Psychiatric: Cooperative. Appropriate mood & affect. Labs Laboratory Tests Test 09/17/21 16:07 09/17/21 20:16 09/18/21 05:30 09/18/21 11:30 Range/Units Glucometer 307 H 341 H 165 H 70-110 MG/DL White Blood Count 6.5 4.3-11.0 10^3/uL Red Blood Count 3.40 L 3.80-5.11 10^6/uL Hemoglobin 9.6 L 11.5-16.0 g/dL Hematocrit 32 L 35-52 % Mean Corpuscular Volume 93 80-99 fL Mean Corpuscular Hemoglobin 28 25-34 pg Mean Corpuscular Hemoglobin Concent 31 L 32-36 g/dL Red Cell Distribution Width 13.2 10.0-14.5 % Platelet Count 216 130-400 10^3/uL Mean Platelet Volume 10.4 9.0-12.2 fL Immature Granulocyte % (Auto) 1 % Neutrophils (%) (Auto) 64 42-75 % Lymphocytes (%) (Auto) 22 12-44 % Monocytes (%) (Auto) 10 0-12 % Eosinophils (%) (Auto) 3 0-10 % Basophils (%) (Auto) 1 0-10 % Neutrophils # (Auto) 4.2 1.8-7.8 10^3/uL Lymphocytes # (Auto) 1.4 1.0-4.0 10^3/uL Monocytes # (Auto) 0.6 0.0-1.0 10^3/uL Eosinophils # (Auto) 0.2 0.0-0.3 10^3/uL Basophils # (Auto) 0.0 0.0-0.1 10^3/uL Immature Granulocyte # (Auto) 0.0 0.0-0.1 10^3/uL Sodium Level 140 135-145 MMOL/L Potassium Level 3.8 3.6-5.0 MMOL/L Chloride Level 106 98-107 MMOL/L Carbon Dioxide Level 23 21-32 MMOL/L Anion Gap 11 5-14 MMOL/L Blood Urea Nitrogen 14 7-18 MG/DL Creatinine 1.61 H 0.60-1.30 MG/DL Estimat Glomerular Filtration Rate 32 BUN/Creatinine Ratio 9 Glucose Level 121 H 70-105 MG/DL Calcium Level 8.0 L 8.5-10.1 MG/DL Corrected Calcium 9.0 8.5-10.1 MG/DL Total Bilirubin 0.3 0.1-1.0 MG/DL Aspartate Amino Transf (AST/SGOT) 11 5-34 U/L Alanine Aminotransferase (ALT/SGPT) 7 0-55 U/L Alkaline Phosphatase 57 40-136 U/L Total Protein 5.9 L 6.4-8.2 GM/DL Albumin 2.7 L 3.2-4.5 GM/DL Diagnosis/Problems Diagnosis/Problems (1) Chest pain Assessment & Plan: Her chest pain sounds pleuritic and is starting to improve with treatment of pneumonia. She has no ischemic changes on her electrocardiogram. Troponin levels were not drawn but in light of her recent pneumonia associated with coughing, I suspect this is musculoskeletal chest pain and not due to coronary ischemia. Once she recovers from this acute illness, we may want to consider an ischemic evaluation, but that could certainly be done after discharge. I will have my office contact her after discharge to arrange for outpatient stress testing. (2) Dyspnea on exertion Assessment & Plan: This is most likely related to the recent pneumonia as well as her obesity. Her echocardiogram shows a normal ejection fraction and her chest CT shows findings more consistent with an infectious process as opposed to pulmonary edema. As such, I do not believe her dyspnea is related to a cardiac condition. (3) Thoracic aortic aneurysm without rupture Assessment & Plan: This was an incidental finding on her echocardiogram. This is in a mild range. This will need to be followed longitudinally. (4) Aortic regurgitation Assessment & Plan: This was also an incidental finding on her echocardiogram. This is also mild. This should not be causing symptoms but will need to be followed longitudinally. I suspect the aortic regurgitation may be caused by the dilatation of the aortic root. (5) Primary hypertension Assessment & Plan: Blood pressures have been improved over the past 24 hours. She should continue her regular outpatient antihypertensive medication. (6) Type 2 diabetes mellitus with complication Assessment & Plan: This is being managed by the patient's primary care provider. (7) Stage 3 chronic kidney disease Assessment & Plan: Her creatinine appears to be about her baseline during this admission. We need to avoid any nephrotoxic medications and intravenous contrast if possible. In light of her diabetes, she may benefit from therapy with an KATHE or ARB to help reduce the risk of worsening renal dysfunction related to the diabetes. (8) Morbid obesity Assessment & Plan: She needs to work on weight loss. LARY DAVIS JR, MD Sep 18, 2021 15:04
[2021-09-18 15:47] LABS: TRIGLYCERIDES 73 MG/DL (<150); VLDL CHOLESTEROL 15 MG/DL (5-40)
[2021-09-18 15:52] LABS: CHOLESTEROL 89 MG/DL (< 200)
[2021-09-18 15:53] LABS: HDL CHOLESTEROL 34 MG/DL (40-60)
[2021-09-18 16:00] VITALS: BP 128/60
[2021-09-18 19:52] VITALS: BP 145/67
[2021-09-18] MEDS: GABAPENTIN 300 MG (NEURONTIN) CAP PO SCH (21:09)
[2021-09-18] MEDS: CEPHALEXIN 250 MG (KEFLEX) CAP PO SCH (21:10)
[2021-09-18] MEDS: CYANOCOBALAMIN 1,000 MCG (VITAMIN B-12) TABLET PO SCH (21:10)
[2021-09-18] MEDS: TERAZOSIN 5 MG (HYTRIN) CAPSULE PO SCH (21:10)
[2021-09-18] MEDS: traZODone 150 MG (DESYREL) TABLET PO SCH (21:10)
[2021-09-18] MEDS: ALPRAZolam 0.5 MG (XANAX) TAB PO SCH (21:10)
[2021-09-19] VITALS: BP 128/63
[2021-09-19 03:45] VITALS: BP 169/79
[2021-09-19] MEDS: RT-ALBUTEROL/IPRATROPIUM 3 ML (DUONEB) VIAL INH SCH ×2 (03:50→08:02)
[2021-09-19] MEDS: inSUlin ASPART (NovoLOG) 1 UNIT/0.01 ML (CHARGE PER UNIT) SC SCH ×2 (06:07→12:11)
[2021-09-19] MEDS: LEVOTHYROXINE 75 MCG (LEVOTHROID) TABLET PO SCH (06:35)
[2021-09-19 07:47] LABS: BASOPHILS % (AUTO) 0 % (0-10); EOSINOPHILS # (AUTO) 0.2 10^3/uL (0.0-0.3); EOSINOPHILS % (AUTO) 3 % (0-10); HEMATOCRIT 32 % (35-52); HEMOGLOBIN 9.9 g/dL (11.5-16.0); LYMPHOCYTES # (AUTO) 1.4 10^3/uL (1.0-4.0); LYMPHOCYTES % (AUTO) 26 % (12-44); MEAN CORPUSCULAR HEMOGLOBIN 28 pg (25-34); MEAN CORPUSCULAR HGB CONC 31 g/dL (32-36); MEAN CORPUSCULAR VOLUME 92 fL (80-99); MEAN PLATELET VOLUME 10.6 fL (9.0-12.2); MONOCYTES # (AUTO) 0.5 10^3/uL (0.0-1.0); MONOCYTES % (AUTO) 9 % (0-12); NEUTROPHILS # (AUTO) 3.3 10^3/uL (1.8-7.8); NEUTROPHILS % (AUTO) 61 % (42-75); PLATELET COUNT 227 10^3/uL (130-400); WHITE BLOOD COUNT 5.4 10^3/uL (4.3-11.0)
[2021-09-19 07:56] LABS: ALBUMIN 2.8 GM/DL (3.2-4.5); POTASSIUM 4.4 MMOL/L (3.6-5.0)
[2021-09-19 07:57] LABS: CALCIUM 8.1 MG/DL (8.5-10.1)
[2021-09-19 07:59] LABS: TOTAL PROTEIN 5.7 GM/DL (6.4-8.2)
[2021-09-19 08:00] VITALS: BP 142/72
[2021-09-19 08:00] LABS: BILIRUBIN,TOTAL 0.3 MG/DL (0.1-1.0)
[2021-09-19 08:02] LABS: CREATININE SERUM 1.54 MG/DL (0.60-1.30)
[2021-09-19] MEDS: PANTOPRAZOLE 40 MG (PROTONIX) TAB PO SCH (08:38)
[2021-09-19] MEDS: MONTELUKAST 10 MG (SINGULAIR) TAB PO SCH (08:38)
[2021-09-19] MEDS: MAGNESIUM OXIDE (MAG-OX)400 MG TAB PO SCH (08:38)
[2021-09-19] MEDS: amLODIPine 10 MG (NORVASC) TAB PO SCH (08:38)
[2021-09-19] MEDS: LACTOBACILLUS ACIDOPHILUS (PROBIOTIC) CAPSULE PO SCH (08:38)
[2021-09-19] MEDS: FERROUS SULF 325 MG (IRON) TAB PO SCH (08:38)
[2021-09-19] MEDS: FOLIC ACID 1 MG TAB PO SCH (08:38)
--- NOTE | 2021-09-19 08:59 | Diagnostic Imaging Report ---
PA and lateral chest INDICATION: Pneumonia. COMPARISON made with a previous study from September 182020. FINDINGS: Left-sided pleural collection and left basilar consolidation are not significantly changed when compared to the previous exam. The right lung remains clear. There is no pneumothorax. Heart size and mediastinal contours are stable. There are prior surgical clips at the gastroesophageal junction. There has been prior cervical ACDF as well as a previous lumbar spinal fusion. IMPRESSION: 1. No significant change in left basilar consolidation with associated left-sided effusion. The right lung appears clear. Heart size and pulmonary vascularity are stable. Dictated by: Dictated on workstation # [id number]
--- NOTE | 2021-09-19 09:00 | Progress Note - Surgery ---
DAVIELEE ANN 09/19/21 0900: Subjective Date Seen by a Provider: Sep 19, 2021 Time Seen by a Provider: 08:13 Subjective/Events-last exam Patient was laying in bed and just finished eating breakfast when I visited. Says she is still ambulating between her bed, chair, and the bathroom. Is also continuing to use VibraPEP oscillatory device which she prefers over the incentive spirometer. She also feels improvement from the vibrations with the device. Still has chest pain on the left side but is a lot more tolerable than yesterday (3/10). No other complaints. She also expects to leave the hospital today. Review of Systems General: No Chills, No Night Sweats HEENT: No Head Aches, No Visual Changes Pulmonary: Dyspnea, Cough, Pleuritic Chest Pain (Pt reports 3/10 chest pain which is more tolerable than yesterday.) Cardiovascular: No: Chest Pain, Palpitations Gastrointestinal: No: Nausea, Vomiting, Abdominal Pain Genitourinary: No Dysuria, No Frequency Musculoskeletal: No: shoulder pain, back pain Neurological: No: Weakness, Numbness Focused Exam Lactate Level 09/16/21 15:14: Lactic Acid Level 1.28 Objective Exam Vital Signs Date Time Temp Pulse Resp B/P (MAP) Pulse Ox O2 Delivery O2 Flow Rate FiO2 09/19/21 08:02 92 Room Air 09/19/21 08:00 37.2 83 22 142/72 (95) 93 Room Air 09/19/21 07:00 61 09/19/21 03:45 36.6 63 18 169/79 (109) 92 Room Air 09/19/21 01:00 54 09/19/21 00:00 36.5 67 18 128/63 (84) 95 Room Air 09/18/21 20:00 Nasal Cannula 2.00 09/18/21 19:52 36.4 76 22 145/67 (93) 94 Room Air 09/18/21 19:07 92 Room Air 09/18/21 19:00 69 09/18/21 19:00 78 09/18/21 16:00 36.7 76 20 128/60 (82) 90 Room Air 09/18/21 14:45 95 Room Air 09/18/21 13:00 78 09/18/21 11:48 37.0 66 20 112/70 (84) 93 Room Air 09/18/21 10:48 94 Room Air I & O 09/19/21 07:00 Intake Total 1792 ml Output Total 1100 ml Balance 692 ml Capillary Refill : General Appearance: No Apparent Distress, Obese HEENT: PERRL/EOMI Respiratory: No Accessory Muscle Use, No Respiratory Distress, Crackles, Decreased Breath Sounds (inspiritory crackles heard B/L in lower lobes, diminished to no breath sounds at left base.), Rales, Other (I viewed the CXR from 09/18 and compared with 09/16. Appears that left lung consolidation is improving.) Cardiovascular: Regular Rate, Rhythm, No Murmur Gastrointestinal: normal bowel sounds, non tender, soft, no organomegaly Neurologic/Psychiatric: Alert, Oriented x3 Results Lab Laboratory Tests 09/18/21 11:30: Glucometer 165H 09/18/21 15:55: Glucometer 308H 09/18/21 20:16: Glucometer 209H 09/19/21 05:49: Glucometer 123H 09/19/21 07:05: White Blood Count 5.4, Red Blood Count 3.51L, Hemoglobin 9.9L, Hematocrit 32L, Mean Corpuscular Volume 92, Mean Corpuscular Hemoglobin 28, Mean Corpuscular Hemoglobin Concent 31L, Red Cell Distribution Width 13.2, Platelet Count 227, Mean Platelet Volume 10.6, Immature Granulocyte % (Auto) 1, Neutrophils (%) (Auto) 61, Lymphocytes (%) (Auto) 26, Monocytes (%) (Auto) 9, Eosinophils (%) (Auto) 3, Basophils (%) (Auto) 0, Neutrophils # (Auto) 3.3, Lymphocytes # (Auto) 1.4, Monocytes # (Auto) 0.5, Eosinophils # (Auto) 0.2, Basophils # (Auto) 0.0, Immature Granulocyte # (Auto) 0.0, Sodium Level 138, Potassium Level 4.4, Chlori de Level 106, Carbon Dioxide Level 22, Anion Gap 10, Blood Urea Nitrogen 17, Creatinine 1.54H, Estimat Glomerular Filtration Rate 34, BUN/Creatinine Ratio 11, Glucose Level 136H, Calcium Level 8.1L, Corrected Calcium 9.1, Total Bilirubin 0.3, Aspartate Amino Transf (AST/SGOT) 11, Alanine Aminotransferase (ALT/SGPT) 6, Alkaline Phosphatase 65, Total Protein 5.7L, Albumin 2.8L Microbiology 09/16/21 MRSA Screen - Final, Complete MRSA not isolated Assessment/Plan Assessment/Plan Assessment/Plan Assessment: Left sided ATX post aspiration PNA JIMI COPD Debility acute on chronic DM CKD HTN HLP Plan: I-S Continue using VibraPEP oscillatory device JUDITH FERNÁNDEZ DO 09/19/21 1155: Subjective Time Seen by a Provider: 10:37 Subjective/Events-last exam Pt seen and examined, she was napping but easily arousable. States breathing is better and pain is better. Not using any supplemental O2. Review of Systems General: No Chills, No Night Sweats Pulmonary: Dyspnea, Cough, Pleuritic Chest Pain (Pt reports 3/10 chest pain which is more tolerable than yesterday.) Cardiovascular: No: Chest Pain, Palpitations Gastrointestinal: No: Nausea, Vomiting, Abdominal Pain Objective Exam General Appearance: No Apparent Distress, Obese Respiratory: No Accessory Muscle Use, No Respiratory Distress, Crackles, Decreased Breath Sounds (inspiritory crackles heard B/L in lower lobes, dimin ished to no breath sounds at left base.), Rales, Other (I viewed the CXR from 09/18 and compared with 09/16. Appears that left lung consolidation is improving.) Cardiovascular: Regular Rate, Rhythm, No Murmur Gastrointestinal: non tender, soft, no organomegaly Neurologic/Psychiatric: Alert, Oriented x3 Assessment/Plan Assessment/Plan Assessment/Plan Left Lung Pleural Effusion with Atelectasis Hx of COPD, DM, HTN, CKD Plan is to send home, with continued IS use and f/u with Dr. Camacho and Dr. Curran as outpt. Supervisory-Addendum Brief Verification & Attestation Participated in pt care: history, MDM, physical Personally performed: exam, history, MDM, supervision of care Care discussed with: Medical Student Procedures: n/a Verification and Attestation of Medical Student E/M Service A medical student performed and documented this service. I then reviewed and verified all information documented by the medical student and made modifications to such information, when appropriate. I personally performed a physical exam, medical decision making and then discussed any differences between the notes and made revisions as necessary to create one note. Judith Fernández , 11/21/21 , 11:55 LEE ANN BRODERICK Sep 19, 2021 09:00 JUDITH FERNÁNDEZ DO Sep 19, 2021 11:55
[2021-09-19 11:23] VITALS: BP 144/76
--- NOTE | 2021-09-19 11:29 | Discharge Summary ---
Diagnosis/Chief Complaint Date of Admission Sep 16, 2021 at 14:24 Date of Discharge Discharge Date: Sep 19, 2021 Discharge Diagnosis Assessment: Left sided ATX post aspiration PNA JIMI COPD Debility acute on chronic DM CKD HTN HLP Plan: I-S Acapella Reason Hospital Visit CC: Pleurisy with suspicion for left sided effusion HPI: This is a [id number] clinic patient of mine who I directly admitted from my clinic due to left sided pleurisy and difficulty breathing. Left sided breath sounds were significantly diminished so suspicion for left sided pleural effusion so admitted to [facility] and consulted Dr Curran. Discharge Summary Discharge Physical Examination Allergies: Coded Allergies: Sulfa (Sulfonamide Antibiotics) (Unverified Allergy, Unknown, 04/30/14) codeine (Unverified Allergy, Unknown, 04/30/14) oxycodone (Unverified Allergy, Unknown, 04/30/14) pregabalin (Verified Allergy, Unknown, "made me crazy, disoriented", 07/18/17) sulfamethoxazole (Unverified Allergy, Unknown, 04/30/14) trimethoprim (Unverified Allergy, Unknown, 04/30/14) Vitals & I&Os Vital Signs Date Time Temp Pulse Resp B/P (MAP) Pulse Ox O2 Delivery O2 Flow Rate FiO2 09/19/21 12:30 37.2 73 20 144/76 92 Room Air 09/19/21 08:00 0.00 General Appearance: Alert, Oriented X3, Cooperative Respiratory: Clear to Auscultation, Normal Air Movement, Other (Diminished breath sounds left) Psych/Mental Status: Mental Status NL Hospital Course Was the Problem List Reviewed?: Yes Hospital course: Patient had an uneventful hospital course after observation admitted due to suspicion of left pleural effusion status post aspiration pneumonia. CT scan and ultrasound did not reveal enough fluid for thoracentesis safely. I-S and Acapella ordered. Labs remained stable no evidence of any infection so she was discharged in improved condition. Labs (last 24 hrs) Laboratory Tests 09/16/21 15:12: White Blood Count 7.6, Red Blood Count 3.90, Hemoglobin 11.1L, Hematocrit 36, Mean Corpuscular Volume 93, Mean Corpuscular Hemoglobin 29, Mean Corpuscular Hemoglobin Concent 31L, Red Cell Distribution Width 13.2, Platelet Count 210, Mean Platelet Volume 10.4, Immature Granulocyte % (Auto) 2, Neutrophils (%) (Auto) 70, Lymphocytes (%) (Auto) 19, Monocytes (%) (Auto) 7, Eosinophils (%) (Auto) 3, Basophils (%) (Auto) 0, Neutrophils # (Auto) 5.3, Lymphocytes # (Auto) 1.4, Monocytes # (Auto) 0.5, Eosinophils # (Auto) 0.2, Basophils # (Auto) 0.0, Immature Granulocyte # (Auto) 0.1, Sodium Level 137, Potassium Level 4.4, Chloride Level 104, Carbon Dioxide Level 23, Anion Gap 10, Blood Urea Nitrogen 14, Creatinine 1.89H, Estimat Glomerular Filtration Rate 27, BUN/Creatinine Ratio 7, Glucose Level 235H, Calcium Level 8.2L, Corrected Calcium 8.9, Total Bilirubin 0.3, Aspartate Amino Transf (AST/SGOT) 14, Alanine Aminotransferase (ALT/SGPT) 11, Alkaline Phosphatase 69, Total Protein 6.3L, Albumin 3.1L, Procalcitonin 0.08 09/16/21 15:14: Lactic Acid Level 1.28 09/16/21 15:20: Blood Gas Puncture Site R RADIAL, Blood Gas Patient Temperature 36, Arterial Blood pH 7.34*L, Arterial Blood Partial Pressure CO2 48H, Arterial Blood Partial Pressure O2 90, Arterial Blood HCO3 26, Arterial Blood Total CO2 27.4, Arterial Blood Oxygen Saturation 95, Arterial Blood Base Excess 0.6, Tanner Test POSITIVE, Blood Gas Ventilator Setting NO, Blood Gas Inspired Oxygen 2 L 09/16/21 16:55: Glucometer 257H 09/16/21 20:26: Glucometer 199H 09/16/21 22:47: SARS-CoV-2 RNA (RT-PCR) Not Detected 09/17/21 04:59: Glucometer 136H 09/17/21 05:25: White Blood Count 6.2, Red Blood Count 3.57L, Hemoglobin 10.2L, Hematocrit 33L, Mean Corpuscular Volume 92, Mean Corpuscular Hemoglobin 29, Mean Corpuscular Hemoglobin Concent 31L, Red Cell Distribution Width 13.2, Platelet Count 206, Mean Platelet Volume 10.4, Immature Granulocyte % (Auto) 1, Neutrophils (%) (Auto) 58, Lymphocytes (%) (Auto) 28, Monocytes (%) (Auto) 10, Eosinophils (%) (Auto) 3, Basophils (%) (Auto) 0, Neutrophils # (Auto) 3.6, Lymphocytes # (Auto) 1.7, Monocytes # (Auto) 0.6, Eosinophils # (Auto) 0.2, Basophils # (Auto) 0.0, Immature Granulocyte # (Auto) 0.1, Sodium Level 140, Potassium Level 4.1, Chloride Level 107, Carbon Dioxide Level 21, Anion Gap 12, Blood Urea Nitrogen 14, Creatinine 1.67H, Estimat Glomerular Filtration Rate 31, BUN/Creatinine Ratio 8, Glucose Level 141H, Calcium Level 8.2L, Corrected Calcium 9.2, Total Bilirubin 0.3, Aspartate Amino Transf (AST/SGOT) 8, Alanine Aminotransferase (ALT/SGPT) 8, Alkaline Phosphatase 62, Total Protein 6.0L, Albumin 2.7L 09/17/21 11:37: Glucometer 284H 09/17/21 16:07: Glucometer 307H 09/17/21 20:16: Glucometer 341H 09/18/21 05:30: White Blood Count 6.5, Red Blood Count 3.40L, Hemoglobin 9.6L, Hematocrit 32L, Mean Corpuscular Volume 93, Mean Corpuscular Hemoglobin 28, Mean Corpuscular Hemoglobin Concent 31L, Red Cell Distribution Width 13.2, Platelet Count 216, Mean Platelet Volume 10.4, Immature Granulocyte % (Auto) 1, Neutrophils (%) (Auto) 64, Lymphocytes (%) (Auto) 22, Monocytes (%) (Auto) 10, Eosinophils (%) (Auto) 3, Basophils (%) (Auto) 1, Neutrophils # (Auto) 4.2, Lymphocytes # (Auto) 1.4, Monocytes # (Auto) 0.6, Eosinophils # (Auto) 0.2, Basophils # (Auto) 0.0, Immature Granulocyte # (Auto) 0.0, Sodium Level 140, Potassium Level 3.8, Chloride Level 106, Carbon Dioxide Level 23, Anion Gap 11, Blood Urea Nitrogen 14, Creatinine 1.61H, Estimat Glomerular Filtration Rate 32, BUN/Creatinine Ratio 9, Glucose Level 121H, Calcium Level 8.0L, Corrected Calcium 9.0, Total Bilirubin 0.3, Aspartate Amino Transf (AST/SGOT) 11, Alanine Aminotransferase (ALT/SGPT) 7, Alkaline Phosphatase 57, Total Protein 5.9L, Albumin 2.7L, Triglycerides Level 73, Cholesterol Level 89, LDL Cholesterol Direct 44, VLDL Cholesterol 15, HDL Cholesterol 34L 09/18/21 11:30: Glucometer 165H 09/18/21 15:55: Glucometer 308H 09/18/21 20:16: Glucometer 209H 09/19/21 05:49: Glucometer 123H 09/19/21 07:05: White Blood Count 5.4, Red Blood Count 3.51L, Hemoglobin 9.9L, Hematocrit 32L, Mean Corpuscular Volume 92, Mean Corpuscular Hemoglobin 28, Mean Corpuscular Hemoglobin Concent 31L, Red Cell Distribution Width 13.2, Platelet Count 227, Mean Platelet Volume 10.6, Immature Granulocyte % (Auto) 1, Neutrophils (%) (Auto) 61, Lymphocytes (%) (Auto) 26, Monocytes (%) (Auto) 9, Eosinophils (%) (Auto) 3, Basophils (%) (Auto) 0, Neutrophils # (Auto) 3.3, Lymphocytes # (Auto) 1.4, Monocytes # (Auto) 0.5, Eosinophils # (Auto) 0.2, Basophils # (Auto) 0.0, Immature Granulocyte # (Auto) 0.0, Sodium Level 138, Potassium Level 4.4, Chloride Level 106, Carbon Dioxide Level 22, Anion Gap 10, Blood Urea Nitrogen 17, Creatinine 1.54H, Estimat Glomerular Filtration Rate 34, BUN/Creatinine Ratio 11, Glucose Level 136H, Calcium Level 8.1L, Corrected Calcium 9.1, Total Bilirubin 0.3, Aspartate Amino Transf (AST/SGOT) 11, Alanine Aminotransferase (ALT/SGPT) 6, Alkaline Phosphatase 65, Total Protein 5.7L, Albumin 2.8L 09/19/21 11:26: Glucometer 181H Microbiology 09/16/21 MRSA Screen - Final, Complete MRSA not isolated Pending Labs Microbiology Date/Time Source Procedure Growth Status 09/16/21 18:53 Nasal MRSA Screen - Final MRSA not isolated Complete Laboratory Tests 09/16/21 15:12: White Blood Count 7.6, Red Blood Count 3.90, Hemoglobin 11.1, Hematocrit 36, Mean Corpuscular Volume 93, Mean Corpuscular Hemoglobin 29, Mean Corpuscular Hemoglobin Concent 31, Red Cell Distribution Width 13.2, Platelet Count 210, Mean Platelet Volume 10.4, Immature Granulocyte % (Auto) 2, Neutrophils (%) (Auto) 70, Lymphocytes (%) (Auto) 19, Monocytes (%) (Auto) 7, Eosinophils (%) (Auto) 3, Basophils (%) (Auto) 0, Neutrophils # (Auto) 5.3, Lymphocytes # (Auto) 1.4, Monocytes # (Auto) 0.5, Eosinophils # (Auto) 0.2, Basophils # (Auto) 0.0, Immature Granulocyte # (Auto) 0.1, Sodium Level 137, Potassium Level 4.4, Chloride Level 104, Carbon Dioxide Level 23, Anion Gap 10, Blood Urea Nitrogen 14, Creatinine 1.89, Estimat Glomerular Filtration Rate 27, BUN/Creatinine Ratio 7, Glucose Level 235, Calcium Level 8.2, Corrected Calcium 8.9, Total Bilirubin 0.3, Aspartate Amino Transf (AST/SGOT) 14, Alanine Aminotransferase (ALT/SGPT) 11, Alkaline Phosphatase 69, Total Protein 6.3, Albumin 3.1, Procalcitonin 0.08 09/16/21 15:14: Lactic Acid Level 1.28 09/16/21 15:20: Blood Gas Puncture Site R RADIAL, Blood Gas Patient Temperature 36, Arterial Blood pH 7.34, Arterial Blood Partial Pressure CO2 48, Arterial Blood Partial Pressure O2 90, Arterial Blood HCO3 26, Arterial Blood Total CO2 27.4, Arterial Blood Oxygen Saturation 95, Arterial Blood Base Excess 0.6, Tanner Test POSITIVE, Blood Gas Ventilator Setting NO, Blood Gas Inspired Oxygen 2 L 09/16/21 16:55: Glucometer 257 09/16/21 20:26: Glucometer 199 09/16/21 22:47: SARS-CoV-2 RNA (RT-PCR) Not Detected 09/17/21 04:59: Glucometer 136 09/17/21 05:25: White Blood Count 6.2, Red Blood Count 3.57, Hemoglobin 10.2, Hematocrit 33, Mean Corpuscular Volume 92, Mean Corpuscular Hemoglobin 29, Mean Corpuscular Hemoglobin Concent 31, Red Cell Distribution Width 13.2, Platelet Count 206, Mean Platelet Volume 10.4, Immature Granulocyte % (Auto) 1, Neutrophils (%) (Auto) 58, Lymphocytes (%) (Auto) 28, Monocytes (%) (Auto) 10, Eosinophils (%) (Auto) 3, Basophils (%) (Auto) 0, Neutrophils # (Auto) 3.6, Lymphocytes # (Auto) 1.7, Monocytes # (Auto) 0.6, Eosinophils # (Auto) 0.2, Basophils # (Auto) 0.0, Immature Granulocyte # (Auto) 0.1, Sodium Level 140, Potassium Level 4.1, Chloride Level 107, Carbon Dioxide Level 21, Anion Gap 12, Blood Urea Nitrogen 14, Creatinine 1.67, Estimat Glomerular Filtration Rate 31, BUN/Creatinine Ratio 8, Glucose Level 141, Calcium Level 8.2, Corrected Calcium 9.2, Total Bilirubin 0.3, Aspartate Amino Transf (AST/SGOT) 8, Alanine Aminotransferase (ALT/SGPT) 8, Alkaline Phosphatase 62, Total Protein 6.0, Albumin 2.7 09/17/21 11:37: Glucometer 284 09/17/21 16:07: Glucometer 307 09/17/21 20:16: Glucometer 341 09/18/21 05:30: White Blood Count 6.5, Red Blood Count 3.40, Hemoglobin 9.6, Hematocrit 32, Mean Corpuscular Volume 93, Mean Corpuscular Hemoglobin 28, Mean Corpuscular Hemoglobin Concent 31, Red Cell Distribution Width 13.2, Platelet Count 216, Mean Platelet Volume 10.4, Immature Granulocyte % (Auto) 1, Neutrophils (%) (Auto) 64, Lymphocytes (%) (Auto) 22, Monocytes (%) (Auto) 10, Eosinophils (%) (Auto) 3, Basophils (%) (Auto) 1, Neutrophils # (Auto) 4.2, Lymphocytes # (Auto) 1.4, Monocytes # (Auto) 0.6, Eosinophils # (Auto) 0.2, Basophils # (Auto) 0.0, Immature Granulocyte # (Auto) 0.0, Sodium Level 140, Potassium Level 3.8, Chloride Level 106, Carbon Dioxide Level 23, Anion Gap 11, Blood Urea Nitrogen 14, Creatinine 1.61, Estimat Glomerular Filtration Rate 32, BUN/Creatinine Ratio 9, Glucose Level 121, Calcium Level 8.0, Corrected Calcium 9.0, Total Bilirubin 0.3, Aspartate Amino Transf (AST/SGOT) 11, Alanine Aminotransferase (ALT/SGPT) 7, Alkaline Phosphatase 57, Total Protein 5.9, Albumin 2.7, Triglycerides Level 73, Cholesterol Level 89, LDL Cholesterol Direct 44, VLDL Cholesterol 15, HDL Cholesterol 34 09/18/21 11:30: Glucometer 165 09/18/21 15:55: Glucometer 308 09/18/21 20:16: Glucometer 209 09/19/21 05:49: Glucometer 123 09/19/21 07:05: White Blood Count 5.4, Red Blood Count 3.51, Hemoglobin 9.9, Hematocrit 32, Mean Corpuscular Volume 92, Mean Corpuscular Hemoglobin 28, Mean Corpuscular Hemoglobin Concent 31, Red Cell Distribution Width 13.2, Platelet Count 227, Mean Platelet Volume 10.6, Immature Granulocyte % (Auto) 1, Neutrophils (%) (Auto) 61, Lymphocytes (%) (Auto) 26, Monocytes (%) (Auto) 9, Eosinophils (%) (Auto) 3, Basophils (%) (Auto) 0, Neutrophils # (Auto) 3.3, Lymphocytes # (Auto) 1.4, Monocytes # (Auto) 0.5, Eosinophils # (Auto) 0.2, Basophils # (Auto) 0.0, Immature Granulocyte # (Auto) 0.0, Sodium Level 138, Potassium Level 4.4, Chloride Level 106, Carbon Dioxide Level 22, Anion Gap 10, Blood Urea Nitrogen 17, Creatinine 1.54, Estimat Glomerular Filtration Rate 34, BUN/Creatinine Ratio 11, Glucose Level 136, Calcium Level 8.1, Corrected Calcium 9.1, Total Bilirubin 0.3, Aspartate Amino Transf (AST/SGOT) 11, Alanine Aminotransferase (ALT/SGPT) 6, Alkaline Phosphatase 65, Total Protein 5.7, Albumin 2.8 09/19/21 11:26: Glucometer 181 Discharge Home Medications: Active Scripts Active Reported Probiotic (L.acidoph & Paracasei,B.lactis) 1 Each Capsule 1 Each PO BID Alprazolam 0.5 Mg Tablet 0.5 Mg PO HS Terbinafine HCl 250 Mg Tablet 250 Mg PO DAILY Neurontin (Gabapentin) 300 Mg Capsule 300 Mg PO HS Iron (Ferrous Sulfate) 325 Mg Tablet 325 Mg PO DAILY Magnesium (Magnesium Oxide) 500 Mg Capsule 500 Mg PO DAILY Levemir Flextouch (Insulin Detemir) 100 Unit/1 Ml Insuln.pen 10 Units SC HS Pantoprazole Sodium 40 Mg Tablet.dr 40 Mg PO DAILY Farxiga (Dapagliflozin Propanediol) 10 Mg Tablet 10 Mg PO DAILY Terazosin HCl 10 Mg Capsule 10 Mg PO HS Trazodone HCl 150 Mg Tablet 300 Mg PO HS TAKES 2 (150NG) TABS Tramadol HCl 50 Mg Tablet 50-100 Mg PO Q8H PRN Aspirin 81 Mg Tab.chew 81 Mg PO DAILY Clonidine TTS 1 Patch (Clonidine) 1 Each Patch.tdwk 1 Patch TD MON Folic Acid 1 Mg Tablet 1 Mg PO DAILY Singulair (Montelukast Sodium) 10 Mg Tablet 10 Mg PO DAILY Euthyrox (Levothyroxine Sodium) 75 Mcg Tablet 75 Mcg PO DAILY Amlodipine Besylate 10 Mg Tablet 10 Mg PO DAILY B-12 (Cyanocobalamin (Vitamin B-12)) 1,000 Mcg Tablet 1,000 Mcg PO HS Cephalexin 500 Mg Tablet 500 Mg PO HS Instructions to patient/family Please see electronic discharge instructions given to patient. Diagnosis/Problems Diagnosis/Problems (1) Pleural effusion HO JUÁREZ DO Sep 19, 2021 11:29
[2021-09-19 12:30] VITALS: BP 144/76
[2021-09-20] MEDS ORDERED: CLONIDINE PATCH REMOVAL TP SCH (08:59)
[2021-09-20] MEDS ORDERED: cloNIDine 0.1 MG PATCH (CATAPRES TTS) TDSY TD SCH (09:00)
== END 2021-09-19 11:28 | disposition home or self-care (01) ==
LOC: 4TH 14:24 → UNDOADMOB 14:24 → 4TH 14:37 → UNDODISOB 09-19 12:45
PROVIDERS: ADMIT Internal Medicine; ATTEND Internal Medicine
DX: J90 Pleural effusion, not elsewhere classified (principal); J18.1 Lobar pneumonia, unspecified organism; R91.8 Other nonspecific abnormal finding of lung field
CPT/HCPCS: 71045; 71046 ×2; 71250; 80053 ×4; 80061; 82805; 82947 ×4; 83605; 84145; 85025 ×4; 87081; 87636; 93005; 93306; 94640 ×5; 94760 ×3; 97161; G0378; G0379; 36415

== ENCOUNTER → 2021-11-04 | Outpatient (CLI) | payer MEDICARE, OTHER ==
[~2021-11-04] VITALS: Ht 157 cm; Wt 118.0 kg
[~2021-11-04] MED LIST changes: +L.AC1CAP6 PO; +REGADENOSON 0.4 MG/5 ML SYR (LEXISCAN) IV ONE
[2021-11-04] MEDS: CATHETER FLUSH 10 ML SYR IV PRN ×2 (11:19→12:54)
[2021-11-04 12:53] VITALS: BP 159/71
--- NOTE | 2021-11-04 15:38 | NUCLEAR STRESS TEST ---
REGADENOSON NUCLEAR STRESS Date of procedure: 11/04/2021. Primary care provider: Naomi Camacho DO Admitting physician: Hoang Barrera Jr., MD. INDICATION: Abnormal electrocardiogram. BASELINE ELECTROCARDIOGRAM: Sinus bradycardia at 47 bpm with occasional premature ventricular complexes and low voltage in the chest leads. STRESS TEST PROCEDURE: The patient was administered 0.4 mg of intravenous Regadenoson. The resting heart rate was 47 bpm and the peak heart rate was 72 bpm. The resting blood pressure was 152/71 mmHg and the minimum blood pressure was 132/67 mmHg. This represents a [] heart rate and a [] blood pressure response to Regadenoson. The test was stopped due to the protocol. There was no chest discomfort during the test. There were isolated premature supraventricular complexes during the test. There were no significant stress induced electrocardiogram changes. NUCLEAR PROCEDURE: The patient was administered 10.4 mCi of intravenous technetium 99m Tetrofosmin at rest for the rest images. The patient was subsequently administered 29.5 mCi of intravenous technetium 99m Tetrofosmin at peak stress for the stress images. Following an appropriate wait after each injection, imaging was obtained. The images were subsequently processed and reformatted in the usual views. Gated imaging was obtained. The image quality was adequate with a mild degree of gastrointestinal attenuation artifact. CT attenuation correction was used as a adjunct to standard imaging. Both the susanna ected and uncorrected images were reviewed for interpretation. NUCLEAR RESULTS: There was a small, mild intensity, fixed apical defect with no evidence of inducible ischemia. There was normal left ventricular chamber size with an end-diastolic volume of 60 mL and an end-systolic volume of 13 mL. There was no evidence of transient ischemic dilatation. The TID ratio was 0.94. There was normal wall motion in all segments with a calculated ejection fraction of 78%. IMPRESSION: 1. Normal heart rate and blood pressure response to regadenoson. 2. There was no chest discomfort or electrocardiogram changes during the test. 3. There were isolated premature supraventricular complexes throughout the test. 4. There was a small, mild intensity, fixed apical defect with no evidence of inducible ischemia. 5. There was normal wall motion in all segments with a calculated ejection fraction of 70%. 6. This is an abnormal result although represents an overall low risk for possible future coronary ischemic events. Certain portions of this document may have been dictated utilizing voice recognition technology. Inherent to this technology, typographical and grammatical errors may exist. As much as I am diligent to identify and correct these mistakes, some errors may remain in the document. HOANG BARRERA JR, MD Nov 04, 2021 15:37
== END ==
LOC: CARD 11:30
PROVIDERS: ATTEND Internal Medicine Cardiovascular Disease
DX: R94.31 Abnormal electrocardiogram [ECG] [EKG] (principal)
CPT/HCPCS: 78452; 93017; A9502

== ENCOUNTER 2021-11-26 06:31 | Outpatient (CLI) | payer MEDICARE, OTHER ==
[~2021-11-26] VITALS: Ht 157.5 cm; Wt 119.1 kg
[~2021-11-26 06:31] MED LIST changes: -REGADENOSON 0.4 MG/5 ML SYR (LEXISCAN) IV ONE
== END 2021-11-29 13:05 | disposition home or self-care (01) ==
LOC: PREOP 06:31
PROVIDERS: ATTEND Specialist
DX: Z01.818 Encounter for other preprocedural examination (principal)

== ENCOUNTER 2021-12-03 07:59 | Day surgery (SDC) | payer MEDICARE, OTHER ==
[~2021-12-03] VITALS: Ht 157.5 cm; Wt 119.1 kg
[2021-12-03 08:05] VITALS: BP 179/87
[2021-12-03] MEDS: TETRACAINE 0.5% OPHTH SOLN 4 ML BTL (SINGLE DOSE ONLY) OU PRN ×4 (08:25→08:42)
[2021-12-03] MEDS ORDERED: MOXIFLOXACIN OPHTH SOLN 5 MG/ML 0.3 ML SYRINGE OP ONE (08:30)
[2021-12-03] MEDS ORDERED: TIMOLOL MALEATE 0.5% 5 ML (TIMOPTIC) BTL OU PRN (08:30)
[2021-12-03] MEDS ORDERED: LIDOCAINE PF 1% 2 ML VIAL IR PRN (08:30)
[2021-12-03] MEDS ORDERED: POVIDONE (BETADINE) OPHTH SOLN 5% 30 ML OP ONE (08:30)
[2021-12-03] MEDS: PHENYLEPHRINE 10% OPHTH (NEO-SYN) 5 ML BTL OU SCH ×3 (08:31→08:42)
[2021-12-03] MEDS: TROPICAMIDE 1% OPH SOLN (MYDRIACYL) 15 ML BTL OP SCH ×3 (08:31→08:42)
[2021-12-03] MEDS ORDERED: MIDAZOLAM 2 MG/2 ML (VERSED) VIAL ONE (08:52)
--- NOTE | 2021-12-03 09:04 | Ophthalmologist Pre-Op Note ---
Pre-Operative Progress Note H&P Reviewed The H&P was reviewed, patient examined and no changes noted. Date H&P Reviewed: Dec 03, 2021 Time H&P Reviewed: 09:04 Pre-Op Dx Cataract, Left Eye ELIJAH VARGAS MD Dec 03, 2021 09:04
--- NOTE | 2021-12-03 09:26 | Ophthalmology Operative Report ---
Cataract removal/placement IOL PREOPERATIVE DIAGNOSIS: Cataract Left Eye POSTOPERATIVE DIAGNOSIS: Cataract Left Eye PROCEDURE: Cataract removal and placement of posterior chamber implant, left eye SURGEON: Tobi Vargas ANESTHESIA: Topical with sedation COMPLICATIONS: None ESTIMATED BLOOD LOSS: Minimal DESCRIPTION OF PROCEDURE: After proper informed consent was obtained, the patient, a 66 female, was taken to the Operating Room and the left eye was anesthetized with tetracaine. The left eye was then prepped and draped in the usual manner. A wire lid speculum was placed. A paracentesis was made at the left hand position. Preservative free lidocaine was injected into the anterior chamber followed by viscoelastic. A clear corneal incision was made in the temporal position. A capsulorrhexis was preformed and the central nuclear and cortical material were removed. The posterior capsule was polished and an Cirilo 23.0 AU00T0 was placed into the capsular bag. The residual viscoelastic was aspirated and balanced saline solution was injected into the anterior chamber. Moxifloxacin was injected into the anterior chamber. The wound was checked and found to be water tight. The patient tolerated the procedure well without complications. TOBI VARGAS MD Dec 03, 2021 09:26
[2021-12-03 09:37] VITALS: BP 163/74
--- NOTE | 2021-12-03 12:25 | Anesthesia-General Post-Op ---
MAC Patient Condition Mental Status/LOC: Same as Preop Cardiovascular: Satisfactory Nausea/Vomiting: Absent Respiratory: Satisfactory Pain: Controlled Complications: Absent Post Op Complications Complications None Follow Up Care/Instructions Patient Instructions None needed. Anesthesiology Discharge Order Discharge Order Patient is doing well, no complaints, stable vital signs, no apparent adverse anesthesia problems. No complications reported per nursing. LAVERNE HUTSON CRNA Dec 03, 2021 12:25
== END 2021-12-03 09:38 ==
LOC: SDC 07:59
PROVIDERS: ATTEND Specialist
DX: E11.36 Type 2 diabetes mellitus with diabetic cataract (principal); E11.39 Type 2 diabetes mellitus with other diabetic ophthalmic complication; H25.12 Age-related nuclear cataract, left eye; H42 Glaucoma in diseases classified elsewhere; K21.9 Gastro-esophageal reflux disease without esophagitis; I10 Essential (primary) hypertension; M19.90 Unspecified osteoarthritis, unspecified site; F32.A Depression, unspecified; F41.9 Anxiety disorder, unspecified; E03.9 Hypothyroidism, unspecified; Z79.890 Hormone replacement therapy; Z79.899 Other long term (current) drug therapy; Z79.4 Long term (current) use of insulin; Z79.891 Long term (current) use of opiate analgesic
CPT/HCPCS: 66984; 82947; V2632

== ENCOUNTER 2021-12-17 08:56 | Day surgery (SDC) | payer MEDICARE, OTHER ==
[~2021-12-17] VITALS: Ht 157.5 cm; Wt 119.1 kg
[2021-12-17] MEDS ORDERED: POVIDONE (BETADINE) OPHTH SOLN 5% 30 ML OP ONE (09:00)
[2021-12-17] MEDS ORDERED: MOXIFLOXACIN OPHTH SOLN 5 MG/ML 0.3 ML SYRINGE OP ONE (09:00)
[2021-12-17] MEDS ORDERED: TIMOLOL MALEATE 0.5% 5 ML (TIMOPTIC) BTL OU PRN (09:00)
[2021-12-17] MEDS ORDERED: LIDOCAINE PF 1% 2 ML VIAL IR PRN (09:00)
[2021-12-17] MEDS ORDERED: MIDAZOLAM 2 MG/2 ML (VERSED) VIAL ONE (09:07)
[2021-12-17] MEDS: TETRACAINE 0.5% OPHTH SOLN 4 ML BTL (SINGLE DOSE ONLY) OU PRN ×4 (09:07→09:25)
[2021-12-17] MEDS: TROPICAMIDE 1% OPH SOLN (MYDRIACYL) 15 ML BTL OP SCH ×3 (09:15→09:25)
[2021-12-17] MEDS: PHENYLEPHRINE 10% OPHTH (NEO-SYN) 5 ML BTL OU SCH ×3 (09:15→09:25)
[2021-12-17 09:21] VITALS: BP 142/62
--- NOTE | 2021-12-17 09:38 | Ophthalmologist Pre-Op Note ---
Pre-Operative Progress Note H&P Reviewed The H&P was reviewed, patient examined and no changes noted. Date H&P Reviewed: Dec 17, 2021 Time H&P Reviewed: 09:37 Pre-Op Dx Cataract, Right Eye ELIJAH VARGAS MD Dec 17, 2021 09:38
--- NOTE | 2021-12-17 09:56 | Ophthalmology Operative Report ---
Cataract removal/placement IOL PREOPERATIVE DIAGNOSIS: Cataract Right Eye POSTOPERATIVE DIAGNOSIS: Cataract Right Eye PROCEDURE: Cataract removal and placement of posterior chamber implant, right eye SURGEON: Tobi Vargas ANESTHESIA: Topical with sedation COMPLICATIONS: None ESTIMATED BLOOD LOSS: Minimal DESCRIPTION OF PROCEDURE: After proper informed consent was obtained, the patient, a 66 female, was taken to the Operating Room and the right eye was anesthetized with tetracaine. The right eye was then prepped and draped in the usual manner. A wire lid speculum was placed. A paracentesis was made at the left hand position. Preservative free lidocaine was injected into the anterior chamber followed by viscoelastic. A clear corneal incision was made in the temporal position. A capsulorrhexis was preformed and the central nuclear and cortical material were removed. The posterior capsule was polished and Cirilo 22.5 AU00T0 IOL was placed into the capsular bag. The residual viscoelastic was aspirated and balanced saline solution was injected into the anterior chamber. Moxifloxacin was injected into the anterior chamber. The wound was checked and found to be water tight. The patient tolerated the procedure well without complications. TOBI VARGAS MD Dec 17, 2021 09:56
[2021-12-17 10:16] VITALS: BP 142/62
--- NOTE | 2021-12-17 10:46 | Anesthesia-General Post-Op ---
MAC Patient Condition Mental Status/LOC: Same as Preop Cardiovascular: Satisfactory Nausea/Vomiting: Absent Respiratory: Satisfactory Pain: Controlled Complications: Absent Post Op Complications Complications None Follow Up Care/Instructions Patient Instructions None needed. Anesthesiology Discharge Order Discharge Order Patient is doing well, no complaints, stable vital signs, no apparent adverse anesthesia problems. No complications reported per nursing. NEENA LARSEN CRNA Dec 17, 2021 10:46
== END 2021-12-17 10:17 | disposition home or self-care (01) ==
LOC: SDC 08:56
PROVIDERS: ATTEND Specialist
DX: E11.36 Type 2 diabetes mellitus with diabetic cataract (principal); H25.9 Unspecified age-related cataract; I10 Essential (primary) hypertension; E03.9 Hypothyroidism, unspecified; H40.9 Unspecified glaucoma; Z79.4 Long term (current) use of insulin; Z79.899 Other long term (current) drug therapy; Z79.890 Hormone replacement therapy
CPT/HCPCS: 66984; 82947; V2632

== ENCOUNTER 2022-08-22 08:30 | Emergency (ER) | payer MEDICARE, OTHER ==
[~2022-08-22] VITALS: Ht 157 cm; Wt 123.0 kg
[~2022-08-22 08:30] MED LIST changes: +TRAM300T23 PO; -[UNRECOGNIZED DRUG - CODE] PO
--- NOTE | 2022-08-22 09:18 | ED Fall/Injury ---
General Chief Complaint: Trauma-Non Activation Stated Complaint: FALL Nursing Triage Note: ARRIVED VIA EMS FROM HOME AFTER 3RD FALL IN THE LAST COUPLE OF DAYS. PT INC OF STOOL UPON AN ARRIVAL. MUÑOZ CATH IN PLACE ET STATES SHE HAS IT DUE TO RENAL FAILURE. Source: patient Exam Limitations: no limitations History of Present Illness Date Seen by Provider: Aug 22, 2022 Time Seen by Provider: 08:58 Initial Comments Patient is a 66-year-old female who presents to the emergency department today with a chief complaint of left posterior rib pain, low back pain. She states she fell out of bed twice in the night as well as once this morning. She denies hitting her head or loss of consciousness. She has a chronic indwelling Muñoz catheter she states due to "renal failure" and her special procedure tech is Dr. Aleisha Redmond through [facility]. She denies recent illnesses, fevers, chills, cough or congestion. Morbidly obese. Wears 2 L of oxygen chronically or "most of the time" room air saturations fluctuate between 89 to 92%. She demonstrates no increased work of breathing or respiratory distress. She is not nauseous, no abdominal pain. No black or bloody stools recently. All other review of systems reviewed and negative except as stated Occurred: other (last night) Severity: mild Injuries/Pain Location: chest, back (low back) Context: lost balance Loss of Consciousness: no loss of consciousness Associated Symptoms (Fall): Denies Symptoms Allergies and Home Medications Allergies Coded Allergies: Sulfa (Sulfonamide Antibiotics) (Verified Allergy, Unknown, 12/17/21) codeine (Verified Allergy, Unknown, 12/17/21) oxycodone (Verified Allergy, Unknown, 12/17/21) pregabalin (Verified Allergy, Unknown, "made me crazy, disoriented", 12/17/21) sulfamethoxazole (Verified Allergy, Unknown, 12/17/21) trimethoprim (Verified Allergy, Unknown, 12/17/21) Patient Home Medication List Home Medication List Reviewed: Yes Alprazolam (Alprazolam) 0.5 Mg Tablet, 0.5 MG PO HS, (Reported) Entered as Reported by: ANISHA ENRIQUEZ on 09/06/21 2501 Amlodipine Besylate (Amlodipine Besylate) 10 Mg Tablet, 10 MG PO DAILY, (Reported) Entered as Reported by: KEILA HUGHES on 08/27/21 163 Cephalexin (Cephalexin) 500 Mg Tablet, 500 MG PO HS, (Reported) Entered as Reported by: GREGORY DOMINGUEZ on 07/18/17 111 Clonidine (Clonidine TTS 1 Patch) 1 Each Patch.tdwk, 1 PATCH TD MON, (Reported) Entered as Reported by: KEILA HUGHES on 08/27/21 163 Cyanocobalamin (Vitamin B-12) (B-12) 1,000 Mcg Tablet, 1,000 MCG PO HS, (Reported) Entered as Reported by: GREGORY DOMINGUEZ on 07/18/17 1115 Dapagliflozin Propanediol (Farxiga) 10 Mg Tablet, 10 MG PO DAILY, (Reported) Entered as Reported by: ANISHA ENRIQUEZ on 09/06/211700 Ferrous Sulfate (Iron) 325 Mg Tablet, 325 MG PO DAILY, (Reported) Entered as Reported by: ANISHA ENRIQUEZ on 09/06/211700 Folic Acid (Folic Acid) 1 Mg Tablet, 1 MG PO DAILY, (Reported) Entered as Reported by: KEILA HUGHES on 08/27/21 163 Gabapentin (Neurontin) 300 Mg Capsule, 300 MG PO HS, (Reported) Entered as Reported by: ANISHA ENRIQUEZ on 09/06/211700 Insulin Detemir (Levemir Flextouch) 100 Unit/1 Ml Insuln.pen, 10 UNITS SC HS, (Reported) Entered as Reported by: ANISHA ENRIQUEZ on 09/06/211700 Levothyroxine Sodium (Euthyrox) 75 Mcg Tablet, 75 MCG PO DAILY, (Reported) Entered as Reported by: KEILA HUGHES on 08/27/21 163 Magnesium Oxide (Magnesium) 500 Mg Capsule, 500 MG PO DAILY, (Reported) Entered as Reported by: ANISHA ENRIQUEZ on 09/06/211700 Montelukast Sodium (Singulair) 10 Mg Tablet, 10 MG PO DAILY, (Reported) Entered as Reported by: KEILA HUGHES on 08/27/211634 Pantoprazole Sodium (Pantoprazole Sodium) 40 Mg Tablet.dr, 40 MG PO DAILY, (Reported) Entered as Reported by: ANISHA ENRIQUEZ on 09/06/211700 Terazosin HCl (Terazosin HCl) 10 Mg Capsule, 10 MG PO HS, (Reported) Entered as Reported by: ANISHA ENRIQUEZ on 09/06/211700 Tramadol HCl (Tramadol HCl) 50 Mg Tablet, 50-100 MG PO Q8H PRN for PAIN-MODERATE (5-7), (Reported) Entered as Reported by: ANISHA ENRIQUEZ on 09/06/211700 Trazodone HCl (Trazodone HCl) 150 Mg Tablet, 300 MG PO HS, (Reported) Entered as Reported by: ANISHA ENRIQUEZ on 09/06/211700 Review of Systems Review of Systems Constitutional: see HPI Ears, Nose, Mouth, Throat: no symptoms reported Respiratory: other (rib pain) Cardiovascular: no symptoms reported Gastrointestinal: no symptoms reported Genitourinary: no symptoms reported Musculoskeletal: back pain (low back pain) Skin: no symptoms reported Psychiatric/Neurological: No Symptoms Reported All Other Systems Reviewed Negative Unless Noted: Yes Past Svtmkvo-Mhwsyx-Sezpkm Hx Patient Social History Tobacco Use?: No Substance use?: No Alcohol Use?: No Immunizations Up To Date Tetanus Booster (TDap): Unknown First/Initial COVID19 Vaccinat: YES Second COVID19 Vaccination Bijan: UNKNOWN Third COVID19 Vaccination Date: YES COVID19 Vaccine 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 Seasonal Allergies Seasonal Allergies: Yes Past Medical History Surgery/Hospitalization HX: PMH: DM, RENAL FAILURE, HTN Surgeries: Yes (Ro[place] Shunt with Revision x3 then Reversal, Lumbar ORIF x3 Sx's ) Abdominal, Appendectomy, Section, Gallbladder, Hysterectomy, Orthopedic, Tonsillectomy Respiratory: Yes COPD Cardiac: Yes High Cholesterol, Hypertension Neurological: No Neuropathy 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 Genitourinary: Yes Renal Failure Gastrointestinal: Yes (ABDOMINAL WALL MASS) Gastroesophageal Reflux Musculoskeletal: Yes (ARTHRITIS IN BONES - KNEES, JOINTS) Degenerate Disk Disease, Arthritis Endocrine: Yes Diabetes, Non-Insulin dep HEENT: Yes Cataract Loss of Vision: Bilateral Hearing Impairment: Denies Cancer: No Psychosocial: Yes Anxiety, Depression Integumentary: No (TEARS EASILY) Blood Disorders: No Adverse Reaction/Blood Tranf: No (TRANSFUSION IN EARLY 'S) Family Medical History Cancer, Diabetes, Hypertension Physical Exam Vital Signs Vital Signs - First Documented 08/22/22 08:30 Temp 37.0 Pulse 77 Resp 16 B/P (MAP) 143/72 (95) Pulse Ox 93 O2 Delivery Room Air Capillary Refill : Less Than 3 Seconds Height, Weight, BMI Height: 5'2.00" Weight: 252lbs. 0.0oz. 114.171348um; 49.00 BMI Method:Stated General Appearance: WD/WN, no apparent distress, obese HEENT: PERRL/EOMI Cardiovascular: regular rate, rhythm Respiratory: lungs clear, normal breath sounds, no respiratory distress, no accessory muscle use, other (room air sats 89-92%) Gastrointestinal: normal bowel sounds, non tender, soft Pelvic: other (muñoz catheter in place) Back: normal inspection, no vertebral tenderness, other (large midline scar - no tenderness; patient is able to lift and maneuver her legs and roll under her own power to the left side) Extremities: normal range of motion, normal inspection, pedal edema (1-2+ bilateral) Neurologic/Psychiatric: no motor/sensory deficits, alert, normal mood/affect, oriented x 3 Skin: normal color, warm/dry, other (scattered abrasions over bilat LE - no cellulitic changes) Progress/Results/Core Measures Results/Orders My Orders Orders - KRISSY VILLARREAL MD Chest 1 View, Ap/Pa Only (08/22/22 09:12) Vital Signs/I&O 08/22/22 08:30 Temp 37.0 Pulse 77 Resp 16 B/P (MAP) 143/72 (95) Pulse Ox 93 O2 Delivery Room Air Blood Pressure Mean: 95 Progress Progress Note : Time: 10:58 Progress Note Patient is smiling, comfortable. She received some tramadol and Tylenol here in the emergency department. Chest x-ray reviewed, no bony injury. Vital signs are stable. She will follow-up with her primary care physician. All questions are sought and answered. Patient is safe for discharge Diagnostic Imaging Diagonstic Imaging: Xray Plain Films/CT/US/NM/MRI: chest Comments [facility], [place] NAME: JOCELINE MCKEON [facility] REC#: [id number] PT STATUS: REG ER : 1955 PHYSICIAN: KRISSY VILLARREAL MD ADMIT DATE: 08/22/22/ER Signed Date of Exam:08/22/22 CHEST 1 VIEW, AP/PA ONLY EXAMINATION: Chest 1 view HISTORY: Fall. Rib pain. COMPARISON: 09/19/2021. FINDINGS: The lung volumes are normal. No focal consolidation is seen. No large pleural effusion or pneumothorax is seen. The cardiomediastinal silhouette is prominent. No acute osseous abnormality is seen. IMPRESSION: 1. Cardiomegaly. No overt pulmonary edema. Dictated by: Dictated on workstation # [id number] Dict: 08/22/2259 Trans: 08/22/22 1001 [id number] Interpreted by: FALGUNI ZAMORA DO Electronically signed by: FALGUNI ZAMORA DO 08/22/22 1001 Departure Impression Primary Impression: Musculoskeletal pain Additional Impression: Fall Qualified Codes: W19.XXXA - Unspecified fall, initial encounter Disposition: HOME, SELF-CARE Condition: Stable Departure-Patient Inst. Decision time for Depature: 10:59 Referrals: HO JUÁREZ DO (PCP/Family) Primary Care Physician Patient Instructions: Contusion (DC) Add. Discharge Instructions: Continue your pain medications as needed/prescribed. If you have any new, concerning or emergent complaints please come back to the Emergency Department for re-evaluation. PLease follow up with your primary care doctor in a week or so. Copy Copies To 1: HO JUÁREZ KATHRYN M MD Aug 22, 2022 09:18
--- NOTE | 2022-08-22 10:01 | Diagnostic Imaging Report ---
EXAMINATION: Chest 1 view HISTORY: Fall. Rib pain. COMPARISON: 09/19/2021. FINDINGS: The lung volumes are normal. No focal consolidation is seen. No large pleural effusion or pneumothorax is seen. The cardiomediastinal silhouette is prominent. No acute osseous abnormality is seen. IMPRESSION: 1. Cardiomegaly. No overt pulmonary edema. Dictated by: Dictated on workstation # [id number]
[2022-08-22] MEDS ORDERED: ACETAMINOPHEN 500 MG TAB (TYLENOL) PO STA (10:25)
[2022-08-22 11:35] VITALS: BP 114/59
== END 2022-08-22 11:35 | disposition home or self-care (01) ==
LOC: EDUNIT# 08:30 → ER 08:31
DX: S80.812A Abrasion, left lower leg, initial encounter (principal); S80.811A Abrasion, right lower leg, initial encounter; M54.50 Low back pain, unspecified; R07.81 Pleurodynia; J44.9 Chronic obstructive pulmonary disease, unspecified; Z87.39 Personal history of other diseases of the musculoskeletal system and connective tissue; Z99.81 Dependence on supplemental oxygen; W06.XXXA Fall from bed, initial encounter
CPT/HCPCS: 71045; 99283

== ENCOUNTER → 2023-04-26 | Outpatient (CLI) | payer MEDICARE, OTHER ==
[~2023-04-26] MED LIST changes: -GABA300S2 PO; +GABA300S3 PO; -INSU100I29 SC; +INSU100I30 SC; +MONT-47 PO; -MONT10TA21 PO
--- NOTE | 2023-04-26 15:41 | Diagnostic Imaging Report ---
EXAMINATION: CT chest without contrast. TECHNIQUE: Multiple contiguous axial images were obtained through the chest without the use of intravenous contrast. All CT scans use one or more of the following dose optimizing techniques: automated exposure control, MA and/or KvP adjustment based on patient size and exam type or iterative reconstruction. HISTORY: Aortic aneurysm. COMPARISON: 09/17/2021. FINDINGS: There is no edema or pneumonia. No pleural effusion. No pneumothorax. No suspicious nodules. There is no axillary or supraclavicular lymphadenopathy. There is no mediastinal lymphadenopathy. Heart size is normal. There are mild coronary artery calcifications. No pericardial effusion. Aorta is normal in caliber. Limited views of the upper abdomen show surgical clips about the stomach. There are no suspicious osseous lesions. IMPRESSION: 1. No acute abnormality in the chest. Aorta is normal in caliber. Dictated by: Dictated on workstation # [id number]
== END ==
LOC: RAD 09:02
PROVIDERS: ATTEND Internal Medicine Cardiovascular Disease
DX: I71.20 Thoracic aortic aneurysm, without rupture, unspecified (principal); I10 Essential (primary) hypertension; I25.10 Atherosclerotic heart disease of native coronary artery without angina pectoris
CPT/HCPCS: 71250; C8929; 93306

== ENCOUNTER 2023-08-04 12:09 | Inpatient (IN) | payer MEDICARE, OTHER ==
[~2023-08-04] VITALS: Ht 157.5 cm; Wt 119.5 kg
[2023-08-04] MEDS ORDERED: LACTULOSE SYRUP 10GM/15ML 30ML UDC PO PRN (12:30)
[2023-08-04] MEDS ORDERED: LOPERAMIDE 2 MG CAPSULE PO PRN (12:30)
[2023-08-04] MEDS ORDERED: CALCIUM CARBONATE 500 MG CHEW TABLET PO PRN (12:30)
[2023-08-04] MEDS ORDERED: Sodium Phosphate/Sodium Biphosphate ADULT enema PR PRN (12:30)
[2023-08-04] MEDS ORDERED: MELATONIN 3 MG TABLET PO PRN (12:30)
[2023-08-04] MEDS ORDERED: ALPRAZolam 0.25 MG TABLET PO PRN (12:30)
[2023-08-04] MEDS ORDERED: DOCUSATE SODIUM 100 MG CAPSULE PO PRN (12:30)
--- NOTE | 2023-08-04 15:33 | Occupational Therapy Eval ---
OT Evaluation-General/PLF Medical Diagnosis Admission Date Medical Diagnosis: s/p R reverse total shoulder Onset Date: Aug 01, 2023 Therapy Diagnosis Therapy Diagnosis: decreased ADL statuas Height/Weight Height (Feet): 5 Height (Inches): 2.00 Weight (Pounds): 252 Weight (Ounces): 0.0 Precautions Comments Week 0-4: Elbow, wrist,hand ROM OK. Pendulums 2x/day. No shoulder ROM until 4 wks post op. Phase 1 (after 4 weeks): limit ROM to 90 degrees forward flexion, 30 degrees external rotation at neutral, 60 degrees external rotation at 90 degrees abduction. NO limit to passive internal rotation. NO restrictions for strengthening but NO active internal rotation (2-3 times per week for 4 weeks). Pt may shower any point after surgery as long as incision/dressing remains clean and dry. Options include sponge bath or shower with plastic wrap/plastic bag over dressings. No bathing is permitted if the operative site will be submerged under water until incision is completely healed. Weight Bear Status Weight Bearing Restriction: Non Weight Bearing Location Restriction: R LE Referral Physician: Janice Referral Reason: Evaluation/Treatment Medical History Pertinent Medical History: Arthritis, COPD, DM, GERD, HTN, Hypothroidism Additional Medical History HTN, DM, CKD stage 3 Current History s/p reverse R total shoulder 08/01/23 Social History Home: Single Level Current Living Status: Spouse Entry Into Home: [facility] ADL-Prior Level of Function SCALE: Activities may be completed with or without assistive devices. 7-Vmeezhmpha-ouvknff completes the activity by him/herself with no assistance from a helper. 5-Set-up or Clean-up Assistance-helper sets up or cleans up; patient completes activity. [place] assists only prior to or following the activity. 4-Supervision or Touching Assistance-helper provides verbal cues and/or touching/steadying and/or contact guard assistance as patient completes activity. Assistance may be provided throughout the activity or intermittently. 3-Partial/Moderate Assistance-helper does LESS THAN HALF the effort. [place] lifts, holds or supports trunk or limbs, but provides less than half the effort. 2-Substantial/Maximal Assistance-helper does MORE THAN HALF the effort. [place] lifts or holds trunk or limbs and provides more than half the effort. 9-Ogynekhft-rnautl does ALL the effort. Patient does none of the effort to complete the activity. Or, the assistance of 2 or more helpers is required for the patient to complete the activity. If activity was not attempted, code reason: 7-Patient Refused. 9-Not Applicable-not attempted and the patient did not perform the activity before the current illness, exacerbation or injury. 10-Not Attempted due to Environmental Limitations-(lack of equipment, weather restraints, etc.). 88-Not Attempted due to Medical Conditions or Safety Concerns. ADL PLOF Comments Motorized w/c in community, FWW in home prior to shoulder discomfort. She has a walk in tub with hose furniture removalist with seat. She has a standard toilet, no GBs. She is able to use the motorized scooter within the home. She was walking ~20-30' using FWW prior to shoulder injury. She always have assistance with footwear and sometimes have assistance with LBD. Self Care: Needed Some Help Functional Cognition: Independent OT Current Status Subjective Pt reports 9.5/10 pain in R shoulder. Mental Status/Objective Patient Orientation: Person, Place, Time, Situation Attachments: Jj Catheter, Other-See Comments (R shoulder sling) Current Glasses/Contacts: Yes Hearing Aids: Yes (b/l) Dentures/Partials: Yes Hand Dominance: Right Upper Extremity ROM RUE not tested due to TSA LUE WFL, shoulder flexion to approx 150 degrees, able to touch back of head and lower back. Upper Extremity Coordination WFL Upper Extremity Sensation WFL Upper Extremity Strength Not tested due to slight difficulty following directions with LUE, and RUE due to surgery ADL-Treatment Eating (QC): 4 Oral Hygiene (QC): 4 Shower/Bathe Self (QC): 88 Upper Body Dressing (QC): 2 Lower Body Dressing (QC): 2 On/Off Footwear (QC): 1 Toileting Hygiene (QC): 1 Other Treatments Pt in motorized w/c, agreeable to OT evaluation. Pt provided information about PLOF and home set up to her ability, then participated in UE screen. Pt demo'd ability to reach forward with LUE, able to touch mid lower leg, but unable to reach feet. She indicates her spouse assists her with footwear at home. Post tx, pt with PT, all needs met. Per PT eval: Pt transferred from motorized w/c to EOB, min A sit to stand, then use HW to EOB, min A. Max A sit to supine. Education OT Patient Education: Correct positioning, Energy conservation, Modified ADL techniques, Progress toward Goal/Update tx plan, Purpose of tx/functional activities, Rehab process Teaching Recipient: Patient Teaching Methods: Discussion Response to Teaching: Verbalize Understanding BIMS CAM BIMS Expression of Ideas and Wants: Difficulty Understanding Verbal Content: Usually Understands (slight [place]) Brief Interview/Mental Status: Yes IRF ROSARIO BIMS: IRF ROSARIO BIMS Response (Comments) Value Repitition of Three Words Three 3 Recalls Socks Yes, No Cue Required 2 Recalls Blue Yes, No Cue Required 2 Recalls Bed No, Could Not Recall 0 Year Correct 3 Month Accurate Within 5 Days 2 Day Correct 1 Total 13 CAM Mental Status Change/Baseline: 1 Inattention: 2 Disorganized thinkin Altered level of consciousness: 0 OT Elevator Operator Service Goals Jail Goals Time Frame: Aug 25, 2023 Eating (QC): 5 Oral Hygiene (QC): 6 Toileting Hygiene (QC): 3 Shower/Bathe Self (QC): 3 Upper Body Dressing (QC): 3 Lower Body Dressing (QC): 3 On/Off Footwear (QC): 2 Additional Goals: 1-Demonstrate ADL Tasks, 2-Verbalize Understanding, 3- ImproveStrength/Robe 1=Demonstrate adherence to instructed precautions during ADL tasks. 2=Patient will verbalize/demonstrate understanding of assistive devices/modifications for ADL. 3=Patient will improve strength/tolerance for activity to enable patient to perform ADL's. OT Education/Plan Problem List/Assessment Assessment: Decreased Activ Tolerance, Decreased Safety Aware, Decreased UE Strength, Impaired Cognition, Impaired Funct Balance, Impaired I ADL's, Impaired Self-Care Skills Discharge Recommendations Plan/Recommendations: Continue POC Treatment Plan/Plan of Care Patient would benefit from OT for education, treatment and training to promote independence in ADL's, mobility, safety and/or upper extremity function for ADL's. Plan of Care: ADL Retraining, Functional Mobility, Group Exercise/Act as Ind, UE Funct Exercise/Act Treatment Duration: Aug 25, 2023 Frequency: At least 5 of 7 days/Wk (IRF) Estimated Hrs Per Day: 1.5 hours per day Agreement: Yes Rehab Potential: Good Time Start Time: 13:20 Stop Time: 13:35 DATE: Aug 04, 2023 Total Time Billed (hr/min): 15 Billed Treatment Time 1, LUIZA CHEEK OT Aug 04, 2023 15:33
--- OUTSIDE RECORDS SUMMARY | 2023-08-04 15:44 | XMS REPORT | Clinical Summary ---
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 If you do not see the information that you expected, contact Release of Information in the Health Information Management department at [phone] for further assistance in locating additional records.[facility] Allergies Active Allergy Reactions Criticality Noted Date Comments Sulfamethoxazole-Trimethoprim HIVES 2013 Morphine HIVES 07/03/2014 Oxycodone-Acetaminophen HIVES 07/03/2014 Sulfa (Sulfonamide Antibiotics) HIVES 01/2014 Medications Medication Sig Dispensed Refills Start Date End Date Status pioglitazone (ACTOS) 15 mg tablet Take 15 mg by mouth daily. 0 Active amLODIPine (NORVASC) 10 mg tablet Take 10 mg by mouth daily. 0 Active levothyroxine (SYNTHROID) 75 mcg tablet Take 75 mcg by mouth daily. 0 Active ALPRAZolam (XANAX) 1 mg tablet Take 1 mg by mouth twice daily. [address](+) (PRILOSEC) 20 mg capsule Take 20 mg by mouth daily. 0 Active amitriptyline (ELAVIL) 25 mg tablet Take 25 mg by mouth at bedtime daily. 0 Active cephalexin (KEFLEX) 500 mg capsule Take 500 mg by mouth daily. 0 Active traMADol (ULTRAM) 50 mg tablet Take 100 mg by mouth daily. 0 Active baclofen (LIORESAL) 10 mg tablet Take 10 mg by mouth three times daily. 0 Active metoprolol XL (TOPROL XL) 100 mg tablet Take 100 mg by mouth daily. 0 Active Cholecalciferol (Vitamin D3) (VITAMIN D-3) 2,000 unit cap Take 1 Cap by mouth twice daily. [address] (CYMBALTA) 60 mg capsule Take 60 mg by mouth daily. 0 Active folic acid (FOLVITE) 1 mg tablet Take 1 mg by mouth daily. 0 Active aspirin EC 81 mg tablet Take 81 mg by mouth daily. 0 Active Cyanocobalamin (VITAMIN B-12) 1,000 mcg TbER Take 1 Tab by mouth daily. 0 Active glipiZIDE (GLUCOTROL) 10 mg tablet Take 10 mg by mouth twice daily. 0 Active nystatin (NYSTOP) 100,000 unit/g topical powder Apply to affected area four times daily. 0 Active CALCITRIOL PO Take 0.25 mcg by mouth daily. 0 Active Active Problems Problem Noted Date Diagnosed Date Morbid obesity 07/15/2014 Surgical History Surgery Date Site/Laterality Comments TONSILLECTOMY HX CHOLECYSTECTOMY HX APPENDECTOMY HX HYSTERECTOMY KNEE REPLACEMENT bilat CARPAL TUNNEL RELEASE HERNIA REPAIR x3 BREAST BIOPSY BACK SURGERY x5 with metal rods Medical History Medical History Date Comments Hypertension DM (diabetes mellitus) (HCC) Anxiety disorder Renal failure Thyroid disease GERD (gastroesophageal reflux disease) Social History Tobacco Use Types Packs/Day Years Used Date Smoking Tobacco: Never Alcohol Use Standard Drinks/Week Comments Not Asked 0 (1 standard drink = 0.6 oz pur e alcohol) Sex and Gender Information Value Date Recorded Sex Assigned at Not on file Gender Identity Not on file Sexual Orientation Not on file Obstetrics History Last Filed Vital Signs Vital Sign Reading Time Taken Comments Blood Pressure 145/62 07/03/2014 1:13 PM CDT Pulse 65 07/03/2014 1:13 PM CDT Temperature 36.2 C (97.2 F) 07/03/2014 1:13 PM CDT Respiratory Rate 14 07/03/2014 1:1 3 PM CDT Oxygen Saturation - - Inhaled Oxygen Concentration - - Weight 128.1 kg (282 lb 6.4 oz) 014 1:13 PM CDT Height 157.5 cm (5' 2") 07/03/2014 1:1 3 PM CDT Body Mass Index 51.65 07/03/2014 1:13 PM CDT Plan of Treatment Health Maintenance Due Date Last Done Comments COVID-19 VACCINE (#1) 04/06/1956 DTAP/TDAP VACCINES (1 - Tdap) 1971 HEPATITIS C SCREENING 1971 PHYSICAL (COMPREHENSIVE) EXAM 1971 BREAST CANCER SCREENING 1993 COLORECTAL CANCER SCREENING 1998 SHINGLES RECOMBINANT VACCINE (1 of 2) 2003 OSTEOPOROSIS SCREENING/MONITORING 2018 PNEUMOCOCCAL VACCINE 65+ YRS (1 - PCV) 2018 DEPRESSION SCREENING 10/30/2022 INFLUENZA VACCINE (#1) 2023 Care Teams 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
--- NOTE | 2023-08-04 15:57 | Physical Therapy Evaluation ---
PT Evaluation-General Medical Diagnosis Admission Date Aug 04, 2023 at 14:45 Medical Diagnosis: s/p R reverse total shoulder Onset Date: Aug 01, 2023 Therapy Diagnosis Therapy Diagnosis: Decreased functional mobility Height/Weight Height (Feet): 5 Height (Inches): 2.00 Weight (Pounds): 252 Weight (Ounces): 0.0 Precautions Precautions/Isolations: Fall Prevention, Standard Precautions Weight Bear Status Right Lower Extremity: Right Full Weight Bearing Left Lower Extremity: Left Full Weight Bearing NWB R UE; Sling at all times; See protocol Referral Physician: Janice Reason for Referral: Evaluation/Treatment Medical History Pertinent Medical History: Arthritis, COPD, DM, GERD, HTN, Hypothroidism Additional Medical History HTN, DM, CKD stage 3, Arthritis, COPD, GERD, Hypothroidism Current History S/P R RTSA on 08/01/23; Admitted to ARU on 08/04/23 Reviewed History: Yes Social History Home: Single Level Current Living Status: Spouse Entry Into Home: Ramp She has a walk in tub with hose bundle collector with seat. She has a standard toilet, no GBs. Prior Prior Level of Function SCALE: Activities may be completed with or without assistive devices. 6-Zhelccnywi-knqxiky completes the activity by him/herself with no assistance from a helper. 5-Set-up or Clean-up Assistance-helper sets up or cleans up; patient completes activity. [place] assists only prior to or following the activity. 4-Supervision or Touching Assistance-helper provides verbal cues and/or touching/steadying and/or contact guard assistance as patient completes activity. Assistance may be provided throughout the activity or intermittently. 3-Partial/Moderate Assistance-helper does LESS THAN HALF the effort. [place] lifts, holds or supports trunk or limbs, but provides less than half the effort. 2-Substantial/Maximal Assistance-helper does MORE THAN HALF the effort. [place] lifts or holds trunk or limbs and provides more than half the effort. 8-Kxkroduwp-jdpdhz does ALL the effort. Patient does none of the effort to complete the activity. Or, the assistance of 2 or more helpers is required for the patient to complete the activity. If activity was not attempted, code reason: 7-Patient Refused. 9-Not Applicable-not attempted and the patient did not perform the activity before the current illness, exacerbation or injury. 10-Not Attempted due to Environmental Limitations-(lack of equipment, weather restraints, etc.). 88-Not Attempted due to Medical Conditions or Safety Concerns. Bed Mobility: 3 Transfers (B,C,W/C): 3 Gait: 3 Stairs: 9 Wheelchair Mobility: 1 (Scooter ) Indoor Mobility (Ambulation): Needed Some Help Stairs: Not Applicalbe Prior Devices Use: Mechanical lift, Motorized scooter, Walker Motorized w/c in community, FWW in home prior to shoulder discomfort. She is able to use the motorized scooter within the home. She was walking ~20-30' using FWW prior to shoulder injury. She always have assistance with footwear and sometimes have assistance with LBD. PT Evaluation-Current Subjective Pt is agreeable to PT eval; Reported R shoulder pain at 9.5/10 Pain Numeric Pain Scale: 9 Location: Right Location Body Site: Shoulder Section J - Health Conditions 1. Rarely or not at all 2. Occasionally 3. Frequently 4. Almost constantly 8. Unable to answer Pain Effect on Sleep: 4 Pain Interference with Therapy: 4 Pain Interference w/Day-to-Day: 4 Pt/Family Goals Safely return home Objective Patient Orientation: Person, Place, Situation Attachments: Jj Catheter R shoulder sling ROM/Strength ROM Upper Extremities See OT eval ROM Lower Extremities WFL Strength Upper Extremities See OT eval Strength Lower Extremities B LE MMT = 3+/5 grossly Integumentary/Posture Integumentary See nurses note Bowel Incontinence: No Bladder Incontinence: Jj Cath Sensory Vision: Wears Glasses Hearing: Hearing Aid/Aides Hand Dominance: Right Sensation Right Upper Extremit: Intact Sensation Left Upper Extremity: Intact Sensation Right Lower Extremit: Intact Sensation Left Lower Extremity: Intact Transfers Roll Left & Right (QC): 2 (Max A ) Sit to Lying (QC): 2 (Max A ) Lying to Sitting/Side of Bed(Q: 2 (Max A ) Sit to Stand (QC): 3 (Min A ) Chair/Mmg-mu-Ioyue Xfer(QC): 3 (Min A ) Toilet Transfer (QC): 88 (Weakness/endurance/pain ) Car Transfer (QC): 88 (Weakness/endurance/pain ) Gait Does the Patient Walk?: Yes Mode of Locomotion: Both Anticipated Mode of Locomotion: Both Walk 10 feet (QC): 88 (Weakness/endurance/pain ) Walk 50 ft with 2 Turns(QC): 88 (Weakness/endurance/pain ) Walk 150 ft (QC): 9 (20-30ft at PLOF ) Walking 10ft/uneven surface-QC: 88 (Weakness/endurance/pain ) Distance: 2-3 steps Gait Assistive Device: Walker Sherman Wheelchair Training Does the Pt Use a Wheelchair?: Yes Distance: 150ft Wheel 50 ft with 2 turns (QC): 4 (SBA ) Wheel 150 ft (QC): 4 (SBA ) Type of Wheelchair: Motorized Stairs 1 Step (curb) (QC): 88 (Weakness/endurance/pain ) 4 Steps (QC): 9 (Ramp ) 12 Steps (QC): 9 (Ramp ) Walking Assistive Device: Walker (sherman-walker ) Balance Sitting Static: Good Sitting Dynamic: Fair Standing Static: Poor Standing Dynamic: Poor Picking up an Object (QC): 88 (Weakness/endurance/pain ) Special Test Comments KU standing balance scale = 1+/5 (goal = 3+/5) Treatment PT eval completed Assessment/Needs Fair tolerance Rehab Potential: Good Post Rehab Potential-Barriers: Weakness Equipment Needs Sherman-walker PT Penitentiary Goals Penitentiary Goals PT [employer] Goals Time Frame: Aug 18, 2023 Roll Left to Right (QC): 3 (Min A for bed mobility ) Sit to Lying (QC): 3 (Min A for bed mobility ) Lying-Sitting on Side/Bed(QC): 3 (Min A for bed mobility ) Sit to Stand (QC): 4 (SBA for transfers ) Chair/Ggr-xl-Gtfdz Xfer(QC): 4 (SBA for transfers ) Toilet/Commode Transfer (QC): 4 (SBA for transfers ) Car Transfer (QC): 4 (SBA for transfers ) Does the Patient Walk: Yes Walk 10 feet (QC): 4 (SBA for walking short distances ) Walk 10ft-Uneven Surface(QC): 4 (SBA for walking short distances ) Walk 50ft with 2 Turns (QC): 4 (SBA for walking short distances ) Walk 150 ft (QC): 9 (Unable at PLOF ) Does the Pt use WC or Scooter?: Yes Wheel 50 feet with 2 turns (QC: 6 (Mod I with scooter ) Type: Motorized Wheel 150 feet: 6 (Mod I with scooter ) Type: Motorized 1 Step (curb) (QC): 4 (SBA for 1 step ) 4 Steps (QC): 9 (Unable at PLOF ) 12 Steps (QC): 9 (Unable at PLOF ) Picking up an Object (QC): 4 (SBA with adjunct instructor ) KU standing balance scale goal = 3+/5 PT Plan Problem List Problem List: Activity Tolerance, Functional Strength, Safety, Balance, Gait, Transfer, Bed Mobility, ROM Treatment/Plan Treatment Plan: Continue Plan of Care Treatment Plan: Bed Mobility, Education, Functional Activity Robe, Functional Strength, Group Therapy, Gait, Safety, Therapeutic Exercise, Transfers Treatment Duration: Aug 18, 2023 Frequency: At least 5 of 7 days/Wk (IRF) Estimated Hrs Per Day: 1.5 hours per day Patient and/or Family Agrees t: Yes Safety Risks/Education Patient Education: Gait Training, Transfer Techniques, Reviewed Precautions, Correct Positioning, W/C Management, Safety Issues Teaching Recipient: Patient, Family Teaching Methods: Demonstration, Discussion Response to Teaching: Reinforcement Needed Discharge Recommendations Therapy Discharge Recommendati: Home & Family, Post Acute PT Equpiment Recommendations-D/C: Other, Please Explain (sherman-walker ) Discharge Status/Home Program Cont per POC Barriers to Progress Weakness Target Placement home with family Time Time In: 6405 Time Out: 1550 DATE: Aug 04, 2023 Total Billed Treatment Time: 15 Total Billed Treatment 15 min HI GUY PT Aug 04, 2023 15:57
[2023-08-04 16:05] VITALS: BP 141/70
--- NOTE | 2023-08-04 16:13 | PM&R Post Admission Assessment ---
PM&R Date of Visit: Aug 04, 2023 Time of Visit: 18:00 History of Present Illness CC: Right reverse shoulder replacement with respiratory failure complications HPI: This is a [id number] clinic patient of Dr Patel who presents to ARU from [facility] s/p right reverse shoulder replacement at [facility] who had respiratory failure complications. She is currently doing well and pain is improved on Ultram. Home meds restarted. Chronic UTI is managed with daily Keflex. O2 maintained. Restrictive lung disease requires O2 /. 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 PLOF FWW and scooter bound. CLOF RUE immobilizer. Past Nyfeews-Kqqogb-Yxeiyw Hx Past Med/Social Hx: Reviewed Nursing Past Med/Soc Hx, Reviewed and Corrections made Patient Social History Marrital Status: Employed/Student: retired Alcohol Use: Denies Use Smoking Status: Never a Smoker 2nd Hand Smoke Exposure: No Recent Hopitalizations: No Immunizations Up To Date Tetanus Booster (TDap): Unknown Date of Pneumonia Vaccine: Oct 12, 2010 Date of Influenza Vaccine: Sep 06, 2021 Seasonal Allergies Seasonal Allergies: Yes Past Medical History Surgeries: Abdominal, Appendectomy, Section, Gallbladder, Hysterectomy, Orthopedic, Tonsillectomy Respiratory: COPD, Pneumonia, Sleep Apnea Cardiac: High Cholesterol, Hypertension Neurological: Neuropathy 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: No Hysterectomy Genitourinary: Renal Failure Gastrointestinal: Gastroesophageal Reflux Musculoskeletal: Degenerate Disk Disease, Arthritis Endocrine: Diabetes, Non-Insulin dep HEENT: Cataract Loss of Vision: Bilateral Hearing Impairment: Denies Psychosocial: Anxiety, Depression History of Blood Disorders: No Adverse Reaction to Blood Myrick: No (TRANSFUSION IN EARLY ) Family History Cancer, Diabetes, Hypertension Self Care: Needed Some Help Functional Cognition: Independent Eatin Oral Hygiene: 4 Shower/Bathe Self: 88 Upper Body Dressin Lower Body Dressin On/Off Footwear: 1 Toileting Hygiene: 1 PM&R Allergy/Meds/Data Review Allergies Coded Allergies: Sulfa (Sulfonamide Antibiotics) (Verified Allergy, Unknown, 12/17/21) codeine (Verified Allergy, Unknown, 12/17/21) oxycodone (Verified Allergy, Unknown, 12/17/21) pregabalin (Verified Allergy, Unknown, "made me crazy, disoriented", 12/17/21) sulfamethoxazole (Verified Allergy, Unknown, 12/17/21) trimethoprim (Verified Allergy, Unknown, 12/17/21) Home Medications Scheduled Alprazolam (Alprazolam), 0.5 MG PO HS, (Reported) Amlodipine Besylate (Amlodipine Besylate), 10 MG PO DAILY, (Reported) Cephalexin (Cephalexin), 500 MG PO HS, (Reported) Clonidine (Clonidine TTS 1 Patch), 1 PATCH TD MON, (Reported) Cyanocobalamin (Vitamin B-12) (B-12), 1,000 MCG PO HS, (Reported) Dapagliflozin Propanediol (Farxiga), 10 MG PO DAILY, (Reported) Ferrous Sulfate (Iron), 325 MG PO DAILY, (Reported) Folic Acid (Folic Acid), 1 MG PO DAILY, (Reported) Gabapentin (Neurontin), 300 MG PO HS, (Reported) Insulin Detemir (Levemir Flextouch), 10 UNITS SC HS, (Reported) Levothyroxine Sodium (Euthyrox), 75 MCG PO DAILY, (Reported) Magnesium Oxide (Magnesium), 500 MG PO DAILY, (Reported) Montelukast Sodium (Singulair), 10 MG PO DAILY, (Reported) Pantoprazole Sodium (Pantoprazole Sodium), 40 MG PO DAILY, (Reported) Terazosin HCl (Terazosin HCl), 10 MG PO HS, (Reported) Trazodone HCl (Trazodone HCl), 300 MG PO HS, (Reported) Scheduled PRN Tramadol HCl (Tramadol HCl), 50-100 MG PO Q8H PRN for PAIN-MODERATE (5-7), (Reported) Current Medications Current Medications Reviewed Review of Systems Constitutional: see HPI, malaise EENTM: no symptoms reported Respiratory: no symptoms reported Cardiovascular: no symptoms reported Gastrointestinal: no symptoms reported Genitourinary: no symptoms reported Musculoskeletal: back pain, joint pain Skin: no symptoms reported Psychiatric/Neurological: No Symptoms Reported All Other Systems Reviewed Negative Unless Noted: Yes Physical Exam Physical Exam Vital Signs Vital Signs - First Documented 08/04/23 16:05 Temp 37.0 Pulse 100 Resp 16 B/P (MAP) 141/70 (93) Pulse Ox 90 O2 Delivery Room Air Capillary Refill : Height, Weight, BMI Height: 5'2.00" Weight: 252lbs. 0.0oz. [id number]; 49.00 BMI Method:Stated General Appearance: No Apparent Distress, WD/WN, Chronically ill, Obese Eyes: Bilateral Eye Normal Inspection, Bilateral Eye PERRL HEENT: PERRL/EOMI, Normal ENT Inspection, Pharynx Normal Neck: Full Range of Motion, Normal Inspection, Non Tender, Supple, Carotid Bruit Respiratory: Chest Non Tender, Lungs Clear, No Accessory Muscle Use, No Respiratory Distress, Decreased Breath Sounds Cardiovascular: Regular Rate, Rhythm, No Edema, No Gallop, No JVD, No Murmur, Normal Peripheral Pulses Gastrointestinal: Normal Bowel Sounds, No Organomegaly, No Pulsatile Mass, Non Tender, Soft Back: Normal Inspection, No CVA Tenderness, No Vertebral Tenderness Extremity: Normal Capillary Refill, Normal Inspection, Normal Range of Motion (except right arm), Non Tender, No Calf Tenderness, No Pedal Edema Neurologic/Psychiatric: Alert, Oriented x3, Normal Mood/Affect, 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 stove 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-XII Norm as Tested, Abnormal Gait, Motor Weakness (generalized) Skin: Normal Color, Warm/Dry Lymphatic: No Adenopathy PM&R Medical Assessment & Plan REHAB/MEDICAL ASSESSMENT AND PLAN: REHAB IMPAIRMENT GROUP: Other orthopaedic ETIOLOGIC DIAGNOSIS: Glenohumeral arthritis right shoulder The comorbidities that impact the patients function and/or functional outcome by: chronic ressp failure, O2 dependent, fall risk, obesity, chronic UTI REHAB PLAN: The patient is being admitted to our comprehensive inpatient rehabilitation facility and can tolerate the intensity of service consisting of at least: 180 minutes of therapy a day, 5 out of 7 days a week Rehab treatment will consist of: PT OT will focus on regaining function with use of AD in order to increase stamina and independence and increase ADL's in order to return home The patient/family has a good understanding of our discharge process and will benefit from an interdisciplinary inpatient rehabilitation program. The patient has potential to make improvement and is in need of at least two of the following multidisciplinary therapies including but not limited to physical, occupational, speech, and prosthetics and orthotics. Additionally the patient will need services from respiratory, nutritional services, wound care, psychology, etc. (Customize this to each patient). Given the patients complex condition and risk of further medical complications, rehabilitation services cannot be safely or effectively provided at a lower level of care such as a custodial facility. BARRIERS TO DISCHARGE: Dominant hand restriction ESTIMATED LOS: 7 days DISPOSITION: Home RELEVANT CHANGES SINCE PREADMISSION SCREENING: I have compared the patients medical and functional status at the time of the preadmission screening and there are: no changes PROGNOSIS: Good REHABILITATION GOALS: 1. PT OT will focus on regaining function with use of AD in order to increase stamina and independence and increase ADL's in order to return home All the above goals were reviewed with the patient and he/she is in agreement. By signing this document, I acknowledge that I have personally performed a full physical examination on this patient within 24 hours of admission to this inpatient rehabilitation facility and have determined the patient to be able to tolerate the above course of treatment at an intensive level for a reasonable period of time. I will be completing a detailed individualized Plan of Care for this patient by day #4 of the patients stay based upon the Preadmission Screen, the Post-Admission Evaluation, and the therapy evaluations. Admission Dx/Comorbidities: (1) Status post reverse arthroplasty of right shoulder ICD Codes: Z96.611 - Presence of right artificial shoulder joint Assessment/Plan Assessment and Plan Assess & Plan/Chief Complaint Assessment: 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 JIMI COPD Debility acute on chronic DM CKD HTN HLP Chronic UTI Plan: PT OT Fall risk Home meds Pain control HO JUÁREZ DO Aug 04, 2023 16:13
[2023-08-04] MEDS: CLONIDINE 0.1 MG TD SCH (17:16)
[2023-08-04 20:15] VITALS: BP 137/76
[2023-08-04] MEDS: diphenhydrAMINE 25 MG TABLET PO PRN (20:38)
[2023-08-04] MEDS: SENNA W/DOCUSATE TABLET PO SCH (20:38)
[2023-08-04] MEDS: GABAPENTIN 300 MG CAPSULE PO SCH (20:38)
[2023-08-04] MEDS: CEPHALEXIN 250 MG CAPSULE PO SCH (20:38)
[2023-08-04] MEDS: TERAZOSIN 5 MG CAPSULE PO SCH (20:38)
[2023-08-04] MEDS: CYANOCOBALAMIN 1,000 MCG TABLET PO SCH (20:38)
[2023-08-04] MEDS: traZODone 150 MG (DESYREL) TABLET PO SCH (20:38)
[2023-08-04] MEDS: DOCUSATE SODIUM 100 MG CAPSULE PO SCH (20:40)
[2023-08-04] MEDS ORDERED: NON-FORMULARY MEDICATION 1 EA EA (Cephalexin 500 MG) PO SCH (21:00)
[2023-08-04] MEDS ORDERED: ALPRAZolam 0.5 MG TABLET PO SCH (21:00)
[2023-08-04] MEDS ORDERED: NON-FORMULARY MEDICATION 1 EA EA (Terazosin HCl 10 MG) PO SCH (21:00)
[2023-08-04] MEDS ORDERED: inSUlin DETERMIR 1 UNIT/0.01 ML (CHARGE PER UNIT) SQ SCH (21:00)
[2023-08-04] MEDS ORDERED: NON-FORMULARY MEDICATION 1 EA EA (Insulin Detemir (Levemir Flextouch) 10 UNITS) SC SCH (21:00)
[2023-08-05 06:21] LABS: BASOPHILS % (AUTO) 0 % (0-10); EOSINOPHILS # (AUTO) 0.2 10^3/uL (0.0-0.3); EOSINOPHILS % (AUTO) 3 % (0-10); HEMATOCRIT 31 % (35-52); HEMOGLOBIN 9.4 g/dL (11.5-16.0); LYMPHOCYTES # (AUTO) 1.7 10^3/uL (1.0-4.0); LYMPHOCYTES % (AUTO) 22 % (12-44); MEAN CORPUSCULAR HEMOGLOBIN 28 pg (25-34); MEAN CORPUSCULAR HGB CONC 31 g/dL (32-36); MEAN CORPUSCULAR VOLUME 91 fL (80-99); MEAN PLATELET VOLUME 9.9 fL (9.0-12.2); MONOCYTES # (AUTO) 0.5 10^3/uL (0.0-1.0); MONOCYTES % (AUTO) 7 % (0-12); NEUTROPHILS # (AUTO) 5.1 10^3/uL (1.8-7.8); NEUTROPHILS % (AUTO) 68 % (42-75); PLATELET COUNT 146 10^3/uL (130-400); WHITE BLOOD COUNT 7.6 10^3/uL (4.3-11.0)
[2023-08-05] MEDS: LEVOTHYROXINE 75 MCG TABLET PO SCH (06:22)
[2023-08-05 06:39] LABS: ALBUMIN 2.6 GM/DL (3.2-4.5); POTASSIUM 3.3 MMOL/L (3.6-5.0)
[2023-08-05 06:41] LABS: CALCIUM 8.5 MG/DL (8.5-10.1)
[2023-08-05 06:42] LABS: TOTAL PROTEIN 5.4 GM/DL (6.4-8.2)
[2023-08-05 06:44] LABS: BILIRUBIN,TOTAL 0.6 MG/DL (0.1-1.0)
[2023-08-05 06:45] LABS: CREATININE SERUM 1.77 MG/DL (0.60-1.30)
[2023-08-05 08:00] VITALS: BP 189/77
--- NOTE | 2023-08-05 08:50 | PM&R Progress Note ---
Subjective HPI/CC On Admission Date Seen by Provider: Aug 05, 2023 Time Seen by Provider: 09:00 Subjective/Events-last exam 08/05/2023: Patient doing really well Changing medication to exactly how she takes it at home Removed oxycodone as an allergy since it is just itching and we will treat with Benadryl No falls Doxycycline will complete Pain is not controlled so adding oxycodone Review of Systems General: Fatigue, Malaise Musculoskeletal: arm pain Objective Exam Vital Signs Vital Signs Date Time Temp Pulse Resp B/P (MAP) Pulse Ox O2 Delivery O2 Flow Rate FiO2 08/05/23 09:31 37.0 90 20 133/59 (83) 94 Nasal Cannula 2.00 Capillary Refill : General Appearance: No Apparent Distress, WD/WN, Chronically ill, Obese HEENT: PERRL/EOMI, Normal ENT Inspection, Pharynx Normal Neck: Full Range of Motion, Normal Inspection, Non Tender, Supple, Carotid Bruit Respiratory: Chest Non Tender, Lungs Clear, No Accessory Muscle Use, No Respiratory Distress, Decreased Breath Sounds Cardiovascular: Regular Rate, Rhythm, No Edema, No Gallop, No JVD, No Murmur, Normal Peripheral Pulses Gastrointestinal: Normal Bowel Sounds, No Organomegaly, No Pulsatile Mass, Non Tender, Soft Back: Normal Inspection, No CVA Tenderness, No Vertebral Tenderness Extremity: Normal Capillary Refill, Normal Inspection, Normal Range of Motion (except right arm), Non Tender, No Calf Tenderness, No Pedal Edema Neurologic/Psychiatric: Alert, Oriented x3, Normal Mood/Affect, production support engineer II-XII Norm as Tested, Abnormal Gait, Motor Weakness (generalized) Skin: Normal Color, Warm/Dry Lymphatic: No Adenopathy Results/Procedures Lab Laboratory Tests 08/05/23 06:05 Patient resulted labs reviewed. FIM Transfers Therapy Code Descriptions/Definitions Functional [place] Measure: 0=Not Assessed/NA 4=Minimal Assistance 1=Total Assistance 5=Supervision or Setup 2=Maximal Assistance 6=Modified [place] 3=Moderate Assistance 7=Complete IndependenceSCALE: Activities may be completed with or without assistive devices. 9-Nkdkxztkdg-icbkiwo completes the activity by him/herself with no assistance from a helper. 5-Set-up or Clean-up Assistance-helper sets up or cleans up; patient completes activity. [place] assists only prior to or following the activity. 4-Supervision or Touching Assistance-helper provides verbal cues and/or touching/steadying and/or contact guard assistance as patient completes activi ty. Assistance may be provided throughout the activity or intermittently. 3-Partial/Moderate Assistance-helper does LESS THAN HALF the effort. [place] lifts, holds or supports trunk or limbs, but provides less than half the effort. 2-Substantial/Maximal Assistance-helper does MORE THAN HALF the effort. [place] lifts or holds trunk or limbs and provides more than half the effort. 4-Hcegkszuh-vrrbqy does ALL the effort. Patient does none of the effort to complete the activity. Or, the assistance of 2 or more helpers is required for the patient to complete the activity. If activity was not attempted, code reason: 7-Patient Refused. 9-Not Applicable-not attempted and the patient did not perform the activity before the current illness, exacerbation or injury. 10-Not Attempted due to Environmental Limitations-(lack of equipment, weather restraints, etc.). 88-Not Attempted due to Medical Conditions or Safety Concerns. Roll Left to Right (QC): 2 (Max A ) Sit to Lying (QC): 2 (Max A ) Sit to Stand (QC): 3 (Min A ) Chair/Hox-cv-Hyvya Xfer(QC): 3 (Min A ) Car Transfer (QC): 88 (Weakness/endurance/pain ) Gait Training Does the Patient Walk?: Yes Walk 10 feet (QC): 88 (Weakness/endurance/pain ) Walk 50 ft with 2 Turns(QC): 88 (Weakness/endurance/pain ) Walk 150 ft (QC): 9 (20-30ft at PLOF ) Walking 10ft/uneven surface-QC: 88 (Weakness/endurance/pain ) Gait Assistive Device: Walker Sherman Wheelchair Training Does the Pt Use a Wheelchair?: Yes Distance: 150ft Wheel 50 ft with 2 turns (QC): 4 (SBA ) Wheel 150 ft (QC): 4 (SBA ) Type of Wheelchair: Motorized Stair Training 1 Step (curb) (QC): 88 (Weakness/endurance/pain ) 4 Steps (QC): 9 (Ramp ) 12 Steps (QC): 9 (Ramp ) Balance Picking up an Object (QC): 88 (Weakness/endurance/pain ) ADL-Treatment Eating (QC): 4 Oral Hygiene (QC): 4 Shower/Bathe Self (QC): 88 Upper Body Dressing (QC): 2 Lower Body Dressing (QC): 2 On/Off Footwear (QC): 1 Toileting Hygiene (QC): 1 Assessment/Plan Assessment and Plan Assess & Plan/Chief Complaint Assessment: 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 JIMI COPD Debility acute on chronic DM CKD HTN HLP Chronic UTI Plan: PT OT Fall risk Home meds Pain control 08/05/2023: Add oxycodone for pain control Monitor closely (1) Status post reverse arthroplasty of right shoulder HO JUÁREZ DO Aug 05, 2023 08:50
--- NOTE | 2023-08-05 08:51 | Occupational Ther Daily Note ---
OT Current Status-Daily Note Subjective Pt supine in bed upon arrival and is agreeable to OT tx. Pt reporting discomfort of R shoulder rating pain 6/10 at start of treatment. Pt states, "It actually feels much better than it did yesterday." Pain Numeric Pain Scale: 6 Location: Right Location Body Site: Shoulder Mental Status/Objective Attachments: Jj Catheter, Other-See Comments R shoulder sling/immobilizer ADL-Treatment Pt agreeable to sponge bath this date. Bed mobility, from supine to sit EOB, requiring max A. Pt requires mod A to maintain initial balance while seated EOB. Attempt sit to stand transfer to perform mobility towards bathroom using hemiwalker. Pt requires mod A for stand. Once standing, pt is unable to shift weight for stepping and tolerates approx. 45 seconds of standing before requiring seated rest break. Attempted pivot transfer to power chair with pt requiring mod A for initial stand. Pt is unable to pivot feet for transfer to chair at this time. Began sponge bath while seated EOB with pt able to wash face before requesting to lie back down due to "feeling unsteady." EOB to supine with max A. Max A for positioning in bed. Pt washes partial chest and stomach with set up of cloth. Assistance required for remainder of sponge bath. GEAR CUTTING MACHINE SET UP OPERATOR adjusts immobilizer with noted redness on posterior under arm area, nursing staff informed. Therapy Code Descriptions/Definitions Functional [place] Measure: 0=Not Assessed/NA 4=Minimal Assistance 1=Total Assistance 5=Supervision or Setup 2=Maximal Assistance 6=Modified [place] 3=Moderate Assistance 7=Complete IndependenceSCALE: Activities may be completed with or without assistive devices. 7-Wzdvfdxsnb-fimoiuw completes the activity by him/herself with no assistance from a helper. 5-Set-up or Clean-up Assistance-helper sets up or cleans up; patient completes activity. [place] assists only prior to or following the activity. 4-Supervision or Touching Assistance-helper provides verbal cues and/or touching/steadying and/or contact guard assistance as patient completes activity. Assistance may be provided throughout the activity or intermittently. 3-Partial/Moderate Assistance-helper does LESS THAN HALF the effort. [place] lifts, holds or supports trunk or limbs, but provides less than half the effort. 2-Substantial/Maximal Assistance-helper does MORE THAN HALF the effort. [place] lifts or holds trunk or limbs and provides more than half the effort. 8-Pmydzlfub-cgwdtj does ALL the effort. Patient does none of the effort to complete the activity. Or, the assistance of 2 or more helpers is required for the patient to complete the activity. If activity was not attempted, code reason: 7-Patient Refused. 9-Not Applicable-not attempted and the patient did not perform the activity before the current illness, exacerbation or injury. 10-Not Attempted due to Environmental Limitations-(lack of equipment, weather restraints, etc.). 88-Not Attempted due to Medical Conditions or Safety Concerns. Other Treatment OT focus on sequencing of bed mobility and increasing independence during transfer. During second attempt, pt continues to require max A. Sequencing of scooting forward on EOB with max A to perform task. Unsupported sitting to improve sitting balance needed during dressing and grooming. Assistance of second person required for transfer to power chair. Positioning in chair with max A. Education OT Patient Education: Correct positioning, Energy conservation, Modified ADL techniques 90 min total tx including 60 indv. 30 co-tx with PT to integrate use of UE/LE during functional transfers and mobility tasks to improve overall independence. 4 ADL 2 theract. OT Halfway Goals Showroom Consultant Goals Time Frame: Aug 25, 2023 Acute change in mental status: 1 Inattention: 2 Disorganized thinkin Altered level of consciousness: 0 Eating (QC): 5 Oral Hygiene (QC): 6 Toileting Hygiene (QC): 3 Shower/Bathe Self (QC): 3 Upper Body Dressing (QC): 3 Lower Body Dressing (QC): 3 On/Off Footwear (QC): 2 Additional Goals: 1-Demonstrate ADL Tasks, 2-Verbalize Understanding, 3- ImproveStrength/[place] 1=Demonstrate adherence to instructed precautions during ADL tasks. 2=Patient will verbalize/demonstrate understanding of assistive devices/modifications for ADL. 3=Patient will improve strength/tolerance for activity to enable patient to perform ADL's. OT Education/Plan Problem List/Assessment Assessment: Decreased Activ Tolerance, Impaired Bed Mobility, Impaired Coordination, Impaired Self-Care Skills, Restricted Funct UE ROM Discharge Recommendations Plan/Recommendations: Continue POC Treatment Plan/Plan of Care Patient would benefit from OT for education, treatment and training to promote independence in ADL's, mobility, safety and/or upper extremity function for ADL's. Plan of Care: ADL Retraining, Functional Mobility, Group Exercise/Act as Ind, UE Funct Exercise/Act Treatment Duration: Aug 25, 2023 Frequency: At least 5 of 7 days/Wk (IRF) Estimated Hrs Per Day: 1.5 hours per day Agreement: Yes Rehab Potential: Good Time Start Time: 07:00 Stop Time: 08:30 DATE: Aug 05, 2023 Total Time Billed (hr/min): 90 Billed Treatment Time 4 ADL 2 theract DOMINIQUE LIM Aug 05, 2023 08:51
[2023-08-05] MEDS ORDERED: EMPAGLIFLOZIN 10 MG TABLET PO SCH (09:00)
[2023-08-05] MEDS ORDERED: NON-FORMULARY MEDICATION 1 EA EA (Magnesium Oxide (Magnesium) 500 MG) PO SCH (09:00)
[2023-08-05] MEDS ORDERED: NON-FORMULARY MEDICATION 1 EA EA (Dapagliflozin Propanediol (Farxiga) 10 MG) PO SCH (09:00)
[2023-08-05] MEDS ORDERED: PANTOPRAZOLE 40 MG TABLET PO SCH (09:00)
[2023-08-05] MEDS ORDERED: MONTELUKAST 10 MG TABLET PO SCH (09:00)
[2023-08-05 09:31] VITALS: BP 133/59
[2023-08-05] MEDS: ENOXAPARIN 40 MG/0.4 ML SYRINGE SC SCH (09:33)
[2023-08-05] MEDS: DOCUSATE SODIUM 100 MG CAPSULE PO SCH ×2 (09:34→20:40)
[2023-08-05] MEDS: SENNA W/DOCUSATE TABLET PO SCH ×2 (09:34→20:42)
[2023-08-05] MEDS: MAGNESIUM OXIDE 400 MG TABLET PO SCH (09:36)
[2023-08-05] MEDS: amLODIPine 10 MG TABLET PO SCH (09:37)
[2023-08-05] MEDS: FOLIC ACID 1 MG TAB PO SCH (09:38)
[2023-08-05] MEDS: FERROUS SULFATE 325 MG (IRON) TABLET PO SCH (09:38)
--- NOTE | 2023-08-05 11:04 | Physical Therapy Daily Note ---
PT Daily Note-Current Subjective Patient supine in bed with OT in room when PT enters room. Patient agreeable to co-tx for remainder of OT session with observed benefit due to onset of fatigue following initial hour of intervention. Patient on 2L supplemental O2 via NSC, stable saturation. Patient reports pain 4/10 at rest, elevating to 7/10 with se ssion functional challenges. During session, O2 removed for transfer with SPO2% reducing as low as 80%, monitored and controlled with guided breathing, returning to 90% with return of NSC. Pain Section J - Health Conditions 1. Rarely or not at all 2. Occasionally 3. Frequently 4. Almost constantly 8. Unable to answer Pain Effect on Sleep: 4 Pain Interference with Therapy: 4 Pain Interference w/Day-to-Day: 4 Mental Status Patient Orientation: Person, Place, Time, Situation Transfers SCALE: Activities may be completed with or without assistive devices. 4-Jpfgnvkaqy-tzvzmtv completes the activity by him/herself with no assistance from a helper. 5-Set-up or Clean-up Assistance-helper sets up or cleans up; patient completes activity. [place] assists only prior to or following the activity. 4-Supervision or Touching Assistance-helper provides verbal cues and/or touching/steadying and/or contact guard assistance as patient completes activity. Assistance may be provided throughout the activity or intermittently. 3-Partial/Moderate Assistance-helper does LESS THAN HALF the effort. [place] lifts, holds or supports trunk or limbs, but provides less than half the effort. 2-Substantial/Maximal Assistance-helper does MORE THAN HALF the effort. [place] lifts or holds trunk or limbs and provides more than half the effort. 7-Ygvisidxr-vljito does ALL the effort. Patient does none of the effort to complete the activity. Or, the assistance of 2 or more helpers is required for the patient to complete the activity. If activity was not attempted, code reason: 7-Patient Refused. 9-Not Applicable-not attempted and the patient did not perform the activity before the current illness, exacerbation or injury. 10-Not Attempted due to Environmental Limitations-(lack of equipment, weather restraints, etc.). 88-Not Attempted due to Medical Conditions or Safety Concerns. Roll Left & Right (QC): 88 Sit to Lying (QC): 1 Lying to Sitting/Side of Bed(Q: 1 Sit to Stand (QC): 3 Chair/Dwt-yc-Otqft Xfer(QC): 3 Toilet Transfer (QC): 3 Car Transfer (QC): 88 Patient participated in bed mobility and repositioning practice, patient req total A to achieve L SL position. R rolling not assessed due to concessionist performed. Patient req assistx2, dependent in supine > sit at EOB and later req totalAx1 to sit > supine from EOB and scoot laterally and vertically to achieve proper position in bed. Patient participated in functional sit <>stand transfer practice from EOB and mobility chair modAx1, followed by SPT practice mobility chair <> EOB with PT assist mod-maxAx1 without ability to manage hemiwalker as AD. Patient participated in functional seated repositioning practice at EOB and on mobility scooter req totalA to achieve appropriate positioning and posture on seated surface. Patient educated on improving efficiency and quality of functional task with improved performance, sequence, and safety with functional practice during session. Patient educated on supplemental SPO2 adherence and desaturation with activity and educated on deep breathing techniques with guided practice. Weight Bearing Right Lower Extremity: Right Full Weight Bearing Left Lower Extremity: Left Full Weight Bearing NWB R UE; Sling at all times; See protocol Exercises Patient perform seated AROM-AAROM of BLE, req external assist due to onset of fatigue <10 reps. Patient perform 3 sets of x10 reps each including hip flex, LAQ, ankle df/pf, hip in/outs. Performed for improved functional strength, endurance and mobility. Neuromuscular Patient perform static sitting balance EOB with single UE support, demonstrating initial unsteadiness at start of practice. Patient orient to balance training, t hen able to sit without UE support and no sway. Patient seated balance progressed with dynamic weight shifting and reaching challenges, variable distances and angles outside RUSS focusing on improving balance, stability and reactive control for improved independence with seated activity. Patient perform bouts of static standing balance with LUE support at railing or david-walker, focusing on improving ability to achieve initial standing position and maintaining COG/RUSS with improved functional balance, stability and reactive control for reduced fall risk with standing functional activity. Assessment Current Status: Good Progress Patient tolerated session well without adverse rxn. Due to desaturation of SPO2% with activity results in recommended continued adherence to supplemental O2 via NSC at 2L as directed. At end of session patient return to supine position in bed with HOB elevated and heels floated, patient all needs met or within reach. co-tx performed with OT due to patient increased need of assist and reduced tolerance with progressive fatigue for continued participation and safety during functional challenge, while promoting increased use of fine and gross motor movements for achievement of maximum functional potential. PT Halfway Goals Halfway Goals PT Halfway Goals Time Frame: Aug 18, 2023 Roll Left & Right (QC): 3 (Min A for bed mobility ) Sit to Lying (QC): 3 (Min A for bed mobility ) Lying-Sitting on Side/Bed(QC): 3 (Min A for bed mobility ) Sit to Stand (QC): 4 (SBA for transfers ) Chair/Uhb-sz-Zmhom Xfer(QC): 4 (SBA for transfers ) Toilet Transfer (QC): 4 (SBA for transfers ) Car Transfer (QC): 4 (SBA for transfers ) Does the Patient Walk: Yes Walk 10 feet (QC): 4 (SBA for walking short distances ) Walk 50ft with 2 Turns (QC): 4 (SBA for walking short distances ) Walk 150 ft (QC): 9 (Unable at PLOF ) Walking 10ft on Uneven Surface: 4 (SBA for walking short distances ) 1 Step (curb) (QC): 4 (SBA for 1 step ) 4 Steps (QC): 9 (Unable at PLOF ) 12 Steps (QC): 9 (Unable at PLOF ) Picking up an Object (QC): 4 (SBA with test tube maker ) Does the Pt use WC or Scooter?: Yes Wheel 50 feet with 2 turns (QC: 6 (Mod I with scooter ) Type: Motorized Wheel 150 feet: 6 (Mod I with scooter ) Type: Motorized PT Plan Treatment/Plan Treatment Plan: Continue Plan of Care Treatment Plan: Bed Mobility, Education, Functional Activity Robe, Functional Strength, Group Therapy, Gait, Safety, Therapeutic Exercise, Transfers Treatment Duration: Aug 18, 2023 Frequency: At least 5 of 7 days/Wk (IRF) Estimated Hrs Per Day: 1.5 hours per day Patient and/or Family Agrees t: Yes Time Time In: 0800 Time Out: 0930 DATE: Aug 05, 2023 Total Billed Treatment Time: 90 Total Billed Treatment 1 session 90 minute treatment 60 minute individual 30 minute co-treatment with OT FA x2 NM x2 EX x2 NAOMI,GABI PT Aug 05, 2023 11:04
[2023-08-05] MEDS ORDERED: TIRZ2.5P SQ (11:46)
[2023-08-05] MEDS ORDERED: FURO40TA4 PO (11:46)
[2023-08-05] MEDS ORDERED: CALC-250 PO (11:46)
[2023-08-05] MEDS: FUROSEMIDE 40 MG TABLET PO SCH (12:02)
[2023-08-05] MEDS: MICONAZOLE 2% POWDER 90 GM TOP SCH ×2 (12:03→20:41)
[2023-08-05] MEDS: NYSTATIN CREAM 30 GM TUBE TP SCH ×2 (12:03→20:40)
[2023-08-05] MEDS: oxyCODONE IMMEDIATE RELEASE 5 MG TABLET PO PRN ×3 (12:28→21:18)
[2023-08-05 19:29] VITALS: BP 144/74
[2023-08-05] MEDS: CEPHALEXIN 250 MG CAPSULE PO SCH (20:39)
[2023-08-05] MEDS: inSUlin DETERMIR 1 UNIT/0.01 ML (CHARGE PER UNIT) SQ SCH (20:39)
[2023-08-05] MEDS: diphenhydrAMINE 25 MG TABLET PO PRN (20:39)
[2023-08-05] MEDS: GABAPENTIN 300 MG CAPSULE PO SCH (20:40)
[2023-08-05] MEDS: traZODone 150 MG (DESYREL) TABLET PO SCH (20:40)
[2023-08-05] MEDS: ALPRAZolam 1 MG TABLET PO SCH (20:40)
[2023-08-05] MEDS: MONTELUKAST 10 MG TABLET PO SCH (20:40)
[2023-08-05] MEDS: CYANOCOBALAMIN 1,000 MCG TABLET PO SCH (20:40)
[2023-08-05] MEDS: TERAZOSIN 5 MG CAPSULE PO SCH (20:42)
[2023-08-06] MEDS: LEVOTHYROXINE 75 MCG TABLET PO SCH (05:58)
[2023-08-06] MEDS: oxyCODONE IMMEDIATE RELEASE 5 MG TABLET PO PRN ×4 (05:59→20:56)
[2023-08-06 07:40] VITALS: BP 157/67
[2023-08-06] MEDS: SENNA W/DOCUSATE TABLET PO SCH ×2 (08:11→21:00)
[2023-08-06] MEDS: ENOXAPARIN 40 MG/0.4 ML SYRINGE SC SCH (08:11)
[2023-08-06] MEDS: FUROSEMIDE 40 MG TABLET PO SCH (08:11)
[2023-08-06] MEDS: VITAMIN D3 125 MCG (5,000 UNITS) TABLET PO SCH (08:11)
[2023-08-06] MEDS: FERROUS SULFATE 325 MG (IRON) TABLET PO SCH (08:11)
[2023-08-06] MEDS: FOLIC ACID 1 MG TAB PO SCH (08:11)
[2023-08-06] MEDS: MAGNESIUM OXIDE 400 MG TABLET PO SCH (08:11)
[2023-08-06] MEDS: DOCUSATE SODIUM 100 MG CAPSULE PO SCH ×2 (08:11→21:00)
[2023-08-06] MEDS: amLODIPine 10 MG TABLET PO SCH (08:12)
[2023-08-06] MEDS: NYSTATIN CREAM 30 GM TUBE TP SCH ×3 (08:16→20:57)
[2023-08-06] MEDS: MICONAZOLE 2% POWDER 90 GM TOP SCH ×2 (08:16→20:56)
[2023-08-06] MEDS: BISACODYL 10 MG SUPPOSITORY PR PRN (10:20)
--- NOTE | 2023-08-06 12:19 | PM&R Progress Note ---
Subjective HPI/CC On Admission Date Seen by Provider: Aug 06, 2023 Time Seen by Provider: 12:00 Subjective/Events-last exam 08/06/2023: Doing well MAT protocol ordered Reviewed meds and labs No falls Pain is controlled 08/05/2023: Patient doing really well Changing medication to exactly how she takes it at home Removed oxycodone as an allergy since it is just itching and we will treat with Benadryl No falls Doxycycline will complete Pain is not controlled so adding oxycodone Review of Systems General: Fatigue Objective Exam Vital Signs Vital Signs Date Time Temp Pulse Resp B/P (MAP) Pulse Ox O2 Delivery O2 Flow Rate FiO2 08/06/23 13:50 36.6 80 93 08/06/23 09:00 Nasal Cannula 2.00 08/06/23 07:40 14 157/67 (97) Capillary Refill : General Appearance: No Apparent Distress, WD/WN, Chronically ill, Obese HEENT: PERRL/EOMI, Normal ENT Inspection, Pharynx Normal Neck: Full Range of Motion, Normal Inspection, Non Tender, Supple, Carotid Bruit Respiratory: Chest Non Tender, Lungs Clear, No Accessory Muscle Use, No Respiratory Distress, Decreased Breath Sounds Cardiovascular: Regular Rate, Rhythm, No Edema, No Gallop, No JVD, No Murmur, Normal Peripheral Pulses Gastrointestinal: Normal Bowel Sounds, No Organomegaly, No Pulsatile Mass, Non Tender, Soft Back: Normal Inspection, No CVA Tenderness, No Vertebral Tenderness Extremity: Normal Capillary Refill, Normal Inspection, Normal Range of Motion (except right arm), Non Tender, No Calf Tenderness, No Pedal Edema Neurologic/Psychiatric: Alert, Oriented x3, Normal Mood/Affect, medical assistant secretary II-XII Norm as Tested, Abnormal Gait, Motor Weakness (generalized) Skin: Normal Color, Warm/Dry Lymphatic: No Adenopathy Results/Procedures Lab Patient resulted labs reviewed. FIM Transfers Therapy Code Descriptions/Definitions Functional [place] Measure: 0=Not Assessed/NA 4=Minimal Assistance 1=Total Assistance 5=Supervision or Setup 2=Maximal Assistance 6=Modified [place] 3=Moderate Assistance 7=Complete IndependenceSCALE: Activities may be completed with or without assistive devices. 5-Iujuxxuazj-lyppzcu completes the activity by him/herself with no assistance from a helper. 5-Set-up or Clean-up Assistance-helper sets up or cleans up; patient completes activity. [place] assists only prior to or following the activity. 4-Supervision or Touching Assistance-helper provides verbal cues and/or touching/steadying and/or contact guard assistance as patient completes activity. Assistance may be provided throughout the activity or intermittently. 3-Partial/Moderate Assistance-helper does LESS THAN HALF the effort. [place] lifts, holds or supports trunk or limbs, but provides less than half the effort. 2-Substantial/Maximal Assistance-helper does MORE THAN HALF the effort. [place] lifts or holds trunk or limbs and provides more than half the effort. 5-Nmhlowygy-vxvukp does ALL the effort. Patient does none of the effort to complete the activity. Or, the assistance of 2 or more helpers is required for the patient to complete the activity. If activity was not attempted, code reason: 7-Patient Refused. 9-Not Applicable-not attempted and the patient did not perform the activity before the current illness, exacerbation or injury. 10-Not Attempted due to Environmental Limitations-(lack of equipment, weather restraints, etc.). 88-Not Attempted due to Medical Conditions or Safety Concerns. Roll Left to Right (QC): 88 Sit to Lying (QC): 1 Sit to Stand (QC): 3 Chair/Weq-tb-Ckpsd Xfer(QC): 3 Car Transfer (QC): 88 Gait Training Does the Patient Walk?: Yes Walk 10 feet (QC): 88 (Weakness/endurance/pain ) Walk 50 ft with 2 Turns(QC): 88 (Weakness/endurance/pain ) Walk 150 ft (QC): 9 (20-30ft at PLOF ) Walking 10ft/uneven surface-QC: 88 (Weakness/endurance/pain ) Gait Assistive Device: Walker [place] Wheelchair Training Does the Pt Use a Wheelchair?: Yes Distance: 150ft Wheel 50 ft with 2 turns (QC): 4 (SBA ) Wheel 150 ft (QC): 4 (SBA ) Type of Wheelchair: Motorized Stair Training 1 Step (curb) (QC): 88 (Weakness/endurance/pain ) 4 Steps (QC): 9 (Ramp ) 12 Steps (QC): 9 (Ramp ) Balance Picking up an Object (QC): 88 (Weakness/endurance/pain ) ADL-Treatment Eating (QC): 4 Oral Hygiene (QC): 4 Shower/Bathe Self (QC): 88 Upper Body Dressing (QC): 2 Lower Body Dressing (QC): 2 On/Off Footwear (QC): 1 Toileting Hygiene (QC): 1 Assessment/Plan Assessment and Plan Assess & Plan/Chief Complaint Assessment: 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
[2023-08-06 13:50] VITALS: BP 157/67
[2023-08-06] MEDS: RT-Ipratropium/Albuterol NEB 3 ML VIAL INH SCH ×2 (15:23→21:15)
[2023-08-06 19:23] VITALS: BP 138/62
[2023-08-06] MEDS: traZODone 150 MG (DESYREL) TABLET PO SCH (20:55)
[2023-08-06] MEDS: inSUlin DETERMIR 1 UNIT/0.01 ML (CHARGE PER UNIT) SQ SCH (20:55)
[2023-08-06] MEDS: MONTELUKAST 10 MG TABLET PO SCH (20:56)
[2023-08-06] MEDS: GABAPENTIN 300 MG CAPSULE PO SCH (20:56)
[2023-08-06] MEDS: CEPHALEXIN 250 MG CAPSULE PO SCH (20:56)
[2023-08-06] MEDS: ALPRAZolam 1 MG TABLET PO SCH (20:56)
[2023-08-06] MEDS: diphenhydrAMINE 25 MG TABLET PO PRN (20:56)
[2023-08-06] MEDS: CYANOCOBALAMIN 1,000 MCG TABLET PO SCH (20:56)
[2023-08-07] MEDS: RT-Ipratropium/Albuterol NEB 3 ML VIAL INH SCH ×4 (02:18→22:10)
[2023-08-07] MEDS: LEVOTHYROXINE 75 MCG TABLET PO SCH (05:08)
[2023-08-07] MEDS: oxyCODONE IMMEDIATE RELEASE 5 MG TABLET PO PRN ×4 (05:09→20:36)
--- NOTE | 2023-08-07 05:09 | Individualized Plan of Care ---
Individualized Plan of Care Rehab Nursing IPOC Order Admission Date Aug 04, 2023 at 14:45 Current Orders Orders Admission Order(Inpt,Obs,Sdc) (08/04/23 12:17) Vital Signs: Per Unit Policy ( 08,16,00 (08/04/23 12:17) Narendra Burdick ,21 (08/04/23 12:17) Sequential Compression Device [id number] (08/04/23 12:17) Banquet Server On Call-Inpt Rehab Con (08/04/23 12:17) Rehab Nursing Orders-Ipoc (08/04/23 12:17) Physical Therapy Rehab Orders (08/04/23 12:17) Occupational Therapy Rehab Ord (08/04/23 12:17) Speech Therapy Rehab Orders (08/04/23 12:17) Cbc And Automated Diff (08/05/23 06:00) Comprehensive Metabolic Panel (08/05/23 06:00) Precautions (Aru) (08/04/23 12:17) Weekly Weight WEEK (08/04/23 12:17) Rehab-Intensity Of Therapy (08/04/23 12:17) Initiate Admission Nursing Pro .admission (08/04/23 12:17) Alprazolam Tablet (Alprazolam Tablet) (08/04/23 12:30) Calcium Carbonate Chew Tablet (Calcium C (08/04/23 12:30) Diphenhydramine Tablet (Diphenhydramine (08/04/23 12:30) Docusate Sodium Capsule (Docusate Sodium (08/04/23 21:00) Docusate Sodium Capsule (Docusate Sodium (08/04/23 12:30) Bisacodyl Suppository (Bisacodyl Supposi (08/04/23 12:30) Lactulose Oral Solution (Enulose Oral So (08/04/23 12:30) Na Phos/Na Biphos Adult Enema (Na Phos/N (08/04/23 12:30) Loperamide Capsule (Loperamide Capsule) (08/04/23 12:30) Melatonin Tablet (Melatonin Tablet) (08/04/23 12:30) Polyethylene Glycol Powder (Polyethylen (08/04/23 21:00) Ondansetron Oral Dissolve Tab (Ondanset (08/04/23 12:30) Senna W/Docusate Tablet (Senna W/Docusat (08/04/23 21:00) Acetaminophen Tablet (Acetaminophen Ta (08/04/23 12:30) Initiate Admission Nursing Pro .admission (08/04/23 12:17) Admission Arrival Bed Request (08/04/23 15:33) Alprazolam Tablet (Alprazolam Tablet) (08/04/23 21:00) Amlodipine Tablet (Amlodipine Tablet) (08/05/23 09:00) Clonidine Patch (Clonidine Patch) (08/04/23 17:00) Cyanocobalamin Tablet (Cyanocobalamin Ta (08/04/23 21:00) Ferrous Sulfate Tablet (Ferrous Sulfate (08/05/23 09:00) Folic Acid Tablet (Folic Acid Tablet) (08/05/23 09:00) Gabapentin Capsule (Gabapentin Capsule) (08/04/23 21:00) Levothyroxine Tablet (Levothyroxine Tabl (08/05/23 06:30) Montelukast Tablet (Montelukast Tablet) (08/05/23 09:00) Pantoprazole Tablet (Pantoprazole Tablet (08/05/23 09:00) Tramadol Tablet (Ultram Tablet) (08/04/23 16:15) Trazodone Tablet (Desyrel Tablet) (08/04/23 21:00) (Nf) Cephalexin (08/04/23 21:00) (Nf) Dapagliflozin Propanediol (Farxiga) (08/05/23 09:00) (Nf) Insulin Detemir (Levemir Flextouch) (08/04/23 21:00) (Nf) Magnesium Oxide (Magnesium) (08/05/23 09:00) (Nf) Terazosin Hcl (08/04/23 21:00) Enoxaparin Injection (Enoxaparin Injecti (08/05/23 09:00) Magnesium Oxide Tablet (Magnesium Oxide (08/05/23 08:00) Terazosin Capsule (Terazosin Capsule) (08/04/23 21:00) Insulin Determir (Per Unit) (Insulin Det (08/04/23 21:00) Empagliflozin Tablet (Empagliflozin Tabl (08/05/23 09:00) Cephalexin Capsule (Cephalexin Capsule) (08/04/23 21:00) General/Regular (08/04/23 Dinner) Patch Removal (Patch Removal) (08/11/23 16:59) Accucheck Achs ACHS (08/04/23 17:24) Accucheck Achs ACHS (08/04/23 17:24) Code/Resuscitation (08/05/23 00:42) Doxycycline Hyclate Tablet (Doxycycline (08/05/23 09:00) Oxycodone Immediate Rel Tablet (Oxycodon (08/05/23 09:00) Nystatin Cream (Nystatin Cream) (08/05/23 09:00) Miconazole 2% Powder (Miconazole 2% Powd (08/05/23 09:00) Montelukast Tablet (Montelukast Tablet) (08/05/23 21:00) Insulin Determir (Per Unit) (Insulin Det (08/05/23 21:00) Furosemide Tablet (Furosemide Tablet) (08/05/23 11:30) Alprazolam Tablet (Alprazolam Tablet) (08/05/23 21:00) Vitamin D3 Tablet (Vitamin D3 Tablet) (08/06/23 09:00) Cpap (Set Up) (08/05/23 14:42) Patient May Use Own Med,Single (Patient (08/07/23 09:00) (Nf) Tirzepatide (Mounjaro) (08/07/23 11:00) Mat Initiate Protocol (08/06/23 13:53) Ipratropium/Albuterol Inh Soln (Ipratrop (08/06/23 15:00) Svn Small Volume Nebulizer (08/06/23 13:53) Ipratropium/Albuterol Inh Soln (Ipratrop (08/06/23 14:00) Svn Small Volume Nebulizer (08/06/23 13:53) Cbc And Automated Diff (08/07/23 06:00) Comprehensive Metabolic Panel (08/07/23 06:00) Enoxaparin Injection (Enoxaparin Injecti (08/07/23 09:00) Patient Visit (08/04/23 ) Pt Eval Moderate Complexity (08/04/23 ) Patient Visit (08/05/23 ) Functional Activities, Ea 15 (08/05/23 ) Ex Neuromuscular, Ea 15 Min (08/05/23 ) Exercise Therap, Ea 15 Min (08/05/23 ) Patient Visit (08/07/23 ) Functional Activities, Ea 15 (08/07/23 ) Patient Visit (08/07/23 ) Speech Sound Lang Comp (08/07/23 ) Cyanocobalamin Tablet (Cyanocobalamin Ta (08/08/23 09:00) Insulin Determir (Per Unit) (Insulin Det (08/07/23 17:00) Magnesium Oxide Tablet (Magnesium Oxide (08/08/23 08:00) Vitamin D3 Tablet (Vitamin D3 Tablet) (08/09/23 09:00) Rehab Nursing Orders: Ongoing Assess. of Cognitive Status, Ongoing Assess. of Function Status, Bladder Management, Bladder Scan, Bladder Training, Bowel Management, Bowel Training, Disease Management & Educaiton, DVT Prophylaxis, Fall Prevention, Fluid/Electrolyte/Nutrition Mgmt, Infection Prevention, Medication Management & Education, Management of Risks & Complications, Management of Skin Intergrity, Nutrition Management, Pain Management, Patient/Family Support, Safety Management, Weight Bearing Precaution, Wound Ma nagement Intensity of Therapy to be met Patient to be seen: Min.3h per day/5 of 7d PT IPOC Problem List: Activity Tolerance, Functional Strength, Safety, Balance, Gait, Transfer, Bed Mobility, ROM Treatment Plan: Continue Plan of Care Bed Mobility, Education, Functional Activity Robe, Functional Strength, Group Therapy, Gait, Safety, Therapeutic Exercise, Transfers Treatment Duration: Aug 18, 2023 Frequency: At least 5 of 7 days/Wk (IRF) Estimated Hrs Per Day: 1.5 hours per day OT IPOC Problems: Decreased Activ Tolerance, Impaired Bed Mobility, Impaired Coordination, Impaired Self-Care Skills, Restricted Funct UE ROM OT Treatment, Training and Edu: Yes Plan of Care: ADL Retraining, Functional Mobility, Group Exercise/Act as Ind, UE Funct Exercise/Act Treatment Duration: Aug 25, 2023 Frequency: At least 5 of 7 days/Wk (IRF) Estimated Hrs Per Day: 1.[address] IPOC Speech Therapy Treatment Plan: Discontinue ST Treatment Duration: Aug 07, 2023 Frequency: Modified Program (IRF) Estimated Hrs Per Day: Other Banquet Server On Call/Case Mgmt Banquet Server On Call/Case Managemen: Discharge Planning Dietitian/Sign Artist Dietitian/Sign Artist to monitor nutritional status and make changes and/or rec ommendations as needed and work with speech pathology on dietary upgrades as the occur. Physician IPOC Medical Issues being managed closely and that require the 24 hour availability of a physician: Recent right shoulder replacement with respiratory failure complications with severe JIMI now on CPAP trial with O2 dependence and limited mobility with scooter dependence will be at high risk for respiratory compromise Medical Issues: Bowel/Bladder Function, DVT Prophylaxis, Falls Precautions, Fluid/Electrolyte/Nutrition Balance, Infection Protection, Pain Management, Weight Bearing Precautions, Wound Care Brief Synthesis of Preadmission Screen, Post-Admission Evaluation, and Therapy Evaluations: PT OT will focus on regaining function with use of AD in order to increase stamina and increase ADL's in order to return home to live independently Medical Prognosis: Good Anticipated Length of Stay: 7 days HO JUÁREZ DO Aug 07, 2023 05:09
--- NOTE | 2023-08-07 05:09 | PM&R Progress Note ---
Subjective HPI/CC On Admission Date Seen by Provider: Aug 07, 2023 Time Seen by Provider: 09:00 Subjective/Events-last exam 08/07/2023: No major issues Monitoring sugar closely Reviewed home meds Monitoring closely 08/06/2023: Doing well MAT protocol ordered Reviewed meds and labs No falls Pain is controlled 08/05/2023: Patient doing really well Changing medication to exactly how she takes it at home Removed oxycodone as an allergy since it is just itching and we will treat with Benadryl No falls Doxycycline will complete Pain is not controlled so adding oxycodone Review of Systems General: Fatigue, Malaise Objective Exam Vital Signs Vital Signs Date Time Temp Pulse Resp B/P (MAP) Pulse Ox O2 Delivery O2 Flow Rate FiO2 08/07/23 19:51 36.2 63 20 119/70 (86) 96 Nasal Cannula 2.00 Capillary Refill : General Appearance: No Apparent Distress, WD/WN, Chronically ill, Obese HEENT: PERRL/EOMI, Normal ENT Inspection, Pharynx Normal Neck: Full Range of Motion, Normal Inspection, Non Tender, Supple, Carotid Bruit Respiratory: Chest Non Tender, Lungs Clear, No Accessory Muscle Use, No Respiratory Distress, Decreased Breath Sounds Cardiovascular: Regular Rate, Rhythm, No Edema, No Gallop, No JVD, No Murmur, Normal Peripheral Pulses Gastrointestinal: Normal Bowel Sounds, No Organomegaly, No Pulsatile Mass, Non Tender, Soft Back: Normal Inspection, No CVA Tenderness, No Vertebral Tenderness Extremity: Normal Capillary Refill, Normal Inspection, Normal Range of Motion (except right arm), Non Tender, No Calf Tenderness, No Pedal Edema Neurologic/Psychiatric: Alert, Oriented x3, Normal Mood/Affect, window display designer II-XII Norm as Tested, Abnormal Gait, Motor Weakness (generalized) Skin: Normal Color, Warm/Dry Lymphatic: No Adenopathy Results/Procedures Lab Laboratory Tests 08/07/23 04:59 Patient resulted labs reviewed. FIM Transfers Therapy Code Descriptions/Definitions Functional [place] Measure: 0=Not Assessed/NA 4=Minimal Assistance 1=Total Assistance 5=Supervision or Setup 2=Maximal Assistance 6=Modified [place] 3=Moderate Assistance 7=Complete IndependenceSCALE: Activities may be completed with or without assistive devices. 9-Kcecgbjnzs-aqbfzcq completes the activity by him/herself with no assistance from a helper. 5-Set-up or Clean-up Assistance-helper sets up or cleans up; patient completes activity. [place] assists only prior to or following the activity. 4-Supervision or Touching Assistance-helper provides verbal cues and/or touching/steadying and/or contact guard assistance as patient completes activity. Assistance may be provided throughout the activity or intermittently. 3-Partial/Moderate Assistance-helper does LESS THAN HALF the effort. [place] lif ts, holds or supports trunk or limbs, but provides less than half the effort. 2-Substantial/Maximal Assistance-helper does MORE THAN HALF the effort. [place] lifts or holds trunk or limbs and provides more than half the effort. 7-Tcxlhnyzb-xjqnqv does ALL the effort. Patient does none of the effort to complete the activity. Or, the assistance of 2 or more helpers is required for the patient to complete the activity. If activity was not attempted, code reason: 7-Patient Refused. 9-Not Applicable-not attempted and the patient did not perform the activity before the current illness, exacerbation or injury. 10-Not Attempted due to Environmental Limitations-(lack of equipment, weather restraints, etc.). 88-Not Attempted due to Medical Conditions or Safety Concerns. Roll Left to Right (QC): 88 Sit to Lying (QC): 1 Sit to Stand (QC): 3 Chair/Gtx-mf-Qteyi Xfer(QC): 3 Car Transfer (QC): 88 Gait Training Does the Patient Walk?: Yes Walk 10 feet (QC): 88 (Weakness/endurance/pain ) Walk 50 ft with 2 Turns(QC): 88 (Weakness/endurance/pain ) Walk 150 ft (QC): 9 (20-30ft at PLOF ) Walking 10ft/uneven surface-QC: 88 (Weakness/endurance/pain ) Gait Assistive Device: Walker [place] Wheelchair Training Does the Pt Use a Wheelchair?: Yes Distance: 150ft Wheel 50 ft with 2 turns (QC): 4 (SBA ) Wheel 150 ft (QC): 4 (SBA ) Type of Wheelchair: Motorized Stair Training 1 Step (curb) (QC): 88 (Weakness/endurance/pain ) 4 Steps (QC): 9 (Ramp ) 12 Steps (QC): 9 (Ramp ) Balance Picking up an Object (QC): 88 (Weakness/endurance/pain ) ADL-Treatment Eating (QC): 4 Oral Hygiene (QC): 4 Shower/Bathe Self (QC): 88 Upper Body Dressing (QC): 2 Lower Body Dressing (QC): 2 On/Off Footwear (QC): 1 Toileting Hygiene (QC): 1 Assessment/Plan Assessment and Plan Assess & Plan/Chief Complaint Assessment: 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
[2023-08-07 05:31] LABS: BASOPHILS % (AUTO) 0 % (0-10); EOSINOPHILS # (AUTO) 0.2 10^3/uL (0.0-0.3); EOSINOPHILS % (AUTO) 3 % (0-10); HEMATOCRIT 32 % (35-52); HEMOGLOBIN 9.7 g/dL (11.5-16.0); LYMPHOCYTES # (AUTO) 1.5 10^3/uL (1.0-4.0); LYMPHOCYTES % (AUTO) 21 % (12-44); MEAN CORPUSCULAR HEMOGLOBIN 28 pg (25-34); MEAN CORPUSCULAR HGB CONC 30 g/dL (32-36); MEAN CORPUSCULAR VOLUME 92 fL (80-99); MEAN PLATELET VOLUME 10.2 fL (9.0-12.2); MONOCYTES # (AUTO) 0.7 10^3/uL (0.0-1.0); MONOCYTES % (AUTO) 10 % (0-12); NEUTROPHILS # (AUTO) 4.5 10^3/uL (1.8-7.8); NEUTROPHILS % (AUTO) 63 % (42-75); PLATELET COUNT 193 10^3/uL (130-400)
[2023-08-07 05:45] LABS: ALBUMIN 2.7 GM/DL (3.2-4.5); CHLORIDE 95 MMOL/L (98-107); SODIUM 137 MMOL/L (135-145)
[2023-08-07 05:47] LABS: CALCIUM 8.5 MG/DL (8.5-10.1)
[2023-08-07 05:48] LABS: GLUCOSE 129 MG/DL (70-105); TOTAL PROTEIN 5.8 GM/DL (6.4-8.2)
[2023-08-07 05:49] LABS: CARBON DIOXIDE 32 MMOL/L (21-32)
[2023-08-07 05:50] LABS: BILIRUBIN,TOTAL 0.5 MG/DL (0.1-1.0)
[2023-08-07 05:51] LABS: ALKALINE PHOSPHATASE 110 U/L (40-136); CREATININE SERUM 2.04 MG/DL (0.60-1.30); GFR ESTIMATED 26
[2023-08-07 05:52] LABS: BUN/CREATININE RATIO 16
[2023-08-07 05:54] LABS: ALANINE AMINOTRANSFERASE < 6 U/L (0-55)
--- NOTE | 2023-08-07 07:23 | Occupational Ther Daily Note ---
OT Current Status-Daily Note Subjective Pt alert, lying in bed. Pt agrees to therapy. Pt c/o pain though does not rate. Mental Status/Objective Patient Orientation: Person, Place, Time, Situation ADL-Treatment Pt able to wash hands and face by self after set up. Pt states that assists with B LE in/out of bed. Pt does attempt to slide LE's OOB though assist when pt states unable to move any more due to neuropathy. Pt appears to be trying to use R UE during transfer and cues to bring UE into resting position. Pt does use R UE for helper hand when opening items, set up for eating. Pt sitting EOB independently. After session, pt sitting EOB with call light/phone in reach. All needs met in room. Therapy Code Descriptions/Definitions Functional [place] Measure: 0=Not Assessed/NA 4=Minimal Assistance 1=Total Assistance 5=Supervision or Setup 2=Maximal Assistance 6=Modified [place] 3=Moderate Assistance 7=Complete IndependenceSCALE: Activities may be completed with or without assistive devices. 9-Dwrepfrbsw-jhqetya completes the activity by him/herself with no assistance from a helper. 5-Set-up or Clean-up Assistance-helper sets up or cleans up; patient completes activity. [place] assists only prior to or following the activity. 4-Supervision or Touching Assistance-helper provides verbal cues and/or bridger jonatan/steadying and/or contact guard assistance as patient completes activity. Assistance may be provided throughout the activity or intermittently. 3-Partial/Moderate Assistance-helper does LESS THAN HALF the effort. [place] lifts, holds or supports trunk or limbs, but provides less than half the effort. 2-Substantial/Maximal Assistance-helper does MORE THAN HALF the effort. [place] lifts or holds trunk or limbs and provides more than half the effort. 2-Cfijcodqi-ynltbs does ALL the effort. Patient does none of the effort to complete the activity. Or, the assistance of 2 or more helpers is required for the patient to complete the activity. If activity was not attempted, code reason: 7-Patient Refused. 9-Not Applicable-not attempted and the patient did not perform the activity before the current illness, exacerbation or injury. 10-Not Attempted due to Environmental Limitations-(lack of equipment, weather restraints, etc.). 88-Not Attempted due to Medical Conditions or Safety Concerns. Eating (QC): 5 OT Assisted Goals Channeler Outsole Goals Time Frame: Aug 25, 2023 Acute change in mental status: 1 Inattention: 2 Disorganized thinkin Altered level of consciousness: 0 Eating (QC): 5 Oral Hygiene (QC): 6 Toileting Hygiene (QC): 3 Shower/Bathe Self (QC): 3 Upper Body Dressing (QC): 3 Lower Body Dressing (QC): 3 On/Off Footwear (QC): 2 Additional Goals: 1-Demonstrate ADL Tasks, 2-Verbalize Understanding, 3- ImproveStrength/Robe 1=Demonstrate adherence to instructed precautions during ADL tasks. 2=Patient will verbalize/demonstrate understanding of assistive d evices/modifications for ADL. 3=Patient will improve strength/tolerance for activity to enable patient to perform ADL's. OT Education/Plan Problem List/Assessment Assessment: Decreased UE Strength, Dependent Transfers, Impaired Bed Mobility, Impaired I ADL's, Impaired Self-Care Skills, Restricted Funct UE ROM Discharge Recommendations Plan/Recommendations: Continue POC Treatment Plan/Plan of Care Patient would benefit from OT for education, treatment and training to promote independence in ADL's, mobility, safety and/or upper extremity function for ADL's. Plan of Care: ADL Retraining, Functional Mobility, Group Exercise/Act as Ind, UE Funct Exercise/Act Treatment Duration: Aug 25, 2023 Frequency: At least 5 of 7 days/Wk (IRF) Estimated Hrs Per Day: 1.5 hours per day Agreement: Yes Rehab Potential: Good Time Start Time: 06:55 Stop Time: 07:25 DATE: Aug 07, 2023 Total Time Billed (hr/min): 30 Billed Treatment Time 1 visit-ADL 2 (30 min) ALEK SARKAR Aug 07, 2023 07:23
[2023-08-07 07:47] VITALS: BP 143/63
[2023-08-07] MEDS: FUROSEMIDE 40 MG TABLET PO SCH (08:32)
[2023-08-07] MEDS: FOLIC ACID 1 MG TAB PO SCH (08:32)
[2023-08-07] MEDS: FERROUS SULFATE 325 MG (IRON) TABLET PO SCH (08:32)
[2023-08-07] MEDS: diphenhydrAMINE 25 MG TABLET PO PRN ×2 (08:32→15:32)
[2023-08-07] MEDS: amLODIPine 10 MG TABLET PO SCH (08:33)
[2023-08-07] MEDS: MAGNESIUM OXIDE 400 MG TABLET PO SCH (08:33)
[2023-08-07] MEDS: VITAMIN D3 125 MCG (5,000 UNITS) TABLET PO SCH (08:33)
[2023-08-07] MEDS: ENOXAPARIN 40 MG/0.4 ML SYRINGE SC SCH ×2 (08:39→20:33)
[2023-08-07] MEDS ORDERED: PATIENT MAY USE OWN MED,SINGLE MED PO SCH (09:00)
--- NOTE | 2023-08-07 09:41 | ST Cognitive Linguistic Eval ---
Speech Evaluation-General Medical Diagnosis s/p R reverse total shoulder Onset Date: Aug 01, 2023 Therapy Diagnosis Therapy Diagnosis: Debility Precautions Precautions/Isolations: Standard Precautions Referral Referring Physician: Dr. Camacho Reason for Referral: Consult Medical History Pertinent Medical History: Arthritis, COPD, DM, GERD, HTN, Hypothroidism Current History The pt is s/p right reverse shoulder replacement on 08/01/23, admitted to [facility] ARU 08/04/23. Reviewed History: Yes Social History Home: Single Level Current Living Status: Spouse Speech PLF-Current Status Prior Level of Function The pt utilized a motorized scooter for community, and combination of walker and scooter at home. She was indpendent with IADL's Subjective The pt was alert and interactive throughout session. Language Eval: Auditory Comprehends Simple Yes/No Ques: Functional Follows Complex Directions: Functional Follows General Conversations: Functional Language Eval: Verbal Language Completes Spontaneous Greeting: Functional Requests Basic Needs: Functional States Basic Personal Info: Functional Expresses Complex Ideas: Functional Cognitive Patient Orientation Fully oriented. The pt demonstrated organized chronological detail of recent hospitalization and transfer to ARU. Objective Formal/Standardized Tests SLUMS examination Results The pt received a score of 26/30 on the SLUMS, borderline of normal and mild cognitive impairment. Recall of 5 objects was 5/5, recall of story details was 4/4. Clock drawing impaired, however the pt was using non-dominant hand. Simple mathematical problem solving was decreased for subtraction calculation, however the pt was able to recall all problem details as she attempted the subtraction component. The pt was able to provide strategies used for organizing me dications, ordering refills, and tracking appointments without difficulty. Oral Motor/Speech Production 90 mL water screening completed, without s/s dysphagia. Impression Cognitive and swallow ability appear to be WFL for age. Speech-Plan Treatment Plan Speech Therapy Treatment Plan: Discontinue ST Frequency: Modified Program (IRF) (no treatment) Estimated Hrs Per Day: Other (no treatment) Rehab Potential: Good Time Speech Therapy Time In: 08:40 Speech Therapy Time Out: 09:20 DATE: Aug 07, 2023 Total Billed Time: 40 Billed Treatment Time 1 SPSNDCOMP (40 min) ALIVIA LOVETT Aug 07, 2023 09:41
[2023-08-07] MEDS: DOCUSATE SODIUM 100 MG CAPSULE PO SCH ×2 (09:52→20:31)
[2023-08-07] MEDS: SENNA W/DOCUSATE TABLET PO SCH ×2 (09:53→20:31)
--- NOTE | 2023-08-07 11:48 | Occupational Ther Daily Note ---
OT Current Status-Daily Note Subjective Pt alert, lying in bed. Pt agrees to therapy. Pt c/o R shldr pain 5-6/10, pain meds already administered, adjusted positioning of sling. Mental Status/Objective Patient Orientation: Person, Place, Time, Situation Attachments: Oxygen (2L- O2% decreases with talking and verbal cues to take breath and refrain from communicating while sats go back up), Other-See Comments (shldr sling) ADL-Treatment Therapy Code Descriptions/Definitions Functional [place] Measure: 0=Not Assessed/NA 4=Minimal Assistance 1=Total Assistance 5=Supervision or Setup 2=Maximal Assistance 6=Modified [place] 3=Moderate Assistance 7=Complete IndependenceSCALE: Activities may be completed with or without assistive devices. 3-Xcpznswszv-jdspvjb completes the activity by him/herself with no assistance from a helper. 5-Set-up or Clean-up Assistance-helper sets up or cleans up; patient completes activity. [place] assists only prior to or following the activity. 4-Supervision or Touching Assistance-helper provides verbal cues and/or touching/steadying and/or contact guard assistance as patient completes activity. Assistance may be provided throughout the activity or intermittently. 3-Partial/Moderate Assistance-helper does LESS THAN HALF the effort. [place] lifts, holds or supports trunk or limbs, but provides less than half the effort. 2-Substantial/Maximal Assistance-helper does MORE THAN HALF the effort. [place] lifts or holds trunk or limbs and provides more than half the effort. 4-Bqmimbxft-lbsfte does ALL the effort. Patient does none of the effort to complete the activity. Or, the assistance of 2 or more helpers is required for the patient to complete the activity. If activity was not attempted, code reason: 7-Patient Refused. 9-Not Applicable-not attempted and the patient did not perform the activity before the current illness, exacerbation or injury. 10-Not Attempted due to Environmental Limitations-(lack of equipment, weather restraints, etc.). 88-Not Attempted due to Medical Conditions or Safety Concerns. Other Treatment Co-treat with PT [id number], skills of 2 clinicians required to decrease fall risk, increase functional mobility and increase safety awareness throughout session. PT focusing on transfers, ambulation and bed mobility while OT focusing on functional mobility, R UE placement and assisting with positioning during ambulation. Pt completed bed mobility with 1 person min A and verbal cues for safety awareness. Min Assist x3 for ambulation at //bars, one for ambulation, 2nd for w/c maneuvering, 3rd for O2 bottle positioning. Pt introduced to leg data center architect for bed mobility and will require continued education and practice to become proficient. Pt is demonstrating increase mobility progress though continues to need cues to slow down and decrease impulsivity. Pt is progressing with w/c mobility while utilizing non-dominant hand to control motorized w/c. After session, pt sitting in w/c with call light/phone in reach. Son present in room. All needs met. OT Livestock Speculator Goals Shelter Goals Time Frame: Aug 25, 2023 Acute change in mental status: 1 Inattention: 2 Disorganized thinkin Altered level of consciousness: 0 Eating (QC): 5 Oral Hygiene (QC): 6 Toileting Hygiene (QC): 3 Shower/Bathe Self (QC): 3 Upper Body Dressing (QC): 3 Lower Body Dressing (QC): 3 On/Off Footwear (QC): 2 Additional Goals: 1-Demonstrate ADL Tasks, 2-Verbalize Understanding, 3- ImproveStrength/Robe 1=Demonstrate adherence to instructed precautions during ADL tasks. 2=Patient will verbalize/demonstrate understanding of assistive devices/modifications for ADL. 3=Patient will improve strength/tolerance for activity to enable patient to perform ADL's. OT Education/Plan Problem List/Assessment Assessment: Decreased Activ Tolerance, Decreased Safety Aware, Decreased UE Strength, Impaired Bed Mobility, Impaired Coordination, Impaired Funct Balance, Impaired Self-Care Skills, Restricted Funct UE ROM Discharge Recommendations Plan/Recommendations: Continue POC Treatment Plan/Plan of Care Patient would benefit from OT for education, treatment and training to promote independence in ADL's, mobility, safety and/or upper extremity function for ADL's. Plan of Care: ADL Retraining, Functional Mobility, Group Exercise/Act as Ind, UE Funct Exercise/Act Treatment Duration: Aug 25, 2023 Frequency: At least 5 of 7 days/Wk (IRF) Estimated Hrs Per Day: 1.5 hours per day Agreement: Yes Rehab Potential: Good Time Start Time: 10:30 Stop Time: 11:35 DATE: Aug 07, 2023 Total Time Billed (hr/min): 65 Billed Treatment Time 1 visit-FA 4 (65 min) Co-treat with PT 65 min ALEK SARKAR Aug 07, 2023 11:48
[2023-08-07] MEDS: TIRZEPATIDE SQ SCH (11:54)
[2023-08-07] MEDS: MICONAZOLE 2% POWDER 90 GM TOP SCH ×2 (11:56→20:39)
[2023-08-07] MEDS: NYSTATIN CREAM 30 GM TUBE TP SCH ×3 (11:56→20:39)
--- NOTE | 2023-08-07 13:14 | Physical Therapy Daily Note ---
PT Daily Note-Current Subjective Pt is agreeable to PT/OT. Pt reported R shoulder pain at 5-6/10. Pain Numeric Pain Scale: 6 Location: Right Location Body Site: Shoulder Section J - Health Conditions 1. Rarely or not at all 2. Occasionally 3. Frequently 4. Almost constantly 8. Unable to answer Pain Effect on Sleep: 3 Pain Interference with Therapy: 3 Pain Interference w/Day-to-Day: 3 Mental Status Attachments: Oxygen (2L ) Transfers SCALE: Activities may be completed with or without assistive devices. 2-Sqbhgatrdo-adajgrd completes the activity by him/herself with no assistance from a helper. 5-Set-up or Clean-up Assistance-helper sets up or cleans up; patient completes activity. [place] assists only prior to or following the activity. 4-Supervision or Touching Assistance-helper provides verbal cues and/or touching/steadying and/or contact guard assistance as patient completes activity. Assistance may be provided throughout the activity or intermittently. 3-Partial/Moderate Assistance-helper does LESS THAN HALF the effort. [place] lifts, holds or supports trunk or limbs, but provides less than half the effort. 2-Substantial/Maximal Assistance-helper does MORE THAN HALF the effort. [place] lifts or holds trunk or limbs and provides more than half the effort. 2-Ddotmhtkx-aghzvw does ALL the effort. Patient does none of the effort to complete the activity. Or, the assistance of 2 or more helpers is required for the patient to complete the activity. If activity was not attempted, code reason: 7-Patient Refused. 9-Not Applicable-not attempted and the patient did not perform the activity before the current illness, exacerbation or injury. 10-Not Attempted due to Environmental Limitations-(lack of equipment, weather restraints, etc.). 88-Not Attempted due to Medical Conditions or Safety Concerns. Sit to Lying (QC): 3 Lying to Sitting/Side of Bed(Q: 3 Sit to Stand (QC): 3 Chair/Bte-mj-Ypenj Xfer(QC): 3 Weight Bearing Right Lower Extremity: Right Full Weight Bearing Left Lower Extremity: Left Full Weight Bearing NWB R UE; Sling at all times; See protocol Gait Training Does the Patient Walk?: Yes Distance: 5ft x 2 in // bars Gait Persons Needed: 3 Gait Assistive Device: Parallel Bars Wheelchair Training Does the Pt Use a Wheelchair?: Yes Wheel 50 ft with 2 turns (QC): 4 Wheel 150 ft (QC): 4 Type of Wheelchair: Motorized Treatments PT/OT co-tx from [id number], skills of 2 clinicians required to decrease fall risk, increase functional mobility and increase safety awareness throughout session. PT focusing on bed mobility, transfers, ambulation and w/c mobility, while OT focusing on functional mobility, R UE placement and assisting with positioning during ambulation. Pt completed bed mobility (supine <> sit) with Min A and verbal cues for safety awareness. Pt utilized leg block chopper hand for bed mobility, and will require cont edu. Pt completed motorized scooter mobility through obstacle course with SBA and v/c for improved safety. Pt completed functional transfers with Min A and v/c for safety and proper technique. Pt ambulated 5ft x 2 in the // bars with Min A x 3 (one for ambulation, 2nd for w/c maneuvering, 3rd for O2 bottle positioning). Cont v/c throughout treatment session for improved safety and to decrease impulsivity. After session, pt sitting in w/c with call light/phone in reach. Son present in room. All needs met. Assessment Current Status: Good Progress Pt tolerated PT well, with good effort PT Control Center Operator Goals Nursing Home Goals PT Nursing Home Goals Time Frame: Aug 18, 2023 Roll Left & Right (QC): 3 (Min A for bed mobility ) Sit to Lying (QC): 3 (Min A for bed mobility ) Lying-Sitting on Side/Bed(QC): 3 (Min A for bed mobility ) Sit to Stand (QC): 4 (SBA for transfers ) Chair/Fik-pb-Gcfqf Xfer(QC): 4 (SBA for transfers ) Toilet Transfer (QC): 4 (SBA for transfers ) Car Transfer (QC): 4 (SBA for transfers ) Does the Patient Walk: Yes Walk 10 feet (QC): 4 (SBA for walking short distances ) Walk 50ft with 2 Turns (QC): 4 (SBA for walking short distances ) Walk 150 ft (QC): 9 (Unable at PLOF ) Walking 10ft on Uneven Surface: 4 (SBA for walking short distances ) 1 Step (curb) (QC): 4 (SBA for 1 step ) 4 Steps (QC): 9 (Unable at PLOF ) 12 Steps (QC): 9 (Unable at PLOF ) Picking up an Object (QC): 4 (SBA with plane runner ) Does the Pt use WC or Scooter?: Yes Wheel 50 feet with 2 turns (QC: 6 (Mod I with scooter ) Type: Motorized Wheel 150 feet: 6 (Mod I with scooter ) Type: Motorized PT Plan Problem List Problem List: Activity Tolerance, Functional Strength, Safety, Balance, Gait, Transfer, Bed Mobility, ROM Treatment/Plan Treatment Plan: Continue Plan of Care Treatment Plan: Bed Mobility, Education, Functional Activity Robe, Functional Strength, Group Therapy, Gait, Safety, Therapeutic Exercise, Transfers Treatment Duration: Aug 18, 2023 Frequency: At least 5 of 7 days/Wk (IRF) Estimated Hrs Per Day: 1.5 hours per day Patient and/or Family Agrees t: Yes Safety Risks/Education Patient Education: Gait Training, Transfer Techniques, Correct Positioning, W/C Management, Safety Issues Teaching Recipient: Patient Teaching Methods: Demonstration Response to Teaching: Reinforcement Needed Discharge Recommendations Therapy Discharge Recommendati: Home & Family, Post Acute PT Equpiment Recommendations-D/C: Other, Please Explain (david-walker ) Discharge Status/Home Program Cont per POC Barriers to Progress Weakness, pain, endurance, impulsivity Target Placement Home Time Time In: 1030 Time Out: 1135 DATE: Aug 07, 2023 Total Billed Treatment Time: 65 Total Billed Treatment 65 min co-tx from [id number] 1 visit FA x 4 HI GALLEGO PT Aug 07, 2023 13:14
[2023-08-07] MEDS ORDERED: NYST15CR35 TP (14:23)
[2023-08-07] MEDS ORDERED: ONDA-105 PO (14:23)
[2023-08-07] MEDS ORDERED: OXYC5TAB PO (14:23)
[2023-08-07] MEDS ORDERED: MAGN400T50 PO (14:23)
[2023-08-07] MEDS ORDERED: ASPI-1238 PO (14:23)
[2023-08-07] MEDS ORDERED: BACL10TA PO (14:23)
[2023-08-07] MEDS ORDERED: PANT40TA52 PO (14:23)
[2023-08-07] MEDS ORDERED: ALLO300T2 PO (14:23)
[2023-08-07] MEDS ORDERED: MORP-68 PO (14:23)
[2023-08-07] MEDS ORDERED: CIPR250T3 PO (14:23)
[2023-08-07] MEDS ORDERED: INSU100I88 SQ (14:23)
[2023-08-07] MEDS: ACETAMINOPHEN 325 MG TABLET PO PRN (15:40)
[2023-08-07] MEDS ORDERED: inSUlin DETERMIR 1 UNIT/0.01 ML (CHARGE PER UNIT) SQ SCH (17:00)
[2023-08-07 19:51] VITALS: BP 119/70
[2023-08-07] MEDS: traZODone 150 MG (DESYREL) TABLET PO SCH (20:31)
[2023-08-07] MEDS: GABAPENTIN 300 MG CAPSULE PO SCH (20:31)
[2023-08-07] MEDS: CEPHALEXIN 250 MG CAPSULE PO SCH (20:31)
[2023-08-07] MEDS: ALPRAZolam 1 MG TABLET PO SCH (20:31)
[2023-08-07] MEDS: MONTELUKAST 10 MG TABLET PO SCH (20:32)
[2023-08-08] MEDS: RT-Ipratropium/Albuterol NEB 3 ML VIAL INH SCH ×4 (02:57→21:00)
[2023-08-08] MEDS: oxyCODONE IMMEDIATE RELEASE 5 MG TABLET PO PRN ×5 (03:23→23:56)
[2023-08-08] MEDS: ACETAMINOPHEN 325 MG TABLET PO PRN ×3 (04:38→17:53)
[2023-08-08] MEDS: LEVOTHYROXINE 75 MCG TABLET PO SCH (06:29)
--- NOTE | 2023-08-08 08:18 | PM&R Progress Note ---
Subjective HPI/CC On Admission Date Seen by Provider: Aug 08, 2023 Time Seen by Provider: 12:00 Subjective/Events-last exam 08/08/2023: Patient doing well Working with her power wheelchair today No falls Pain is controlled Oxygen maintained 08/07/2023: No major issues Monitoring sugar closely Reviewed home meds Monitoring closely 08/06/2023: Doing well MAT protocol ordered Reviewed meds and labs No falls Pain is controlled 08/05/2023: Patient doing really well Changing medication to exactly how she takes it at home Removed oxycodone as an allergy since it is just itching and we will treat with Benadryl No falls Doxycycline will complete Pain is not controlled so adding oxycodone Review of Systems General: Fatigue, Malaise Musculoskeletal: arm pain Objective Exam Vital Signs Vital Signs Date Time Temp Pulse Resp B/P (MAP) Pulse Ox O2 Delivery O2 Flow Rate FiO2 08/08/23 14:46 70 94 30.00 08/08/23 09:00 Nasal Cannula 08/08/23 08:32 36.2 16 135/60 (85) Capillary Refill : General Appearance: No Apparent Distress, WD/WN, Chronically ill, Obese HEENT: PERRL/EOMI, Normal ENT Inspection, Pharynx Normal Neck: Full Range of Motion, Normal Inspection, Non Tender, Supple, Carotid Bruit Respiratory: Chest Non Tender, Lungs Clear, No Accessory Muscle Use, No Respiratory Distress, Decreased Breath Sounds Cardiovascular: Regular Rate, Rhythm, No Edema, No Gallop, No JVD, No Murmur, Normal Peripheral Pulses Gastrointestinal: Normal Bowel Sounds, No Organomegaly, No Pulsatile Mass, Non Tender, Soft Back: Normal Inspection, No CVA Tenderness, No Vertebral Tenderness Extremity: Normal Capillary Refill, Normal Inspection, Normal Range of Motion (except right arm), Non Tender, No Calf Tenderness, No Pedal Edema Neurologic/Psychiatric: Alert, Oriented x3, Normal Mood/Affect, emergency vehicle dispatcher II-XII Norm as Tested, Abnormal Gait, Motor Weakness (generalized) Skin: Normal Color, Warm/Dry Lymphatic: No Adenopathy Results/Procedures Lab Patient resulted labs reviewed. FIM Transfers Therapy Code Descriptions/Definitions Functional [place] Measure: 0=Not Assessed/NA 4=Minimal Assistance 1=Total Assistance 5=Supervision or Setup 2=Maximal Assistance 6=Modified [place] 3=Moderate Assistance 7=Complete IndependenceSCALE: Activities may be completed with or without assistive devices. 8-Sgujwajxel-eaddshf completes the activity by him/herself with no assistance from a helper. 5-Set-up or Clean-up Assistance-helper sets up or cleans up; patient completes activity. [place] assists only prior to or following the activity. 4-Supervision or Touching Assistance-helper provides verbal cues and/or touching/steadying and/or contact guard assistance as patient completes activity. Assistance may be provided throughout the activity or intermittently. 3-Partial/Moderate Assistance-helper does LESS THAN HALF the effort. [place] lifts, holds or supports trunk or limbs, but provides less than half the effort. 2-Substantial/Maximal Assistance-helper does MORE THAN HALF the effort. [place] lifts or holds trunk or limbs and provides more than half the effort. 1-Slqpvokoq-nbuqdd does ALL the effort. Patient does none of the effort to complete the activity. Or, the assistance of 2 or more helpers is required for the patient to complete the activity. If activity was not attempted, code reason: 7-Patient Refused. 9-Not Applicable-not attempted and the patient did not perform the activity before the current illness, exacerbation or injury. 10-Not Attempted due to Environmental Limitations-(lack of equipment, weather restraints, etc.). 88-Not Attempted due to Medical Conditions or Safety Concerns. Roll Left to Right (QC): 88 Sit to Lying (QC): 3 Sit to Stand (QC): 3 Chair/Bdt-dr-Apohv Xfer(QC): 3 Car Transfer (QC): 88 Gait Training Does the Patient Walk?: Yes Distance: 5ft x 2 in // bars Walk 10 feet (QC): 88 (Weakness/endurance/pain ) Walk 50 ft with 2 Turns(QC): 88 (Weakness/endurance/pain ) Walk 150 ft (QC): 9 (20-30ft at PLOF ) Walking 10ft/uneven surface-QC: 88 (Weakness/endurance/pain ) Gait Persons Needed: 3 Gait Assistive Device: Parallel Bars Wheelchair Training Does the Pt Use a Wheelchair?: Yes Distance: 150ft Wheel 50 ft with 2 turns (QC): 4 Wheel 150 ft (QC): 4 Type of Wheelchair: Motorized Stair Training 1 Step (curb) (QC): 88 (Weakness/endurance/pain ) 4 Steps (QC): 9 (Ramp ) 12 Steps (QC): 9 (Ramp ) Balance Picking up an Object (QC): 88 (Weakness/endurance/pain ) ADL-Treatment Eating (QC): 5 Oral Hygiene (QC): 4 Shower/Bathe Self (QC): 88 Upper Body Dressing (QC): 2 Lower Body Dressing (QC): 2 On/Off Footwear (QC): 1 Toileting Hygiene (QC): 1 Assessment/Plan Assessment and Plan Assess & Plan/Chief Complaint Assessment: 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
[2023-08-08 08:32] VITALS: BP 135/60
[2023-08-08] MEDS: CYANOCOBALAMIN 1,000 MCG TABLET PO SCH (08:40)
[2023-08-08] MEDS: amLODIPine 10 MG TABLET PO SCH (08:40)
[2023-08-08] MEDS: FUROSEMIDE 40 MG TABLET PO SCH (08:40)
[2023-08-08] MEDS: MAGNESIUM OXIDE 400 MG TABLET PO SCH (08:41)
[2023-08-08] MEDS: FOLIC ACID 1 MG TAB PO SCH (08:42)
[2023-08-08] MEDS: ENOXAPARIN 40 MG/0.4 ML SYRINGE SC SCH ×2 (08:42→20:12)
[2023-08-08] MEDS: MICONAZOLE 2% POWDER 90 GM TOP SCH ×2 (08:43→20:15)
[2023-08-08] MEDS: NYSTATIN CREAM 30 GM TUBE TP SCH ×3 (08:43→20:15)
[2023-08-08] MEDS: DOCUSATE SODIUM 100 MG CAPSULE PO SCH ×2 (08:44→21:06)
[2023-08-08] MEDS: SENNA W/DOCUSATE TABLET PO SCH ×2 (08:44→21:06)
--- NOTE | 2023-08-08 09:50 | Physical Therapy Daily Note ---
PT Daily Note-Current Subjective Pt reports she is doing well this morning and is agreeable to PT. Pt reported R shoulder pain at 6/10. Pain Numeric Pain Scale: 6 Location: Right Location Body Site: Shoulder Section J - Health Conditions 1. Rarely or not at all 2. Occasionally 3. Frequently 4. Almost constantly 8. Unable to answer Pain Effect on Sleep: 3 Pain Interference with Therapy: 3 Pain Interference w/Day-to-Day: 3 Mental Status Attachments: Oxygen (2L ) Transfers SCALE: Activities may be completed with or without assistive devices. 5-Awshbflfbg-trfmiwr completes the activity by him/herself with no assistance from a helper. 5-Set-up or Clean-up Assistance-helper sets up or cleans up; patient completes activity. [place] assists only prior to or following the activity. 4-Supervision or Touching Assistance-helper provides verbal cues and/or touching/steadying and/or contact guard assistance as patient completes activity. Assistance may be provided throughout the activity or intermittently. 3-Partial/Moderate Assistance-helper does LESS THAN HALF the effort. [place] lifts, holds or supports trunk or limbs, but provides less than half the effort. 2-Substantial/Maximal Assistance-helper does MORE THAN HALF the effort. [place] lifts or holds trunk or limbs and provides more than half the effort. 5-Sjxvrpbhm-vwxcgg does ALL the effort. Patient does none of the effort to complete the activity. Or, the assistance of 2 or more helpers is required for the patient to complete the activity. If activity was not attempted, code reason: 7-Patient Refused. 9-Not Applicable-not attempted and the patient did not perform the activity before the current illness, exacerbation or injury. 10-Not Attempted due to Environmental Limitations-(lack of equipment, weather restraints, etc.). 88-Not Attempted due to Medical Conditions or Safety Concerns. Sit to Stand (QC): 4 Chair/Vzm-xz-Luwoa Xfer(QC): 4 Weight Bearing Right Lower Extremity: Right Full Weight Bearing Left Lower Extremity: Left Full Weight Bearing NWB R UE; Sling at all times; See protocol Gait Training Does the Patient Walk?: Yes Distance: 5ft x 2 in the // bars Gait Assistive Device: Parallel Bars Wheelchair Training Does the Pt Use a Wheelchair?: Yes Wheel 50 ft with 2 turns (QC): 4 Wheel 150 ft (QC): 4 Type of Wheelchair: Motorized Treatments PT/OT co-tx from [id number], skills of 2 clinicians required to decrease fall risk, increase functional mobility and increase safety awareness throughout session. PT focusing on transfers, ambulation, and w/c mobility, while OT focusing on functional mobility, R UE placement and assisting with positioning during ambulation. Pt completed functional transfers with CGA and v/c for safety and proper technique. Pt completed motorized scooter mobility through obstacle course with SBA and v/c for improved safety (improved control noted on this date ). Pt ambulated 5ft x 2 in the // bars with CGA/Min A (COUPON COLLECTION CLERK assisted for w/c and R UE positioning while ambulating). Pt completed B LE Ther Ex x 15 reps each with the sean Jeffries. Pt edu on HEP, with handouts provided. Decreased v/c required throughout treatment session for safety and impulsivity. Pt demo improved safety awareness on this date. After session, pt sitting in w/c with ca ll light/phone in reach. Spouse and son present in room. All needs met. Assessment Current Status: Good Progress Pt tolerated PT well with good effort PT Detention Goals Anesthesia Resident Goals PT Anesthesia Resident Goals Time Frame: Aug 18, 2023 Roll Left & Right (QC): 3 (Min A for bed mobility ) Sit to Lying (QC): 3 (Min A for bed mobility ) Lying-Sitting on Side/Bed(QC): 3 (Min A for bed mobility ) Sit to Stand (QC): 4 (SBA for transfers ) Chair/Osu-st-Avpap Xfer(QC): 4 (SBA for transfers ) Toilet Transfer (QC): 4 (SBA for transfers ) Car Transfer (QC): 4 (SBA for transfers ) Does the Patient Walk: Yes Walk 10 feet (QC): 4 (SBA for walking short distances ) Walk 50ft with 2 Turns (QC): 4 (SBA for walking short distances ) Walk 150 ft (QC): 9 (Unable at PLOF ) Walking 10ft on Uneven Surface: 4 (SBA for walking short distances ) 1 Step (curb) (QC): 4 (SBA for 1 step ) 4 Steps (QC): 9 (Unable at PLOF ) 12 Steps (QC): 9 (Unable at PLOF ) Picking up an Object (QC): 4 (SBA with cash accounting clerk ) Does the Pt use WC or Scooter?: Yes Wheel 50 feet with 2 turns (QC: 6 (Mod I with scooter ) Type: Motorized Wheel 150 feet: 6 (Mod I with scooter ) Type: Motorized PT Plan Problem List Problem List: Activity Tolerance, Functional Strength, Safety, Balance, Gait, Transfer, Bed Mobility, ROM Treatment/Plan Treatment Plan: Continue Plan of Care Treatment Plan: Bed Mobility, Education, Functional Activity Robe, Functional Strength, Group Therapy, Gait, Safety, Therapeutic Exercise, Transfers Treatment Duration: Aug 18, 2023 Frequency: At least 5 of 7 days/Wk (IRF) Estimated Hrs Per Day: 1.5 hours per day Patient and/or Family Agrees t: Yes Safety Risks/Education Patient Education: Gait Training, Transfer Techniques, Issued Written HEP, Reviewed Precautions, Correct Positioning, W/C Management, Safety Issues Teaching Recipient: Patient Teaching Methods: Demonstration, Discussion Response to Teaching: Verbalize Understanding, Return Demonstration, Reinforcement Needed Discharge Recommendations Therapy Discharge Recommendati: Home & Family, Post Acute PT Equpiment Recommendations-D/C: Other, Please Explain (david-walker ) Discharge Status/Home Program Cont per POC Barriers to Progress Weakness, Endurance, Pain Target Placement Home with family support Time Time In: 945 Time Out: 1115 DATE: Aug 08, 2023 Total Billed Treatment Time: 90 Total Billed Treatment 90 min total from 0019-3834; Co-tx for 30 min from 9692-9901 1 visit GT x 1 EX x 2 FA x 3 HI G[place]LEGO PT Aug 08, 2023 09:50
--- NOTE | 2023-08-08 10:24 | Occupational Ther Daily Note ---
OT Current Status-Daily Note Subjective Pt alert, sitting in w/c. Pt agrees to therapy. No c/o pain at this time. Co- treat with PT([id number]), skills of 2 clinicians required to decrease fall risk, increase mobility and maintain optimal position of R UE during mobility. PT focusing on transfers and ambulation while OT focusing on positioning w/c and L UE during mobility. Mental Status/Objective Patient Orientation: Person, Place, Time, Situation Attachments: Oxygen (2L decreased to 81% when off to dress then increase to 91% and above within a minute with O2 on) ADL-Treatment Pt agrees to shower. 2nd person assist for safety, did not have to touch or guide pt with shower transfer. Pt sat on [facility] to complete shower with assistance to bathe feet, thoroughly wash buttocks/under panis and under L arm. Noted 2 pimples on buttocks, reported to nrsg and applied ointment to area. Dependent with footwear. Mod A for UBD. Independent for oral care sitting at sink. Dependent to don/doff shldr sling. Therapy Code Descriptions/Definitions Functional [place] Measure: 0=Not Assessed/NA 4=Minimal Assistance 1=Total Assistance 5=Supervision or Setup 2=Maximal Assistance 6=Modified [place] 3=Moderate Assistance 7=Complete IndependenceSCALE: Activities may be completed with or without assistive devices. 3-Gujpvreiiw-ifhthag completes the activity by him/herself with no assistance from a helper. 5-Set-up or Clean-up Assistance-helper sets up or cleans up; patient completes activity. [place] assists only prior to or following the activity. 4-Supervision or Touching Assistance-helper provides verbal cues and/or touching/steadying and/or contact guard assistance as patient completes activity. Assistance may be provided throughout the activity or intermittently. 3-Partial/Moderate Assistance-helper does LESS THAN HALF the effort. [place] lifts, holds or supports trunk or limbs, but provides less than half the effort. 2-Substantial/Maximal Assistance-helper does MORE THAN HALF the effort. [place] lifts or holds trunk or limbs and provides more than half the effort. 7-Sxsjqyrps-uefbow does ALL the effort. Patient does none of the effort to complete the activity. Or, the assistance of 2 or more helpers is required for the patient to complete the activity. If activity was not attempted, code reason: 7-Patient Refused. 9-Not Applicable-not attempted and the patient did not perform the activity before the current illness, exacerbation or injury. 10-Not Attempted due to Environmental Limitations-(lack of equipment, weather restraints, etc.). 88-Not Attempted due to Medical Conditions or Safety Concerns. Eating (QC): 6 Oral Hygiene (QC): 6 Shower/Bathe Self (QC): 3 (mod A. pt able to stand using grabbar.) Upper Body Dressing (QC): 2 On/Off Footwear: 1 Other Treatment PT ambulated pt in //bars x1, ambulated 2x's. NEELY assisted for w/c and R UE positioning while ambulating. Pt left in care of PT. All needs met. OT Honey Blender Goals Honey Blender Goals Time Frame: Aug 25, 2023 Acute change in mental status: 1 Inattention: 2 Disorganized thinkin Altered level of consciousness: 0 Eating (QC): 5 Oral Hygiene (QC): 6 Toileting Hygiene (QC): 3 Shower/Bathe Self (QC): 3 Upper Body Dressing (QC): 3 Lower Body Dressing (QC): 3 On/Off Footwear (QC): 2 Additional Goals: 1-Demonstrate ADL Tasks, 2-Verbalize Understanding, 3- ImproveStrength/[place] 1=Demonstrate adherence to instructed precautions during ADL tasks. 2=Patient will verbalize/demonstrate understanding of assistive devices/modifications for ADL. 3=Patient will improve strength/tolerance for activity to enable patient to perform ADL's. OT Education/Plan Problem List/Assessment Assessment: Decreased Activ Tolerance, Impaired Bed Mobility, Impaired Funct Balance, Impaired Self-Care Skills, Restricted Funct UE ROM Discharge Recommendations Plan/Recommendations: Continue POC Treatment Plan/Plan of Care Patient would benefit from OT for education, treatment and training to promote independence in ADL's, mobility, safety and/or upper extremity function for ADL's. Plan of Care: ADL Retraining, Functional Mobility, Group Exercise/Act as Ind, UE Funct Exercise/Act Treatment Duration: Aug 25, 2023 Frequency: At least 5 of 7 days/Wk (IRF) Estimated Hrs Per Day: 1.5 hours per day Agreement: Yes Rehab Potential: Good Time Start Time: 08:45 Stop Time: 10:15 DATE: Aug 08, 2023 Total Time Billed (hr/min): 90 Billed Treatment Time 1 visit-ADL 4 (60 min) FA 2 (30 min) co-treat with PT [id number], individual [id number] ALEK SARKAR Aug 08, 2023 10:24
[2023-08-08] MEDS: SALIVA STIMULANT PO PRN ×2 (16:09→20:20)
[2023-08-08] MEDS ORDERED: inSUlin DETERMIR 1 UNIT/0.01 ML (CHARGE PER UNIT) SQ SCH (17:00)
[2023-08-08 20:00] VITALS: BP 145/63
[2023-08-08] MEDS: ALPRAZolam 1 MG TABLET PO SCH (20:10)
[2023-08-08] MEDS: GABAPENTIN 300 MG CAPSULE PO SCH (20:10)
[2023-08-08] MEDS: MONTELUKAST 10 MG TABLET PO SCH (20:11)
[2023-08-08] MEDS: traZODone 150 MG (DESYREL) TABLET PO SCH (20:11)
[2023-08-08] MEDS: CEPHALEXIN 250 MG CAPSULE PO SCH (20:11)
[2023-08-08] MEDS: diphenhydrAMINE 25 MG TABLET PO PRN (20:15)
[2023-08-09] MEDS: RT-Ipratropium/Albuterol NEB 3 ML VIAL INH SCH ×4 (02:24→21:43)
[2023-08-09] MEDS: ACETAMINOPHEN 325 MG TABLET PO PRN ×3 (02:54→17:04)
--- NOTE | 2023-08-09 05:06 | PM&R Progress Note ---
Subjective HPI/CC On Admission Date Seen by Provider: Aug 09, 2023 Time Seen by Provider: 12:45 Subjective/Events-last exam 08/09/2023: Blood sugars were low again this morning so we will discontinue the long-acting insulin No other concerns Discharge is planned soon 08/08/2023: Patient doing well Working with her power wheelchair today No falls Pain is controlled Oxygen maintained 08/07/2023: No major issues Monitoring sugar closely Reviewed home meds Monitoring closely 08/06/2023: Doing well MAT protocol ordered Reviewed meds and labs No falls Pain is controlled 08/05/2023: Patient doing really well Changing medication to exactly how she takes it at home Removed oxycodone as an allergy since it is just itching and we will treat with Benadryl No falls Doxycycline will complete Pain is not controlled so adding oxycodone Review of Systems General: Fatigue, Malaise Objective Exam Vital Signs Vital Signs Date Time Temp Pulse Resp B/P (MAP) Pulse Ox O2 Delivery O2 Flow Rate FiO2 08/09/23 20:39 36.3 60 18 142/61 (88) 97 08/09/23 14:32 Nasal Cannula 2.00 Capillary Refill : General Appearance: No Apparent Distress, WD/WN, Chronically ill, Obese HEENT: PERRL/EOMI, Normal ENT Inspection, Pharynx Normal Neck: Full Range of Motion, Normal Inspection, Non Tender, Supple, Carotid Bruit Respiratory: Chest Non Tender, Lungs Clear, No Accessory Muscle Use, No Respir atory Distress, Decreased Breath Sounds Cardiovascular: Regular Rate, Rhythm, No Edema, No Gallop, No JVD, No Murmur, Normal Peripheral Pulses Gastrointestinal: Normal Bowel Sounds, No Organomegaly, No Pulsatile Mass, Non Tender, Soft Back: Normal Inspection, No CVA Tenderness, No Vertebral Tenderness Extremity: Normal Capillary Refill, Normal Inspection, Normal Range of Motion (except right arm), Non Tender, No Calf Tenderness, No Pedal Edema Neurologic/Psychiatric: Alert, Oriented x3, Normal Mood/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 FIM Transfers Therapy Code Descriptions/Definitions Functional [place] Measure: 0=Not Assessed/NA 4=Minimal Assistance 1=Total Assistance 5=Supervision or Setup 2=Maximal Assistance 6=Modified [place] 3=Moderate Assistance 7=Complete IndependenceSCALE: Activities may be completed with or without assistive devices. 7-Iscsasybjr-buwmfuh completes the activity by him/herself with no assistance from a helper. 5-Set-up or Clean-up Assistance-helper sets up or cleans up; patient completes activity. [place] assists only prior to or following the activity. 4-Supervision or Touching Assistance-helper provides verbal cues and/or touching/steadying and/or contact guard assistance as patient completes activity. Assistance may be provided throughout the activity or intermittently. 3-Partial/Moderate Assistance-helper does LESS THAN HALF the effort. [place] lifts, holds or supports trunk or limbs, but provides less than half the effort. 2-Substantial/Maximal Assistance-helper does MORE THAN HALF the effort. [place] lifts or holds trunk or limbs and provides more than half the effort. 9-Kqfpalufl-ucitoj does ALL the effort. Patient does none of the effort to complete the activity. Or, the assistance of 2 or more helpers is required for the patient to complete the activity. If activity was not attempted, code reason: 7-Patient Refused. 9-Not Applicable-not attempted and the patient did not perform the activity before the current illness, exacerbation or injury. 10-Not Attempted due to Environmental Limitations-(lack of equipment, weather restraints, etc.). 88-Not Attempted due to Medical Conditions or Safety Concerns. Roll Left to Right (QC): 88 Sit to Lying (QC): 3 Sit to Stand (QC): 4 Chair/Kuw-vg-Cvule Xfer(QC): 4 Car Transfer (QC): 88 Gait Training Does the Patient Walk?: Yes Distance: 5ft x 2 in the // bars Walk 10 feet (QC): 88 (Weakness/endurance/pain ) Walk 50 ft with 2 Turns(QC): 88 (Weakness/endurance/pain ) Walk 150 ft (QC): 9 (20-30ft at PLOF ) Walking 10ft/uneven surface-QC: 88 (Weakness/endurance/pain ) Gait Persons Needed: 3 Gait Assistive Device: Parallel Bars Wheelchair Training Does the Pt Use a Wheelchair?: Yes Distance: 150ft Wheel 50 ft with 2 turns (QC): 4 Wheel 150 ft (QC): 4 Type of Wheelchair: Motorized Stair Training 1 Step (curb) (QC): 88 (Weakness/endurance/pain ) 4 Steps (QC): 9 (Ramp ) 12 Steps (QC): 9 (Ramp ) Balance Picking up an Object (QC): 88 (Weakness/endurance/pain ) ADL-Treatment Eating (QC): 6 Oral Hygiene (QC): 6 Shower/Bathe Self (QC): 3 (mod A. 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
[2023-08-09] MEDS: LEVOTHYROXINE 75 MCG TABLET PO SCH (06:21)
[2023-08-09] MEDS: oxyCODONE IMMEDIATE RELEASE 5 MG TABLET PO PRN ×5 (06:21→23:50)
[2023-08-09 08:00] VITALS: BP 137/64
--- NOTE | 2023-08-09 08:07 | Physical Therapy Daily Note ---
PT Daily Note-Current Subjective Pt reports she is doing well this morning and is agreeable to PT. R shoulder pain = 4/10 Pain Numeric Pain Scale: 4 Location: Right Location Body Site: Shoulder Section J - Health Conditions 1. Rarely or not at all 2. Occasionally 3. Frequently 4. Almost constantly 8. Unable to answer Pain Effect on Sleep: 2 Pain Interference with Therapy: 3 Pain Interference w/Day-to-Day: 2 Transfers SCALE: Activities may be completed with or without assistive devices. 5-Dvmhxpfxxh-zcbbjig completes the activity by him/herself with no assistance from a helper. 5-Set-up or Clean-up Assistance-helper sets up or cleans up; patient completes activity. [place] assists only prior to or following the activity. 4-Supervision or Touching Assistance-helper provides verbal cues and/or touching/steadying and/or contact guard assistance as patient completes activity. Assistance may be provided throughout the activity or intermittently. 3-Partial/Moderate Assistance-helper does LESS THAN HALF the effort. [place] lifts, holds or supports trunk or limbs, but provides less than half the effort. 2-Substantial/Maximal Assistance-helper does MORE THAN HALF the effort. [place] lifts or holds trunk or limbs and provides more than half the effort. 3-Wmrefolzq-beznwc does ALL the effort. Patient does none of the effort to complete the activity. Or, the assistance of 2 or more helpers is required for the patient to complete the activity. If activity was not attempted, code reason: 7-Patient Refused. 9-Not Applicable-not attempted and the patient did not perform the activity before the current illness, exacerbation or injury. 10-Not Attempted due to Environmental Limitations-(lack of equipment, weather restraints, etc.). 88-Not Attempted due to Medical Conditions or Safety Concerns. Sit to Stand (QC): 4 Chair/Ban-jw-Klxne Xfer(QC): 4 Weight Bearing Right Lower Extremity: Right Full Weight Bearing Left Lower Extremity: Left Full Weight Bearing NWB R UE; Sling at all times; See protocol Gait Training Does the Patient Walk?: Yes Walk 10 feet (QC): 1 Walk 50 ft with 2 Turns(QC): 88 Walk 150 ft (QC): 88 Walking 10ft/uneven surface-QC: 88 Gait Persons Needed: 2 Gait Assistive Device: Walker [place] Wheelchair Training Does the Pt Use a Wheelchair?: Yes Wheel 50 ft with 2 turns (QC): 4 Wheel 150 ft (QC): 4 Type of Wheelchair: Motorized Treatments PT/OT co-tx from [id number], skills of 2 clinicians required to decrease fall risk, increase functional mobility and increase safety awareness throughout session. PT focusing on transfers, ambulation, and w/c mobility, while OT focusing on functional mobility, R UE placement and assisting with positioning during ambulation. Pt completed functional transfers with CGA/SBA and v/c for safety and proper technique. Pt ambulated 14ft and 6ft x 2 with CGA x 1 and assist x 1 for w/c and O2. Pt stood x 3 bouts in the // bars with CGA working on unsupported standing. Pt stood for 30 sec to 1 min with each stand. Pt completed seated B LE Ther Ex x 15 reps each with the red Tband. Pt required extended rest breaks throughout treatment session. After treatment session, pt was sitting up in the w/c with ice machine on R shoulder, call light in reach, and all needs met. 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 Goals Halfway Goals PT Halfway Goals Time Frame: Aug 18, 2023 Roll Left & Right (QC): 3 (Min A for bed mobility ) Sit to Lying (QC): 3 (Min A for bed mobility ) Lying-Sitting on Side/Bed(QC): 3 (Min A for bed mobility ) Sit to Stand (QC): 4 (SBA for transfers ) Chair/Rgd-bk-Czwhs Xfer(QC): 4 (SBA for transfers ) Toilet Transfer (QC): 4 (SBA for transfers ) Car Transfer (QC): 4 (SBA for transfers ) Does the Patient Walk: Yes Walk 10 feet (QC): 4 (SBA for walking short distances ) Walk 50ft with 2 Turns (QC): 4 (SBA for walking short distances ) Walk 150 ft (QC): 9 (Unable at PLOF ) Walking 10ft on Uneven Surface: 4 (SBA for walking short distances ) 1 Step (curb) (QC): 4 (SBA for 1 step ) 4 Steps (QC): 9 (Unable at PLOF ) 12 Steps (QC): 9 (Unable at PLOF ) Picking up an Object (QC): 4 (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 ) Does the Pt use WC or Scooter?: Yes Wheel 50 feet with 2 turns (QC: 6 (Mod I with scooter ) Type: Motorized Wheel 150 feet: 6 (Mod I with scooter ) Type: Motorized PT Plan Problem List Problem List: Activity Tolerance, Functional Strength, Safety, Balance, Gait, Transfer, Bed Mobility, ROM Treatment/Plan Treatment Plan: Continue Plan of Care Treatment Plan: Bed Mobility, Education, Functional Activity Robe, Functional Strength, Group Therapy, Gait, Safety, Therapeutic Exercise, Transfers Treatment Duration: Aug 18, 2023 Frequency: At least 5 of 7 days/Wk (IRF) Estimated Hrs Per Day: 1.5 hours per day Patient and/or Family Agrees t: Yes Safety Risks/Education Patient Education: Gait Training, Transfer Techniques, Correct Positioning, W/C Management, Safety Issues Teaching Recipient: Patient Teaching Methods: Demonstration, Discussion Response to Teaching: Verbalize Understanding, Return Demonstration, Reinforcement Needed Discharge Recommendations Therapy Discharge Recommendati: Home & Family, Post Acute PT Equpiment Recommendations-D/C: Other, Please Explain ([place]-walker ) Discharge Status/Home Program Cont per POC Barriers to Progress Pain, weakness, endurance Target Placement Home with family Time Time In: 800 Time Out: 930 DATE: Aug 09, 2023 Total Billed Treatment Time: 90 Total Billed Treatment 90 min total from 8902-5127; 60 min co-tx from 2145-2336 1 visit EX x 1 GT x 2 FA x 3 HI G[place]LE[place] PT Aug 09, 2023 08:07
[2023-08-09] MEDS: CYANOCOBALAMIN 1,000 MCG TABLET PO SCH (08:46)
[2023-08-09] MEDS: VITAMIN D3 125 MCG (5,000 UNITS) TABLET PO SCH (08:47)
[2023-08-09] MEDS: MAGNESIUM OXIDE 400 MG TABLET PO SCH (08:47)
[2023-08-09] MEDS: amLODIPine 10 MG TABLET PO SCH (08:47)
[2023-08-09] MEDS: FUROSEMIDE 40 MG TABLET PO SCH (08:47)
[2023-08-09] MEDS: DOCUSATE SODIUM 100 MG CAPSULE PO SCH ×2 (08:48→20:39)
[2023-08-09] MEDS: FOLIC ACID 1 MG TAB PO SCH (08:48)
[2023-08-09] MEDS: SENNA W/DOCUSATE TABLET PO SCH ×2 (09:47→20:30)
[2023-08-09] MEDS: ENOXAPARIN 40 MG/0.4 ML SYRINGE SC SCH ×2 (10:17→20:39)
[2023-08-09] MEDS: MICONAZOLE 2% POWDER 90 GM TOP SCH ×2 (10:18→20:39)
[2023-08-09] MEDS: NYSTATIN CREAM 30 GM TUBE TP SCH ×3 (10:18→20:40)
[2023-08-09] MEDS: SALIVA STIMULANT PO PRN ×2 (10:20→20:39)
--- NOTE | 2023-08-09 12:03 | Occupational Ther Daily Note ---
OT Current Status-Daily Note Subjective Pt alert, lying in bed. Pt agrees to therapy. No c/o pain initially, with increased movement pt c/o pain to nrsg. Mental Status/Objective Patient Orientation: Person, Place, Time, Situation Attachments: Other-See Comments (shldr sling/brace) ADL-Treatment Mod A for supine to EOB. Max A to don/doff sling/brace. Mod A to don/doff hospital gown. Pt able to stand and complete pendulum exercises with R UE. Independent with oral care. Therapy Code Descriptions/Definitions Functional [place] Measure: 0=Not Assessed/NA 4=Minimal Assistance 1=Total Assistance 5=Supervision or Setup 2=Maximal Assistance 6=Modified [place] 3=Moderate Assistance 7=Complete IndependenceSCALE: Activities may be completed with or without assistive devices. 2-Iincjoovlh-leqowoc completes the activity by him/herself with no assistance from a helper. 5-Set-up or Clean-up Assistance-helper sets up or cleans up; patient completes activity. [place] assists only prior to or following the activity. 4-Supervision or Touching Assistance-helper provides verbal cues and/or touching/steadying and/or contact guard assistance as patient completes activity. Assistance may be provided throughout the activity or intermittently. 3-Partial/Moderate Assistance-helper does LESS THAN HALF the effort. [place] lifts, holds or supports trunk or limbs, but provides less than half the effort. 2-Substantial/Maximal Assistance-helper does MORE THAN HALF the effort. [place] lifts or holds trunk or limbs and provides more than half the effort. 6-Dmcqemsaf-plqkxx does ALL the effort. Patient does none of the effort to complete the activity. Or, the assistance of 2 or more helpers is required for the patient to complete the activity. If activity was not attempted, code reason: 7-Patient Refused. 9-Not Applicable-not attempted and the patient did not perform the activity before the current illness, exacerbation or injury. 10-Not Attempted due to Environmental Limitations-(lack of equipment, weather restraints, etc.). 88-Not Attempted due to Medical Conditions or Safety Concerns. Oral Hygiene (QC): 6 Upper Body Dressing (QC): 3 (mod A) Other Treatment PT/OT co-tx from [id number], skills of 2 clinicians required to decrease fall risk, increase functional mobility and increase safety awareness throughout session. PT focusing on transfers, ambulation, and w/c mobility, while OT focusing on functional mobility, R UE placement and assisting with positioning during ambulation. Pt completed functional transfers with CGA/SBA and v/c for safety and proper technique. Pt ambulated 14ft and 6ft x 2 with CGA x 1 and assist x 1 for w/c and O2. Pt stood x 3 bouts in the // bars with CGA working on unsupported standing. Pt stood for 30 sec to 1 min with each stand. Pt left in care of PT. All needs met. OT [facility] Goals Control And Recovery Special Tactics Goals Time Frame: Aug 25, 2023 Acute change in mental status: 1 Inattention: 2 Disorganized thinkin Altered level of consciousness: 0 Eating (QC): 5 Oral Hygiene (QC): 6 Toileting Hygiene (QC): 3 Shower/Bathe Self (QC): 3 Upper Body Dressing (QC): 3 Lower Body Dressing (QC): 3 On/Off Footwear (QC): 2 Additional Goals: 1-Demonstrate ADL Tasks, 2-Verbalize Understanding, 3- ImproveStrength/[place] 1=Demonstrate adherence to instructed precautions during ADL tasks. 2=Patient will verbalize/demonstrate understanding of assistive devices/modifications for ADL. 3=Patient will improve strength/tolerance for activity to enable patient to perform ADL's. OT Education/Plan Problem List/Assessment Assessment: Decreased Activ Tolerance, Decreased UE Strength, Impaired Bed Mobility, Impaired Funct Balance, Impaired Self-Care Skills, Restricted Funct UE ROM Discharge Recommendations Plan/Recommendations: Continue POC Treatment Plan/Plan of Care Patient would benefit from OT for education, treatment and training to promote independence in ADL's, mobility, safety and/or upper extremity function for ADL's. Plan of Care: ADL Retraining, Functional Mobility, Group Exercise/Act as Ind, UE Funct Exercise/Act Treatment Duration: Aug 25, 2023 Frequency: At least 5 of 7 days/Wk (IRF) Estimated Hrs Per Day: 1.5 hours per day Agreement: Yes Rehab Potential: Good Time Start Time: 07:30 Stop Time: 09:00 DATE: Aug 09, 2023 Total Time Billed (hr/min): 90 Billed Treatment Time 1 visit-ADL 3 (45 min) FA 3 (45 min) co-treat with PT [id number], individual [id number] ALEK SARKAR Aug 09, 2023 12:03
[2023-08-09 15:57] VITALS: BP 137/64
[2023-08-09 20:39] VITALS: BP 142/61
[2023-08-09] MEDS: ALPRAZolam 1 MG TABLET PO SCH (20:39)
[2023-08-09] MEDS: diphenhydrAMINE 25 MG TABLET PO PRN (20:39)
[2023-08-09] MEDS: traZODone 150 MG (DESYREL) TABLET PO SCH (20:39)
[2023-08-09] MEDS: CEPHALEXIN 250 MG CAPSULE PO SCH (20:39)
[2023-08-09] MEDS: GABAPENTIN 300 MG CAPSULE PO SCH (20:39)
[2023-08-09] MEDS: MONTELUKAST 10 MG TABLET PO SCH (20:40)
[2023-08-10] MEDS: ACETAMINOPHEN 325 MG TABLET PO PRN ×2 (02:12→20:52)
[2023-08-10] MEDS: oxyCODONE IMMEDIATE RELEASE 5 MG TABLET PO PRN ×5 (04:04→21:29)
[2023-08-10] MEDS: LEVOTHYROXINE 75 MCG TABLET PO SCH (06:18)
[2023-08-10] MEDS: RT-Ipratropium/Albuterol NEB 3 ML VIAL INH SCH ×2 (07:09→21:45)
[2023-08-10 08:00] VITALS: BP 152/65
--- NOTE | 2023-08-10 08:08 | Physical Therapy Daily Note ---
PT Daily Note-Current Subjective Pt is agreeable to PT. Reported R shoulder pain at 8/10. Pain Numeric Pain Scale: 8 Location: Right Location Body Site: Shoulder Section J - Health Conditions 1. Rarely or not at all 2. Occasionally 3. Frequently 4. Almost constantly 8. Unable to answer Pain Effect on Sleep: 2 Pain Interference with Therapy: 3 Pain Interference w/Day-to-Day: 2 Mental Status Attachments: Oxygen (2L ) Transfers SCALE: Activities may be completed with or without assistive devices. 9-Tmrzwcjwxd-asswpmw completes the activity by him/herself with no assistance from a helper. 5-Set-up or Clean-up Assistance-helper sets up or cleans up; patient completes activity. [place] assists only prior to or following the activity. 4-Supervision or Touching Assistance-helper provides verbal cues and/or touching/steadying and/or contact guard assistance as patient completes activity. Assistance may be provided throughout the activity or intermittently. 3-Partial/Moderate Assistance-helper does LESS THAN HALF the effort. [place] lifts, holds or supports trunk or limbs, but provides less than half the effort. 2-Substantial/Maximal Assistance-helper does MORE THAN HALF the effort. [place] lifts or holds trunk or limbs and provides more than half the effort. 1-Mbzqhczmu-zxugjt does ALL the effort. Patient does none of the effort to complete the activity. Or, the assistance of 2 or more helpers is required for the patient to complete the activity. If activity was not attempted, code reason: 7-Patient Refused. 9-Not Applicable-not attempted and the patient did not perform the activity before the current illness, exacerbation or injury. 10-Not Attempted due to Environmental Limitations-(lack of equipment, weather restraints, etc.). 88-Not Attempted due to Medical Conditions or Safety Concerns. Sit to Stand (QC): 4 Chair/Frn-et-Gkigs Xfer(QC): 4 Toilet Transfer (QC): 4 Weight Bearing Right Lower Extremity: Right Full Weight Bearing Left Lower Extremity: Left Full Weight Bearing NWB R UE; Sling at all times; See protocol Gait Training Does the Patient Walk?: Yes Walk 10 feet (QC): 1 Walk 50 ft with 2 Turns(QC): 88 Walk 150 ft (QC): 88 Walking 10ft/uneven surface-QC: 88 Gait Persons Needed: 2 Gait Assistive Device: Walker [place] Wheelchair Training Does the Pt Use a Wheelchair?: Yes Wheel 50 ft with 2 turns (QC): 4 Wheel 150 ft (QC): 4 Type of Wheelchair: Motorized Treatments PT/OT co-tx from [id number], skills of 2 clinicians required to decrease fall risk, increase functional mobility and increase safety awareness throughout session. PT focusing on transfers, ambulation, w/c mobility, and B LE strength, while OT focusing on functional mobility, R UE placement and assisting with positioning during ambulation. Pt completed functional transfers with CGA/SBA and v/c for safety and proper technique. Pt ambulated 12ft and 6ft x 2 with CGA x 1 and assist x 1 for w/c and O2. Pt requested to use the bathroom for a BM during gait training. Pt completed a toilet transfer with CGA. Pt completed seated B LE Ther Ex x 15 reps each with the red Tband. Pt required extended rest breaks throughout treatment session, for all tasks. After treatment session, pt was sitting up in the w/c with call light in reach, and all needs met. Assessment Current Status: Good Progress Pt tolerated PT well, with good effort PT Care Home Goals Care Home Goals PT Care Home Goals Time Frame: Aug 18, 2023 Roll Left & Right (QC): 3 (Min A for bed mobility ) Sit to Lying (QC): 3 (Min A for bed mobility ) Lying-Sitting on Side/Bed(QC): 3 (Min A for bed mobility ) Sit to Stand (QC): 4 (SBA for transfers ) Chair/Jje-bn-Kubue Xfer(QC): 4 (SBA for transfers ) Toilet Transfer (QC): 4 (SBA for transfers ) Car Transfer (QC): 4 (SBA for transfers ) Does the Patient Walk: Yes Walk 10 feet (QC): 4 (SBA for walking short distances ) Walk 50ft with 2 Turns (QC): 4 (SBA for walking short distances ) Walk 150 ft (QC): 9 (Unable at PLOF ) Walking 10ft on Uneven Surface: 4 (SBA for walking short distances ) 1 Step (curb) (QC): 4 (SBA for 1 step ) 4 Steps (QC): 9 (Unable at PLOF ) 12 Steps (QC): 9 (Unable at PLOF ) Picking up an Object (QC): 4 (SBA with repairer controller tester ) Does the Pt use WC or Scooter?: Yes Wheel 50 feet with 2 turns (QC: 6 (Mod I with scooter ) Type: Motorized Wheel 150 feet: 6 (Mod I with scooter ) Type: Motorized PT Plan Problem List Problem List: Activity Tolerance, Functional Strength, Safety, Balance, Gait, Transfer, Bed Mobility, ROM Treatment/Plan Treatment Plan: Continue Plan of Care Treatment Plan: Bed Mobility, Education, Functional Activity Robe, Functional Strength, Group Therapy, Gait, Safety, Therapeutic Exercise, Transfers Treatment Duration: Aug 18, 2023 Frequency: At least 5 of 7 days/Wk (IRF) Estimated Hrs Per Day: 1.5 hours per day Patient and/or Family Agrees t: Yes Safety Risks/Education Patient Education: Gait Training, Transfer Techniques, Correct Positioning, W/C Management, Safety Issues Teaching Recipient: Patient Teaching Methods: Demonstration, Discussion Response to Teaching: Verbalize Understanding, Return Demonstration, Reinforcement Needed Discharge Recommendations Therapy Discharge Recommendati: Home & Family, Post Acute PT Equpiment Recommendations-D/C: Other, Please Explain ([place]-walker ) Discharge Status/Home Program Cont per POC Barriers to Progress Pain, weakness, endurance Target Placement Home with family Time Time In: 800 Time Out: 930 DATE: Aug 10, 2023 Total Billed Treatment Time: 90 Total Billed Treatment 90 min total from 2611-5336; 60 min co-tx from 8236-1244 1 visit EX x 1 GT x 2 FA x 3 HI [place] PT Aug 10, 2023 08:08
[2023-08-10] MEDS: ONDANSETRON 4 MG ORAL DISSOLVE TABLET PO PRN (08:38)
[2023-08-10] MEDS: CYANOCOBALAMIN 1,000 MCG TABLET PO SCH (09:51)
[2023-08-10] MEDS: FUROSEMIDE 40 MG TABLET PO SCH (09:51)
[2023-08-10] MEDS: DOCUSATE SODIUM 100 MG CAPSULE PO SCH ×2 (09:51→21:30)
[2023-08-10] MEDS: FOLIC ACID 1 MG TAB PO SCH (09:51)
[2023-08-10] MEDS: MAGNESIUM OXIDE 400 MG TABLET PO SCH (09:52)
[2023-08-10] MEDS: amLODIPine 10 MG TABLET PO SCH (09:52)
[2023-08-10] MEDS: ENOXAPARIN 40 MG/0.4 ML SYRINGE SC SCH ×2 (09:53→21:28)
[2023-08-10] MEDS: SENNA W/DOCUSATE TABLET PO SCH ×2 (09:53→21:30)
[2023-08-10] MEDS: SALIVA STIMULANT PO PRN ×2 (09:55→21:28)
[2023-08-10] MEDS: NYSTATIN CREAM 30 GM TUBE TP SCH ×3 (09:55→21:28)
[2023-08-10] MEDS: MICONAZOLE 2% POWDER 90 GM TOP SCH ×2 (09:55→21:28)
--- NOTE | 2023-08-10 11:42 | Occupational Ther Daily Note ---
OT Current Status-Daily Note Subjective Pt alert, lying in bed. Pt agrees to therapy. Pt c/o pain, rated 8/10 at R shldr, nrsg brought pain meds. Mental Status/Objective Patient Orientation: Person, Place, Time, Situation Attachments: Other-See Comments (shldr sling/brace) ADL-Treatment Pt declined shower agrees to sponge bath at bed level. Assist to thoroughly cleanse under pannus while in supine. Pt able to cleanse chest, abdomen, R UE and B upper legs then assist for all other areas. Mod A for UBD including sling/brace. Dependent for footwear. Max A for LBD. CGA for toilet transfer, max A for toileting. Pt does self limit when completing functional tasks. Therapy Code Descriptions/Definitions Functional [place] Measure: 0=Not Assessed/NA 4=Minimal Assistance 1=Total Assistance 5=Supervision or Setup 2=Maximal Assistance 6=Modified [place] 3=Moderate Assistance 7=Complete IndependenceSCALE: Activities may be completed with or without assistive devices. 3-Qgmeluaiet-rojfutr completes the activity by him/herself with no assistance from a helper. 5-Set-up or Clean-up Assistance-helper sets up or cleans up; patient completes activity. [place] assists only prior to or following the activity. 4-Supervision or Touching Assistance-helper provides verbal cues and/or touching/steadying and/or contact guard assistance as patient completes activity. Assistance may be provided throughout the activity or intermittently. 3-Partial/Moderate Assistance-helper does LESS THAN HALF the effort. [place] lifts, holds or supports trunk or limbs, but provides less than half the effort. 2-Substantial/Maximal Assistance-helper does MORE THAN HALF the effort. [place] lifts or holds trunk or limbs and provides more than half the effort. 6-Pvlhvhaiw-mtwlpb does ALL the effort. Patient does none of the effort to complete the activity. Or, the assistance of 2 or more helpers is required for the patient to complete the activity. If activity was not attempted, code reason: 7-Patient Refused. 9-Not Applicable-not attempted and the patient did not perform the activity before the current illness, exacerbation or injury. 10-Not Attempted due to Environmental Limitations-(lack of equipment, weather restraints, etc.). 88-Not Attempted due to Medical Conditions or Safety Concerns. Eating (QC): 6 Shower/Bathe Self (QC): 2 Upper Body Dressing (QC): 2 (mod A) Lower Body Dressing (QC): 2 (max a) On/Off Footwear: 1 Toileting Hygiene (QC): 2 (max a) Toilet Transfer (QC): 4 Other Treatment PT/OT co-tx from [id number], skills of 2 clinicians required to decrease fall risk, increase functional mobility and increase safety awareness throughout session. PT focusing on transfers, ambulation, w/c mobility, and B LE strength, while OT focusing on functional mobility, R UE placement and assisting with positioning during ambulation. Pt completed functional transfers with CGA/SBA and v/c for safety and proper technique. Pt ambulated 12ft and 6ft x 2 with CGA x 1 and assist x 1 for w/c and O2. Pt requested to use the bathroom for a BM during gait training. Pt left in care of PT. All needs met. OT Nursing Home Goals [employer] Goals Time Frame: Aug 25, 2023 Acute change in mental status: 1 Inattention: 2 Disorganized thinkin Altered level of consciousness: 0 Eating (QC): 5 Oral Hygiene (QC): 6 Toileting Hygiene (QC): 3 Shower/Bathe Self (QC): 3 Upper Body Dressing (QC): 3 Lower Body Dressing (QC): 3 On/Off Footwear (QC): 2 Additional Goals: 1-Demonstrate ADL Tasks, 2-Verbalize Understanding, 3- ImproveStrength/Orbe 1=Demonstrate adherence to instructed precautions during ADL tasks. 2=Patient will verbalize/demonstrate understanding of assistive devices/modifications for ADL. 3=Patient will improve strength/tolerance for activity to enable patient to perform ADL's. OT Education/Plan Problem List/Assessment Assessment: Decreased Activ Tolerance, Decreased UE Strength, Impaired Bed Mobility, Impaired Funct Balance, Impaired Self-Care Skills, Restricted Funct UE ROM Discharge Recommendations Plan/Recommendations: Continue POC Treatment Plan/Plan of Care Patient would benefit from OT for education, treatment and training to promote independence in ADL's, mobility, safety and/or upper extremity function for ADL's. Plan of Care: ADL Retraining, Functional Mobility, Group Exercise/Act as Ind, UE Funct Exercise/Act Treatment Duration: Aug 25, 2023 Frequency: At least 5 of 7 days/Wk (IRF) Estimated Hrs Per Day: 1.5 hours per day Agreement: Yes Rehab Potential: Good Time Start Time: 07:30 Stop Time: 09:00 DATE: Aug 10, 2023 Total Time Billed (hr/min): 90 Billed Treatment Time 1 vsiit-ADL 3 (45 min0 FA 3 (45 min) co-treat with PT [id number], individual [id number] ALEK SARKAR Aug 10, 2023 11:42
--- NOTE | 2023-08-10 12:26 | PM&R Progress Note ---
Subjective HPI/CC On Admission Date Seen by Provider: Aug 10, 2023 Time Seen by Provider: 12:30 Subjective/Events-last exam 08/10/2023: Patient doing well Pain medication will be changed to 12 instead of 1 Reviewed meds and labs 08/09/2023: Blood sugars were low again this morning so we will discontinue the long-acting insulin No other concerns Discharge is planned soon 08/08/2023: Patient doing well Working with her power wheelchair today No falls Pain is controlled Oxygen maintained 08/07/2023: No major issues Monitoring sugar closely Reviewed home meds Monitoring closely 08/06/2023: Doing well MAT protocol ordered Reviewed meds and labs No falls Pain is controlled 08/05/2023: Patient doing really well Changing medication to exactly how she takes it at home Removed oxycodone as an allergy since it is just itching and we will treat with Benadryl No falls Doxycycline will complete Pain is not controlled so adding oxycodone Review of Systems General: Fatigue, Malaise Objective Exam Vital Signs Vital Signs Date Time Temp Pulse Resp B/P (MAP) Pulse Ox O2 Delivery O2 Flow Rate FiO2 08/11/23 01:50 30.00 08/10/23 21:46 65 96 08/10/23 21:30 Nasal Cannula 08/10/23 19:38 36.2 20 137/56 (83) Capillary Refill : General Appearance: No Apparent Distress, WD/WN, Chronically ill, Obese HEENT: PERRL/EOMI, Normal ENT Inspection, Pharynx Normal Neck: Full Range of Motion, Normal Inspection, Non Tender, Supple, Carotid Bruit Respiratory: Chest Non Tender, Lungs Clear, No Accessory Muscle Use, No Respiratory Distress, Decreased Breath Sounds Cardiovascular: Regular Rate, Rhythm, No Edema, No Gallop, No JVD, No Murmur, Normal Peripheral Pulses Gastrointestinal: Normal Bowel Sounds, No Organomegaly, No Pulsatile Mass, Non Tender, Soft Back: Normal Inspection, No CVA Tenderness, No Vertebral Tenderness Extremity: Normal Capillary Refill, Normal Inspection, Normal Range of Motion (except right arm), Non Tender, No Calf Tenderness, No Pedal Edema Neurologic/Psychiatric: Alert, Oriented x3, Normal Mood/Affect, security engineer II-XII Norm as Tested, Abnormal Gait, Motor Weakness (generalized) Skin: Normal Color, Warm/Dry Lymphatic: No Adenopathy Results/Procedures Lab Patient resulted labs reviewed. FIM Transfers Therapy Code Descriptions/Definitions Functional [place] Measure: 0=Not Assessed/NA 4=Minimal Assistance 1=Total Assistance 5=Supervision or Setup 2=Maximal Assistance 6=Modified [place] 3=Moderate Assistance 7=Complete IndependenceSCALE: Activities may be completed with or without assistive devices. 0-Xglkmrahjz-hrpfuyx completes the activity by him/herself with no assistance from a helper. 5-Set-up or Clean-up Assistance-helper sets up or cleans up; patient completes activity. [place] assists only prior to or following the activity. 4-Supervision or Touching Assistance-helper provides verbal cues and/or touching/steadying and/or contact guard assistance as patient completes activity. Assistance may be provided throughout the activity or intermittently. 3-Partial/Moderate Assistance-helper does LESS THAN HALF the effort. [place] lifts, holds or supports trunk or limbs, but provides less than half the effort. 2-Substantial/Maximal Assistance-helper does MORE THAN HALF the effort. [place] lifts or holds trunk or limbs and provides more than half the effort. 2-Mqygtnpai-aqfqjj does ALL the effort. Patient does none of the effort to complete the activity. Or, the assistance of 2 or more helpers is required for the patient to complete the activity. If activity was not attempted, code reason: 7-Patient Refused. 9-Not Applicable-not attempted and the patient did not perform the activity before the current illness, exacerbation or injury. 10-Not Attempted due to Environmental Limitations-(lack of equipment, weather restraints, etc.). 88-Not Attempted due to Medical Conditions or Safety Concerns. Roll Left to Right (QC): 88 Sit to Lying (QC): 3 Sit to Stand (QC): 4 Chair/Rae-vn-Itkmr Xfer(QC): 4 Car Transfer (QC): 88 Gait Training Does the Patient Walk?: Yes Distance: 5ft x 2 in the // bars Walk 10 feet (QC): 1 Walk 50 ft with 2 Turns(QC): 88 Walk 150 ft (QC): 88 Walking 10ft/uneven surface-QC: 88 Gait Persons Needed: 2 Gait Assistive Device: Walker [place] Wheelchair Training Does the Pt Use a Wheelchair?: Yes Distance: 150ft Wheel 50 ft with 2 turns (QC): 4 Wheel 150 ft (QC): 4 Type of Wheelchair: Motorized Stair Training 1 Step (curb) (QC): 88 (Weakness/endurance/pain ) 4 Steps (QC): 9 (Ramp ) 12 Steps (QC): 9 (Ramp ) Balance Picking up an Object (QC): 88 (Weakness/endurance/pain ) ADL-Treatment Eating (QC): 6 Oral Hygiene (QC): 6 Shower/Bathe Self (QC): 2 Upper Body Dressing (QC): 2 (mod A) Lower Body Dressing (QC): 2 (max a) On/Off Footwear (QC): 1 Toileting Hygiene (QC): 2 (max a) Toilet Transfer (QC): 4 Assessment/Plan Assessment and Plan Assess & Plan/Chief Complaint Assessment: 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 JIMI COPD Debility acute on chronic DM CKD HTN HLP Chronic UTI Chronic Jj Plan: PT OT Fall risk Home meds Pain control 08/05/2023: Add oxycodone for pain control Monitor closely 08/06/2023: MAT protocol 08/07/2023: Monitor closely 08/08/2023: Supportive care Aggressive rehab 08/09/2023: Supportive care Monitor closely Sleep study at discharge 08/10/2023: Increase oxycodone to 1-2 pills instead of just 1 Continue aggressive therapy (1) Status post reverse arthroplasty of right shoulder HO JUÁREZ DO Aug 10, 2023 12:26
[2023-08-10] MEDS: diphenhydrAMINE 25 MG TABLET PO PRN ×2 (15:51→21:27)
[2023-08-10] MEDS: RT-Ipratropium/Albuterol NEB 3 ML VIAL INH PRN (16:18)
[2023-08-10 19:38] VITALS: BP 137/56
[2023-08-10] MEDS: GABAPENTIN 300 MG CAPSULE PO SCH (21:27)
[2023-08-10] MEDS: traZODone 150 MG (DESYREL) TABLET PO SCH (21:27)
[2023-08-10] MEDS: ALPRAZolam 1 MG TABLET PO SCH (21:27)
[2023-08-10] MEDS: MONTELUKAST 10 MG TABLET PO SCH (21:27)
[2023-08-10] MEDS: CEPHALEXIN 250 MG CAPSULE PO SCH (21:28)
[2023-08-11] MEDS: oxyCODONE IMMEDIATE RELEASE 5 MG TABLET PO PRN ×4 (04:42→22:32)
--- NOTE | 2023-08-11 05:14 | PM&R Progress Note ---
Subjective HPI/CC On Admission Date Seen by Provider: Aug 11, 2023 Time Seen by Provider: 12:00 Subjective/Events-last exam 08/11/2023: No major events Pain is controlled on more oxycodone Discharge plan next week 08/10/2023: Patient doing well Pain medication will be changed to 12 instead of 1 Reviewed meds and labs 08/09/2023: Blood sugars were low again this morning so we will discontinue the long-acting insulin No other concerns Discharge is planned soon 08/08/2023: Patient doing well Working with her power wheelchair today No falls Pain is controlled Oxygen maintained 08/07/2023: No major issues Monitoring sugar closely Reviewed home meds Monitoring closely 08/06/2023: Doing well MAT protocol ordered Reviewed meds and labs No falls Pain is controlled 08/05/2023: Patient doing really well Changing medication to exactly how she takes it at home Removed oxycodone as an allergy since it is just itching and we will treat with Benadryl No falls Doxycycline will complete Pain is not controlled so adding oxycodone Review of Systems General: Fatigue, Malaise Objective Exam Vital Signs Vital Signs Date Time Temp Pulse Resp B/P (MAP) Pulse Ox O2 Delivery O2 Flow Rate FiO2 08/11/23 09:13 94 Nasal Cannula 2.00 08/11/23 08:00 35.9 76 16 125/62 (83) Capillary Refill : General Appearance: No Apparent Distress, WD/WN, Chronically ill, Obese HEENT: PERRL/EOMI, Normal ENT Inspection, Pharynx Normal Neck: Full Range of Motion, Normal Inspection, Non Tender, Supple, Carotid Bruit Respiratory: Chest Non Tender, Lungs Clear, No Accessory Muscle Use, No Respiratory Distress, Decreased Breath Sounds Cardiovascular: Regular Rate, Rhythm, No Edema, No Gallop, No JVD, No Murmur, Normal Peripheral Pulses Gastrointestinal: Normal Bowel Sounds, No Organomegaly, No Pulsatile Mass, Non Tender, Soft Back: Normal Inspection, No CVA Tenderness, No Vertebral Tenderness Extremity: Normal Capillary Refill, Normal Inspection, Normal Range of Motion (except right arm), Non Tender, No Calf Tenderness, No Pedal Edema Neurologic/Psychiatric: Alert, Oriented x3, Normal Mood/Affect, childhood development teacher II-XII Norm as Tested, Abnormal Gait, Motor Weakness (generalized) Skin: Normal Color, Warm/Dry Lymphatic: No Adenopathy Results/Procedures Lab Patient resulted labs reviewed. FIM Transfers Therapy Code Descriptions/Definitions Functional [place] Measure: 0=Not Assessed/NA 4=Minimal Assistance 1=Total Assistance 5=Supervision or Setup 2=Maximal Assistance 6=Modified [place] 3=Moderate Assistance 7=Complete IndependenceSCALE: Activities may be completed with or without assistive devices. 4-Mmitrkrfkg-yfojxdy completes the activity by him/herself with no assistance from a helper. 5-Set-up or Clean-up Assistance-helper sets up or cleans up; patient completes activity. [place] assists only prior to or following the activity. 4-Supervision or Touching Assistance-helper provides verbal cues and/or touching/steadying and/or contact guard assistance as patient completes a ctivity. Assistance may be provided throughout the activity or intermittently. 3-Partial/Moderate Assistance-helper does LESS THAN HALF the effort. [place] lifts, holds or supports trunk or limbs, but provides less than half the effort. 2-Substantial/Maximal Assistance-helper does MORE THAN HALF the effort. [place] lifts or holds trunk or limbs and provides more than half the effort. 4-Ledarlxbt-ugxtsu does ALL the effort. Patient does none of the effort to complete the activity. Or, the assistance of 2 or more helpers is required for the patient to complete the activity. If activity was not attempted, code reason: 7-Patient Refused. 9-Not Applicable-not attempted and the patient did not perform the activity before the current illness, exacerbation or injury. 10-Not Attempted due to Environmental Limitations-(lack of equipment, weather restraints, etc.). 88-Not Attempted due to Medical Conditions or Safety Concerns. Roll Left to Right (QC): 88 Sit to Lying (QC): 3 Sit to Stand (QC): 4 Chair/Uud-dn-Htfwk Xfer(QC): 4 Car Transfer (QC): 88 Gait Training Does the Patient Walk?: Yes Distance: 5ft x 2 in the // bars Walk 10 feet (QC): 1 Walk 50 ft with 2 Turns(QC): 88 Walk 150 ft (QC): 88 Walking 10ft/uneven surface-QC: 88 Gait Persons Needed: 2 Gait Assistive Device: Walker [place] Wheelchair Training Does the Pt Use a Wheelchair?: Yes Distance: 150ft Wheel 50 ft with 2 turns (QC): 4 Wheel 150 ft (QC): 4 Type of Wheelchair: Motorized Stair Training 1 Step (curb) (QC): 88 (Weakness/endurance/pain ) 4 Steps (QC): 9 (Ramp ) 12 Steps (QC): 9 (Ramp ) Balance Picking up an Object (QC): 88 (Weakness/endurance/pain ) ADL-Treatment Eating (QC): 6 Oral Hygiene (QC): 6 Shower/Bathe Self (QC): 2 Upper Body Dressing (QC): 2 (mod A) Lower Body Dressing (QC): 2 (max a) On/Off Footwear (QC): 1 Toileting Hygiene (QC): 2 (max a) Toilet Transfer (QC): 4 Assessment/Plan Assessment and Plan Assess & Plan/Chief Complaint Assessment: 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
[2023-08-11] MEDS: LEVOTHYROXINE 75 MCG TABLET PO SCH (05:34)
[2023-08-11 08:00] VITALS: BP 125/62
[2023-08-11] MEDS: ENOXAPARIN 40 MG/0.4 ML SYRINGE SC SCH ×2 (08:44→20:32)
[2023-08-11] MEDS: CYANOCOBALAMIN 1,000 MCG TABLET PO SCH (08:45)
[2023-08-11] MEDS: MICONAZOLE 2% POWDER 90 GM TOP SCH ×2 (08:45→20:34)
[2023-08-11] MEDS: VITAMIN D3 125 MCG (5,000 UNITS) TABLET PO SCH (08:45)
[2023-08-11] MEDS: MAGNESIUM OXIDE 400 MG TABLET PO SCH (08:45)
[2023-08-11] MEDS: FUROSEMIDE 40 MG TABLET PO SCH (08:45)
[2023-08-11] MEDS: NYSTATIN CREAM 30 GM TUBE TP SCH ×3 (08:45→20:34)
[2023-08-11] MEDS: FOLIC ACID 1 MG TAB PO SCH (08:45)
[2023-08-11] MEDS: SENNA W/DOCUSATE TABLET PO SCH ×2 (08:45→20:33)
[2023-08-11] MEDS: amLODIPine 10 MG TABLET PO SCH (08:45)
[2023-08-11] MEDS: DOCUSATE SODIUM 100 MG CAPSULE PO SCH ×2 (08:45→20:33)
[2023-08-11] MEDS: RT-Ipratropium/Albuterol NEB 3 ML VIAL INH SCH ×2 (09:12→21:15)
--- NOTE | 2023-08-11 09:12 | Physical Therapy Daily Note ---
PT Daily Note-Current Subjective Pt is agreeable to PT. R shoulder pain = 7/10. Pain Numeric Pain Scale: 7 Location: Right Location Body Site: Shoulder Section J - Health Conditions 1. Rarely or not at all 2. Occasionally 3. Frequently 4. Almost constantly 8. Unable to answer Pain Effect on Sleep: 2 Pain Interference with Therapy: 3 Pain Interference w/Day-to-Day: 2 Mental Status Attachments: Oxygen (2L ) Transfers SCALE: Activities may be completed with or without assistive devices. 4-Jkjiffjzwh-omidxba completes the activity by him/herself with no assistance from a helper. 5-Set-up or Clean-up Assistance-helper sets up or cleans up; patient completes activity. [place] assists only prior to or following the activity. 4-Supervision or Touching Assistance-helper provides verbal cues and/or touching/steadying and/or contact guard assistance as patient completes activity. Assistance may be provided throughout the activity or intermittently. 3-Partial/Moderate Assistance-helper does LESS THAN HALF the effort. [place] lifts, holds or supports trunk or limbs, but provides less than half the effort. 2-Substantial/Maximal Assistance-helper does MORE THAN HALF the effort. [place] lifts or holds trunk or limbs and provides more than half the effort. 6-Yrsncszgq-ryihxs does ALL the effort. Patient does none of the effort to complete the activity. Or, the assistance of 2 or more helpers is required for the patient to complete the activity. If activity was not attempted, code reason: 7-Patient Refused. 9-Not Applicable-not attempted and the patient did not perform the activity before the current illness, exacerbation or injury. 10-Not Attempted due to Environmental Limitations-(lack of equipment, weather restraints, etc.). 88-Not Attempted due to Medical Conditions or Safety Concerns. Lying to Sitting/Side of Bed(Q: 3 Sit to Stand (QC): 4 Chair/Wca-hh-Hskgy Xfer(QC): 4 Toilet Transfer (QC): 4 Weight Bearing Right Lower Extremity: Right Full Weight Bearing Left Lower Extremity: Left Full Weight Bearing NWB R UE; Sling at all times; See protocol Gait Training Does the Patient Walk?: Yes Gait Assistive Device: Walker [place] Wheelchair Training Does the Pt Use a Wheelchair?: Yes Wheel 50 ft with 2 turns (QC): 4 Wheel 150 ft (QC): 4 Type of Wheelchair: Motorized Stair Training #of Steps: 1 1 Step (curb) (QC): 1 Treatments PT/OT co-tx from [id number], skills of 2 clinicians required to decrease fall risk, increase functional mobility and increase safety awareness throughout session. PT focusing on transfers, ambulation, w/c mobility, and B LE strength, while OT focusing on functional mobility, R UE placement and assisting with positioning during ambulation. Pt very drowsy today, difficult to stay awake though does participate as much as possible during session. Nrsg stated that she has had a rough night sleeping, O2 sat dropped then with increased pain, pain meds given prior to therapy. Pt completed supine to sit with Min/Mod A. Pt completed functional transfers, including [place] [facility] [place]. Pt had increased difficulty and decreased safety with ambulation today due to increased fatigue/falling asleep. Pt able to step up on 1" mat with assist x 3 for safety. Attempted to have pt ambulate further though due to pt falling asleep while driving motorized w/c did not attempt for safety reasons. Attempted to have pt complete pendulum swings, pt would only complete with active movement through shldr instead of PROM. After treatment session, pt left in care of OT. All needs met. The will require a sherman-walker upon d/c. The pt has a mobility limitation that significantly impairs her ability to participate in one or more mobility-related activities of daily living in the home. The pt is able to safely use the sherman- walker and the functional mobility deficit can be sufficiently resolved with the sherman-walker. 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 Goals [facility] Goals PT Boiler Tube Reamer Goals Time Frame: Aug 18, 2023 Roll Left & Right (QC): 3 (Min A for bed mobility ) Sit to Lying (QC): 3 (Min A for bed mobility ) Lying-Sitting on Side/Bed(QC): 3 (Min A for bed mobility ) Sit to Stand (QC): 4 (SBA for transfers ) Chair/Dsl-fa-Ompyi Xfer(QC): 4 (SBA for transfers ) Toilet Transfer (QC): 4 (SBA for transfers ) Car Transfer (QC): 4 (SBA for transfers ) Does the Patient Walk: Yes Walk 10 feet (QC): 4 (SBA for walking short distances ) Walk 50ft with 2 Turns (QC): 4 (SBA for walking short distances ) Walk 150 ft (QC): 9 (Unable at PLOF ) Walking 10ft on Uneven Surface: 4 (SBA for walking short distances ) 1 Step (curb) (QC): 4 (SBA for 1 step ) 4 Steps (QC): 9 (Unable at PLOF ) 12 Steps (QC): 9 (Unable at PLOF ) Picking up an Object (QC): 4 (SBA with hygiene teacher ) Does the Pt use WC or Scooter?: Yes Wheel 50 feet with 2 turns (QC: 6 (Mod I with scooter ) Type: Motorized Wheel 150 feet: 6 (Mod I with scooter ) Type: Motorized PT Plan Problem List Problem List: Activity Tolerance, Functional Strength, Safety, Balance, Gait, Transfer, Bed Mobility, ROM Treatment/Plan Treatment Plan: Continue Plan of Care Treatment Plan: Bed Mobility, Education, Functional Activity Robe, Functional Strength, Group Therapy, Gait, Safety, Therapeutic Exercise, Transfers Treatment Duration: Aug 18, 2023 Frequency: At least 5 of 7 days/Wk (IRF) Estimated Hrs Per Day: 1.5 hours per day Patient and/or Family Agrees t: Yes Safety Risks/Education Patient Education: Gait Training, Transfer Techniques, Steps, Correct Positioning, W/C Management, Safety Issues Teaching Recipient: Patient Teaching Methods: Demonstration, Discussion Response to Teaching: Reinforcement Needed Discharge Recommendations Therapy Discharge Recommendati: Home & Family, Post Acute PT Equpiment Recommendations-D/C: Other, Please Explain (Sherman-walker ) Discharge Status/Home Program Cont per POC Barriers to Progress Pain, Weakness, Endurance, NWB R UE Target Placement Home with family Time Time In: 915 Time Out: 1045 DATE: Aug 11, 2023 Total Billed Treatment Time: 90 Total Billed Treatment 90 min total from ; 60 min co-tx from 1 visit GT x 1 FA x 5 HI [place] PT Aug 11, 2023 09:12
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
[2023-08-11] MEDS: SALIVA STIMULANT PO PRN ×2 (13:02→20:35)
[2023-08-11] MEDS ORDERED: ALPR0.5T7 PO (13:46)
[2023-08-11] MEDS ORDERED: TRAM50TA3 PO (13:47)
--- NOTE | 2023-08-11 14:09 | Occ Therapy Progress Note ---
Therapy Progress Note Progress note for Family Training with . asked about hemiwalker and how pt used for transfers. states that he thinks that pt is at baseline and is doing well with mobility. CHIN educated pt's on pendulum swing exercises, modified technique for donning/doffing upper body clothing and toilet tongs for toileting. Pt had no further questions. Pt slept throughout family training. Pt's directed to call with any questions or concerns. 1 visit-FA 1 (15 min) ALEK SARKAR Aug 11, 2023 14:09
[2023-08-11] MEDS: CLONIDINE 0.1 MG TD SCH (16:14)
[2023-08-11] MEDS ORDERED: CLONIDINE PATCH REMOVAL TP SCH (16:59)
[2023-08-11 19:30] VITALS: BP 137/59
[2023-08-11] MEDS: ACETAMINOPHEN 325 MG TABLET PO PRN (20:15)
[2023-08-11] MEDS: MONTELUKAST 10 MG TABLET PO SCH (20:33)
[2023-08-11] MEDS: CEPHALEXIN 250 MG CAPSULE PO SCH (20:33)
[2023-08-11] MEDS: ALPRAZolam 1 MG TABLET PO SCH (20:33)
[2023-08-11] MEDS: traZODone 150 MG (DESYREL) TABLET PO SCH (20:33)
[2023-08-11] MEDS: GABAPENTIN 300 MG CAPSULE PO SCH (20:33)
[2023-08-11] MEDS: diphenhydrAMINE 25 MG TABLET PO PRN (20:33)
[2023-08-12] MEDS: LEVOTHYROXINE 75 MCG TABLET PO SCH (06:28)
[2023-08-12] MEDS: ACETAMINOPHEN 325 MG TABLET PO PRN ×2 (06:29→14:04)
[2023-08-12] MEDS: oxyCODONE IMMEDIATE RELEASE 5 MG TABLET PO PRN ×3 (06:59→21:14)
[2023-08-12 07:30] VITALS: BP 130/54
[2023-08-12] MEDS: BISACODYL 10 MG SUPPOSITORY PR PRN (07:41)
[2023-08-12 08:00] VITALS: BP 130/54
[2023-08-12] MEDS: RT-Ipratropium/Albuterol NEB 3 ML VIAL INH SCH ×2 (09:00→20:59)
[2023-08-12] MEDS: amLODIPine 10 MG TABLET PO SCH (09:02)
[2023-08-12] MEDS: FUROSEMIDE 40 MG TABLET PO SCH (09:02)
[2023-08-12] MEDS: DOCUSATE SODIUM 100 MG CAPSULE PO SCH ×2 (09:02→21:20)
[2023-08-12] MEDS: MAGNESIUM OXIDE 400 MG TABLET PO SCH (09:02)
[2023-08-12] MEDS: FOLIC ACID 1 MG TAB PO SCH (09:02)
[2023-08-12] MEDS: MICONAZOLE 2% POWDER 90 GM TOP SCH ×2 (09:02→21:21)
[2023-08-12] MEDS: NYSTATIN CREAM 30 GM TUBE TP SCH ×3 (09:02→21:20)
[2023-08-12] MEDS: CYANOCOBALAMIN 1,000 MCG TABLET PO SCH (09:02)
[2023-08-12] MEDS: SENNA W/DOCUSATE TABLET PO SCH ×2 (09:02→21:19)
[2023-08-12] MEDS: ENOXAPARIN 40 MG/0.4 ML SYRINGE SC SCH ×2 (09:04→21:17)
--- NOTE | 2023-08-12 11:02 | PM&R Progress Note ---
Subjective HPI/CC On Admission Date Seen by Provider: Aug 12, 2023 Time Seen by Provider: 11:00 Subjective/Events-last exam 08/12/2023: No major concerns Oxycodone 10mg makes her too sleepy OK with 5mg only now No pain right now 08/11/2023: No major events Pain is controlled on more oxycodone Discharge plan next week 08/10/2023: Patient doing well Pain medication will be changed to 12 instead of 1 Reviewed meds and labs 08/09/2023: Blood sugars were low again this morning so we will discontinue the long-acting insulin No other concerns Discharge is planned soon 08/08/2023: Patient doing well Working with her power wheelchair today No falls Pain is controlled Oxygen maintained 08/07/2023: No major issues Monitoring sugar closely Reviewed home meds Monitoring closely 08/06/2023: Doing well MAT protocol ordered Reviewed meds and labs No falls Pain is controlled 08/05/2023: Patient doing really well Changing medication to exactly how she takes it at home Removed oxycodone as an allergy since it is just itching and we will treat with Benadryl No falls Doxycycline will complete Pain is not controlled so adding oxycodone Review of Systems General: Fatigue, Malaise Musculoskeletal: arm pain Objective Exam Vital Signs Vital Signs Date Time Temp Pulse Resp B/P (MAP) Pulse Ox O2 Delivery O2 Flow Rate FiO2 08/12/23 09:00 94 Nasal Cannula 2.00 08/12/23 08:00 36.7 63 19 130/54 (79) Capillary Refill : General Appearance: No Apparent Distress, WD/WN, Chronically ill, Obese HEENT: PERRL/EOMI, Normal ENT Inspection, Pharynx Normal Neck: Full Range of Motion, Normal Inspection, Non Tender, Supple, Carotid Bruit Respiratory: Chest Non Tender, Lungs Clear, No Accessory Muscle Use, No Respiratory Distress, Decreased Breath Sounds Cardiovascular: Regular Rate, Rhythm, No Edema, No Gallop, No JVD, No Murmur, Normal Peripheral Pulses Gastrointestinal: Normal Bowel Sounds, No Organomegaly, No Pulsatile Mass, Non Tender, Soft Back: Normal Inspection, No CVA Tenderness, No Vertebral Tenderness Extremity: Normal Capillary Refill, Normal Inspection, Normal Range of Motion (except right arm), Non Tender, No Calf Tenderness, No Pedal Edema Neurologic/Psychiatric: Alert, Oriented x3, Normal 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 FIM Transfers Therapy Code Descriptions/Definitions Functional [place] Measure: 0=Not Assessed/NA 4=Minimal Assistance 1=Total Assistance 5=Supervision or Setup 2=Maximal Assistance 6=Modified [place] 3=Moderate Assistance 7=Complete IndependenceSCALE: Activities may be completed with or without assistive devices. 3-Tvutczlxhl-nmmltzf completes the activity by him/herself with no assistance from a helper. 5-Set-up or Clean-up Assistance-helper sets up or cleans up; patient completes activity. [place] assists only prior to or following the activity. 4-Supervision or Touching Assistance-helper provides verbal cues and/or touching/steadying and/or contact guard assistance as patient completes activity. Assistance may be provided throughout the activity or intermittently. 3-Partial/Moderate Assistance-helper does LESS THAN HALF the effort. [place] lifts, holds or supports trunk or limbs, but provides less than half the effort. 2-Substantial/Maximal Assistance-helper does MORE THAN HALF the effort. [place] lifts or holds trunk or limbs and provides more than half the effort. 4-Dcsgwgwxg-qhqjgn does ALL the effort. Patient does none of the effort to complete the activity. Or, the assistance of 2 or more helpers is required for the patient to complete the activity. If activity was not attempted, code reason: 7-Patient Refused. 9-Not Applicable-not attempted and the patient did not perform the activity before the current illness, exacerbation or injury. 10-Not Attempted due to Environmental Limitations-(lack of equipment, weather restraints, etc.). 88-Not Attempted due to Medical Conditions or Safety Concerns. Roll Left to Right (QC): 88 Sit to Lying (QC): 3 Sit to Stand (QC): 4 Chair/Ush-is-Fofvi Xfer(QC): 4 Car Transfer (QC): 88 Gait Training Does the Patient Walk?: Yes Distance: 5ft x 2 in the // bars Walk 10 feet (QC): 1 Walk 50 ft with 2 Turns(QC): 88 Walk 150 ft (QC): 88 Walking 10ft/uneven surface-QC: 88 Gait Persons Needed: 2 Gait Assistive Device: Walker [place] Wheelchair Training Does the Pt Use a Wheelchair?: Yes Distance: 150ft Wheel 50 ft with 2 turns (QC): 4 Wheel 150 ft (QC): 4 Type of Wheelchair: Motorized Stair Training #of Steps: 1 1 Step (curb) (QC): 1 4 Steps (QC): 9 (Ramp ) 12 Steps (QC): 9 (Ramp ) Balance Picking up an Object (QC): 88 (Weakness/endurance/pain ) ADL-Treatment Eating (QC): 6 Oral Hygiene (QC): 6 Shower/Bathe Self (QC): 2 Upper Body Dressing (QC): 2 (mod A) Lower Body Dressing (QC): 2 (max a) On/Off Footwear (QC): 1 Toileting Hygiene (QC): 2 (max a) Toilet Transfer (QC): 4 Assessment/Plan Assessment and Plan Assess & Plan/Chief Complaint Assessment: 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 JIMI COPD Debility acute on chronic DM CKD HTN HLP Chronic UTI Chronic Jj Plan: PT OT Fall risk Home meds Pain control 08/05/2023: Add oxycodone for pain control Monitor closely 08/06/2023: MAT protocol 08/07/2023: Monitor closely 08/08/2023: Supportive care Aggressive rehab 08/09/2023: Supportive care Monitor closely Sleep study at discharge 08/10/2023: Increase oxycodone to 1-2 pills instead of just 1 Continue aggressive therapy 08/11/2023: Maintain higher dose of oxycodone Monitor closely 08/12/2023: Monitor closely Decrease Oxycodone (1) Status post reverse arthroplasty of right shoulder HO JUÁREZ DO Aug 12, 2023 11:02
[2023-08-12] MEDS: diphenhydrAMINE 25 MG TABLET PO PRN (19:45)
[2023-08-12 20:35] VITALS: BP 143/65
[2023-08-12 21:01] VITALS: BP 130/54
[2023-08-12] MEDS: ALPRAZolam 1 MG TABLET PO SCH (21:08)
[2023-08-12] MEDS: CEPHALEXIN 250 MG CAPSULE PO SCH (21:08)
[2023-08-12] MEDS: traZODone 150 MG (DESYREL) TABLET PO SCH (21:08)
[2023-08-12] MEDS: MONTELUKAST 10 MG TABLET PO SCH (21:08)
[2023-08-12] MEDS: GABAPENTIN 300 MG CAPSULE PO SCH (21:08)
[2023-08-13] MEDS: oxyCODONE IMMEDIATE RELEASE 5 MG TABLET PO PRN ×4 (03:50→19:50)
[2023-08-13] MEDS: LEVOTHYROXINE 75 MCG TABLET PO SCH (06:12)
[2023-08-13 08:00] VITALS: BP 140/63
[2023-08-13] MEDS: CYANOCOBALAMIN 1,000 MCG TABLET PO SCH (08:14)
[2023-08-13] MEDS: FUROSEMIDE 40 MG TABLET PO SCH (08:14)
[2023-08-13] MEDS: amLODIPine 10 MG TABLET PO SCH (08:14)
[2023-08-13] MEDS: SENNA W/DOCUSATE TABLET PO SCH ×2 (08:14→19:48)
[2023-08-13] MEDS: FOLIC ACID 1 MG TAB PO SCH (08:14)
[2023-08-13] MEDS: DOCUSATE SODIUM 100 MG CAPSULE PO SCH ×2 (08:15→19:48)
[2023-08-13] MEDS: MAGNESIUM OXIDE 400 MG TABLET PO SCH (08:15)
[2023-08-13] MEDS: ENOXAPARIN 40 MG/0.4 ML SYRINGE SC SCH ×2 (08:15→19:48)
[2023-08-13] MEDS: NYSTATIN CREAM 30 GM TUBE TP SCH ×3 (08:15→19:53)
[2023-08-13] MEDS: MICONAZOLE 2% POWDER 90 GM TOP SCH ×2 (08:15→19:54)
[2023-08-13] MEDS: SALIVA STIMULANT PO PRN (08:38)
[2023-08-13] MEDS: RT-Ipratropium/Albuterol NEB 3 ML VIAL INH SCH ×2 (09:48→21:28)
--- NOTE | 2023-08-13 15:22 | PM&R Progress Note ---
Subjective HPI/CC On Admission Date Seen by Provider: Aug 13, 2023 Time Seen by Provider: 15:30 Subjective/Events-last exam 08/13/2023: No major events Less pain and taking less Oxycodone BM+ Will check labs in am 08/12/2023: No major concerns Oxycodone 10mg makes her too sleepy OK with 5mg only now No pain right now 08/11/2023: No major events Pain is controlled on more oxycodone Discharge plan next week 08/10/2023: Patient doing well Pain medication will be changed to 12 instead of 1 Reviewed meds and labs 08/09/2023: Blood sugars were low again this morning so we will discontinue the long-acting insulin No other concerns Discharge is planned soon 08/08/2023: Patient doing well Working with her power wheelchair today No falls Pain is controlled Oxygen maintained 08/07/2023: No major issues Monitoring sugar closely Reviewed home meds Monitoring closely 08/06/2023: Doing well MAT protocol ordered Reviewed meds and labs No falls Pain is controlled 08/05/2023: Patient doing really well Changing medication to exactly how she takes it at home Removed oxycodone as an allergy since it is just itching and we will treat with Benadryl No falls Doxycycline will complete Pain is not controlled so adding oxycodone Review of Systems General: Fatigue, Malaise Musculoskeletal: arm pain Objective Exam Vital Signs Vital Signs Date Time Temp Pulse Resp B/P (MAP) Pulse Ox O2 Delivery O2 Flow Rate FiO2 08/14/23 03:15 30.00 08/13/23 21:28 95 Nasal Cannula 08/13/23 19:33 35.9 71 16 151/69 (96) 08/12/23 21:01 30 Capillary Refill : General Appearance: No Apparent Distress, WD/WN, Chronically ill, Obese HEENT: PERRL/EOMI, Normal ENT Inspection, Pharynx Normal Neck: Full Range of Motion, Normal Inspection, Non Tender, Supple, Carotid Bruit Respiratory: Chest Non Tender, Lungs Clear, No Accessory Muscle Use, No Respiratory Distress, Decreased Breath Sounds Cardiovascular: Regular Rate, Rhythm, No Edema, No Gallop, No JVD, No Murmur, Normal Peripheral Pulses Gastrointestinal: Normal Bowel Sounds, No Organomegaly, No Pulsatile Mass, Non Tender, Soft Back: Normal Inspection, No CVA Tenderness, No Vertebral Tenderness Extremity: Normal Capillary Refill, Normal Inspection, Normal Range of Motion (except right arm), Non Tender, No Calf Tenderness, No Pedal Edema Neurologic/Psychiatric: Alert, Oriented x3, Normal Mood/Affect, occupational therapist II-XII Norm as Tested, Abnormal Gait, Motor Weakness (generalized) Skin: Normal Color, Warm/Dry Lymphatic: No Adenopathy Results/Procedures Lab Patient resulted labs reviewed. FIM Transfers Therapy Code Descriptions/Definitions Functional [place] Measure: 0=Not Assessed/NA 4=Minimal Assistance 1=Total Assistance 5=Supervision or Setup 2=Maximal Assistance 6=Modified [place] 3=Moderate Assistance 7=Complete IndependenceSCALE: Activities may be completed with or without assistive devices. 8-Jjzdbeyrlx-yrhossr completes the activity by him/herself with no assistance from a helper. 5-Set-up or Clean-up Assistance-helper sets up or cleans up; patient completes activity. [place] assists only prior to or following the activity. 4-Supervision or Touching Assistance-helper provides verbal cues and/or touching/steadying and/or contact guard assistance as patient completes activity. Assistance may be provided throughout the activity or intermittently. 3-Partial/Moderate Assistance-helper does LESS THAN HALF the effort. [place] lifts, holds or supports trunk or limbs, but provides less than half the effort. 2-Substantial/Maximal Assistance-helper does MORE THAN HALF the effort. [place] lifts or holds trunk or limbs and provides more than half the effort. 4-Vtukcuqqo-awqnlt does ALL the effort. Patient does none of the effort to c omplete the activity. Or, the assistance of 2 or more helpers is required for the patient to complete the activity. If activity was not attempted, code reason: 7-Patient Refused. 9-Not Applicable-not attempted and the patient did not perform the activity before the current illness, exacerbation or injury. 10-Not Attempted due to Environmental Limitations-(lack of equipment, weather restraints, etc.). 88-Not Attempted due to Medical Conditions or Safety Concerns. Roll Left to Right (QC): 88 Sit to Lying (QC): 3 Sit to Stand (QC): 4 Chair/Gog-uu-Czyyk Xfer(QC): 4 Car Transfer (QC): 88 Gait Training Does the Patient Walk?: Yes Distance: 5ft x 2 in the // bars Walk 10 feet (QC): 1 Walk 50 ft with 2 Turns(QC): 88 Walk 150 ft (QC): 88 Walking 10ft/uneven surface-QC: 88 Gait Persons Needed: 2 Gait Assistive Device: Walker [place] Wheelchair Training Does the Pt Use a Wheelchair?: Yes Distance: 150ft Wheel 50 ft with 2 turns (QC): 4 Wheel 150 ft (QC): 4 Type of Wheelchair: Motorized Stair Training #of Steps: 1 1 Step (curb) (QC): 1 4 Steps (QC): 9 (Ramp ) 12 Steps (QC): 9 (Ramp ) Balance Picking up an Object (QC): 88 (Weakness/endurance/pain ) ADL-Treatment Eating (QC): 6 Oral Hygiene (QC): 6 Shower/Bathe Self (QC): 2 Upper Body Dressing (QC): 2 (mod A) Lower Body Dressing (QC): 2 (max a) On/Off Footwear (QC): 1 Toileting Hygiene (QC): 2 (max a) Toilet Transfer (QC): 4 Assessment/Plan Assessment and Plan Assess & Plan/Chief Complaint Assessment: 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 JIMI COPD Debility acute on chronic DM CKD HTN HLP Chronic UTI Chronic Jj Plan: PT OT Fall risk Home meds Pain control 08/05/2023: Add oxycodone for pain control Monitor closely 08/06/2023: MAT protocol 08/07/2023: Monitor closely 08/08/2023: Supportive care Aggressive rehab 08/09/2023: Supportive care Monitor closely Sleep study at discharge 08/10/2023: Increase oxycodone to 1-2 pills instead of just 1 Continue aggressive therapy 08/11/2023: Maintain higher dose of oxycodone Monitor closely 08/12/2023: Monitor closely Decrease Oxycodone 08/13/2023: Monitor for falls Pain control with less Oxy (1) Status post reverse arthroplasty of right shoulder HO JUÁREZ DO Aug 13, 2023 15:22
[2023-08-13] MEDS: RT-Ipratropium/Albuterol NEB 3 ML VIAL INH PRN (19:03)
[2023-08-13 19:33] VITALS: BP 151/69
[2023-08-13] MEDS: CEPHALEXIN 250 MG CAPSULE PO SCH (19:48)
[2023-08-13] MEDS: ALPRAZolam 1 MG TABLET PO SCH (19:48)
[2023-08-13] MEDS: GABAPENTIN 300 MG CAPSULE PO SCH (19:49)
[2023-08-13] MEDS: MONTELUKAST 10 MG TABLET PO SCH (19:49)
[2023-08-13] MEDS: traZODone 150 MG (DESYREL) TABLET PO SCH (21:10)
[2023-08-13] MEDS: ONDANSETRON 4 MG ORAL DISSOLVE TABLET PO PRN (21:10)
--- NOTE | 2023-08-14 05:08 | PM&R Progress Note ---
Subjective HPI/CC On Admission Date Seen by Provider: Aug 14, 2023 Time Seen by Provider: 11:00 Subjective/Events-last exam 08/14/2023: No new issues Ready for DC tomorrow O2 study 2/6 liters Pain controlled 08/13/2023: No major events Less pain and taking less Oxycodone BM+ Will check labs in am 08/12/2023: No major concerns Oxycodone 10mg makes her too sleepy OK with 5mg only now No pain right now 08/11/2023: No major events Pain is controlled on more oxycodone Discharge plan next week 08/10/2023: Patient doing well Pain medication will be changed to 12 instead of 1 Reviewed meds and labs 08/09/2023: Blood sugars were low again this morning so we will discontinue the long-acting insulin No other concerns Discharge is planned soon 08/08/2023: Patient doing well Working with her power wheelchair today No falls Pain is controlled Oxygen maintained 08/07/2023: No major issues Monitoring sugar closely Reviewed home meds Monitoring closely 08/06/2023: Doing well MAT protocol ordered Reviewed meds and labs No falls Pain is controlled 08/05/2023: Patient doing really well Changing medication to exactly how she takes it at home Removed oxycodone as an allergy since it is just itching and we will treat with Benadryl No falls Doxycycline will complete Pain is not controlled so adding oxycodone Review of Systems General: Fatigue, Malaise Musculoskeletal: arm pain Objective Exam Vital Signs Vital Signs Date Time Temp Pulse Resp B/P (MAP) Pulse Ox O2 Delivery O2 Flow Rate FiO2 08/15/23 02:29 30.00 08/14/23 21:30 97 Nasal Cannula 08/14/23 19:52 36.6 60 16 119/54 (75) 08/12/23 21:01 30 Capillary Refill : General Appearance: No Apparent Distress, WD/WN, Chronically ill, Obese HEENT: PERRL/EOMI, Normal ENT Inspection, Pharynx Normal Neck: Full Range of Motion, Normal Inspection, Non Tender, Supple, Carotid Bruit Respiratory: Chest Non Tender, Lungs Clear, No Accessory Muscle Use, No Respiratory Distress, Decreased Breath Sounds Cardiovascular: Regular Rate, Rhythm, No Edema, No Gallop, No JVD, No Murmur, Normal Peripheral Pulses Gastrointestinal: Normal Bowel Sounds, No Organomegaly, No Pulsatile Mass, Non Tender, Soft Back: Normal Inspection, No CVA Tenderness, No Vertebral Tenderness Extremity: Normal Capillary Refill, Normal Inspection, Normal Range of Motion (except right arm), Non Tender, No Calf Tenderness, No Pedal Edema Neurologic/Psychiatric: Alert, Oriented x3, Normal 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 FIM Transfers Therapy Code Descriptions/Definitions Functional [place] Measure: 0=Not Assessed/NA 4=Minimal Assistance 1=Total Assistance 5=Supervision or Setup 2=Maximal Assistance 6=Modified [place] 3=Moderate Assistance 7=Complete IndependenceSCALE: Activities may be completed with or without assistive devices. 1-Dpzsdxqfkn-fuuofsj completes the activity by him/herself with no assistance from a helper. 5-Set-up or Clean-up Assistance-helper sets up or cleans up; patient completes activity. [place] assists only prior to or following the activity. 4-Supervision or Touching Assistance-helper provides verbal cues and/or touching/steadying and/or contact guard assistance as patient completes activity. Assistance may be provided throughout the activity or intermittently. 3-Partial/Moderate Assistance-helper does LESS THAN HALF the effort. [place] lifts, holds or supports trunk or limbs, but provides less than half the effort. 2-Substantial/Maximal Assistance-helper does MORE THAN HALF the effort. [place] lifts or holds trunk or limbs and provides more than half the effort. 5-Kkqgvkjzs-icyued does ALL the effort. Patient does none of the effort to complete the activity. Or, the assistance of 2 or more helpers is required for the patient to complete the activity. If activity was not attempted, code reason: 7-Patient Refused. 9-Not Applicable-not attempted and the patient did not perform the activity before the current illness, exacerbation or injury. 10-Not Attempted due to Environmental Limitations-(lack of equipment, weather restraints, etc.). 88-Not Attempted due to Medical Conditions or Safety Concerns. Roll Left to Right (QC): 88 Sit to Lying (QC): 3 Sit to Stand (QC): 4 Chair/Mtl-en-Jvdfx Xfer(QC): 4 Car Transfer (QC): 88 Gait Training Does the Patient Walk?: Yes Distance: 5ft x 2 in the // bars Walk 10 feet (QC): 1 Walk 50 ft with 2 Turns(QC): 88 Walk 150 ft (QC): 88 Walking 10ft/uneven surface-QC: 88 Gait Persons Needed: 2 Gait Assistive Device: Walker [place] Wheelchair Training Does the Pt Use a Wheelchair?: Yes Distance: 150ft Wheel 50 ft with 2 turns (QC): 4 Wheel 150 ft (QC): 4 Type of Wheelchair: Motorized Stair Training #of Steps: 1 1 Step (curb) (QC): 1 4 Steps (QC): 9 (Ramp ) 12 Steps (QC): 9 (Ramp ) Balance Picking up an Object (QC): 88 (Weakness/endurance/pain ) ADL-Treatment Eating (QC): 6 Oral Hygiene (QC): 6 Shower/Bathe Self (QC): 2 Upper Body Dressing (QC): 2 (mod A) Lower Body Dressing (QC): 2 (max a) On/Off Footwear (QC): 1 Toileting Hygiene (QC): 2 (max a) Toilet Transfer (QC): 4 Assessment/Plan Assessment and Plan Assess & Plan/Chief Complaint Assessment: 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 JIMI COPD Debility acute on chronic DM CKD HTN HLP Chronic UTI Chronic Jj Plan: PT OT Fall risk Home meds Pain control 08/05/2023: Add oxycodone for pain control Monitor closely 08/06/2023: MAT protocol 08/07/2023: Monitor closely 08/08/2023: Supportive care Aggressive rehab 08/09/2023: Supportive care Monitor closely Sleep study at discharge 08/10/2023: Increase oxycodone to 1-2 pills instead of just 1 Continue aggressive therapy 08/11/2023: Maintain higher dose of oxycodone Monitor closely 08/12/2023: Monitor closely Decrease Oxycodone 08/13/2023: Monitor for falls Pain control with less Oxy 08/14/2023: Monitor closely DC tomorrow (1) Status post reverse arthroplasty of right shoulder HO JUÁREZ DO Aug 14, 2023 05:08
[2023-08-14 05:13] LABS: BASOPHILS % (AUTO) 0 % (0-10); EOSINOPHILS # (AUTO) 0.1 10^3/uL (0.0-0.3); EOSINOPHILS % (AUTO) 2 % (0-10); HEMATOCRIT 29 % (35-52); HEMOGLOBIN 8.7 g/dL (11.5-16.0); LYMPHOCYTES # (AUTO) 1.7 10^3/uL (1.0-4.0); LYMPHOCYTES % (AUTO) 31 % (12-44); MEAN CORPUSCULAR HEMOGLOBIN 28 pg (25-34); MEAN CORPUSCULAR HGB CONC 30 g/dL (32-36); MEAN CORPUSCULAR VOLUME 93 fL (80-99); MEAN PLATELET VOLUME 10.6 fL (9.0-12.2); MONOCYTES # (AUTO) 0.5 10^3/uL (0.0-1.0); MONOCYTES % (AUTO) 9 % (0-12); NEUTROPHILS # (AUTO) 3.1 10^3/uL (1.8-7.8); NEUTROPHILS % (AUTO) 57 % (42-75); PLATELET COUNT 291 10^3/uL (130-400); WHITE BLOOD COUNT 5.6 10^3/uL (4.3-11.0)
[2023-08-14 05:20] LABS: ALBUMIN 2.7 GM/DL (3.2-4.5); BILIRUBIN,TOTAL 0.4 MG/DL (0.1-1.0); CALCIUM 8.2 MG/DL (8.5-10.1); CREATININE SERUM 2.09 MG/DL (0.60-1.30); POTASSIUM 4.5 MMOL/L (3.6-5.0); TOTAL PROTEIN 5.6 GM/DL (6.4-8.2)
[2023-08-14] MEDS: ACETAMINOPHEN 325 MG TABLET PO PRN ×3 (05:20→20:29)
[2023-08-14] MEDS: LEVOTHYROXINE 75 MCG TABLET PO SCH (05:44)
[2023-08-14] MEDS: oxyCODONE IMMEDIATE RELEASE 5 MG TABLET PO PRN ×4 (06:54→22:02)
[2023-08-14] MEDS: DOCUSATE SODIUM 100 MG CAPSULE PO SCH ×2 (07:56→21:30)
[2023-08-14] MEDS: SENNA W/DOCUSATE TABLET PO SCH ×2 (07:56→21:30)
[2023-08-14] MEDS: VITAMIN D3 125 MCG (5,000 UNITS) TABLET PO SCH (07:56)
[2023-08-14] MEDS: MAGNESIUM OXIDE 400 MG TABLET PO SCH (07:56)
[2023-08-14] MEDS: FOLIC ACID 1 MG TAB PO SCH (07:56)
[2023-08-14] MEDS: amLODIPine 10 MG TABLET PO SCH (07:56)
[2023-08-14] MEDS: CYANOCOBALAMIN 1,000 MCG TABLET PO SCH (07:57)
[2023-08-14] MEDS: FUROSEMIDE 40 MG TABLET PO SCH (07:57)
[2023-08-14] MEDS: ENOXAPARIN 40 MG/0.4 ML SYRINGE SC SCH ×2 (07:57→21:27)
[2023-08-14] MEDS: MICONAZOLE 2% POWDER 90 GM TOP SCH ×2 (07:58→21:30)
[2023-08-14] MEDS: NYSTATIN CREAM 30 GM TUBE TP SCH ×3 (07:58→21:30)
[2023-08-14] MEDS: RT-Ipratropium/Albuterol NEB 3 ML VIAL INH SCH ×2 (08:16→22:33)
[2023-08-14 08:39] VITALS: BP 136/58
--- NOTE | 2023-08-14 09:06 | Physical Therapy Daily Note ---
PT Daily Note-Current Subjective Pt is agreeable to PT. R shoulder pain = 7/10. Pain Numeric Pain Scale: 7 Location: Right Location Body Site: Shoulder Section J - Health Conditions 1. Rarely or not at all 2. Occasionally 3. Frequently 4. Almost constantly 8. Unable to answer Pain Effect on Sleep: 2 Pain Interference with Therapy: 3 Pain Interference w/Day-to-Day: 2 Mental Status Attachments: Oxygen (2L) Transfers SCALE: Activities may be completed with or without assistive devices. 5-Zpavubezxb-dqftzmt completes the activity by him/herself with no assistance from a helper. 5-Set-up or Clean-up Assistance-helper sets up or cleans up; patient completes activity. [place] assists only prior to or following the activity. 4-Supervision or Touching Assistance-helper provides verbal cues and/or touching/steadying and/or contact guard assistance as patient completes activity. Assistance may be provided throughout the activity or intermittently. 3-Partial/Moderate Assistance-helper does LESS THAN HALF the effort. [place] lifts, holds or supports trunk or limbs, but provides less than half the effort. 2-Substantial/Maximal Assistance-helper does MORE THAN HALF the effort. [place] lifts or holds trunk or limbs and provides more than half the effort. 1-Nprshplrr-ftnwgt does ALL the effort. Patient does none of the effort to complete the activity. Or, the assistance of 2 or more helpers is required for the patient to complete the activity. If activity was not attempted, code reason: 7-Patient Refused. 9-Not Applicable-not attempted and the patient did not perform the activity before the current illness, exacerbation or injury. 10-Not Attempted due to Environmental Limitations-(lack of equipment, weather restraints, etc.). 88-Not Attempted due to Medical Conditions or Safety Concerns. Roll Left & Right (QC): 4 Sit to Lying (QC): 4 Lying to Sitting/Side of Bed(Q: 4 Sit to Stand (QC): 4 Chair/Cma-bw-Hxead Xfer(QC): 4 Toilet Transfer (QC): 4 Car Transfer (QC): 9 (Pt has a w/c van ) Weight Bearing Right Lower Extremity: Right Full Weight Bearing Left Lower Extremity: Left Full Weight Bearing NWB R UE; Sling at all times; See protocol Gait Training Does the Patient Walk?: Yes Distance: 15ft Walk 10 feet (QC): 1 (CGA x 1/assist x 1 for w/c/assist x 1 for O2 tank ) Walk 50 ft with 2 Turns(QC): 88 Walk 150 ft (QC): 9 Walking 10ft/uneven surface-QC: 1 (CGA x 1/assist x 1 for w/c/assist x 1 for O2 tank ) Gait Persons Needed: 3 Gait Assistive Device: Walker [place] Wheelchair Training Does the Pt Use a Wheelchair?: Yes Wheel 50 ft with 2 turns (QC): 6 Wheel 150 ft (QC): 6 Type of Wheelchair: Motorized Stair Training #of Steps: 1 1 Step (curb) (QC): 4 4 Steps (QC): 9 12 Steps (QC): 9 Balance Picking up an Object (QC): 4 Special Test Comments KU standing balance scale = 3/5 Treatments QCs completed on this date and scored as noted above. Pt completed bed mobility tasks with SBA. Pt completed functional transfers with SBA. Pt is Mod I with w/c mobility x 350ft. Pt completed seated B LE Ther Ex x 15 reps each with the red Tband. Pt ambulated 15ft with the sherman-walker and CGA x 1 and SBA x 2 for w/c and O2 tank. After treatment session, pt was in the care of OT. All needs met. Assessment Current Status: Good Progress Pt tolerated PT well, with good effort PT Garage Worker Goals Shelter Goals PT Shelter Goals Time Frame: Aug 18, 2023 Roll Left & Right (QC): 3 (Min A for bed mobility ) Sit to Lying (QC): 3 (Min A for bed mobility ) Lying-Sitting on Side/Bed(QC): 3 (Min A for bed mobility ) Sit to Stand (QC): 4 (SBA for transfers ) Chair/Obj-av-Vnizs Xfer(QC): 4 (SBA for transfers ) Toilet Transfer (QC): 4 (SBA for transfers ) Car Transfer (QC): 4 (SBA for transfers ) Does the Patient Walk: Yes Walk 10 feet (QC): 4 (SBA for walking short distances ) Walk 50ft with 2 Turns (QC): 4 (SBA for walking short distances ) Walk 150 ft (QC): 9 (Unable at PLOF ) Walking 10ft on Uneven Surface: 4 (SBA for walking short distances ) 1 Step (curb) (QC): 4 (SBA for 1 step ) 4 Steps (QC): 9 (Unable at PLOF ) 12 Steps (QC): 9 (Unable at PLOF ) Picking up an Object (QC): 4 (SBA with social sciences department chair ) Does the Pt use WC or Scooter?: Yes Wheel 50 feet with 2 turns (QC: 6 (Mod I with scooter ) Type: Motorized Wheel 150 feet: 6 (Mod I with scooter ) Type: Motorized PT Plan Problem List Problem List: Activity Tolerance, Functional Strength, Safety, Balance, Gait, Transfer, Bed Mobility, ROM Treatment/Plan Treatment Plan: Continue Plan of Care Treatment Plan: Bed Mobility, Education, Functional Activity Robe, Functional Strength, Group Therapy, Gait, Safety, Therapeutic Exercise, Transfers Treatment Duration: Aug 18, 2023 Frequency: At least 5 of 7 days/Wk (IRF) Estimated Hrs Per Day: 1.5 hours per day Patient and/or Family Agrees t: Yes Safety Risks/Education Patient Education: Gait Training, Transfer Techniques, Steps, Reviewed Precautions, Correct Positioning, W/C Management, Safety Issues Teaching Recipient: Patient Teaching Methods: Demonstration, Discussion Response to Teaching: Verbalize Understanding, Return Demonstration, Reinforcement Needed Discharge Recommendations Therapy Discharge Recommendati: Home & Family, Post Acute PT Equpiment Recommendations-D/C: Other, Please Explain (Sherman-walker ) Discharge Status/Home Program Cont per POC Barriers to Progress NWB R UE, weakness, endurance Target Placement Home with family Time Time In: 900 Time Out: 1030 DATE: Aug 14, 2023 Total Billed Treatment Time: 90 Total Billed Treatment 90 min total from [id number]; 15 min co-tx from [id number] 1 visit GT x 1 EX x 2 FA x 3 HI [place] PT Aug 14, 2023 09:06
--- NOTE | 2023-08-14 11:17 | Occupational Ther Daily Note ---
OT Current Status-Daily Note Subjective Pt alert, working with PT. Pt agrees to therapy. Co-treat with PT [id number], skills of 2 clinicians required to decrease fall risk, increase safety awareness, increase dynamic balance during ambulation. PT focusing on ambulation, transfers and w/c mobility while OT focusing in L UE placement and assisting with positioning w/c and 02 during ambulation. Mental Status/Objective Patient Orientation: Person, Place, Time, Situation Attachments: Oxygen (2L) ADL-Treatment Pt agrees to shower. CGA for transfer into shower. Sitting on BSC 90% of the time to complete shower using grabbars, hand held shower and LH sponge. Pt able to reach all areas except buttocks and R UE to bath, assist given to dry feet, buttocks, under pannus and R UE. Pt's has been assisting pt with ADLs at prior level of function (PLOF). Pt demonstrated ability to don/doff shirt with verbal cues then requires assist to don/doff shldr brace/sling for R UE. Pt assist to thread feet into lower body clothing (PLOF), then hikes over pannus and assist for buttocks. Dependent for footwear (PLOF). Independent with oral care and eating. Therapy Code Descriptions/Definitions Functional [place] Measure: 0=Not Assessed/NA 4=Minimal Assistance 1=Total Assistance 5=Supervision or Setup 2=Maximal Assistance 6=Modified [place] 3=Moderate Assistance 7=Complete IndependenceSCALE: Activities may be completed with or without assistive devices. 8-Jgvyslnhda-bodhnds completes the activity by him/herself with no assistance from a helper. 5-Set-up or Clean-up Assistance-helper sets up or cleans up; patient completes activity. [place] assists only prior to or following the activity. 4-Supervision or Touching Assistance-helper provides verbal cues and/or touching/steadying and/or contact guard assistance as patient completes activity. Assistance may be provided throughout the activity or intermittently. 3-Partial/Moderate Assistance-helper does LESS THAN HALF the effort. [place] lifts, holds or supports trunk or limbs, but provides less than half the effort. 2-Substantial/Maximal Assistance-helper does MORE THAN HALF the effort. [place] lifts or holds trunk or limbs and provides more than half the effort. 4-Gvsvwsfma-jcedzx does ALL the effort. Patient does none of the effort to complete the activity. Or, the assistance of 2 or more helpers is required for the patient to complete the activity. If activity was not attempted, code reason: 7-Patient Refused. 9-Not Applicable-not attempted and the patient did not perform the activity before the current illness, exacerbation or injury. 10-Not Attempted due to Environmental Limitations-(lack of equipment, weather restraints, etc.). 88-Not Attempted due to Medical Conditions or Safety Concerns. Eating (QC): 6 Oral Hygiene (QC): 6 Shower/Bathe Self (QC): 3 (Min A) Upper Body Dressing (QC): 3 Lower Body Dressing (QC): 2 On/Off Footwear: 1 Toileting Hygiene (QC): 2 (Pt does have toilet tongs, requires assist for thorough cleansing and due to limitations of R UE assist to hike pants over buttocks.) Toilet Transfer (QC): 4 Other Treatment See PT note for assistance amount and how pt completed ambulation with david- walker. After therapy, pt lying in bed with call light/phone in reach. All needs met in room. OT Jail Guard Goals Custodial Goals Time Frame: Aug 25, 2023 Acute change in mental status: 1 Inattention: 2 Disorganized thinkin Altered level of consciousness: 0 Eating (QC): 5 Oral Hygiene (QC): 6 Toileting Hygiene (QC): 3 Shower/Bathe Self (QC): 3 Upper Body Dressing (QC): 3 Lower Body Dressing (QC): 3 On/Off Footwear (QC): 2 Additional Goals: 1-Demonstrate ADL Tasks, 2-Verbalize Understanding, 3- ImproveStrength/[place]obe 1=Demonstrate adherence to instructed precautions during ADL tasks. 2=Patient will verbalize/demonstrate understanding of assistive de vices/modifications for ADL. 3=Patient will improve strength/tolerance for activity to enable patient to perform ADL's. OT Education/Plan Problem List/Assessment Assessment: Decreased Activ Tolerance, Decreased UE Strength, Impaired Self- Care Skills Discharge Recommendations Plan/Recommendations: Continue POC Treatment Plan/Plan of Care Patient would benefit from OT for education, treatment and training to promote independence in ADL's, mobility, safety and/or upper extremity function for ADL's. Plan of Care: ADL Retraining, Functional Mobility, Group Exercise/Act as Ind, UE Funct Exercise/Act Treatment Duration: Aug 25, 2023 Frequency: At least 5 of 7 days/Wk (IRF) Estimated Hrs Per Day: 1.5 hours per day Agreement: Yes Rehab Potential: Good Time Start Time: 10:15 Stop Time: 11:15 DATE: Aug 14, 2023 Total Time Billed (hr/min): 60 Billed Treatment Time 1 visit-ADL 3 (45 min) FA 1 (15 min) cotreat with PT [id number], individual [id number] ALEK SRAKAR Aug 14, 2023 11:17
[2023-08-14] MEDS: TIRZEPATIDE SQ SCH (13:23)
--- NOTE | 2023-08-14 14:24 | Occupational Ther Daily Note ---
OT Current Status-Daily Note Subjective Pt sitting on BSC beside bed. Pt agrees to therapy. No c/o pain. Mental Status/Objective Patient Orientation: Person, Place, Time, Situation Attachments: Other-See Comments (sling/brace shldr R) ADL-Treatment SBA for sit to stand from BSC. SBA for SPT. SBA sitting EOB to supine. After session, pt lying in bed with call light/phone in reach. Therapy Code Descriptions/Definitions Functional [place] Measure: 0=Not Assessed/NA 4=Minimal Assistance 1=Total Assistance 5=Supervision or Setup 2=Maximal Assistance 6=Modified [place] 3=Moderate Assistance 7=Complete IndependenceSCALE: Activities may be completed with or without assistive devices. 1-Jnrmgzqsgz-ulmeqyf completes the activity by him/herself with no assistance from a helper. 5-Set-up or Clean-up Assistance-helper sets up or cleans up; patient completes activity. [place] assists only prior to or following the activity. 4-Supervision or Touching Assistance-helper provides verbal cues and/or touching/steadying and/or contact guard assistance as patient completes activity. Assistance may be provided throughout the activity or intermittently. 3-Partial/Moderate Assistance-helper does LESS THAN HALF the effort. [place] lifts, holds or supports trunk or limbs, but provides less than half the effort. 2-Substantial/Maximal Assistance-helper does MORE THAN HALF the effort. [place] lifts or holds trunk or limbs and provides more than half the effort. 8-Tdoeyktft-vfabyf does ALL the effort. Patient does none of the effort to complete the activity. Or, the assistance of 2 or more helpers is required for the patient to complete the activity. If activity was not attempted, code reason: 7-Patient Refused. 9-Not Applicable-not attempted and the patient did not perform the activity before the current illness, exacerbation or injury. 10-Not Attempted due to Environmental Limitations-(lack of equipment, weather restraints, etc.). 88-Not Attempted due to Medical Conditions or Safety Concerns. BIMS CAM BIMS Expression of Ideas and Wants: Without Difficulty Understanding Verbal Content: Understands Brief Interview/Mental Status: Yes IRF ROSARIO BIMS: IRF ROSARIO BIMS Response (Comments) Value Repitition of Three Words Three 3 Recalls Socks Yes, No Cue Required 2 Recalls Blue Yes, No Cue Required 2 Recalls Bed Yes, No Cue Required 2 Year Correct 3 Month Accurate Within 5 Days 2 Day Correct 1 Total 15 Patient Normally Able to Recal: Current Session, Location of own room, Staff Names and faces, That he/she in a hsp Should Staff Asses. Mental St.: No CAM Mental Status Change/Baseline: 0 Inattention: 0 Disorganized thinkin Altered level of consciousness: 0 OT Risk Management Intern Goals Shelter Goals Time Frame: Aug 25, 2023 Acute change in mental status: 1 Inattention: 2 Disorganized thinkin Altered level of consciousness: 0 Eating (QC): 5 (met) Oral Hygiene (QC): 6 (met) Toileting Hygiene (QC): 3 (not met) Shower/Bathe Self (QC): 3 (met) Upper Body Dressing (QC): 3 (met) Lower Body Dressing (QC): 3 (not met) On/Off Footwear (QC): 2 (not met) Additional Goals: 1-Demonstrate ADL Tasks, 2-Verbalize Understanding, 3- ImproveStrength/[place]obe 1=Demonstrate adherence to instructed precautions during ADL tasks. 2=Patient will verbalize/demonstrate understanding of assistive devices/modifications for ADL. 3=Patient will improve strength/tolerance for activity to enable patient to perform ADL's. OT Education/Plan Problem List/Assessment Assessment: Decreased Activ Tolerance, Decreased UE Strength, Impaired Funct Balance, Impaired Self-Care Skills, Restricted Funct UE ROM Discharge Recommendations Plan/Recommendations: Continue POC Treatment Plan/Plan of Care Patient would benefit from OT for education, treatment and training to promote independence in ADL's, mobility, safety and/or upper extremity function for ADL's. Plan of Care: ADL Retraining, Functional Mobility, Group Exercise/Act as Ind, UE Funct Exercise/Act Treatment Duration: Aug 25, 2023 Frequency: At least 5 of 7 days/Wk (IRF) Estimated Hrs Per Day: 1.5 hours per day Agreement: Yes Rehab Potential: Good Time Start Time: 14:00 Stop Time: 14:30 DATE: Aug 14, 2023 Total Time Billed (hr/min): 30 Billed Treatment Time 1 visit-FA 2 (30 min) ALEK SARKAR Aug 14, 2023 14:24
[2023-08-14] MEDS: ONDANSETRON 4 MG ORAL DISSOLVE TABLET PO PRN (18:15)
[2023-08-14 19:52] VITALS: BP 119/54
[2023-08-14] MEDS: CEPHALEXIN 250 MG CAPSULE PO SCH (21:27)
[2023-08-14] MEDS: MONTELUKAST 10 MG TABLET PO SCH (21:27)
[2023-08-14] MEDS: traZODone 150 MG (DESYREL) TABLET PO SCH (21:27)
[2023-08-14] MEDS: diphenhydrAMINE 25 MG TABLET PO PRN (21:27)
[2023-08-14] MEDS: GABAPENTIN 300 MG CAPSULE PO SCH (21:27)
[2023-08-14] MEDS: ALPRAZolam 1 MG TABLET PO SCH (21:27)
[2023-08-15] MEDS ORDERED: TRAM50TA3 PO (05:01)
[2023-08-15] MEDS ORDERED: CEPH250C PO (05:01)
[2023-08-15] MEDS ORDERED: IPRA3AMP31 INH (05:01)
[2023-08-15] MEDS ORDERED: NYST15CR35 TP (05:01)
[2023-08-15] MEDS ORDERED: OXC5T PO (05:01)
[2023-08-15] MEDS ORDERED: MICO90PO TOP (05:01)
[2023-08-15] MEDS ORDERED: SENN-271 PO (05:01)
[2023-08-15] MEDS ORDERED: INSU100I88 SQ (05:01)
--- NOTE | 2023-08-15 05:03 | D/C HH Face to Face Order ---
D/C Face to Face Orders Reconcile Patient Problems Problems Reviewed?: Yes Instructions for Patient [facility] Patient Instructions/FollowUp: PCP 1 week Physician to follow Patient: Amanda Discharge Diet for Home: ADA Diet Patient Problems: Right sholder replacement Patient Data-Allergies,Ht & Wt Patient Allergies: Coded Allergies: Sulfa (Sulfonamide Antibiotics) (Verified Allergy, Unknown, 12/17/21) codeine (Verified Allergy, Unknown, 12/17/21) morphine (Verified Allergy, Unknown, HIVES, 08/07/23) oxycodone (Verified Allergy, Unknown, HIVES, 08/07/23) pregabalin (Verified Allergy, Unknown, "made me crazy, disoriented", 12/17/21) sulfamethoxazole (Verified Allergy, Unknown, 12/17/21) trimethoprim (Verified Allergy, Unknown, 12/17/21) Height (Feet): 5 Height (Inches): 2.00 Weight (Pounds): 252 Weight (Ounces): 0.0 Home Health Need/Face to Face Date of Face to Face: Aug 15, 2023 Clinical Findings: Generalized weakness and fatigue, Instability, Muscle weakness, Non or partial weight bearing I have seen Pt jutk-gh-liko: Yes Discharged To: Home Diagnosis/Conditions: Right shoulder replacement Patient is Homebound due to: Muscle weakness, Non-weight bearing, Pain w/ambulation Homebound Status Due to the above stated illness, injury or surgical procedure (medical condit ion or diagnosis) and associated clinical findings, the patient is homebound because of his/her inability to leave home except with aid of a supportive device and/or person AND leaving the home requires a considerable and taxing effort or is medically contraindicated. Pt req the following assistanc: Wheelchair Home Health Nursing Orders Home Health Services Order: Nursing Services, Landscape Architecture Professor-Evaluate & Treat, Physical Therapy-Evaluate & Treat Certify Stmt I certify that this patient is under my care and that I, a nurse practitioner or a physician; a front desk assistant working with me, had a face to face encounter that - meets the physician face to face encounter requirements with this patient as dated. HO JUÁREZ DO Aug 15, 2023 05:03
--- NOTE | 2023-08-15 05:03 | Discharge Summary ---
Diagnosis/Chief Complaint Date of Admission Aug 04, 2023 at 14:45 Date of Discharge Discharge Date: Aug 15, 2023 Discharge Diagnosis Assessment: 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 JIMI COPD Debility acute on chronic DM CKD HTN HLP Chronic UTI Chronic Corado Plan: PT OT Fall risk Home meds Pain control 08/05/2023: Add oxycodone for pain control Monitor closely 08/06/2023: MAT protocol 08/07/2023: Monitor closely 08/08/2023: Supportive care Aggressive rehab 08/09/2023: Supportive care Monitor closely Sleep study at discharge 08/10/2023: Increase oxycodone to 1-2 pills instead of just 1 Continue aggressive therapy 08/11/2023: Maintain higher dose of oxycodone Monitor closely 08/12/2023: Monitor closely Decrease Oxycodone 08/13/2023: Monitor for falls Pain control with less Oxy 08/14/2023: Monitor closely DC tomorrow (1) Status post reverse arthroplasty of right shoulder Discharge Summary Discharge Physical Examination Allergies: Coded Allergies: Sulfa (Sulfonamide Antibiotics) (Verified Allergy, Unknown, 12/17/21) codeine (Verified Allergy, Unknown, 12/17/21) morphine (Verified Allergy, Unknown, HIVES, 08/07/23) oxycodone (Verified Allergy, Unknown, HIVES, 08/07/23) pregabalin (Verified Allergy, Unknown, "made me crazy, disoriented", 12/17/21) sulfamethoxazole (Verified Allergy, Unknown, 12/17/21) trimethoprim (Verified Allergy, Unknown, 12/17/21) Vitals & I&Os Vital Signs Date Time Temp Pulse Resp B/P (MAP) Pulse Ox O2 Delivery O2 Flow Rate FiO2 08/15/23 10:54 36.1 55 18 129/58 95 Nasal Cannula 2.00 08/12/23 21:01 30 General Appearance: Alert, Oriented X3, Cooperative Respiratory: Clear to Auscultation Cardiovascular: Regular Rate Psych/Mental Status: Mental Status NL Hospital Course Was the Problem List Reviewed?: Yes 67 year old female, in ARU for recovery of R reverse shoulder replacement due to glenohumeral arthritis. Patient is wheelchair-bound. She has a history of JIMI, COPD, DM, debility, CKD, and chronic UTI and corado cath. On admission, her ADLs ranged from 1-4 on the therapeutic index. She is now improved with ADLs ranging from 1-6. Some ADLs are restricted due to the patient being wheelchair-bound. During her stay, her lab values have remained stable, with Hgb 8.7 and Hct 29 at the time of discharge. Her vitals are stable with some bradycardia at 55 bpm and slight hypotension at 129/58. Patient is much improved and ready to be discharged. [facility] Labs (last 24 hrs) Laboratory Tests 08/05/23 06:05: White Blood Count 7.6, Red Blood Count 3.37L, Hemoglobin 9.4L, Hematocrit 31L, Mean Corpuscular Volume 91, Mean Corpuscular Hemoglobin 28, Mean Corpuscular Hemoglobin Concent 31L, Red Cell Distribution Width 14.5, Platelet Count 146, Mean Platelet Volume 9.9, Immature Granulocyte % (Auto) 1, Neutrophils (%) (Auto) 68, Lymphocytes (%) (Auto) 22, Monocytes (%) (Auto) 7, Eosinophils (%) (Auto) 3, Basophils (%) (Auto) 0, Neutrophils # (Auto) 5.1, Lymphocytes # (Auto) 1.7, Monocytes # (Auto) 0.5, Eosinophils # (Auto) 0.2, Basophils # (Auto) 0.0, Immature Granulocyte # (Auto) 0.1, Sodium Level 142, Potassium Level 3.3L, Chloride Level 100, Carbon Dioxide Level 32, Anion Gap 10, Blood Urea Nitrogen 24H, Creatinine 1.77H, Estimat Glomerular Filtration Rate 31, BUN/Creatinine Ratio 14, Glucose Level 72, Calcium Level 8.5, Corrected Calcium 9.6, Total Bilirubin 0.6, Aspartate Amino Transf (AST/SGOT) 17, Alanine Aminotransferase (ALT/SGPT) 6, Alkaline Phosphatase 123, Total Protein 5.4L, Albumin 2.6L 08/05/23 11:19: Glucometer 124H 08/07/23 04:59: White Blood Count 7.0, Red Blood Count 3.48L, Hemoglobin 9.7L, Hematocrit 32L, Mean Corpuscular Volume 92, Mean Corpuscular Hemoglobin 28, Mean Corpuscular Hemoglobin Concent 30L, Red Cell Distribution Width 14.1, Platelet Count 193, Mean Platelet Volume 10.2, Immature Granulocyte % (Auto) 2, Neutrophils (%) (Auto) 63, Lymphocytes (%) (Auto) 21, Monocytes (%) (Auto) 10, Eosinophils (%) (Auto) 3, Basophils (%) (Auto) 0, Neutrophils # (Auto) 4.5, Lymphocytes # (Auto) 1.5, Monocytes # (Auto) 0.7, Eosinophils # (Auto) 0.2, Basophils # (Auto) 0.0, Immature Granulocyte # (Auto) 0.1, Sodium Level 137, Potassium Level 4.0, Chloride Level 95L, Carbon Dioxide Level 32, Anion Gap 10, Blood Urea Nitrogen 33H, Creatinine 2.04H, Estimat Glomerular Filtration Rate 26, BUN/Creatinine Ratio 16, Glucose Level 129H, Calcium Level 8.5, Corrected Calcium 9.5, Total Bilirubin 0.5, Aspartate Amino Transf (AST/SGOT) 20, Alanine Aminotransferase (ALT/SGPT) < 6, Alkaline Phosphatase 110, Total Protein 5.8L, Albumin 2.7L 08/14/23 04:53: White Blood Count 5.6, Red Blood Count 3.07L, Hemoglobin 8.7L, Hematocrit 29L, Mean Corpuscular Volume 93, Mean Corpuscular Hemoglobin 28, Mean Corpuscular Hemoglobin Concent 30L, Red Cell Distribution Width 14.0, Platelet Count 291, Mean Platelet Volume 10.6, Immature Granulocyte % (Auto) 1, Neutrophils (%) (Auto) 57, Lymphocytes (%) (Auto) 31, Monocytes (%) (Auto) 9, Eosinophils (%) (Auto) 2, Basophils (%) (Auto) 0, Neutrophils # (Auto) 3.1, Lymphocytes # (Auto) 1.7, Monocytes # (Auto) 0.5, Eosinophils # (Auto) 0.1, Basophils # (Auto) 0.0, Immature Granulocyte # (Auto) 0.1, Sodium Level 135, Potassium Level 4.5, Chloride Level 93L, Carbon Dioxide Level 33H, Anion Gap 9, Blood Urea Nitrogen 37H, Creatinine 2.09H, Estimat Glomerular Filtration Rate 25, BUN/Creatinine Ratio 18, Glucose Level 118H, Calcium Level 8.2L, Corrected Calcium 9.2, Total Bilirubin 0.4, Aspartate Amino Transf (AST/SGOT) 15, Alanine Aminotransferase (ALT/SGPT) 14, Alkaline Phosphatase 135, Total Protein 5.6L, Albumin 2.7L Pending Labs Laboratory Tests 08/05/23 06:05: White Blood Count 7.6, Red Blood Count 3.37, Hemoglobin 9.4, Hematocrit 31, Mean Corpuscular Volume 91, Mean Corpuscular Hemoglobin 28, Mean Corpuscular Hemoglobin Concent 31, Red Cell Distribution Width 14.5, Platelet Count 146, Mean Platelet Volume 9.9, Immature Granulocyte % (Auto) 1, Neutrophils (%) (Auto) 68, Lymphocytes (%) (Auto) 22, Monocytes (%) (Auto) 7, Eosinophils (%) (Auto) 3, Basophils (%) (Auto) 0, Neutrophils # (Auto) 5.1, Lymphocytes # (Auto) 1.7, Monocytes # (Auto) 0.5, Eosinophils # (Auto) 0.2, Basophils # (Auto) 0.0, Immature Granulocyte # (Auto) 0.1, Sodium Level 142, Potassium Level 3.3, Chloride Level 100, Carbon Dioxide Level 32, Anion Gap 10, Blood Urea Nitrogen 24, Creatinine 1.77, Estimat Glomerular Filtration Rate 31, BUN/Creatinine Ratio 14, Glucose Level 72, Calcium Level 8.5, Corrected Calcium 9.6, Total Bilirubin 0.6, Aspartate Amino Transf (AST/SGOT) 17, Alanine Aminotransferase (ALT/SGPT) 6, Alkaline Phosphatase 123, Total Protein 5.4, Albumin 2.6 08/05/23 11:19: Glucometer 124 08/07/23 04:59: White Blood Count 7.0, Red Blood Count 3.48, Hemoglobin 9.7, Hematocrit 32, Mean Corpuscular Volume 92, Mean Corpuscular Hemoglobin 28, Mean Corpuscular Hemoglobin Concent 30, Red Cell Distribution Width 14.1, Platelet Count 193, Mean Platelet Volume 10.2, Immature Granulocyte % (Auto) 2, Neutrophils (%) (Auto) 63, Lymphocytes (%) (Auto) 21, Monocytes (%) (Auto) 10, Eosinophils (%) (Auto) 3, Basophils (%) (Auto) 0, Neutrophils # (Auto) 4.5, Lymphocytes # (Auto) 1.5, Monocytes # (Auto) 0.7, Eosinophils # (Auto) 0.2, Basophils # (Auto) 0.0, Immature Granulocyte # (Auto) 0.1, Sodium Level 137, Potassium Level 4.0, Chloride Level 95, Carbon Dioxide Level 32, Anion Gap 10, Blood Urea Nitrogen 33, Creatinine 2.04, Estimat Glomerular Filtration Rate 26, BUN/Creatinine Ratio 16, Glucose Level 129, Calcium Level 8.5, Corrected Calcium 9.5, Total Bilirubin 0.5, Aspartate Amino Transf (AST/SGOT) 20, Alanine Aminotransferase (ALT/SGPT) < 6, Alkaline Phosphatase 110, Total Protein 5.8, Albumin 2.7 08/14/23 04:53: White Blood Count 5.6, Red Blood Count 3.07, Hemoglobin 8.7, Hematocrit 29, Mean Corpuscular Volume 93, Mean Corpuscular Hemoglobin 28, Mean Corpuscular Hemoglobin Concent 30, Red Cell Distribution Width 14.0, Platelet Count 291, Mean Platelet Volume 10.6, Immature Granulocyte % (Auto) 1, Neutrophils (%) (Auto) 57, Lymphocytes (%) (Auto) 31, Monocytes (%) (Auto) 9, Eosinophils (%) (Auto) 2, Basophils (%) (Auto) 0, Neutrophils # (Auto) 3.1, Lymphocytes # (Auto) 1.7, Monocytes # (Auto) 0.5, Eosinophils # (Auto) 0.1, Basophils # (Auto) 0.0, Immature Granulocyte # (Auto) 0.1, Sodium Level 135, Potassium Level 4.5, Chloride Level 93, Carbon Dioxide Level 33, Anion Gap 9, Blood Urea Nitrogen 37, Creatinine 2.09, Estimat Glomerular Filtration Rate 25, BUN/Creatinine Ratio 18, Glucose Level 118, Calcium Level 8.2, Corrected Calcium 9.2, Total Bilirubin 0.4, Aspartate Amino Transf (AST/SGOT) 15, Alanine Aminotransferase (ALT/SGPT) 14, Alkaline Phosphatase 135, Total Protein 5.6, Albumin 2.7 Discharge Home Medications: Active Scripts Active Nystatin 100,000 Unit/Gram Cream..g. 0 Gm TP TID three times a day Lotrimin AF (Miconazole Nitrate) 2 % Powder 0 Gm TOP BID twice daily Stool Softener-Laxative Tablet (Sennosides/Docusate Sodium) 8.6 Mg-50 Mg Tablet 1 Ea PO BID Oxyir Tablet (Oxycodone HCl) 5 Mg Tab 5-10 Mg PO Q6H PRN Iprat-Albut 0.5-3(2.5) mg/3 ml (Ipratropium/Albuterol Sulfate) 0.5 Mg-3 Mg (2.5 Mg Base)/3 Ml Ampul.neb 3 Ml INH RTBID Cephalexin 250 Mg Capsule 500 Mg PO HS Tramadol HCl 50 Mg Tablet 100 Mg PO Q8H PRN Levemir Flexpen (Insulin Detemir) 100 Unit/Ml (3 Ml) Insuln.pen 8 Unit SQ W/SUPPER 7 Days Reported Alprazolam 0.5 Mg Tablet 0.5 Mg PO DAILY Ondansetron HCl 4 Mg Tablet 4 Mg PO Q6H PRN Baclofen 10 Mg Tablet 10 Mg PO DAILY PRN Allopurinol 300 Mg Tablet 150 Mg PO DAILY TAKES OF A (300MG) TABLET Magnesium Oxide 400 Mg Magnesium Tablet 400 Mg PO DAILY Furosemide 40 Mg Tablet 40 Mg PO DAILY Mounjaro (Tirzepatide) 2.5 Mg/0.5 Ml Pen.injctr 2.5 Mg SQ MONDAY Vitamin D3 (Cholecalciferol (Vitamin D3)) 125 Mcg (5000 Unit) Tablet 125 Mcg PO MON,WED,FRI Alprazolam 0.5 Mg Tablet 1 Mg PO HS TAKES 2 (0.5MG) TABLETS Neurontin (Gabapentin) 300 Mg Capsule 300 Mg PO HS Trazodone HCl 150 Mg Tablet 300 Mg PO HS TAKES 2 (150MG) TABS Clonidine TTS 1 Patch (Clonidine) 0.1 Mg/24 Hour Patch.tdwk 1 Patch TD MON Folic Acid 1 Mg Tablet 1 Mg PO DAILY Singulair (Montelukast Sodium) 10 Mg Tablet 10 Mg PO HS Euthyrox (Levothyroxine Sodium) 75 Mcg Tablet 75 Mcg PO DAILY Amlodipine Besylate 10 Mg Tablet 10 Mg PO DAILY B-12 (Cyanocobalamin (Vitamin B-12)) 1,000 Mcg Tablet 1,000 Mcg PO DAILY Instructions to patient/family Please see electronic discharge instructions given to patient. Diagnosis/Problems Diagnosis/Problems (1) Status post reverse arthroplasty of right shoulder HO JUÁREZ DO Aug 15, 2023 05:03
[2023-08-15] MEDS: oxyCODONE IMMEDIATE RELEASE 5 MG TABLET PO PRN ×2 (06:31→10:39)
[2023-08-15] MEDS: LEVOTHYROXINE 75 MCG TABLET PO SCH (06:31)
[2023-08-15] MEDS: CYANOCOBALAMIN 1,000 MCG TABLET PO SCH (08:02)
[2023-08-15] MEDS: FUROSEMIDE 40 MG TABLET PO SCH (08:02)
[2023-08-15] MEDS: FOLIC ACID 1 MG TAB PO SCH (08:02)
[2023-08-15] MEDS: amLODIPine 10 MG TABLET PO SCH (08:03)
[2023-08-15] MEDS: MAGNESIUM OXIDE 400 MG TABLET PO SCH (08:03)
[2023-08-15] MEDS: NYSTATIN CREAM 30 GM TUBE TP SCH (08:03)
[2023-08-15] MEDS: MICONAZOLE 2% POWDER 90 GM TOP SCH (08:03)
[2023-08-15] MEDS: ENOXAPARIN 40 MG/0.4 ML SYRINGE SC SCH (08:03)
[2023-08-15] MEDS: DOCUSATE SODIUM 100 MG CAPSULE PO SCH (08:13)
[2023-08-15] MEDS: SENNA W/DOCUSATE TABLET PO SCH (08:13)
[2023-08-15 08:15] VITALS: BP 129/58
[2023-08-15] MEDS: RT-Ipratropium/Albuterol NEB 3 ML VIAL INH SCH (08:34)
--- NOTE | 2023-08-15 10:49 | Progress Note ---
KALE RYAA 08/15/23 1049: Progress Note 67 year old female, in ARU for recovery of R reverse shoulder replacement due to glenohumeral arthritis. Patient is wheelchair-bound. She has a history of JIMI, COPD, DM, debility, CKD, and chronic UTI and corado cath. On admission, her ADLs ranged from 1-4 on the therapeutic index. She is now improved with ADLs ranging from 1-6. Some ADLs are restricted due to the patient being wheelchair-bound. During her stay, her lab values have remained stable, with Hgb 8.7 and Hct 29 at the time of discharge. Her vitals are stable with some bradycardia at 55 bpm and slight hypotension at 129/58. Patient is much improved and ready to be discharged. BECCA JUÁREZ DO 08/15/23 2013: Supervisory-Addendum Brief Verification & Attestation Participated in pt care: history, MDM, physical Personally performed: exam, history, MDM, supervision of care Care discussed with: Medical Student Procedures: n/a Results interpretation: Verified all documentation Verification and Attestation of Medical Student E/M Service A medical student performed and documented this service in my presence. I reviewed and verified all information documented by the medical student and made modifications to such information, when appropriate. I personally performed the physical exam and medical decision making. Becca Juárez, Aug 15, 2023,20:13 KALE RAYA Aug 15, 2023 10:49 BECCA JUÁREZ DO Aug 15, 2023 20:13
[2023-08-15 10:54] VITALS: BP 129/58
--- NOTE | 2023-08-15 14:16 | Therapy Team Discharge Summary ---
Therapy Discharge Summary Discharge Recommendations Date of Discharge Aug 15, 2023 at 12:00 Therapy D/C Recommendations: Home w/ Family Support, Physical Therapy Home Care Physical Therapy Pt is a 67 y/o female S/P R RTSA on 08/01/23; Admitted to ARU on 08/04/23. At [facility], pt was utilizing a motorized w/c in community, FWW in home prior to shoulder discomfort. She is able to use the motorized scooter within the home. She was walking ~20-30' using FWW prior to shoulder injury. She always had assistance with footwear and sometimes assistance with LBD. Upon PT eval, pt was Max A for bed mobility and Min A for functional transfers. Pt was only able to take 2-3 steps. Pt was SBA for w/c mobility. PT focused on bed mobility, functional transfers, B LE strength, endurance, standing, walking, balance/safet y, and overall Ind. Pt progressed well with PT and met most set goals. Pt was discharged from ARU to home with family and HHC on 08/15/23; D/C from PT at this time. Roll Left to Right (QC): 4 Sit to Lying (QC): 4 Lying to Sitting/Side of Bed(Q: 4 Sit to Stand (QC): 4 Chair/Rjv-lu-Adcwp Xfer(QC): 4 Toilet Transfer (QC): 4 Car Transfer (QC): 9 (Pt has a w/c van ) Does the Patient Walk: Yes Mode of Locomotion: Both Anticipated Mode of Locomotion: Both Walk 10 feet (QC): 1 (CGA x 1/assist x 1 for w/c/assist x 1 for O2 tank ) Walk 50 ft with 2 Turns(QC): 88 Walk 150 ft (QC): 9 Walking 10ft on uneven surface: 1 (CGA x 1/assist x 1 for w/c/assist x 1 for O2 tank ) Distance: 15ft Gait Assistive Device: Walker Sherman Does the Pt Use a Wheelchair: Yes Wheelchair Distance: 300ft Wheel 50 ft with 2 turns (QC): 6 Wheel 150 ft (QC): 6 Type of Wheelchair: Motorized #of Steps: 1 1 Step (curb) (QC): 1 (CGA x 1/assist x 1 for w/c/assist x 1 for O2 tank ) 4 Steps (QC): 9 12 Steps (QC): 9 Walking Assistive Device: Walker (sherman-walker ) Balance Sitting Static: Good Balance Sitting Dynamic: Fair Balance-Standing Static: Fair Picking up an Object (QC): 4 Occupational Therapy Decreased Activ Tolerance, Decreased UE Strength, Impaired Funct Balance, Impaired Self-Care Skills, Restricted Funct UE ROM Eating (QC): 6 Oral Hygiene (QC): 6 Shower/Bathe Self (QC): 3 (Min A) Upper Body Dressing (QC): 3 Lower Body Dressing (QC): 2 On/Off Footwear (QC): 1 Toileting Hygiene (QC): 2 (Pt does have toilet tongs, requires assist for thorough cleansing and due to limitations of R UE assist to hike pants over bu ttocks.) PT Half-Way Goals Skimmer Goals PT Skimmer Goals Time Frame: Aug 18, 2023 Roll Left to Right (QC): 3 (Min A for bed mobility ) Sit to Lying (QC): 3 (Min A for bed mobility ) Lying-Sitting on Side/Bed(QC): 3 (Min A for bed mobility ) Sit to Stand (QC): 4 (SBA for transfers ) Chair/Gqh-fa-Pehap Xfer(QC): 4 (SBA for transfers ) Toilet/Commode Transfer (QC): 4 (SBA for transfers ) Car Transfer (QC): 4 (SBA for transfers ) Does the Patient Walk: Yes Walk 10 feet (QC): 4 (SBA for walking short distances ) Walk 10ft-Uneven Surface(QC): 4 (SBA for walking short distances ) Walk 50ft with 2 Turns (QC): 4 (SBA for walking short distances ) Walk 150 ft (QC): 9 (Unable at PLOF ) Does the Pt use WC or Scooter?: Yes Wheel 50 feet with 2 turns (QC: 6 (Mod I with scooter ) Type: Motorized Wheel 150 feet: 6 (Mod I with scooter ) Type: Motorized 1 Step (curb) (QC): 4 (SBA for 1 step ) 4 Steps (QC): 9 (Unable at PLOF ) 12 Steps (QC): 9 (Unable at PLOF ) Picking up an Object (QC): 4 (SBA with truer pinion and wheel ) OT Skimmer Goals Skimmer Goals Time Frame: Aug 25, 2023 Acute change in mental status: 0 Inattention: 0 Disorganized thinkin Altered level of consciousness: 0 Eating (QC): 5 (met) Oral Hygiene (QC): 6 (met) Toileting Hygiene (QC): 3 (not met) Shower/Bathe Self (QC): 3 (met) Upper Body Dressing (QC): 3 (met) Lower Body Dressing (QC): 3 (not met) On/Off Footwear (QC): 2 (not met) Additional Goals: 1-Demonstrate ADL Tasks, 2-Verbalize Understanding, 3-ImproveStrength/Robe 1=Demonstrate adherence to instructed precautions during ADL tasks. 2=Patient will verbalize/demonstrate understanding of assistive devices/modifications for ADL. 3=Patient will improve strength/tolerance for activity to enable patient to perform ADL's. HI GALLEGO PT Aug 15, 2023 14:16
--- NOTE | 2023-08-15 14:16 | Therapy Team Discharge Summary ---
Therapy Discharge Summary Discharge Recommendations Date of Discharge Aug 15, 2023 at 12:00 Therapy D/C Recommendations: Occupational Therapy Home Care Physical Therapy Roll Left to Right (QC): 4 Sit to Lying (QC): 4 Lying to Sitting/Side of Bed(Q: 4 Sit to Stand (QC): 4 Chair/Ior-aw-Vbote Xfer(QC): 4 Toilet Transfer (QC): 4 Car Transfer (QC): 9 (Pt has a w/c van ) Does the Patient Walk: Yes Mode of Locomotion: Both Anticipated Mode of Locomotion: Both Walk 10 feet (QC): 1 (CGA x 1/assist x 1 for w/c/assist x 1 for O2 tank ) Walk 50 ft with 2 Turns(QC): 88 Walk 150 ft (QC): 9 Walking 10ft on uneven surface: 1 (CGA x 1/assist x 1 for w/c/assist x 1 for O2 tank ) Distance: 2-3 steps Gait Assistive Device: Walker Sherman Does the Pt Use a Wheelchair: Yes Wheelchair Distance: 150ft Wheel 50 ft with 2 turns (QC): 6 Wheel 150 ft (QC): 6 Type of Wheelchair: Motorized #of Steps: 1 1 Step (curb) (QC): 4 4 Steps (QC): 9 12 Steps (QC): 9 Walking Assistive Device: Walker (sherman-walker ) Balance Sitting Static: Good Balance Sitting Dynamic: Fair Balance-Standing Static: Poor Picking up an Object (QC): 4 Occupational Therapy Pt admitted to [facility] s/p R TSA. At [facility], pt required some assistance with self care tasks. Upon initial evaluation, pt required supervision with eating and oral care, max A UBD/LBD and showering, and total assist footwear and toileting. OT tx focused on increasing LUE strength, activity tolerance, and increasing safety and independence with ADLs and functional mobility. Pt made some progress towards goals, attaining LTGs for eating, oral care, showering and UBD. Pt discharged home with family support, d/c from OT. Decreased Activ Tolerance, Decreased UE Strength, Impaired Funct Balance, Impaired Self-Care Skills, Restricted Funct UE ROM Eating (QC): 6 Oral Hygiene (QC): 6 Shower/Bathe Self (QC): 3 (Min A) Upper Body Dressing (QC): 3 Lower Body Dressing (QC): 2 On/Off Footwear (QC): 1 Toileting Hygiene (QC): 2 (Pt does have toilet tongs, requires assist for thorough cleansing and due to limitations of R UE assist to hike pants over buttocks.) PT Fdc Goals Door Captain Goals PT Fdc Goals Time Frame: Aug 18, 2023 Roll Left to Right (QC): 3 (Min A for bed mobility ) Sit to Lying (QC): 3 (Min A for bed mobility ) Lying-Sitting on Side/Bed(QC): 3 (Min A for bed mobility ) Sit to Stand (QC): 4 (SBA for transfers ) Chair/Abr-sv-Eplco Xfer(QC): 4 (SBA for transfers ) Toilet/Commode Transfer (QC): 4 (SBA for transfers ) Car Transfer (QC): 4 (SBA for transfers ) Does the Patient Walk: Yes Walk 10 feet (QC): 4 (SBA for walking short distances ) Walk 10ft-Uneven Surface(QC): 4 (SBA for walking short distances ) Walk 50ft with 2 Turns (QC): 4 (SBA for walking short distances ) Walk 150 ft (QC): 9 (Unable at PLOF ) Does the Pt use WC or Scooter?: Yes Wheel 50 feet with 2 turns (QC: 6 (Mod I with scooter ) Type: Motorized Wheel 150 feet: 6 (Mod I with scooter ) Type: Motorized 1 Step (curb) (QC): 4 (SBA for 1 step ) 4 Steps (QC): 9 (Unable at PLOF ) 12 Steps (QC): 9 (Unable at PLOF ) Picking up an Object (QC): 4 (SBA with conference specialist ) OT Fdc Goals Fdc Goals Time Frame: Aug 25, 2023 Acute change in mental status: 0 Inattention: 0 Disorganized thinkin Altered level of consciousness: 0 Eating (QC): 5 (met) Oral Hygiene (QC): 6 (met) Toileting Hygiene (QC): 3 (not met) Shower/Bathe Self (QC): 3 (met) Upper Body Dressing (QC): 3 (met) Lower Body Dressing (QC): 3 (not met) On/Off Footwear (QC): 2 (not met) Additional Goals: 1-Demonstrate ADL Tasks, 2-Verbalize Understanding, 3- ImproveStrength/Robe 1=Demonstrate adherence to instructed precautions during ADL tasks. 2=Patient will verbalize/demonstrate understanding of assistive devices/modifications for ADL. 3=Patient will improve strength/tolerance for activity to enable patient to perform ADL's. LUIZA WONG OT Aug 15, 2023 14:16
== END 2023-08-15 12:00 | disposition home health service (06) | DRG 560 ==
PROVIDERS: ADMIT Internal Medicine; ATTEND Internal Medicine
DX: Z47.1 Aftercare following joint replacement surgery (principal); J96.10 Chronic respiratory failure, unspecified whether with hypoxia or hypercapnia; N39.0 Urinary tract infection, site not specified; Z68.42 Body mass index [BMI] 45.0-49.9, adult; Z96.611 Presence of right artificial shoulder joint; Z91.81 History of falling; J44.9 Chronic obstructive pulmonary disease, unspecified; E66.9 Obesity, unspecified; G47.33 Obstructive sleep apnea (adult) (pediatric); E78.00 Pure hypercholesterolemia, unspecified; I12.9 Hypertensive chronic kidney disease with stage 1 through stage 4 chronic kidney disease, or unspecified chronic kidney disease; E11.22 Type 2 diabetes mellitus with diabetic chronic kidney disease; E11.40 Type 2 diabetes mellitus with diabetic neuropathy, unspecified; N18.9 Chronic kidney disease, unspecified; I95.9 Hypotension, unspecified; R00.1 Bradycardia, unspecified; K21.9 Gastro-esophageal reflux disease without esophagitis; H54.3 Unqualified visual loss, both eyes; F41.9 Anxiety disorder, unspecified; F32.A Depression, unspecified; Z99.81 Dependence on supplemental oxygen; Z79.4 Long term (current) use of insulin; Z88.5 Allergy status to narcotic agent; Z88.2 Allergy status to sulfonamides; Z91.09 Other allergy status, other than to drugs and biological substances; Z79.899 Other long term (current) drug therapy; Z99.3 Dependence on wheelchair
CPT/HCPCS: 36415; 80053; 82947; 85025; 94640; 94660; 94760; 94761

== ENCOUNTER 2023-09-11 08:26 | Outpatient (CLI) | payer MEDICARE, OTHER ==
[~2023-09-11 08:26] MED LIST changes: +ALLO300T2 PO; +ASPI-1238 PO; +CALC-250 PO; +CEPH250C PO; +CIPR250T3 PO; +FURO40TA4 PO; +INSU100I88 SQ; +IPRA3AMP31 INH; +MAGN400T50 PO; +MICO90PO TOP; +MORP-68 PO; +NYST15CR35 TP; +ONDA-105 PO; +OXC5T PO; +OXYC5TAB PO; +SENN-271 PO; +TIRZ2.5P SQ; +TRAM50TA3 PO
== END 2023-09-11 08:45 ==
LOC: SLEEP 08:26
PROVIDERS: ATTEND Nurse Practitioner Family
DX: G47.30 Sleep apnea, unspecified (principal)
CPT/HCPCS: G0399